=== PATIENT | male | born 1975 | race American Indian/Alaskan Native ===

== ENCOUNTER 2017-01-19 19:57 | Emergency (ER) | payer BC ==
[2017-01-19 21:55] VITALS: BP 164/96
[2017-01-19] MEDS ORDERED: cefTRIAXone 1 GM, Lidocaine 1% 2.1 ML IM ONE ×2 (23:24)
--- NOTE | 2017-01-19 23:28 | EDM.PDOC ---
ED HPI Skin/Rash - General Chief Complaint: Skin Complaint Stated Complaint: INFECTION; [phone] Time Seen by Provider: 01/19/17 23:23 Source: Reports: Patient History Limitations: Reports: No limitations - History of Present Illness INITIAL COMMENTS - FREE TEXT/NARRATIVE: few days h/o recurrent abscess to genital. usually Tx with ABX. - Related Data Allergies Allergy/AdvReac Type Severity Reaction Status Date / Time amoxicillin [Amoxicillin] Allergy UNKNOWN Verified 01/19/17 22:03 daptomycin Allergy Rash Verified 01/19/17 22:03 Penicillins Allergy UNKNOWN Verified 01/19/17 22:03 vancomycin Allergy Rash Verified 01/19/17 22:03 Home Meds: Ambulatory Orders Medication Instructions Recorded Confirmed Lisinopril 20 mg PO DAILY 04/21/15 01/19/17 Metoprolol Succinate [Toprol XL 50 mg PO DAILY 04/21/15 01/19/17 50mg] NIFEdipine [Nifedipine ER] 30 mg PO DAILY 04/21/15 01/19/17 Meloxicam [Meloxicam] 15 mg PO DAILY 01/19/17 01/19/17 Past Medical History Cardiovascular History: Reports: Hypertension Respiratory History: Reports: None Gastrointestinal History: Reports: Pancreatitis Other Gastrointestinal History: cyst on his stomach removed Genitourinary History: Reports: None Musculoskeletal History: Reports: Arthritis Other Musculoskeletal History: knee Neurological History: Reports: None Psychiatric History: Reports: None Endocrine/Metabolic History: Reports: None Hematologic History: Reports: None Immunologic History: Reports: None Oncologic (Cancer) History: Reports: None Dermatologic History: Reports: None - Infectious Disease History Infectious Disease History: Reports: Chicken pox - Past Surgical History HEENT Surgical History: Reports: Tonsillectomy Other Musculoskeletal Surgeries/Procedures:: right ankle surgery Social & Family History - Family History Family Medical History: Unobtainable - Tobacco Use Smoking Status *Q: Current Every Day Smoker Years of Tobacco use: 23 Packs/Tins Daily: 1 Used Tobacco, but Quit: No Second Hand Smoke Exposure: Yes - Caffeine Use Caffeine Use: Reports: Soda, Tea - Alcohol Use Days Per Week of Alcohol Use: 1 Number of Drinks Per Day: 2 Total Drinks Per Week: 2 - Recreational Drug Use Recreational Drug Use: No ED ROS GENERAL - Review of Systems Review Of Systems: ROS reveals no pertinent complaints other than HPI. ED EXAM, SKIN/RASH Exam: See Below Exam Limited By: No limitations General Appearance: alert, WD/WN, no apparent distress Ears: hearing grossly normal Throat/Mouth: Normal voice, No airway compromise Head: atraumatic Neck: non-tender, full range of motion Respiratory/Chest: no respiratory distress Cardiovascular: regular rate, rhythm GI/Abdominal: soft, non tender (Male) Exam: Penile lesions Neurological: alert, oriented, normal cognition, normal gait, no motor/sensory deficits Psychiatric: normal affect, normal mood Skin: Warm, Dry Location, Skin: genital Associated features: inflammation Lymphatic: no adenopathy Course - Vital Signs Last Recorded V/S: Last Vital Signs Temp 36.9 C 01/19/17 21:54 Pulse 78 01/19/17 21:54 Resp 22 H 01/19/17 21:54 BP 164/96 H 01/19/17 21:54 Pulse Ox 95 01/19/17 21:54 Departure - Departure Time of Disposition: 23:26 Disposition: Home, Self-Care 01 Condition: good Clinical Impression: Abscess Instructions: Abscess Forms: ED Department Discharge Additional Instructions: 1) keep area clean and dry 2) try sitz bath or hot compress to area 3) follow up at clinic or recheck as needed rx given: keflex 250mg qid x 40
== END 2017-01-20 00:24 | disposition home or self-care (01) ==
LOC: DL.ED 19:57
DX: N48.21 Abscess of corpus cavernosum and penis (principal); I10 Essential (primary) hypertension; M19.90 Unspecified osteoarthritis, unspecified site; F17.210 Nicotine dependence, cigarettes, uncomplicated; Z88.0 Allergy status to penicillin; Z88.1 Allergy status to other antibiotic agents; Z98.890 Other specified postprocedural states
CPT/HCPCS: 96372; 99282; J0696

== ENCOUNTER 2019-04-08 13:01 | Emergency (ER) | payer BC ==
--- NOTE | 2019-04-08 13:38 | EDM.PDOC ---
ED HPI GENERAL MEDICAL PROBLEM - General Chief Complaint: Back Pain or Injury Stated Complaint: BACK IN OUT OF PLACE [phone] Time Seen by Provider: 04/08/19 13:25 Source of Information: Reports: Patient History Limitations: Reports: No Limitations - History of Present Illness INITIAL COMMENTS - FREE TEXT/NARRATIVE: This 44 yo male patient reports to the ED with left lower back pain. The patient reports he has had increasing symptoms over the past couple of days. The patient reports he had a cough over the weekend and has noticed increased back pain since the time. The patient reports he has taken a muscle relaxer and an NSAID, but continues to have pain. The patient reports he just got back into town from [place] after having knee injections. The patient has been seen previously for back pain, but does not think previous pain was this bad. 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) Left Lower Back Pain Score (Numeric/FACES): 10 - Related Data Allergies Allergy/AdvReac Type Severity Reaction Status Date / Time amoxicillin [Amoxicillin] Allergy Mild UNKNOWN Verified 04/08/19 13:25 Penicillins Allergy Mild UNKNOWN Verified 04/08/19 13:25 daptomycin Allergy Rash Verified 04/08/19 13:25 vancomycin Allergy Rash Verified 04/08/19 13:25 Home Meds: Home Meds Lisinopril 20 mg PO DAILY 04/21/15 [History] Metoprolol Succinate [Toprol XL 50mg] 50 mg PO DAILY 04/21/15 [History] NIFEdipine [Nifedipine ER] 30 mg PO DAILY 04/21/15 [History] Aspirin 81 mg PO DAILY 04/08/19 [History] Cyclobenzaprine [Flexeril] 7.5 mg PO TID 04/08/19 [History] Diclofenac Potassium [Zipsor] 50 mg PO DAILY 04/08/19 [History] Ibuprofen 400 mg PO Q6H 04/08/19 [History] Past Medical History HEENT History: Reports: Impaired Vision Cardiovascular History: Reports: Hypertension Respiratory History: Reports: None Gastrointestinal History: Reports: Pancreatitis Other Gastrointestinal History: cyst on his stomach removed Genitourinary History: Reports: None Musculoskeletal History: Reports: Arthritis Other Musculoskeletal History: knee Neurological History: Reports: None Psychiatric History: Reports: None Endocrine/Metabolic History: Reports: None Hematologic History: Reports: None Immunologic History: Reports: None Oncologic (Cancer) History: Reports: None Dermatologic History: Reports: None - Infectious Disease History Infectious Disease History: Reports: Chicken Pox, MRSA - Past Surgical History Head Surgeries/Procedures: Reports: None HEENT Surgical History: Reports: Tonsillectomy Other Musculoskeletal Surgeries/Procedures:: right ankle surgery Social & Family History - Family History Family Medical History: Noncontributory - Tobacco Use Smoking Status *Q: Current Every Day Smoker Years of Tobacco use: 20 Packs/Tins Daily: 0.5 - Caffeine Use Caffeine Use: Reports: Soda, Tea - Recreational Drug Use Recreational Drug Use: No ED ROS GENERAL - Review of Systems Review Of Systems: ROS reveals no pertinent complaints other than HPI. ED EXAM,LOWER BACK PAIN/INJURY - Physical Exam Exam: See Below Exam Limited By: No Limitations General Appearance: Alert, WD/WN, Moderate Distress, Obese (Morbid) Eye Exam: Bilateral Eye: EOMI, Normal Inspection, PERRL Ears: Normal External Exam, Normal Canal, Hearing Grossly Normal, Normal TMs Nose: Normal Inspection, Normal Mucosa, No Blood Throat/Mouth: Normal Inspection, Normal Lips, Normal Teeth, Normal Gums, Normal Oropharynx, Normal Voice, No Airway Compromise Head: Atraumatic, Normocephalic Neck: Normal Inspection, Supple, Non-Tender, Full Range of Motion Respiratory/Chest: No Respiratory Distress, Lungs Clear, Normal Breath Sounds, No Accessory Muscle Use, Chest Non-Tender Cardiovascular: Normal Peripheral Pulses, Regular Rate, Rhythm, No Edema, No Gallop, No JVD, No Murmur, No Rub GI/Abdominal: Normal Bowel Sounds, Soft, Non-Tender, Other (Morbid obesity) (Male) Exam: Deferred Rectal (Males) Exam: Deferred Back Exam: Paraspinal Tenderness (left lower back ) Extremities: Normal Inspection, Normal Range of Motion, Non-Tender, No Pedal Edema, Normal Capillary Refill Neurological: Alert, Normal Mood/Affect, CN II-XII Intact, Oriented x 3 Psychiatric: Normal Affect, Normal Mood Skin Exam: Warm, Dry, Intact, Normal Color, No Rash Lymphatic: No Adenopathy Course - Vital Signs Last Recorded V/S: Last Vital Signs Temp 36.3 C 04/08/19 13:15 Pulse 92 04/08/19 13:15 Resp 24 H 04/08/19 13:15 BP 162/86 H 04/08/19 13:15 Pulse Ox 95 04/08/19 13:15 - Orders/Labs/Meds Orders: Active Orders 24 hr Category Date Time Status UA W/MICROSCOPIC [URIN] Urgent Lab 04/08/19 14:26 Results Labs: Laboratory Tests 04/08/19 04/08/19 04/08/19 Range/Units 13:39 13:39 14:26 WBC 14.0 H (5.0-10.0) 10^3/uL RBC 4.81 (4.6-6.2) 10^6/uL Hgb 14.0 (14.0-18.0) g/dL Hct 44.2 (40.0-54.0) % MCV 91.9 (80-100) fL MCH 29.1 (27.0-34.0) pg MCHC 31.7 L (33.0-35.0) g/dL Plt Count 246 (150-450) 10^3/uL Neut % (Auto) 84.6 H (42.2-75.2) % Lymph % (Auto) 7.0 L (20.5-50.1) % [place] % (Auto) 5.3 (2-8) % Eos % (Auto) 2.9 (1.0-3.0) % Baso % (Auto) 0.2 (0.0-1.0) % Sodium 139 (135-145) mmol/L Potassium 3.8 (3.6-5.0) mmol/L Chloride 107 (101-111) mmol/L Carbon Dioxide 22.0 (21.0-31.0) mmol/L Anion Gap 13.8 BUN 16 (7-18) mg/dL Creatinine 0.9 (0.6-1.3) mg/dL Est Cr Clr Drug Dosing 95.89 mL/min Estimated GFR (MDRD) > 60 BUN/Creatinine Ratio 17.77 Glucose 153 H (74-105) mg/dL Calcium 8.4 (8.4-10.2) mg/dl Total Bilirubin 1.2 H (0.2-1.0) mg/dL AST 23 (10-42) IU/L ALT 23 (10-60) IU/L Alkaline Phosphatase 119 (42-121) IU/L Total Protein 7.7 (6.7-8.2) g/dl Albumin 3.7 (3.2-5.5) g/dl Globulin 4.0 Albumin/Globulin Ratio 0.93 Urine Color Yellow (YELLOW) Urine Appearance Clear (CLEAR) Urine pH 6.5 (5.0-9.0) Ur Specific [place] 1.025 (1.005-1.030) Urine Protein Trace H (NEGATIVE) Urine Glucose (UA) Negative (NEGATIVE) Urine Ketones Negative (NEGATIVE) Urine Occult Blood Negative (NEGATIVE) Urine Nitrite Negative (NEGATIVE) Urine Bilirubin Negative (NEGATIVE) Urine Urobilinogen 1.0 (0.2-1.0) mg/dL Ur Leukocyte Esterase Negative (NEGATIVE) Meds: Medications Discontinued Medications Generic Name Dose Route Start Last Admin Trade Name Freq PRN Reason Stop Dose Admin Ketorolac Tromethamine 60 mg 04/08/19 14:41 Toradol IM 04/08/19 14:42 ONETIME ONE Departure - Departure Time of Disposition: 14:44 Disposition: Home, Self-Care 01 Condition: Fair Clinical Impression: Bronchitis Low back strain Qualifiers: Encounter type: initial encounter Qualified Code(s): S39.012A - Strain of muscle, fascia and tendon of lower back, initial encounter - Discharge Information *PRESCRIPTION DRUG MONITORING PROGRAM REVIEWED*: Not Applicable *COPY OF PRESCRIPTION DRUG MONITORING REPORT IN PATIENT JUAN CARLOS: Not Applicable Instructions: Upper Respiratory Infection, Adult, Azev-hr-Tios, Muscle Strain, [id number] Forms: ED Department Discharge Care Plan Goals: The patient was advised of the examination and lab results during the visit. The patient was given an injection of Toradol while in the ED. The patient was discharged with a script for Azithromycin (500 mg) to take 1 by mouth daily for 5 days and Prednisone (20 mg) #10 to take 2 by mouth daily for 5 days. If the patient has any additional symptoms or concerns, the patient should either return to the emergency department or visit his primary care facility. - My Orders Last 24 Hours: My Active Orders 04/08/19 14:26 UA W/MICROSCOPIC [URIN] Urgent - Assessment/Plan Last 24 Hours: My Active Orders 04/08/19 14:26 UA W/MICROSCOPIC [URIN] Urgent
[2019-04-08 14:06] LABS: ANION GAP 13.8; CHLORIDE,CL 107 mmol/L (101-111); SODIUM,NA 139 mmol/L (135-145)
[2019-04-08] MEDS ORDERED: Ketorolac 30 MG/ML SDV IM ONE (14:41)
[2019-04-08 15:39] VITALS: BP 147/69
== END 2019-04-08 15:55 | disposition home or self-care (01) ==
LOC: DL.ED 13:01
DX: S39.012A Strain of muscle, fascia and tendon of lower back, initial encounter (principal); J40 Bronchitis, not specified as acute or chronic; I10 Essential (primary) hypertension; F17.210 Nicotine dependence, cigarettes, uncomplicated; Z88.1 Allergy status to other antibiotic agents; Z88.0 Allergy status to penicillin; Z79.82 Long term (current) use of aspirin; Z79.899 Other long term (current) drug therapy; Z98.890 Other specified postprocedural states; X58.XXXA Exposure to other specified factors, initial encounter
CPT/HCPCS: 36415; 80053; 81001; 85025; 96372; 99283; J1885

== ENCOUNTER 2019-07-13 11:32 | Emergency (ER) | payer BC ==
[2019-07-13] MEDS ORDERED: Ondansetron 4 MG/2 ML SDV ONE (12:04)
[2019-07-13] MEDS ORDERED: Ondansetron 4 MG/2 ML SDV IV ONE (12:09)
[2019-07-13 12:10] VITALS: PULSE 99
[2019-07-13 12:24] VITALS: BP 108/58
[2019-07-13] MEDS ORDERED: Sodium Chloride 0.9% 1,000 ML IV SCH ×2 (12:30)
[2019-07-13 12:36] LABS: ANION GAP 15.8
[2019-07-13] MEDS ORDERED: Clindamycin Phosphate 900 MG in Sodium Chloride 0.9% 100 ML IV ONE (12:42)
[2019-07-13] MEDS ORDERED: Lactated Ringers 1,000 ML IV ONE (12:43)
[2019-07-13] MEDS ORDERED: Norepinephrine 4 MG in Dextrose 5% in Water 246 ML IV SCH ×2 (13:00)
--- NOTE | 2019-07-13 13:27 | EDM.PDOC ---
Scribed by Wendi Rico 07/13/19 1316 for Acacia Keys NP ED HPI GENERAL MEDICAL PROBLEM - General Chief Complaint: Skin Complaint Stated Complaint: VERY DIZZY. MAY HAVE CELLULITIS PER PT Time Seen by Provider: 07/13/19 12:07 Source of Information: Reports: Patient, RN, RN Notes Reviewed History Limitations: Reports: No Limitations - History of Present Illness INITIAL COMMENTS - FREE TEXT/NARRATIVE: A morbid obese 44-year-old male presents with dizziness and pannus skin infection. Patient required wheelchair from vehicle to hospital. Symptoms began last night with fevers, chills and dizziness. He complains of skin tightness and pain over his abdomen that is red, hot and inflamed which includes the whole half os his abdomen and pannus. Mild nausea started today. No diarrhea. He has mild shortness of breath that began last night but oxygenating well in the ER. History of past cellulitis, hypertension, pancreatitis, blood pressure controlled with 3 hypertensive meds. Blood pressure medications taken this morning. Onset Date: 07/12/19 Duration: Getting Worse Location: Reports: Abdomen Severity: Severe Improves with: Reports: None Worsens with: Reports: None Associated Symptoms: Reports: No Other Symptoms - Related Data Allergies Allergy/AdvReac Type Severity Reaction Status Date / Time amoxicillin [Amoxicillin] Allergy Mild UNKNOWN Verified 05/15/19 23:53 Penicillins Allergy Mild UNKNOWN Verified 05/15/19 23:53 daptomycin Allergy Rash Verified 05/15/19 23:53 vancomycin Allergy Rash Verified 05/15/19 23:53 Home Meds: Home Meds Lisinopril 20 mg PO DAILY 04/21/15 [History] Metoprolol Succinate [Toprol XL 50mg] 50 mg PO DAILY 04/21/15 [History] NIFEdipine [Nifedipine ER] 30 mg PO DAILY 04/21/15 [History] Aspirin 81 mg PO DAILY 04/08/19 [History] Cyclobenzaprine [Flexeril] 7.5 mg PO TID 04/08/19 [History] Diclofenac Potassium [Zipsor] 50 mg PO DAILY 04/08/19 [History] Ibuprofen 400 mg PO Q6H 04/08/19 [History] Past Medical History HEENT History: Reports: Impaired Vision Cardiovascular History: Reports: Hypertension Respiratory History: Reports: Bronchitis, Recurrent Gastrointestinal History: Reports: Pancreatitis Other Gastrointestinal History: cyst on his stomach removed Genitourinary History: Reports: None Musculoskeletal History: Reports: Arthritis Other Musculoskeletal History: knee Neurological History: Reports: None Psychiatric History: Reports: None Endocrine/Metabolic History: Reports: None Hematologic History: Reports: None Immunologic History: Reports: None Oncologic (Cancer) History: Reports: None Dermatologic History: Reports: Cellulitis - Infectious Disease History Infectious Disease History: Reports: Chicken Pox, MRSA - Past Surgical History Head Surgeries/Procedures: Reports: None HEENT Surgical History: Reports: Tonsillectomy Other Musculoskeletal Surgeries/Procedures:: right ankle surgery Social & Family History - Family History Family Medical History: Noncontributory - Caffeine Use Caffeine Use: Reports: Soda, Tea ED ROS GENERAL - Review of Systems Review Of Systems: ROS reveals no pertinent complaints other than HPI. ED EXAM, GENERAL - Physical Exam Exam: See Below Exam Limited By: No Limitations General Appearance: Alert, Anxious, Mild Distress, Other (fatigue) Eye Exam: Bilateral Eye: Normal Inspection Ears: Normal External Exam, Normal Canal, Hearing Grossly Normal, Normal TMs Nose: Normal Inspection, Normal Mucosa, No Blood Throat/Mouth: Normal Inspection, Normal Lips, Normal Teeth, Normal Gums, Normal Oropharynx, Normal Voice, No Airway Compromise Head: Atraumatic, Normocephalic Neck: Normal Inspection, Supple, Non-Tender, Full Range of Motion Respiratory/Chest: No Respiratory Distress, Lungs Clear, Normal Breath Sounds, No Accessory Muscle Use, Chest Non-Tender, Other (sat 99%) Cardiovascular: Normal Peripheral Pulses, Regular Rate, Rhythm, No Edema, No Gallop, No JVD, No Murmur, No Rub, Tachycardia (Large) Peripheral Pulses: 4+: Radial (L), Radial (R) GI/Abdominal: Normal Bowel Sounds, Other (large soft upper abdomen. Mid and lower abdomen red/hot & inflamed. ) Extremities: Normal Inspection, Normal Range of Motion, Non-Tender, Normal Capillary Refill, No Pedal Edema Neurological: Alert, Oriented, Normal Cognition, No Motor/Sensory Deficits, Other (Not able to ambulate; due to dizziness with standing or sitting. Only can tolerate laying at 30 degrees with hypotension) Skin Exam: Rash (Mid to lower entire abdomen and pantus is red/hot/inflamed as well as hard. Mild yeast in creases of pantus and groin. ), Other Front/Back Body Diagram: 1 - Red hot cellultis of the large pantus Course - Vital Signs Last Recorded V/S: Last Vital Signs Temp 36.4 C 07/13/19 12:08 Pulse 99 07/13/19 12:08 Resp 20 07/13/19 12:08 BP 108/58 L 07/13/19 12:22 Pulse Ox 100 07/13/19 12:08 - Orders/Labs/Meds Orders: Active Orders 24 hr Category Date Time Status CULTURE BLOOD [BC] Routine Lab 07/13/19 12:01 Received CULTURE BLOOD [BC] Routine Lab 07/13/19 12:05 Received Clindamycin Phosphate [Cleocin] 900 mg Med 07/13/19 12:42 Active Sodium Chloride 0.9% [Normal Saline] 100 ml IV ONETIME Lactated Ringers [Ringers, Lactated] 1,000 ml Med 07/13/19 12:43 Active IV .BOLUS Norepinephrine [Levophed] 4 mg Med 07/13/19 13:00 Active Dextrose 5% in Water 246 ml IV TITRATE Sodium Chloride 0.9% [Normal Saline] 1,000 ml Med 07/13/19 12:30 Active IV ASDIRECTED Sodium Chloride 0.9% [Normal Saline] 1,000 ml Med 07/13/19 12:30 Active IV ASDIRECTED Medication Orders Sodium Chloride (Normal Saline) 1,000 mls @ 999 mls/hr IV ASDIRECTED VIRAL Last Admin: 07/13/19 12:25 Dose: 999 mls/hr Sodium Chloride (Normal Saline) 1,000 mls @ 999 mls/hr IV ASDIRECTED VIRAL Last Admin: 07/13/19 12:27 Dose: 999 mls/hr Clindamycin Phosphate 900 mg/ (Sodium Chloride) 106 mls @ 200 mls/hr IV ONETIME ONE Stop: 07/13/19 13:13 Last Admin: 07/13/19 12:49 Dose: 200 mls/hr Lactated Ringer's (Ringers, Lactated) 1,000 mls @ 999 mls/hr IV .BOLUS ONE Stop: 07/13/19 13:43 Last Admin: 07/13/19 12:45 Dose: 999 mls/hr Norepinephrine Bitartrate 4 mg (/ Dextrose/Water) 250 mls @ 7.5 mls/hr IV TITRATE VIRAL; Protocol Labs: Laboratory Tests 07/13/19 07/13/19 07/13/19 Range/Units 12:01 12:01 12:01 WBC 42.8 H* (5.0-10.0) 10^3/uL RBC 4.49 L (4.6-6.2) 10^6/uL Hgb 13.5 L (14.0-18.0) g/dL Hct 42.2 (40.0-54.0) % MCV 94.0 (80-100) fL MCH 30.1 (27.0-34.0) pg MCHC 32.0 L (33.0-35.0) g/dL Plt Count 219 (150-450) 10^3/uL Neut % (Auto) 95.3 H (42.2-75.2) % Lymph % (Auto) 2.2 L (20.5-50.1) % [place] % (Auto) 2.4 (2-8) % Eos % (Auto) 0.0 L (1.0-3.0) % Baso % (Auto) 0.1 (0.0-1.0) % Add Manual Diff Yes Neutrophils % (Manual) 76 H (42-75) % Band Neutrophils % 17 % Lymphocytes % (Manual) 5 L (20-50) % Monocytes % (Manual) 2 (2-8) % Metamyelocytes % 1 Sodium 137 (135-145) mmol/L Potassium 3.8 (3.6-5.0) mmol/L Chloride 106 (101-111) mmol/L Carbon Dioxide 19.0 L (21.0-31.0) mmol/L Anion Gap 15.8 BUN 28 H (7-18) mg/dL Creatinine 2.6 H D (0.6-1.3) mg/dL Est Cr Clr Drug Dosing 33.19 mL/min Estimated GFR (MDRD) 27 BUN/Creatinine Ratio 10.76 Glucose 180 H (74-105) mg/dL Lactic Acid 2.5 H (0.5-2.2) mmol/L Calcium 7.8 L (8.4-10.2) mg/dl Total Bilirubin 2.0 H (0.2-1.0) mg/dL AST 19 (10-42) IU/L ALT 25 (10-60) IU/L Alkaline Phosphatase 77 (42-121) IU/L C-Reactive Protein (0.0-1.3) mg/dL Total Protein 6.8 (6.7-8.2) g/dl Albumin 3.2 (3.2-5.5) g/dl Globulin 3.6 Albumin/Globulin Ratio 0.89 / Range/Units 12:01 WBC (5.0-10.0) 10^3/uL RBC (4.6-6.2) 10^6/uL Hgb (14.0-18.0) g/dL Hct (40.0-54.0) % MCV (80-100) fL MCH (27.0-34.0) pg MCHC (33.0-35.0) g/dL Plt Count (150-450) 10^3/uL Neut % (Auto) (42.2-75.2) % Lymph % (Auto) (20.5-50.1) % [place] % (Auto) (2-8) % Eos % (Auto) (1.0-3.0) % Baso % (Auto) (0.0-1.0) % Add Manual Diff Neutrophils % (Manual) (42-75) % Band Neutrophils % % Lymphocytes % (Manual) (20-50) % Monocytes % (Manual) (2-8) % Metamyelocytes % Sodium (135-145) mmol/L Potassium (3.6-5.0) mmol/L Chloride (101-111) mmol/L Carbon Dioxide (21.0-31.0) mmol/L Anion Gap BUN (7-18) mg/dL Creatinine (0.6-1.3) mg/dL Est Cr Clr Drug Dosing mL/min Estimated GFR (MDRD) BUN/Creatinine Ratio Glucose (74-105) mg/dL Lactic Acid (0.5-2.2) mmol/L Calcium (8.4-10.2) mg/dl Total Bilirubin (0.2-1.0) mg/dL AST (10-42) IU/L ALT (10-60) IU/L Alkaline Phosphatase (42-121) IU/L C-Reactive Protein 19.7 H (0.0-1.3) mg/dL Total Protein (6.7-8.2) g/dl Albumin (3.2-5.5) g/dl Globulin Albumin/Globulin Ratio Meds: Medications Generic Name Dose Route Start Last Admin Trade Name Freq PRN Reason Stop Dose Admin Sodium Chloride 1,000 mls @ 999 mls/hr 07/13/19 12:30 07/13/19 12:25 Normal Saline IV 999 mls/hr ASDIRECTED VIRAL Administration Sodium Chloride 1,000 mls @ 999 mls/hr 07/13/19 12:30 07/13/19 12:27 Normal Saline IV 999 mls/hr ASDIRECTED VIRAL Administration Clindamycin Phosphate 900 mg/ 106 mls @ 200 mls/hr 07/13/19 12:42 07/13/19 12 :49 Sodium Chloride IV 07/13/19 13:13 200 mls/hr ONETIME ONE Administration Lactated Ringer's 1,000 mls @ 999 mls/hr 07/13/19 12:43 07/13/19 12:45 Ringers, Lactated IV 07/13/19 13:43 999 mls/hr .BOLUS ONE Administration Norepinephrine Bitartrate 4 mg 250 mls @ 7.5 mls/hr 07/13/19 13:00 / Dextrose/Water IV TITRATE VIRAL Protocol 2 MCG/MIN Discontinued Medications Generic Name Dose Route Start Last Admin Trade Name Freq PRN Reason Stop Dose Admin Ondansetron HCl Confirm 07/13/19 12:04 07/13/19 12:12 Zofran Administered 07/13/19 12:05 Not Given Dose 4 mg .ROUTE .STK-MED ONE Ondansetron HCl 4 mg 07/13/19 12:09 07/13/19 12:12 Zofran IV 07/13/19 12:10 4 mg ONETIME ONE Administration - Re-Assessments/Exams Free Text/Narrative Re-Assessment/Exam: 07/13/19 13:17 Septic picture most likely related to cellulitis of the skin of the abdominal wall; as evidenced by red/hot skin of the entire mid and lower abdomen and pannus. Hypotensive 60-70 systolic; placed 2 IV's and running in 2 L NS and 1 L LR, then started levophed. CBC 42.8; normal platelets. - leukocytosis Cr 2.6 - renal failure Lactate 2.5 - sepsis. Hx of HTN on 3 meds for HTN and took this am. Also hx of previous cellulitis of abdominal wall. He is borderline DM per pt. BS 180. Contacted [facility] accepting and fixed wing contact right away; approval for transport and admission to the ICU. Flight crew here and assisting with stabilization. Patient continues to mentate well. Mild nausea. He is NPO Departure - Departure Time of Disposition: 13:24 Disposition: DC/Tfer to Located Within [facility] 02 Condition: Serious Clinical Impression: Sepsis associated hypotension Cellulitis Qualifiers: Site of cellulitis: other site Qualified Code(s): L03.818 - Cellulitis of other sites - Discharge Information *PRESCRIPTION DRUG MONITORING PROGRAM REVIEWED*: Not Applicable *COPY OF PRESCRIPTION DRUG MONITORING REPORT IN PATIENT JUAN CARLOS: Not Applicable Forms: ED Department Discharge, Interfacility Transfer EMTALA - My Orders Last 24 Hours: My Active Orders 07/13/19 12:01 CULTURE BLOOD [BC] Routine 07/13/19 12:05 CULTURE BLOOD [BC] Routine 07/13/19 12:30 Sodium Chloride 0.9% [Normal Saline] 1,000 ml IV ASDIRECTED Sodium Chloride 0.9% [Normal Saline] 1,000 ml IV ASDIRECTED 07/13/19 12:42 Clindamycin Phosphate [Cleocin] 900 mg Sodium Chloride 0.9% [Normal Saline] 100 ml IV ONETIME 07/13/19 12:43 Lactated Ringers [Ringers, Lactated] 1,000 ml IV .BOLUS 07/13/19 13:00 Norepinephrine [Levophed] 4 mg Dextrose 5% in Water 246 ml IV TITRATE - Assessment/Plan Last 24 Hours: My Active Orders 07/13/19 12:01 CULTURE BLOOD [BC] Routine 07/13/19 12:05 CULTURE BLOOD [BC] Routine 07/13/19 12:30 Sodium Chloride 0.9% [Normal Saline] 1,000 ml IV ASDIRECTED Sodium Chloride 0.9% [Normal Saline] 1,000 ml IV ASDIRECTED 07/13/19 12:42 Clindamycin Phosphate [Cleocin] 900 mg Sodium Chloride 0.9% [Normal Saline] 100 ml IV ONETIME 07/13/19 12:43 Lactated Ringers [Ringers, Lactated] 1,000 ml IV .BOLUS 07/13/19 13:00 Norepinephrine [Levophed] 4 mg Dextrose 5% in Water 246 ml IV TITRATE I have read and agree with the documentation that has been completed regarding this visit. By signing this record, I attest that the documentation was completed in my physical presence and is an accurate record of the encounter.
== END 2019-07-13 13:20 ==
LOC: DL.ED 11:32
DX: A41.9 Sepsis, unspecified organism (principal); L03.311 Cellulitis of abdominal wall; I95.9 Hypotension, unspecified; I10 Essential (primary) hypertension; M19.90 Unspecified osteoarthritis, unspecified site; Z88.1 Allergy status to other antibiotic agents; Z88.0 Allergy status to penicillin; Z88.8 Allergy status to other drugs, medicaments and biological substances; Z79.82 Long term (current) use of aspirin; Z79.899 Other long term (current) drug therapy
CPT/HCPCS: 36415; 80053; 83605; 85025; 86140; 87040; 96361; 96365; 96375; 99285; J3490; J7030; J7050; J7120; J2405

== ENCOUNTER 2019-07-24 10:53 | Inpatient (IN) | payer BC ==
[2019-07-24] MEDS ORDERED: Ondansetron 4 MG Tab.DIS PO PRN (12:43)
[2019-07-24] MEDS ORDERED: Acetaminophen 325 MG Tab PO PRN (12:43)
--- NOTE | 2019-07-24 14:41 | HP ---
CHIEF COMPLAINT: Abdominal wall cellulitis. HISTORY OF PRESENT ILLNESS: The patient is a 44-year-old male with past medical history of morbid obesity, hypertension, history of MSSA ankle osteomyelitis in the past, and history of abdominal wall abscess with MRSA in July 2014, and recent hospitalization for abdominal wall cellulitis and sepsis throughout the hospital and the patient was admitted to ICU and was given pressors and antibiotics and was discharged on 07/17/2019, to complete IV antibiotics twice a day here in [place] as an outpatient infusion, but the patient has been missing a few doses of the antibiotics and the patient also mentioned that he is still not feeling good and is still feeling nauseous and weak and also still has some dizziness. He denies though any fever or chills or any significant abdominal pain, although his lower abdomen is still red and tender. Because of the above, he was then admitted to [facility] for further management. PAST MEDICAL HISTORY: As in [facility]. HOME MEDICATION: 1. Aspirin. 2. Iron supplementation. 3. Nifedipine. 4. Toprol-XL. 5. Lisinopril. 6. He is also on the outpatient IV ceftaroline. ALLERGIES: Daptomycin (rhabdomyolysis and elevated LFT), amoxicillin, penicillin, and vancomycin. REVIEW OF SYSTEMS: As in [facility]. The rest of the review of systems is negative. FAMILY HISTORY: Negative. SOCIAL HISTORY: The patient is a smoker but no illicit drug use and non-alcohol drinker. Last alcoholic drink was about 3 years ago. PHYSICAL EXAMINATION: General: The patient is very pleasant. He is alert and oriented, not in any acute distress. Vital Signs: Blood pressure is 106/70, pulse of 84, temperature of 97, weight is 426 pounds. SHEENT: Normocephalic. There are pink palpebral conjunctivae. Sclerae anicteric. Neck: No JVD. No lymphadenopathy. Heart: Regular rate and rhythm. Normal S1, S2. No gallops. No rubs. Lungs: Equal bilaterally. No crackles, no wheezing. Abdomen: Morbidly obese and protuberant, and there is abdominal erythema and swelling and some reproducible pain on palpation on the lower abdominal area. Extremities: Negative for any significant pedal edema. No calf tenderness. LABORATORY DATA: Lab workup that was done in [facility] last July 23, 2019, CBC; WBC 13.73, hemoglobin is 12.2, hematocrit is 38.5, platelet is 352. Comp panel; sodium is 135, carbon dioxide is 22, glucose is 163. The rest of the panel unremarkable. Sed rate is 50. CRP is 1.9. ADMITTING DIAGNOSES: 1. Extensive abdominal wall cellulitis and panniculitis and history of abdominal wall cellulitis with methicillin-resistant Staphylococcus aureus in 2013. 2. Morbid obesity. 3. Noncompliance with the IV antibiotics. 4. Hypertension. TREATMENT PLAN: The patient is going to be admitted to Swing Bed. We will continue with his ceftaroline, and we will continue with his home medication and the rest of the management as necessary, and the patient is a full code. [facility] /[id number]
[2019-07-24] MEDS: CEFTAROLINE FOSAMIL IV SCH (21:00)
[2019-07-24] MEDS: SODIUM CHLORIDE 0.9% IV SCH (21:00)
[2019-07-25] MEDS: Acetaminophen/HYDROcodone 325-10 MG Tab PO PRN (03:17)
[2019-07-25] MEDS ORDERED: Ferrous Sulfate 325 MG Tab PO SCH (06:00)
[2019-07-25] MEDS: Aspirin 81 MG Tab.EC PO SCH (08:37)
[2019-07-25] MEDS: NIFEdipine 30 MG Tab.ER PO SCH (08:37)
[2019-07-25] MEDS: Lisinopril 20 MG Tab PO SCH (08:37)
[2019-07-25] MEDS ORDERED: Metoprolol Succinate 50 MG Tab.ER PO SCH (09:00)
[2019-07-25] MEDS ORDERED: IRON PO SCH (09:00)
[2019-07-25] MEDS ORDERED: Aspirin 81 MG Tab.Chew PO SCH (09:00)
[2019-07-25] MEDS ORDERED: NIFEdipine 30 MG Tab.ER PO SCH (09:00)
[2019-07-25] MEDS ORDERED: Lisinopril 20 MG Tab PO SCH (09:00)
[2019-07-25] MEDS: SODIUM CHLORIDE 0.9% IV SCH ×2 (09:28→21:07)
[2019-07-25] MEDS: CEFTAROLINE FOSAMIL IV SCH ×2 (09:28→21:07)
[2019-07-25] MEDS: Sodium Chloride 0.9% 10 ML Syringe FLUSH PRN ×2 (09:28→21:06)
[2019-07-25] MEDS: Ibuprofen 200 MG Tab PO PRN ×2 (15:25→22:38)
[2019-07-26] MEDS: Acetaminophen/HYDROcodone 325-10 MG Tab PO PRN ×2 (02:56→08:53)
[2019-07-26] MEDS: NIFEdipine 30 MG Tab.ER PO SCH (08:51)
[2019-07-26] MEDS: Aspirin 81 MG Tab.EC PO SCH (08:51)
[2019-07-26] MEDS: Lisinopril 20 MG Tab PO SCH (08:52)
[2019-07-26] MEDS: Ferrous Sulfate 325 MG Tab PO SCH (08:53)
[2019-07-26] MEDS: CEFTAROLINE FOSAMIL IV SCH ×2 (08:54→20:55)
[2019-07-26] MEDS: SODIUM CHLORIDE 0.9% IV SCH ×2 (08:54→20:55)
[2019-07-26 11:39] LABS: ANION GAP 12.2; CHLORIDE,CL 105 mmol/L (101-111); SODIUM,NA 140 mmol/L (135-145)
[2019-07-26] MEDS: Ibuprofen 200 MG Tab PO PRN (19:51)
[2019-07-26] MEDS: Sodium Chloride 0.9% 10 ML Syringe FLUSH PRN (20:55)
[2019-07-27] MEDS: Acetaminophen/HYDROcodone 325-10 MG Tab PO PRN (00:12)
[2019-07-27] MEDS: Ferrous Sulfate 325 MG Tab PO SCH (09:22)
[2019-07-27] MEDS: NIFEdipine 30 MG Tab.ER PO SCH (09:22)
[2019-07-27] MEDS: Aspirin 81 MG Tab.EC PO SCH (09:23)
[2019-07-27] MEDS: Sodium Chloride 0.9% 10 ML Syringe FLUSH PRN ×2 (09:23→20:25)
[2019-07-27] MEDS: Lisinopril 20 MG Tab PO SCH (09:23)
[2019-07-27] MEDS: CEFTAROLINE FOSAMIL IV SCH ×2 (09:24→20:26)
[2019-07-27] MEDS: SODIUM CHLORIDE 0.9% IV SCH ×2 (09:24→20:26)
[2019-07-27] MEDS: Ibuprofen 200 MG Tab PO PRN ×2 (14:28→20:30)
[2019-07-28] MEDS: Acetaminophen/HYDROcodone 325-10 MG Tab PO PRN ×2 (00:09→23:20)
[2019-07-28] MEDS: Ibuprofen 200 MG Tab PO PRN ×2 (07:55→19:43)
[2019-07-28] MEDS: Ferrous Sulfate 325 MG Tab PO SCH (08:50)
[2019-07-28] MEDS: NIFEdipine 30 MG Tab.ER PO SCH (08:50)
[2019-07-28] MEDS: Lisinopril 20 MG Tab PO SCH (08:51)
[2019-07-28] MEDS: Aspirin 81 MG Tab.EC PO SCH (08:51)
[2019-07-28] MEDS: Sodium Chloride 0.9% 10 ML Syringe FLUSH PRN ×2 (08:52→20:39)
[2019-07-28] MEDS: CEFTAROLINE FOSAMIL IV SCH ×2 (08:55→20:40)
[2019-07-28] MEDS: SODIUM CHLORIDE 0.9% IV SCH ×2 (08:55→20:40)
[2019-07-28] MEDS: Nystatin Topical Powder 30 GM Bottle TOP PRN (20:38)
[2019-07-29] MEDS: Acetaminophen/HYDROcodone 325-10 MG Tab PO PRN ×2 (05:38→19:58)
[2019-07-29] MEDS: NIFEdipine 30 MG Tab.ER PO SCH (09:03)
[2019-07-29] MEDS: Aspirin 81 MG Tab.EC PO SCH (09:04)
[2019-07-29] MEDS: Ferrous Sulfate 325 MG Tab PO SCH (09:04)
[2019-07-29] MEDS: SODIUM CHLORIDE 0.9% IV SCH ×2 (09:04→20:54)
[2019-07-29] MEDS: Lisinopril 20 MG Tab PO SCH (09:04)
[2019-07-29] MEDS: CEFTAROLINE FOSAMIL IV SCH ×2 (09:04→20:54)
[2019-07-29] MEDS: Ibuprofen 200 MG Tab PO PRN (11:04)
[2019-07-29] MEDS: Metoprolol Succinate 50 MG Tab.ER PO SCH (13:39)
[2019-07-29] MEDS: Sodium Chloride 0.9% 10 ML Syringe FLUSH PRN (20:53)
[2019-07-29] MEDS: Nystatin Topical Powder 30 GM Bottle TOP PRN (20:53)
[2019-07-30] MEDS: Acetaminophen/HYDROcodone 325-10 MG Tab PO PRN ×2 (03:04→22:17)
[2019-07-30] MEDS: CEFTAROLINE FOSAMIL IV SCH ×2 (09:21→20:59)
[2019-07-30] MEDS: Sodium Chloride 0.9% 10 ML Syringe FLUSH PRN ×2 (09:21→20:58)
[2019-07-30] MEDS: SODIUM CHLORIDE 0.9% IV SCH ×2 (09:21→20:59)
[2019-07-30] MEDS: NIFEdipine 30 MG Tab.ER PO SCH (09:22)
[2019-07-30] MEDS: Aspirin 81 MG Tab.EC PO SCH (09:22)
[2019-07-30] MEDS: Ferrous Sulfate 325 MG Tab PO SCH (09:23)
[2019-07-30] MEDS: Lisinopril 20 MG Tab PO SCH (09:23)
[2019-07-30] MEDS: Metoprolol Succinate 50 MG Tab.ER PO SCH (09:23)
--- NOTE | 2019-07-30 11:35 | PCM.PN ---
- General Info Date of Service: 07/30/19 Admission Dx/Problem (Free Text): Extensive abdominal wall cellulitis and panniculitis Subjective Update: Patient admitted to swing bed to complete IV Ceftaroline for extensive abdominal wall cellulitis and panniculitis. She is doing fairly well. No new complaint today. Denies fever and chills. Functional Status: Reports: Pain Controlled - Review of Systems General: Reports: No Symptoms HEENT: Reports: No Symptoms Pulmonary: Reports: No Symptoms Cardiovascular: Reports: No Symptoms Gastrointestinal: Reports: No Symptoms Genitourinary: Reports: No Symptoms Musculoskeletal: Reports: No Symptoms Skin: Reports: No Symptoms Neurological: Reports: No Symptoms Psychiatric: Reports: No Symptoms - Patient Data Vitals - Most Recent: Last Vital Signs Temp 97.7 F 07/30/19 07:51 Pulse 90 07/30/19 09:23 Resp 18 07/30/19 07:51 BP 115/56 L 07/30/19 09:23 Pulse Ox 95 07/30/19 07:51 Weight - Most Recent: 423 lb I&O - Last 24 Hours: Intake & Output 07/29/19 07/30/19 07/30/19 22:59 06:59 14:59 Intake Total 300 192 Balance 300 192 Lab Results Last 24 Hours: Laboratory Results - last 24 hr 07/30/19 07/30/19 07/30/19 Range/Units 06:20 06:20 06:20 WBC 12.9 H (5.0-10.0) 10^3/uL RBC 4.12 L (4.6-6.2) 10^6/uL Hgb 12.1 L (14.0-18.0) g/dL Hct 38.8 L (40.0-54.0) % MCV 94.2 (80-100) fL MCH 29.4 (27.0-34.0) pg MCHC 31.2 L (33.0-35.0) g/dL Plt Count 326 (150-450) 10^3/uL Neut % (Auto) 80.7 H (42.2-75.2) % Lymph % (Auto) 9.3 L (20.5-50.1) % [place] % (Auto) 7.4 (2-8) % Eos % (Auto) 2.2 (1.0-3.0) % Baso % (Auto) 0.4 (0.0-1.0) % ESR 83 H (0-15) mm/hr ALT 24 (10-60) IU/L C-Reactive Protein 6.8 H (0.0-1.3) mg/dL Med Orders - Current: Current Medications Acetaminophen (Tylenol) 650 mg PO Q4H PRN PRN Reason: Pain (Mild 1-3)/fever Hydrocodone Bitart/Acetaminophen ([place] 325-10 Mg) 1 tab PO Q4H PRN PRN Reason: Pain (moderate 4-6) Last Admin: 07/30/19 03:04 Dose: 1 tab Aspirin (Halfprin) 81 mg PO DAILY [facility] Last Admin: 07/30/19 09:22 Dose: 81 mg Ferrous Sulfate (Ferrous Sulfate) 325 mg PO 0800 [facility] Last Admin: 07/30/19 09:23 Dose: 325 mg Ceftaroline Fosamil 600 mg/ (Sodium Chloride) 100 mls @ 100 mls/hr IV Q12HR [facility] Stop: 07/31/19 09:59 Last Admin: 07/30/19 09:21 Dose: 100 mls/hr Ibuprofen (Motrin) 200 mg PO Q6H PRN PRN Reason: Pain (mild 1-3), use 2nd Last Admin: 07/29/19 11:04 Dose: 200 mg Lisinopril (Prinivil) 20 mg PO DAILY [facility] Last Admin: 07/30/19 09:23 Dose: 20 mg Metoprolol Succinate (Toprol Xl) 50 mg PO DAILY [facility] Last Admin: 07/30/19 09:23 Dose: Not Given Nifedipine (Procardia Xl) 30 mg PO DAILY [facility] Last Admin: 07/30/19 09:22 Dose: 30 mg Nystatin (Nystop) 0 gm TOP BID PRN PRN Reason: Wound Care Last Admin: 07/29/19 20:53 Dose: 1 applic Ondansetron HCl (Zofran Odt) 4 mg PO Q4H PRN PRN Reason: nausea, able to take PO Sodium Chloride (Saline Flush) 10 ml FLUSH BID PRN PRN Reason: FLUSH Last Admin: 07/30/19 09:21 Dose: 10 ml Discontinued Medications Ferrous Sulfate (Ferrous Sulfate) 325 mg PO ACBREAKFAST [facility] Last Admin: 07/25/19 05:43 Dose: 325 mg Influenza Virus Vaccine (Pharmacy To Dose - Influenza Vaccine) 0 each IM ONETIME ONE Stop: 07/24/19 14:02 Last Admin: 07/25/19 15:56 Dose: Not Given Influenza Virus Vaccine ([place] Quad 2018- (3yr Up)) 60 mcg IM .ONCE ONE Stop: 07/28/19 11:01 Last Admin: 07/28/19 12:38 Dose: 60 mcg - Exam Quality Assessment: DVT Prophylaxis General: Alert, Oriented HEENT: Pupils Equal, Pupils Reactive, EOMI, Mucous Membr. Moist/[place] Neck: Supple Lungs: Clear to Auscultation, Normal Respiratory Effort Cardiovascular: Regular Rate, Regular Rhythm GI/Abdominal Exam: Normal Bowel Sounds, Soft, Non-Tender, No Organomegaly, No Distention, No Abnormal Bruit, No Mass, Pelvis Stable (Male) Exam: No Hernia, Normal Inspection, Normal Prostate, Circumcised Back Exam: Normal Inspection, Full Range of Motion Extremities: Normal Inspection, Normal Range of Motion, Non-Tender, No Pedal Edema, Normal Capillary Refill Skin: Warm, Dry, Intact Wound/Incisions: Healing Well Neurological: No New Focal Deficit Psy/Mental Status: Alert, Normal Affect, Normal Mood - Problem List Review Problem List Initiated/Reviewed/Updated: Yes - Plan Plan:: #Abdominal wall cellulitis and panniculitis -Continue IV Ceftaroline -Due for ID review today #HTN -BP wnl -Continue current care -Monitor BP closely #Morbid obesity Weight reduction measures advised
[2019-07-30] MEDS: Ibuprofen 200 MG Tab PO PRN (12:21)
[2019-07-30] MEDS: Nystatin Topical Powder 30 GM Bottle TOP PRN (22:10)
[2019-07-31] MEDS: Acetaminophen/HYDROcodone 325-10 MG Tab PO PRN ×2 (04:57→21:05)
[2019-07-31] MEDS: Ibuprofen 200 MG Tab PO PRN ×2 (08:13→18:57)
[2019-07-31] MEDS: Ferrous Sulfate 325 MG Tab PO SCH (08:14)
[2019-07-31] MEDS: Aspirin 81 MG Tab.EC PO SCH (08:15)
[2019-07-31] MEDS: SODIUM CHLORIDE 0.9% IV SCH ×2 (08:16→21:03)
[2019-07-31] MEDS: CEFTAROLINE FOSAMIL IV SCH ×2 (08:16→21:03)
[2019-07-31] MEDS: Sodium Chloride 0.9% 10 ML Syringe FLUSH PRN ×3 (08:16→22:09)
[2019-07-31] MEDS: Lisinopril 20 MG Tab PO SCH (10:16)
[2019-07-31] MEDS: NIFEdipine 30 MG Tab.ER PO SCH (10:17)
[2019-07-31] MEDS: Metoprolol Succinate 50 MG Tab.ER PO SCH (10:18)
[2019-07-31] MEDS: Nystatin Topical Powder 30 GM Bottle TOP PRN (22:18)
[2019-08-01] MEDS: Acetaminophen/HYDROcodone 325-10 MG Tab PO PRN ×2 (07:29→21:28)
[2019-08-01] MEDS: Aspirin 81 MG Tab.EC PO SCH (08:52)
[2019-08-01] MEDS: NIFEdipine 30 MG Tab.ER PO SCH (08:52)
[2019-08-01] MEDS: Metoprolol Succinate 50 MG Tab.ER PO SCH (08:53)
[2019-08-01] MEDS: Ferrous Sulfate 325 MG Tab PO SCH (08:53)
[2019-08-01] MEDS: Lisinopril 20 MG Tab PO SCH (08:53)
[2019-08-01] MEDS: SODIUM CHLORIDE 0.9% IV SCH ×2 (09:26→21:28)
[2019-08-01] MEDS: CEFTAROLINE FOSAMIL IV SCH ×2 (09:26→21:28)
[2019-08-01] MEDS: Sodium Chloride 0.9% 10 ML Syringe FLUSH PRN ×2 (09:26→21:29)
[2019-08-01] MEDS: Ibuprofen 200 MG Tab PO PRN ×2 (12:17→21:29)
[2019-08-02] MEDS: Aspirin 81 MG Tab.EC PO SCH (09:10)
[2019-08-02] MEDS: Metoprolol Succinate 50 MG Tab.ER PO SCH (09:10)
[2019-08-02] MEDS: NIFEdipine 30 MG Tab.ER PO SCH (09:11)
[2019-08-02] MEDS: SODIUM CHLORIDE 0.9% IV SCH ×2 (09:12→20:53)
[2019-08-02] MEDS: CEFTAROLINE FOSAMIL IV SCH ×2 (09:12→20:53)
[2019-08-02] MEDS: Sodium Chloride 0.9% 10 ML Syringe FLUSH PRN ×2 (09:12→20:53)
[2019-08-02] MEDS: Lisinopril 20 MG Tab PO SCH (10:09)
[2019-08-02] MEDS: Ferrous Sulfate 325 MG Tab PO SCH (10:09)
[2019-08-02] MEDS: Acetaminophen/HYDROcodone 325-10 MG Tab PO PRN (16:48)
[2019-08-03] MEDS: Acetaminophen/HYDROcodone 325-10 MG Tab PO PRN ×2 (02:38→17:28)
[2019-08-03] MEDS: SODIUM CHLORIDE 0.9% IV SCH ×2 (09:46→21:09)
[2019-08-03] MEDS: CEFTAROLINE FOSAMIL IV SCH ×2 (09:46→21:09)
[2019-08-03] MEDS: Sodium Chloride 0.9% 10 ML Syringe FLUSH PRN (09:47)
[2019-08-03] MEDS: Aspirin 81 MG Tab.EC PO SCH (09:53)
[2019-08-03] MEDS: Ferrous Sulfate 325 MG Tab PO SCH (09:54)
[2019-08-03] MEDS: NIFEdipine 30 MG Tab.ER PO SCH (10:56)
[2019-08-03] MEDS: Metoprolol Succinate 50 MG Tab.ER PO SCH (10:56)
[2019-08-03] MEDS: Lisinopril 20 MG Tab PO SCH (10:56)
[2019-08-03] MEDS: Ibuprofen 200 MG Tab PO PRN (11:10)
--- NOTE | 2019-08-03 12:25 | PCM.PN ---
- General Info Date of Service: 08/03/19 Admission Dx/Problem (Free Text): Extensive abdominal wall cellulitis and panniculitis Subjective Update: Patient admitted to swing bed to complete IV Ceftaroline for extensive abdominal wall cellulitis and panniculitis. He is doing fairly well. His BP has been running low normal. He reports some dizziness on and off. Denies fever and chills. Functional Status: Reports: Pain Controlled - Review of Systems General: Reports: No Symptoms HEENT: Reports: No Symptoms Pulmonary: Reports: No Symptoms Cardiovascular: Reports: No Symptoms Gastrointestinal: Reports: No Symptoms Genitourinary: Reports: No Symptoms Musculoskeletal: Reports: No Symptoms Skin: Reports: No Symptoms Neurological: Reports: No Symptoms Psychiatric: Reports: No Symptoms - Patient Data Vitals - Most Recent: Last Vital Signs Temp 98.1 F 08/03/19 07:47 Pulse 84 08/03/19 10:56 Resp 20 08/03/19 07:47 BP 104/40 L 08/03/19 10:56 Pulse Ox 93 L 08/03/19 07:47 Weight - Most Recent: 423 lb I&O - Last 24 Hours: Intake & Output 08/02/19 08/03/19 08/03/19 22:59 06:59 14:59 Intake Total 600 200 Balance 600 200 Med Orders - Current: Current Medications Acetaminophen (Tylenol) 650 mg PO Q4H PRN PRN Reason: Pain (Mild 1-3)/fever Hydrocodone Bitart/Acetaminophen ([place] 325-10 Mg) 1 tab PO Q4H PRN PRN Reason: Pain (moderate 4-6) Last Admin: 08/03/19 02:38 Dose: 1 tab Aspirin (Halfprin) 81 mg PO DAILY [facility] Last Admin: 08/03/19 09:53 Dose: 81 mg Ferrous Sulfate (Ferrous Sulfate) 325 mg PO 0800 [facility] Last Admin: 08/03/19 09:54 Dose: 325 mg Ceftaroline Fosamil 600 mg/ (Sodium Chloride) 100 mls @ 100 mls/hr IV Q12HR [facility] Stop: 08/06/19 09:59 Last Admin: 08/03/19 09:46 Dose: 100 mls/hr Ibuprofen (Motrin) 200 mg PO Q6H PRN PRN Reason: Pain (mild 1-3), use 2nd Last Admin: 08/03/19 11:10 Dose: 200 mg Lisinopril (Prinivil) 20 mg PO DAILY [facility] Last Admin: 08/03/19 10:56 Dose: Not Given Metoprolol Succinate (Toprol Xl) 50 mg PO DAILY [facility] Last Admin: 08/03/19 10:56 Dose: Not Given Nifedipine (Procardia Xl) 30 mg PO DAILY [facility] Last Admin: 08/03/19 10:56 Dose: Not Given Nystatin (Nystop) 0 gm TOP BID PRN PRN Reason: Wound Care Last Admin: 07/31/19 22:18 Dose: 1 applic Ondansetron HCl (Zofran Odt) 4 mg PO Q4H PRN PRN Reason: nausea, able to take PO Last Admin: 08/01/19 21:29 Dose: 4 mg Sodium Chloride (Saline Flush) 10 ml FLUSH BID PRN PRN Reason: FLUSH Last Admin: 08/03/19 09:47 Dose: 10 ml Discontinued Medications Ferrous Sulfate (Ferrous Sulfate) 325 mg PO ACBREAKFAST [facility] Last Admin: 07/25/19 05:43 Dose: 325 mg Ceftaroline Fosamil 600 mg/ (Sodium Chloride) 100 mls @ 100 mls/hr IV Q12HR [facility] Stop: 07/31/19 09:59 Last Admin: 07/31/19 08:16 Dose: 100 mls/hr Influenza Virus Vaccine (Pharmacy To Dose - Influenza Vaccine) 0 each IM ONETIME ONE Stop: 07/24/19 14:02 Last Admin: 07/25/19 15:56 Dose: Not Given Influenza Virus Vaccine (Afluria Quad 2019-20 (3yr Up)) 60 mcg IM .ONCE ONE Stop: 07/28/19 11:01 Last Admin: 07/28/19 12:38 Dose: 60 mcg - Exam Quality Assessment: DVT Prophylaxis General: Alert, Oriented HEENT: Pupils Equal, Pupils Reactive, EOMI, Mucous Membr. Moist/[place] Neck: Supple Lungs: Clear to Auscultation, Normal Respiratory Effort Cardiovascular: Regular Rate, Regular Rhythm GI/Abdominal Exam: Normal Bowel Sounds, Soft, Non-Tender, No Organomegaly, No Distention, No Abnormal Bruit, No Mass, Pelvis Stable (Male) Exam: No Hernia, Normal Inspection, Normal Prostate, Circumcised Back Exam: Normal Inspection, Full Range of Motion Extremities: Normal Inspection, Normal Range of Motion, Non-Tender, No Pedal Edema, Normal Capillary Refill Skin: Warm, Dry, Intact Wound/Incisions: Healing Well Neurological: No New Focal Deficit Psy/Mental Status: Alert, Normal Affect, Normal Mood - Problem List Review Problem List Initiated/Reviewed/Updated: Yes - Plan Plan:: #Abdominal wall cellulitis and panniculitis -Continue IV Ceftaroline #HTN -BP running low normal -Hold all BP meds for -Monitor BP closely and resume meds as needed #Morbid obesity Weight reduction measures advised
[2019-08-03] MEDS: Nystatin Topical Powder 30 GM Bottle TOP PRN (14:46)
[2019-08-04] MEDS: Acetaminophen/HYDROcodone 325-10 MG Tab PO PRN ×3 (00:53→23:26)
[2019-08-04] MEDS: Ferrous Sulfate 325 MG Tab PO SCH (09:22)
[2019-08-04] MEDS: NIFEdipine 30 MG Tab.ER PO SCH (09:22)
[2019-08-04] MEDS: Aspirin 81 MG Tab.EC PO SCH (09:22)
[2019-08-04] MEDS: Lisinopril 20 MG Tab PO SCH (09:23)
[2019-08-04] MEDS: CEFTAROLINE FOSAMIL IV SCH ×2 (09:24→21:00)
[2019-08-04] MEDS: Metoprolol Succinate 50 MG Tab.ER PO SCH (09:24)
[2019-08-04] MEDS: SODIUM CHLORIDE 0.9% IV SCH ×2 (09:24→21:00)
[2019-08-04] MEDS: Sodium Chloride 0.9% 10 ML Syringe FLUSH PRN (09:26)
[2019-08-04] MEDS: Ibuprofen 200 MG Tab PO PRN (11:40)
[2019-08-05] MEDS: Metoprolol Succinate 50 MG Tab.ER PO SCH (08:56)
[2019-08-05] MEDS: Aspirin 81 MG Tab.EC PO SCH (08:57)
[2019-08-05] MEDS: SODIUM CHLORIDE 0.9% IV SCH ×2 (08:57→21:25)
[2019-08-05] MEDS: CEFTAROLINE FOSAMIL IV SCH ×2 (08:57→21:25)
[2019-08-05] MEDS: Lisinopril 20 MG Tab PO SCH (08:57)
[2019-08-05] MEDS: Ferrous Sulfate 325 MG Tab PO SCH (08:57)
[2019-08-05] MEDS: NIFEdipine 30 MG Tab.ER PO SCH (08:57)
[2019-08-05] MEDS: Sodium Chloride 0.9% 10 ML Syringe FLUSH PRN (08:59)
[2019-08-05] MEDS: Ibuprofen 200 MG Tab PO PRN (09:10)
[2019-08-05] MEDS: Acetaminophen/HYDROcodone 325-10 MG Tab PO PRN (17:41)
[2019-08-06] MEDS: Acetaminophen/HYDROcodone 325-10 MG Tab PO PRN ×2 (02:29→09:01)
[2019-08-06] MEDS: SODIUM CHLORIDE 0.9% IV SCH (08:59)
[2019-08-06] MEDS: CEFTAROLINE FOSAMIL IV SCH (08:59)
[2019-08-06] MEDS: Ferrous Sulfate 325 MG Tab PO SCH (09:02)
[2019-08-06] MEDS: Aspirin 81 MG Tab.EC PO SCH (09:02)
[2019-08-06] MEDS: Sodium Chloride 0.9% 10 ML Syringe FLUSH PRN (09:02)
[2019-08-06] MEDS: Lisinopril 20 MG Tab PO SCH (09:05)
[2019-08-06] MEDS: NIFEdipine 30 MG Tab.ER PO SCH (09:05)
[2019-08-06] MEDS: Metoprolol Succinate 50 MG Tab.ER PO SCH (09:07)
[2019-08-06] MEDS: Ibuprofen 200 MG Tab PO PRN (20:00)
[2019-08-06] MEDS ORDERED: SODIUM CHLORIDE 0.9% IV SCH (21:00)
[2019-08-06] MEDS ORDERED: CEFTAROLINE FOSAMIL IV SCH (21:00)
[2019-08-07] MEDS: Aspirin 81 MG Tab.EC PO SCH (10:07)
[2019-08-07] MEDS: NIFEdipine 30 MG Tab.ER PO SCH (10:10)
[2019-08-07] MEDS: Lisinopril 20 MG Tab PO SCH (10:10)
[2019-08-07] MEDS: Ferrous Sulfate 325 MG Tab PO SCH (10:10)
[2019-08-07] MEDS: Metoprolol Succinate 50 MG Tab.ER PO SCH (10:10)
[2019-08-07 10:11] VITALS: BP 134/64; PULSE 83
--- NOTE | 2019-08-07 11:45 | PCM.DCSUM1 ---
Discharge Summary - Hospital Course Free Text/Narrative:: 44-year-old male with past medical history of morbid obesity, hypertension, including osteomyelitis with MSSA who presented to swing bed from [facility] where he was admitted to ICU for abdominal wall cellulitis and sepsis. He was given process or an IV antibiotics. He was discharged on 07/17/19 to continue Ceftroline. He was seen by ID provider yesterday who recommended removing the PICC line and stopping antibiotics. However today I discussed the case with the ID provider (GUERLINE Lisa) considering his ESR and CRP are still elevated and still have slight redness of the abdominal wall although this could be chronic to him. We agreed to discharge patient on doxycycline 100 mg twice a day for 7 days and she will see him next week. Patient had no complications during has swing bed stay. He denies nausea, vomiting, chest pain , shortness breath, headache, cough, upper spirits symptoms, abdominal pain, diarrhea, urinary symptoms, lower extremity edema, unilateral weakness/numbness/ tingling, bleeding, no rash, any other symptoms or concerns. Patient also denies being depressed or having anxiety or any mental problem. However he appears to be depressed. He said his 3 months ago. I recommended to him seeing mental health provider as soon as possible after discharge. Diagnosis: Stroke: No - Discharge Data Discharge Date: 08/07/19 Discharge Disposition: Home, Self-Care 01 Condition: Good - Referral to Home Health Date of Face to Face Encounter: 08/07/19 Primary Care Physician: Rody Corbett PA-C - Patient Summary/Data Consults: Consultations 07/24/19 13:59 Consult to Physical Therapy [PT Evaluation and Treatment] [CONS] Routine 07/24/19 14:00 OT Evaluation and Treatment [CONS] Routine - Patient Instructions Diet: Heart Healthy Diet Activity: As Tolerated Showering/Bathing: May Shower Notify Provider of: Fever, Increased Pain, Swelling and Redness, Drainage, Nausea and/or Vomiting - Discharge Plan Prescriptions/Med Rec: Doxycycline [Vibramycin] 100 mg PO BID #14 cap Nystatin [Nystop] 1 applic TOP BID #1 bottle Home Medications: Home Meds Metoprolol Succinate [Toprol XL 50mg] 50 mg PO DAILY 04/21/15 [History] Aspirin [Ecotrin EC] 81 mg PO DAILY 07/24/19 [History] Ferrous Sulfate 324 mg PO DAILY 07/24/19 [History] Lisinopril [Prinivil] 20 mg PO DAILY 07/24/19 [History] NIFEdipine [Nifedipine ER] 30 mg PO DAILY 07/24/19 [History] Doxycycline [Vibramycin] 100 mg PO BID #14 cap 08/07/19 [Rx] Nystatin [Nystop] 1 applic TOP BID #1 bottle 08/07/19 [Rx] Oxygen Therapy Mode: Room Air Referrals: Rody Corbett PA-C [Primary Care Provider] - - Discharge Summary/Plan Comment DC Time >30 min.: No - General Info Date of Service: 08/07/19 Admission Dx/Problem (Free Text: Extensive abdominal wall cellulitis and panniculitis Subjective Update: Patient denies any symptoms. However he said he doesn't feel going to work before Sunday. - Patient Data Vitals - Most Recent: Last Vital Signs Temp 36.6 C 08/07/19 07:46 Pulse 83 08/07/19 10:10 Resp 18 08/07/19 07:46 BP 134/64 08/07/19 10:10 Pulse Ox 94 L 08/07/19 07:46 Weight - Most Recent: 189.148 kg I&O - Last 24 hours: Intake & Output 08/06/19 08/07/19 08/07/19 22:59 06:59 14:59 Intake Total 180 Balance 180 Med Orders - Current: Current Medications Acetaminophen (Tylenol) 650 mg PO Q4H PRN PRN Reason: Pain (Mild 1-3)/fever Hydrocodone Bitart/Acetaminophen ([place] 325-10 Mg) 1 tab PO Q4H PRN PRN Reason: Pain (moderate 4-6) Last Admin: 08/06/19 09:01 Dose: 1 tab Aspirin (Halfprin) 81 mg PO DAILY [facility] Last Admin: 08/07/19 10:07 Dose: 81 mg Ferrous Sulfate (Ferrous Sulfate) 325 mg PO 0800 [facility] Last Admin: 08/07/19 10:10 Dose: 325 mg Ibuprofen (Motrin) 200 mg PO Q6H PRN PRN Reason: Pain (mild 1-3), use 2nd Last Admin: 08/06/19 20:00 Dose: 200 mg Lisinopril (Prinivil) 20 mg PO DAILY [facility] Last Admin: 08/07/19 10:10 Dose: 20 mg Metoprolol Succinate (Toprol Xl) 50 mg PO DAILY [facility] Last Admin: 08/07/19 10:10 Dose: 50 mg Nifedipine (Procardia Xl) 30 mg PO DAILY [facility] Last Admin: 08/07/19 10:10 Dose: 30 mg Nystatin (Nystop) 0 gm TOP BID PRN PRN Reason: Wound Care Last Admin: 08/03/19 14:46 Dose: 1 applic Ondansetron HCl (Zofran Odt) 4 mg PO Q4H PRN PRN Reason: nausea, able to take PO Last Admin: 08/01/19 21:29 Dose: 4 mg Sodium Chloride (Saline Flush) 10 ml FLUSH BID PRN PRN Reason: FLUSH Last Admin: 08/06/19 09:02 Dose: 10 ml Discontinued Medications Ferrous Sulfate (Ferrous Sulfate) 325 mg PO ACBREAKFAST [facility] Last Admin: 07/25/19 05:43 Dose: 325 mg Ceftaroline Fosamil 600 mg/ (Sodium Chloride) 100 mls @ 100 mls/hr IV Q12HR [facility] Stop: 07/31/19 09:59 Last Admin: 07/31/19 08:16 Dose: 100 mls/hr Ceftaroline Fosamil 600 mg/ (Sodium Chloride) 100 mls @ 100 mls/hr IV Q12HR [facility] Stop: 08/06/19 09:59 Last Admin: 08/06/19 08:59 Dose: 100 mls/hr Ceftaroline Fosamil 600 mg/ (Sodium Chloride) 100 mls @ 100 mls/hr IV Q12HR [facility] Influenza Virus Vaccine (Pharmacy To Dose - Influenza Vaccine) 0 each IM ONETIME ONE Stop: 07/24/19 14:02 Last Admin: 07/25/19 15:56 Dose: Not Given Influenza Virus Vaccine (Afluria Quad 2019-20 (3yr Up)) 60 mcg IM .ONCE ONE Stop: 07/28/19 11:01 Last Admin: 07/28/19 12:38 Dose: 60 mcg - Exam General: Reports: Alert, Oriented, Cooperative, No Acute Distress, Other (Obese) . Denies: Mild Distress, Moderate Distress, Severe Distress, Sedated, Lethargic , Obtunded HEENT: Reports: Pupils Equal, Pupils Reactive, EOMI, Mucous Membr. Moist/[place] Neck: Reports: Supple, Trachea Midline, No JVD Lungs: Reports: Clear to Auscultation, Normal Respiratory Effort Cardiovascular: Reports: Regular Rate, Regular Rhythm GI/Abdominal Exam: Soft, Other (Difficult to assess due to body habitus. He has mild redness of the abdomen fold. I do not appreciate drainage, ulceration or blisters.). No: Distended, Guarding, Rigid, Rebound, Tender (Male) Exam: Deferred Rectal (Males) Exam: Deferred Back Exam: Reports: Normal Inspection, Full Range of Motion. Denies: CVA Tenderness (L), CVA Tenderness (R) Extremities: Normal Inspection, Normal Range of Motion, Non-Tender, No Pedal Edema, Normal Capillary Refill Skin: Denies: Ecchymosis Neurological: Reports: No New Focal Deficit, Normal Speech Psy/Mental Status: Reports: Alert, Normal Affect, Normal Mood, Depressed. Denies: Suicidal Ideation, Homicidal Ideation, Hallucinations
== END 2019-08-07 13:20 | disposition home or self-care (01) | DRG 383 ==
LOC: DL.MS 12:43
PROVIDERS: ADMIT Internal Medicine; ATTEND Family Medicine
DX: L03.311 Cellulitis of abdominal wall (principal); M79.3 Panniculitis, unspecified; E66.01 Morbid (severe) obesity due to excess calories; I10 Essential (primary) hypertension; Z91.14 Patient's other noncompliance with medication regimen; Z79.82 Long term (current) use of aspirin; Z79.899 Other long term (current) drug therapy; Z23 Encounter for immunization; Z68.44 Body mass index [BMI] 60.0-69.9, adult
CPT/HCPCS: 36415; 80048; 82565; 84460; 85025; 85651; 86140; 90686; 97110-GO; 97110-GP; 97116-GP; 97140-GP; 97162-GP; 97165-GO; A9270-GY; J0712; J7050

== ENCOUNTER 2020-02-13 10:07 | Inpatient (IN) | payer BC ==
[2020-02-13] MEDS ORDERED: Ibuprofen 600 MG Tab PO ONE (10:56)
--- NOTE | 2020-02-13 11:02 | EDM.PDOC ---
ED HPI GENERAL MEDICAL PROBLEM - General Chief Complaint: Skin Complaint Stated Complaint: INFECTION Time Seen by Provider: 02/13/20 10:35 Source of Information: Reports: Patient, Old Records, RN, RN Notes Reviewed History Limitations: Reports: Physical Impairment (obese) - History of Present Illness INITIAL COMMENTS - FREE TEXT/NARRATIVE: Patient presents to ER with complaint of redness and tenderness to the abdomen and pannus. Patient states Sunday he began having chills and a headache, and noticing some tenderness to the belly. Patient states he has had cellulitis in the past and became very ill, needing to be airlifted to [place]. States after that he was in swing bed with a PICC line receiving IV antibiotics. Patient admits to minimal shortness of breath, denies chest pain. States he has had a headache recently, has been using NyQuil for the headache. Patient does admit to fever and chills at home. Onset: Gradual Abdomen Pain Score (Numeric/FACES): 6 - Related Data Allergies Allergy/AdvReac Type Severity Reaction Status Date / Time Penicillins Allergy Mild UNKNOWN Verified 02/13/20 13:08 daptomycin Allergy Rash Verified 02/13/20 13:08 vancomycin Allergy Rash Verified 02/13/20 13:08 Home Meds: Home Meds Metoprolol Succinate [Toprol XL 50mg] 50 mg PO DAILY 04/21/15 [History] Aspirin [Ecotrin EC] 81 mg PO DAILY 07/24/19 [History] Ferrous Sulfate 324 mg PO DAILY 07/24/19 [History] NIFEdipine [Nifedipine ER] 30 mg PO DAILY 07/24/19 [History] Nystatin [Nystop] 1 applic TOP BID #1 bottle 08/07/19 [Rx] Hydrocodone/Acetaminophen [Hydrocodone-Acetamin 10-325 mg] 1 - 2 tab PO Q6H PRN 08/20/19 [History] Diclofenac Sodium 50 mg PO TID 02/13/20 [History] lisinopriL [Lisinopril] 20 mg PO DAILY 02/13/20 [History] Past Medical History HEENT History: Reports: Impaired Vision Other HEENT History: wears glasses Cardiovascular History: Reports: Hypertension Respiratory History: Reports: Bronchitis, Recurrent Gastrointestinal History: Reports: Pancreatitis Other Gastrointestinal History: cyst on his stomach removed Genitourinary History: Reports: Other (See Below) Other Genitourinary History: acute renal insufficiency Musculoskeletal History: Reports: Arthritis Other Musculoskeletal History: knee. 08/20 Bilat. cortisone injections knees and last week cortisone injection right heel. Right heel pain Neurological History: Reports: None Psychiatric History: Reports: None Endocrine/Metabolic History: Reports: None Hematologic History: Reports: Anemia Immunologic History: Reports: None Oncologic (Cancer) History: Reports: None Dermatologic History: Reports: Cellulitis Other Dermatologic History: Cellulitis Pannus - Infectious Disease History Infectious Disease History: Reports: Hepatitis B, MRSA - Past Surgical History Head Surgeries/Procedures: Reports: None HEENT Surgical History: Reports: Tonsillectomy Other Musculoskeletal Surgeries/Procedures:: right ankle surgery Social & Family History - Family History Family Medical History: Noncontributory - Tobacco Use Smoking Status *Q: Current Every Day Smoker Years of Tobacco use: 26 Packs/Tins Daily: 1 Second Hand Smoke Exposure: No - Caffeine Use Caffeine Use: Reports: Soda - Recreational Drug Use Recreational Drug Use: No ED ROS GENERAL - Review of Systems Review Of Systems: Comprehensive ROS is negative, except as noted in HPI. ED EXAM, SKIN/RASH Exam: See Below Exam Limited By: Physical Impairment General Appearance: Alert, WD/WN, No Apparent Distress, Obese Eye Exam: Bilateral Eye: EOMI, Normal Inspection Ears: Normal External Exam, Normal Canal, Hearing Grossly Normal, Normal TMs Nose: Normal Inspection, Normal Mucosa, No Blood Throat/Mouth: Normal Inspection, Normal Lips, Normal Teeth, Normal Gums, Normal Oropharynx, Normal Voice, No Airway Compromise Head: Atraumatic, Normocephalic Neck: Normal Inspection, Supple, Non-Tender, Full Range of Motion Respiratory/Chest: No Respiratory Distress, Lungs Clear, No Accessory Muscle Use , Chest Non-Tender, Decreased Breath Sounds Cardiovascular: Normal Peripheral Pulses, Regular Rate, Rhythm, No Edema, No Gallop, No JVD, No Murmur, No Rub Peripheral Pulses: 2+: Radial (L), Radial (R) GI/Abdominal: Normal Bowel Sounds, Soft, Tender (to the bottom of the pannus) (Male) Exam: Deferred Rectal (Males) Exam: Deferred Back Exam: Normal Inspection, Decreased Range of Motion Extremities: Normal Inspection, Non-Tender, No Pedal Edema, Normal Capillary Refill, Limited Range of Motion Neurological: Alert, Oriented, CN II-XII Intact, Normal Cognition, Normal Reflexes, No Motor/Sensory Deficits, Other (unable to ambulate but a few steps due to weight pain in knees) Psychiatric: Normal Affect, Normal Mood Skin: Warm, Dry, Other (pannus is erythematous, warm to touch. No drainage. ) Location, Skin: Abdomen Characteristics: Erythematous Associated features: Warmth, Tenderness, Swelling, Induration, Rough Lymphatic: No Adenopathy Course - Vital Signs Last Recorded V/S: Last Vital Signs Temp 98.8 F 02/13/20 13:03 Pulse 87 02/13/20 13:03 Resp 22 H 02/13/20 13:03 BP 109/65 02/13/20 13:03 Pulse Ox 97 02/13/20 13:03 - Orders/Labs/Meds Orders: Active Orders 24 hr Category Date Time Status CULTURE BLOOD [BC] Stat Lab 02/13/20 11:21 Received CULTURE BLOOD [BC] Stat Lab 02/13/20 11:26 Received Sodium Chloride 0.9% [Normal Saline] 1,000 ml Med 02/13/20 12:15 Active IV .BOLUS Sodium Chloride 0.9% [Saline Flush] Med 02/13/20 10:35 Active 10 ml FLUSH ASDIRECTED PRN Blood Culture x2 Reflex Set [OM.PC] Stat Oth 02/13/20 10:35 Ordered Peripheral IV Insertion Adult [OM.PC] Stat Oth 02/13/20 10:35 Ordered Medication Orders Sodium Chloride (Normal Saline) 1,000 mls @ 150 mls/hr IV .BOLUS ONE Stop: 02/13/20 18:54 Last Admin: 02/13/20 12:39 Dose: 150 mls/hr Sodium Chloride (Saline Flush) 10 ml FLUSH ASDIRECTED PRN PRN Reason: Keep Vein Open Last Admin: 02/13/20 11:14 Dose: 10 ml Labs: Laboratory Tests 02/13/20 02/13/20 02/13/20 Range/Units 11:21 11:21 11:21 WBC 15.6 H (5.0-10.0) 10^3/uL RBC 4.65 (4.6-6.2) 10^6/uL Hgb 13.4 L (14.0-18.0) g/dL Hct 41.7 (40.0-54.0) % MCV 89.7 (80-100) fL MCH 28.8 (27.0-34.0) pg MCHC 32.1 L (33.0-35.0) g/dL Plt Count 231 (150-450) 10^3/uL Neut % (Auto) 87.3 H (42.2-75.2) % Lymph % (Auto) 6.8 L (20.5-50.1) % Antelope % (Auto) 5.3 (2-8) % Eos % (Auto) 0.5 L (1.0-3.0) % Baso % (Auto) 0.1 (0.0-1.0) % Sodium 137 (136-145) mmol/L Potassium 4.0 (3.5-5.1) mmol/L Chloride 103 (98-107) mmol/L Carbon Dioxide 25 (21-32) mmol/L Anion Gap 13.0 (7-13) mEq/L BUN 24 H (7-18) mg/dL Creatinine 1.40 H (0.70-1.30) mg/dL Est Cr Clr Drug Dosing 61.64 mL/min Estimated GFR (MDRD) 55 BUN/Creatinine Ratio 17.1 (No establ ref range) Glucose 343 H (74-99) mg/dL Lactic Acid 1.0 (0.4-2.0) mmol/L Calcium 8.0 L (8.5-10.1) mg/dL Total Bilirubin 0.7 (0.2-1.0) mg/dL AST 17 (15-37) U/L ALT 36 (16-63) U/L Alkaline Phosphatase 122 H (46-116) U/L C-Reactive Protein 27.8 H (0.0-0.9) mg/dL Total Protein 7.2 (6.4-8.2) g/dL Albumin 2.9 L (3.4-5.0) g/dL Globulin 4.3 Albumin/Globulin Ratio 0.67 Meds: Medications Generic Name Dose Route Start Last Admin Trade Name Freq PRN Reason Stop Dose Admin Sodium Chloride 1,000 mls @ 150 mls/hr 02/13/20 12:15 02/13/20 12:39 Normal Saline IV 02/13/20 18:54 150 mls/hr .BOLUS ONE Administration Sodium Chloride 10 ml 04/24/20 10:35 02/13/20 11:14 Saline Flush FLUSH 10 ml ASDIRECTED PRN Administration Keep Vein Open Discontinued Medications Generic Name Dose Route Start Last Admin Trade Name Freq PRN Reason Stop Dose Admin Clindamycin Phosphate 600 mg/ 104 mls @ 200 mls/hr 02/13/20 12:15 02/13/20 12 :42 Sodium Chloride IV 02/13/20 12:46 200 mls/hr ONETIME ONE Administration Ibuprofen 600 mg 02/13/20 10:56 02/13/20 11:05 Motrin PO 02/13/20 10:57 600 mg ONETIME ONE Administration - Re-Assessments/Exams Free Text/Narrative Re-Assessment/Exam: 02/13/20 14:26 Discussed patient case with Dr. Iraheta who agreed to admit the patient acute inpatient. Departure - Departure Time of Disposition: 13:06 Disposition: Admitted As Inpatient 64 Condition: Fair Clinical Impression: Cellulitis Qualifiers: Site of cellulitis: trunk Site of cellulitis of trunk: abdominal wall Qualified Code(s): L03.311 - Cellulitis of abdominal wall - Discharge Information *PRESCRIPTION DRUG MONITORING PROGRAM REVIEWED*: No *COPY OF PRESCRIPTION DRUG MONITORING REPORT IN PATIENT JUAN CARLOS: No Sepsis Event Note - Evaluation Sepsis Screening Result: No Definite Risk - Focused Exam Vital Signs: Vital Signs Temp Pulse Resp BP Pulse Ox 02/13/20 10:14 99 F 114 H 20 122/65 97 Date Exam was Performed: 02/13/20 Time Exam was Performed: 14:26 - My Orders Last 24 Hours: My Active Orders 02/13/20 10:35 Sodium Chloride 0.9% [Saline Flush] 10 ml FLUSH ASDIRECTED PRN Blood Culture x2 Reflex Set [OM.PC] Stat Peripheral IV Insertion Adult [OM.PC] Stat 02/13/20 11:21 CULTURE BLOOD [BC] Stat 02/13/20 11:26 CULTURE BLOOD [BC] Stat 02/13/20 12:15 Sodium Chloride 0.9% [Normal Saline] 1,000 ml IV .BOLUS - Assessment/Plan Last 24 Hours: My Active Orders 02/13/20 10:35 Sodium Chloride 0.9% [Saline Flush] 10 ml FLUSH ASDIRECTED PRN Blood Culture x2 Reflex Set [OM.PC] Stat Peripheral IV Insertion Adult [OM.PC] Stat 02/13/20 11:21 CULTURE BLOOD [BC] Stat 02/13/20 11:26 CULTURE BLOOD [BC] Stat 02/13/20 12:15 Sodium Chloride 0.9% [Normal Saline] 1,000 ml IV .BOLUS
[2020-02-13] MEDS: Sodium Chloride 0.9% 10 ML Syringe FLUSH PRN (11:14)
[2020-02-13] MEDS ORDERED: Sodium Chloride 0.9% 1,000 ML IV ONE (12:15)
[2020-02-13] MEDS ORDERED: Clindamycin Phosphate 600 MG in Sodium Chloride 0.9% 100 ML IV ONE (12:15)
[2020-02-13] MEDS ORDERED: Sodium Chloride 0.9% 10 ML Syringe FLUSH PRN ×2 (14:41)
--- NOTE | 2020-02-13 14:47 | PCM.HP ---
H&P History of Present Illness - General Date of Service: 02/13/20 Admit Problem/Dx: Admission Diagnosis/Problem Admission Diagnosis/Problem Cellulitis Source of Information: Patient History Limitations: Reports: No Limitations - History of Present Illness Initial Comments - Free Text/Narative: 44 yo M with PMH of morbid obesity, HTN, smoking who presents with fever and red rash on the right flank of two days duration Patient said fever and chills started two days ago. He subsequently noticed redness, pain and swelling of the skin of the right flank. No chest pain, SOB, leg swelling or urinary symptoms. In the ED, had low grade fever, lab work showed high CRP and leucocytosis Abdomen Pain Score (Numeric/FACES): 6 - Related Data Allergies/Adverse Reactions: Allergies Allergy/AdvReac Type Severity Reaction Status Date / Time Penicillins Allergy Mild UNKNOWN Verified 02/13/20 13:08 daptomycin Allergy Rash Verified 02/13/20 13:08 vancomycin Allergy Rash Verified 02/13/20 13:08 Home Medications: Home Meds Metoprolol Succinate [Toprol XL 50mg] 50 mg PO DAILY 04/21/15 [History] Aspirin [Ecotrin EC] 81 mg PO DAILY 07/24/19 [History] Ferrous Sulfate 324 mg PO DAILY 07/24/19 [History] NIFEdipine [Nifedipine ER] 30 mg PO DAILY 07/24/19 [History] Nystatin [Nystop] 1 applic TOP BID #1 bottle 08/07/19 [Rx] Hydrocodone/Acetaminophen [Hydrocodone-Acetamin 10-325 mg] 1 - 2 tab PO Q6H PRN 08/20/19 [History] Diclofenac Sodium 50 mg PO TID 02/13/20 [History] lisinopriL [Lisinopril] 20 mg PO DAILY 02/13/20 [History] Past Medical History HEENT History: Reports: Impaired Vision Other HEENT History: wears glasses Cardiovascular History: Reports: Hypertension Respiratory History: Reports: Bronchitis, Recurrent Gastrointestinal History: Reports: Pancreatitis Other Gastrointestinal History: cyst on his stomach removed Genitourinary History: Reports: Other (See Below) Other Genitourinary History: acute renal insufficiency Musculoskeletal History: Reports: Arthritis Other Musculoskeletal History: knee. 08/20 Bilat. cortisone injections knees and last week cortisone injection right heel. Right heel pain Neurological History: Reports: None Psychiatric History: Reports: None Endocrine/Metabolic History: Reports: None Hematologic History: Reports: Anemia Immunologic History: Reports: None Oncologic (Cancer) History: Reports: None Dermatologic History: Reports: Cellulitis Other Dermatologic History: Cellulitis Pannus - Infectious Disease History Infectious Disease History: Reports: Hepatitis B, MRSA - Past Surgical History Head Surgeries/Procedures: Reports: None HEENT Surgical History: Reports: Tonsillectomy Other Musculoskeletal Surgeries/Procedures:: right ankle surgery Social & Family History - Family History Family Medical History: Noncontributory - Tobacco Use Smoking Status *Q: Current Every Day Smoker Years of Tobacco use: 26 Packs/Tins Daily: 1 Second Hand Smoke Exposure: No - Caffeine Use Caffeine Use: Reports: Soda - Recreational Drug Use Recreational Drug Use: No H&P Review of Systems - Review of Systems: Review Of Systems: See Below General: Reports: Fever HEENT: Reports: No Symptoms Pulmonary: Reports: No Symptoms Cardiovascular: Reports: No Symptoms Gastrointestinal: Reports: No Symptoms Genitourinary: Reports: No Symptoms Musculoskeletal: Reports: No Symptoms Skin: Reports: Rash Psychiatric: Reports: No Symptoms Neurological: Reports: No Symptoms Exam - Exam Exam: See Below - Vital Signs Vital Signs: Last Vital Signs Temp 37.1 C 02/13/20 13:03 Pulse 87 02/13/20 13:03 Resp 22 H 02/13/20 13:03 BP 109/65 02/13/20 13:03 Pulse Ox 97 02/13/20 13:03 Weight: 198.764 kg - Exam General: Alert, Oriented HEENT: Conjunctiva Clear, Hearing Intact Neck: Supple, Trachea Midline Lungs: Clear to Auscultation, Normal Respiratory Effort Cardiovascular: Regular Rate, Regular Rhythm, Normal S1, Normal S2 GI/Abdominal Exam: Normal Bowel Sounds, Soft, Non-Tender, No Organomegaly Extremities: Normal Inspection, Normal Range of Motion, Non-Tender, No Pedal Edema Skin: Warm, Dry, Intact Neurological: Cranial Nerves Intact Neuro Extensive - Mental Status: Alert, Oriented x3, Normal Mood/Affect, Normal Cognition Psychiatric: Alert, Normal Affect, Normal Mood - Patient Data Lab Results Last 24 hrs: Laboratory Results - last 24 hr 02/13/20 02/13/20 02/13/20 Range/Units 11:21 11:21 11:21 WBC 15.6 H (5.0-10.0) 10^3/uL RBC 4.65 (4.6-6.2) 10^6/uL Hgb 13.4 L (14.0-18.0) g/dL Hct 41.7 (40.0-54.0) % MCV 89.7 (80-100) fL MCH 28.8 (27.0-34.0) pg MCHC 32.1 L (33.0-35.0) g/dL Plt Count 231 (150-450) 10^3/uL Neut % (Auto) 87.3 H (42.2-75.2) % Lymph % (Auto) 6.8 L (20.5-50.1) % Andrews % (Auto) 5.3 (2-8) % Eos % (Auto) 0.5 L (1.0-3.0) % Baso % (Auto) 0.1 (0.0-1.0) % Sodium 137 (136-145) mmol/L Potassium 4.0 (3.5-5.1) mmol/L Chloride 103 (98-107) mmol/L Carbon Dioxide 25 (21-32) mmol/L Anion Gap 13.0 (7-13) mEq/L BUN 24 H (7-18) mg/dL Creatinine 1.40 H (0.70-1.30) mg/dL Est Cr Clr Drug Dosing 61.64 mL/min Estimated GFR (MDRD) 55 BUN/Creatinine Ratio 17.1 (No establ ref range) Glucose 343 H (74-99) mg/dL Lactic Acid 1.0 (0.4-2.0) mmol/L Calcium 8.0 L (8.5-10.1) mg/dL Total Bilirubin 0.7 (0.2-1.0) mg/dL AST 17 (15-37) U/L ALT 36 (16-63) U/L Alkaline Phosphatase 122 H (46-116) U/L C-Reactive Protein 27.8 H (0.0-0.9) mg/dL Total Protein 7.2 (6.4-8.2) g/dL Albumin 2.9 L (3.4-5.0) g/dL Globulin 4.3 Albumin/Globulin Ratio 0.67 Result Diagrams: 02/13/20 11:21 04/24/20 11:21 Problem List Initiated/Reviewed/Updated: Yes Orders Last 24hrs: Active Orders 24 hr Category Date Time Status Admission Diagnosis [ADT] Stat ADT 02/13/20 12:36 Ordered Patient Status [ADT] Routine ADT 02/13/20 14:41 Ordered Ambulate [RC] ASDIRECTED Care 02/13/20 14:41 Ordered Height and Weight [RC] DAILY Care 02/13/20 14:41 Ordered Oxygen Therapy [RC] PRN Care 02/13/20 14:41 Ordered Peripheral IV Care [RC] . DIRECTED Care 02/13/20 14:41 Ordered Up With Assistance [RC] ASDIRECTED Care 02/13/20 14:41 Ordered VTE/DVT Education [RC] PER UNIT ROUTINE Care 02/13/20 14:41 Ordered Vital Signs [RC] Q4H Care 02/13/20 14:41 Ordered Regular Diet [DIET] Diet 02/13/20 Breakfast Ordered BASIC METABOLIC PANEL,BMP [CHEM] AM Lab 02/14/20 05:11 Ordered BASIC METABOLIC PANEL,BMP [CHEM] AM Lab 02/15/20 05:11 Ordered BASIC METABOLIC PANEL,BMP [CHEM] AM Lab 02/16/20 05:11 Ordered CBC W/O DIFF,HEMOGRAM [HEME] AM Lab 02/14/20 05:11 Ordered CBC W/O DIFF,HEMOGRAM [HEME] AM Lab 02/15/20 05:11 Ordered CBC W/O DIFF,HEMOGRAM [HEME] AM Lab 02/16/20 05:11 Ordered CULTURE BLOOD [BC] Stat Lab 02/13/20 11:21 Received CULTURE BLOOD [BC] Stat Lab 02/13/20 11:26 Received GLYCOSYLATED HEMOGLOBIN,HGBA1C [CHEM] AM Lab 02/14/20 05:11 Ordered Acetaminophen/HYDROcodone [[place] 325-10 MG] Med 02/13/20 14:39 Ordered 1 tab PO Q6H PRN Aspirin [Halfprin] Med 02/14/20 09:00 Ordered 81 mg PO DAILY Clindamycin Phosphate [Cleocin] 600 mg Med 02/13/20 14:45 Ordered Sodium Chloride 0.9% [Normal Saline] 100 ml IV Q8H Enoxaparin [Lovenox] Med 02/13/20 14:30 Ordered 40 mg SUBCUT DAILY Ferrous Sulfate [Ferrous Sulfate] Med 02/14/20 09:00 Ordered 324 mg PO DAILY Linezolid [Zyvox] Med 02/13/20 14:45 Ordered 600 mg PO Q12H Metoprolol Succinate [Toprol XL] Med 02/14/20 09:00 Ordered 50 mg PO DAILY NIFEdipine [Nifedipine ER] Med 02/14/20 09:00 Ordered 30 mg PO DAILY Nystatin [Nystop] Med 02/13/20 21:00 Ordered 1 applic TOP BID Sodium Chloride 0.9% [Normal Saline] 1,000 ml Med 02/13/20 12:15 Active IV .BOLUS Sodium Chloride 0.9% [Saline Flush] Med 02/13/20 10:35 Active 10 ml FLUSH ASDIRECTED PRN Sodium Chloride 0.9% [Saline Flush] Med 02/13/20 14:41 Ordered 10 ml FLUSH ASDIRECTED PRN Sodium Chloride 0.9% [Saline Flush] Med 02/13/20 14:41 Ordered 10 ml FLUSH ASDIRECTED PRN lisinopriL [Prinivil] Med 02/14/20 09:00 Ordered 20 mg PO DAILY Blood Culture x2 Reflex Set [OM.PC] Stat Ot 02/13/20 10:35 Ordered Peripheral IV Insertion Adult [OM.PC] Routine Oth 02/13/20 14:41 Ordered Peripheral IV Insertion Adult [OM.PC] Stat Oth 02/13/20 10:35 Ordered Saline Lock Insert [OM.PC] Routine Oth 02/13/20 14:41 Ordered Resuscitation Status Routine Resus Stat 02/13/20 14:41 Ordered Medication Orders Enoxaparin Sodium (Lovenox) 40 mg SUBCUT DAILY VIRAL Sodium Chloride (Normal Saline) 1,000 mls @ 150 mls/hr IV .BOLUS ONE Stop: 02/13/20 18:54 Last Infusion: 02/13/20 14:31 Dose: 0 mls/hr Admin: 02/13/20 12:39 Dose: 150 mls/hr Sodium Chloride (Saline Flush) 10 ml FLUSH ASDIRECTED PRN PRN Reason: Keep Vein Open Last Admin: 02/13/20 11:14 Dose: 10 ml Assessment/Plan Comment:: #Sepsis, POA: leucocytosis, fever #Cellulitis of skin of right flank -has PCN, dapto, vanc allergies -IV clindamycin, oral linezolid -monitor vital signs #Hx of HTN -continue home medications #Elevated blood sugar -not a previously known DM patient -check HbA1c #smoking -discussed with the patient on need to quit smoking due to the side effects -patient was offered nicotine patch but refused #DVT ppx SC lovenox #Code status Full code.
[2020-02-13] MEDS: [UNRECOGNIZED DRUG - REMARK] PO SCH ×2 (15:35→20:43)
[2020-02-13] MEDS: Enoxaparin 40 MG/0.4 ML Syringe SUBCUT SCH (15:41)
[2020-02-13] MEDS: Acetaminophen/HYDROcodone 325-10 MG Tab PO PRN (19:59)
[2020-02-13] MEDS: Nystatin Topical Powder 30 GM Bottle TOP SCH (20:44)
[2020-02-13] MEDS: Clindamycin Phosphate 600 MG in Sodium Chloride 0.9% 100 ML IV SCH (21:02)
[2020-02-14] MEDS: Acetaminophen/HYDROcodone 325-10 MG Tab PO PRN ×3 (02:55→19:28)
[2020-02-14] MEDS: Clindamycin Phosphate 600 MG in Sodium Chloride 0.9% 100 ML IV SCH ×3 (05:24→21:03)
[2020-02-14 06:47] LABS: ANION GAP 11.8 mEq/L (7-13); CHLORIDE,CL 103 mmol/L (98-107); SODIUM,NA 137 mmol/L (136-145)
[2020-02-14 07:07] LABS: HEMOGLOBIN A1C 8.7 % (<5.7)
[2020-02-14] MEDS: NIFEdipine 30 MG Tab.ER PO SCH (09:40)
[2020-02-14] MEDS: Aspirin 81 MG Tab.EC PO SCH (09:40)
[2020-02-14] MEDS: Lisinopril 20 MG Tab PO SCH (09:40)
[2020-02-14] MEDS: Ferrous Sulfate 325 MG Tab PO SCH (09:40)
[2020-02-14] MEDS: Metoprolol Succinate 50 MG Tab.ER PO SCH (09:41)
[2020-02-14] MEDS: Nystatin Topical Powder 30 GM Bottle TOP SCH ×2 (09:42→20:55)
[2020-02-14] MEDS: [UNRECOGNIZED DRUG - REMARK] PO SCH ×2 (09:42→20:54)
[2020-02-14] MEDS: Enoxaparin 40 MG/0.4 ML Syringe SUBCUT SCH (09:43)
--- NOTE | 2020-02-14 12:11 | PCM.PN ---
- General Info Date of Service: 02/14/20 Admission Dx/Problem (Free Text): Admission Diagnosis/Problem Admission Diagnosis/Problem Cellulitis Subjective Update: Pt seen and examined at the bedside No new complaints Right flank cellulitis improving Functional Status: Reports: Pain Controlled - Review of Systems General: Reports: No Symptoms HEENT: Reports: No Symptoms Pulmonary: Reports: No Symptoms Cardiovascular: Reports: No Symptoms Gastrointestinal: Reports: No Symptoms Genitourinary: Reports: No Symptoms Musculoskeletal: Reports: No Symptoms Skin: Reports: Rash Neurological: Reports: No Symptoms Psychiatric: Reports: No Symptoms - Patient Data Vitals - Most Recent: Last Vital Signs Temp 36.6 C 02/14/20 08:00 Pulse 78 02/14/20 09:41 Resp 20 02/14/20 08:00 BP 127/60 02/14/20 09:41 Pulse Ox 100 02/14/20 08:00 Weight - Most Recent: 196.587 kg I&O - Last 24 Hours: Intake & Output 02/13/20 02/14/20 02/14/20 22:59 06:59 14:59 Intake Total 540 93 Balance 540 93 Lab Results Last 24 Hours: Laboratory Results - last 24 hr 02/13/20 02/14/20 02/14/20 Range/Units 11:21 06:10 06:10 WBC 12.6 H (5.0-10.0) 10^3/uL RBC 4.07 L (4.6-6.2) 10^6/uL Hgb 11.7 L D (14.0-18.0) g/dL Hct 36.9 L (40.0-54.0) % MCV 90.7 (80-100) fL MCH 28.7 (27.0-34.0) pg MCHC 31.7 L (33.0-35.0) g/dL Plt Count 200 (150-450) 10^3/uL Sodium 137 (136-145) mmol/L Potassium 4.8 (3.5-5.1) mmol/L Chloride 103 (98-107) mmol/L Carbon Dioxide 27 (21-32) mmol/L Anion Gap 11.8 (7-13) mEq/L BUN 17 (7-18) mg/dL Creatinine 1.21 (0.70-1.30) mg/dL Est Cr Clr Drug Dosing 71.32 mL/min Estimated GFR (MDRD) > 60 Glucose 304 H (74-99) mg/dL Hemoglobin A1c 8.7 H (<5.7) % Calcium 8.0 L (8.5-10.1) mg/dL C-Reactive Protein 27.8 H (0.0-0.9) mg/dL Sebastian Results Last 24 Hours: Microbiology 02/13/20 11:26 Aerobic Blood Culture - Preliminary Blood - Venous - Lab Draw NO GROWTH AFTER 1 DAY Anaerobic Blood Culture - Preliminary NO GROWTH AFTER 1 DAY 02/13/20 11:21 Aerobic Blood Culture - Preliminary Blood - Venous NO GROWTH AFTER 1 DAY Anaerobic Blood Culture - Preliminary NO GROWTH AFTER 1 DAY Med Orders - Current: Current Medications Hydrocodone Bitart/Acetaminophen ([place] 325-10 Mg) 1 tab PO Q6H PRN PRN Reason: Pain Last Admin: 02/14/20 09:41 Dose: 1 tab Aspirin (Halfprin) 81 mg PO DAILY [facility] Last Admin: 02/14/20 09:40 Dose: 81 mg Enoxaparin Sodium (Lovenox) 40 mg SUBCUT DAILY [facility] Last Admin: 02/14/20 09:43 Dose: 40 mg Ferrous Sulfate (Ferrous Sulfate) 325 mg PO DAILY [facility] Last Admin: 02/14/20 09:40 Dose: 325 mg Clindamycin Phosphate 600 mg/ (Sodium Chloride) 104 mls @ 200 mls/hr IV Q8HR [facility] Last Admin: 02/14/20 05:24 Dose: 200 mls/hr Linezolid (Zyvox) 600 mg PO Q12HR [facility] Last Admin: 02/14/20 09:42 Dose: 600 mg Lisinopril (Prinivil) 20 mg PO DAILY [facility] Last Admin: 02/14/20 09:40 Dose: 20 mg Metoprolol Succinate (Toprol Xl) 50 mg PO DAILY [facility] Last Admin: 02/14/20 09:41 Dose: 50 mg Nifedipine (Procardia Xl) 30 mg PO DAILY [facility] Last Admin: 02/14/20 09:40 Dose: 30 mg Nystatin (Nystop) 0 gm TOP BID [facility] Last Admin: 02/14/20 09:42 Dose: 1 applic Sodium Chloride (Saline Flush) 10 ml FLUSH ASDIRECTED PRN PRN Reason: Keep Vein Open Last Admin: 02/13/20 11:14 Dose: 10 ml Sodium Chloride (Saline Flush) 10 ml FLUSH ASDIRECTED PRN PRN Reason: Keep Vein Open Discontinued Medications Clindamycin Phosphate 600 mg/ (Sodium Chloride) 104 mls @ 200 mls/hr IV ONETIME ONE Stop: 02/13/20 12:46 Last Admin: 02/13/20 12:42 Dose: 200 mls/hr Sodium Chloride (Normal Saline) 1,000 mls @ 150 mls/hr IV .BOLUS ONE Stop: 02/13/20 18:54 Last Infusion: 02/13/20 14:31 Dose: Infused Ibuprofen (Motrin) 600 mg PO ONETIME ONE Stop: 02/13/20 10:57 Last Admin: 02/13/20 11:05 Dose: 600 mg - Exam General: Alert, Oriented HEENT: Pupils Equal, Pupils Reactive Neck: Supple Lungs: Clear to Auscultation, Normal Respiratory Effort Cardiovascular: Regular Rate, Regular Rhythm GI/Abdominal Exam: Normal Bowel Sounds, Soft, Non-Tender Extremities: Normal Inspection, Normal Range of Motion, Non-Tender, No Pedal Edema Neurological: No New Focal Deficit Sepsis Event Note - Evaluation Sepsis Screening Result: No Definite Risk - Focused Exam Vital Signs: Vital Signs Temp Pulse Pulse Resp BP BP Pulse Ox 02/14/20 09:41 78 127/60 02/14/20 09:40 127/60 02/14/20 08:00 36.6 C 78 20 127/60 100 Date Exam was Performed: 02/14/20 Time Exam was Performed: 12:09 - Problem List Review Problem List Initiated/Reviewed/Updated: Yes - My Orders Last 24 Hours: My Active Orders 02/13/20 14:30 Enoxaparin [Lovenox] 40 mg SUBCUT DAILY 02/13/20 14:39 Acetaminophen/HYDROcodone [[place] 325-10 MG] 1 tab PO Q6H PRN 02/13/20 14:41 Patient Status [ADT] Routine Ambulate [RC] ASDIRECTED Height and Weight [RC] 06 Oxygen Therapy [RC] .PRN Peripheral IV Care [RC] , Up With Assistance [RC] ASDIRECTED VTE/DVT Education [RC] PER UNIT ROUTINE Vital Signs [RC] 00,04,08,12,16,20 Sodium Chloride 0.9% [Saline Flush] 10 ml FLUSH ASDIRECTED PRN Peripheral IV Insertion Adult [OM.PC] Routine Saline Lock Insert [OM.PC] Routine Resuscitation Status Routine 02/13/20 15:15 Linezolid [Zyvox] 600 mg PO Q12HR 02/13/20 21:00 Nystatin [Nystop] 0 gm TOP BID 02/13/20 22:00 Clindamycin Phosphate [Cleocin] 600 mg Sodium Chloride 0.9% [Normal Saline] 100 ml IV Q8HR 02/14/20 09:00 Aspirin [Halfprin] 81 mg PO DAILY Ferrous Sulfate 325 mg PO DAILY Metoprolol Succinate [Toprol XL] 50 mg PO DAILY NIFEdipine [Procardia XL] 30 mg PO DAILY lisinopriL [Prinivil] 20 mg PO DAILY 02/15/20 05:11 BASIC METABOLIC PANEL,BMP [CHEM] AM CBC W/O DIFF,HEMOGRAM [HEME] AM 02/16/20 05:11 BASIC METABOLIC PANEL,BMP [CHEM] AM CBC W/O DIFF,HEMOGRAM [HEME] AM - Plan Plan:: #Sepsis, POA: leucocytosis, fever #Cellulitis of skin of right flank -has PCN, dapto, vanc allergies -continue IV clindamycin, oral linezolid -monitor vital signs #Hx of HTN -continue home medications #Elevated blood sugar -not a previously known DM patient -check HbA1c: 8.7%. Pt is diabetic -ISS, accuchecks -will discharge on metformin #smoking -discussed with the patient on need to quit smoking due to the side effects -patient was offered nicotine patch but refused #DVT ppx SC lovenox #Code status Full code.
[2020-02-14] MEDS ORDERED: Clindamycin Phosphate 600 MG/4 ML SDV ONE (14:22)
[2020-02-15] MEDS: Acetaminophen/HYDROcodone 325-10 MG Tab PO PRN ×3 (02:54→15:31)
[2020-02-15] MEDS: Clindamycin Phosphate 600 MG in Sodium Chloride 0.9% 100 ML IV SCH ×3 (05:23→23:14)
[2020-02-15 06:45] LABS: ANION GAP 14.8 mEq/L (7-13); CHLORIDE,CL 101 mmol/L (98-107); SODIUM,NA 136 mmol/L (136-145)
[2020-02-15] MEDS: Lisinopril 20 MG Tab PO SCH (09:27)
[2020-02-15] MEDS: Metoprolol Succinate 50 MG Tab.ER PO SCH (09:27)
[2020-02-15] MEDS: NIFEdipine 30 MG Tab.ER PO SCH (09:27)
[2020-02-15] MEDS: Aspirin 81 MG Tab.EC PO SCH (09:27)
[2020-02-15] MEDS: Ferrous Sulfate 325 MG Tab PO SCH (09:27)
[2020-02-15] MEDS: Nystatin Topical Powder 30 GM Bottle TOP SCH ×2 (09:28→23:24)
[2020-02-15] MEDS: Enoxaparin 40 MG/0.4 ML Syringe SUBCUT SCH (09:28)
[2020-02-15] MEDS: [UNRECOGNIZED DRUG - REMARK] PO SCH ×2 (09:29→23:21)
--- NOTE | 2020-02-15 13:48 | PCM.PN ---
- General Info Date of Service: 02/15/20 Admission Dx/Problem (Free Text): Admission Diagnosis/Problem Admission Diagnosis/Problem Cellulitis Subjective Update: Pt seen and examined at the bedside No new complaints Right flank cellulitis improving - Review of Systems General: Reports: No Symptoms HEENT: Reports: No Symptoms Pulmonary: Reports: No Symptoms Cardiovascular: Reports: No Symptoms Gastrointestinal: Reports: No Symptoms Genitourinary: Reports: No Symptoms Musculoskeletal: Reports: No Symptoms Skin: Reports: Rash Neurological: Reports: No Symptoms Psychiatric: Reports: No Symptoms - Patient Data Vitals - Most Recent: Last Vital Signs Temp 36.7 C 02/15/20 12:00 Pulse 74 02/15/20 12:00 Resp 20 02/15/20 12:00 BP 117/64 02/15/20 12:00 Pulse Ox 99 02/15/20 12:00 Weight - Most Recent: 196.587 kg I&O - Last 24 Hours: Intake & Output 02/14/20 02/15/20 02/15/20 22:59 06:59 14:59 Intake Total 900 108 240 Balance 900 108 240 Lab Results Last 24 Hours: Laboratory Results - last 24 hr 02/15/20 02/15/20 Range/Units 06:10 06:10 WBC 11.1 H (5.0-10.0) 10^3/uL RBC 4.33 L (4.6-6.2) 10^6/uL Hgb 12.4 L (14.0-18.0) g/dL Hct 38.7 L (40.0-54.0) % MCV 89.4 (80-100) fL MCH 28.6 (27.0-34.0) pg MCHC 32.0 L (33.0-35.0) g/dL Plt Count 245 (150-450) 10^3/uL Sodium 136 (136-145) mmol/L Potassium 4.8 (3.5-5.1) mmol/L Chloride 101 (98-107) mmol/L Carbon Dioxide 25 (21-32) mmol/L Anion Gap 14.8 H (7-13) mEq/L BUN 13 (7-18) mg/dL Creatinine 1.09 (0.70-1.30) mg/dL Est Cr Clr Drug Dosing 79.17 mL/min Estimated GFR (MDRD) > 60 Glucose 233 H (74-99) mg/dL Calcium 8.5 (8.5-10.1) mg/dL Sebastian Results Last 24 Hours: Microbiology 02/13/20 11:26 Aerobic Blood Culture - Preliminary Blood - Venous - Lab Draw NO GROWTH AFTER 2 DAYS Anaerobic Blood Culture - Preliminary NO GROWTH AFTER 2 DAYS 02/13/20 11:21 Aerobic Blood Culture - Preliminary Blood - Venous NO GROWTH AFTER 2 DAYS Anaerobic Blood Culture - Preliminary NO GROWTH AFTER 2 DAYS Med Orders - Current: Current Medications Hydrocodone Bitart/Acetaminophen ([place] 325-10 Mg) 1 tab PO Q6H PRN PRN Reason: Pain Last Admin: 02/15/20 09:27 Dose: 1 tab Aspirin (Halfprin) 81 mg PO DAILY [facility] Last Admin: 02/15/20 09:27 Dose: 81 mg Enoxaparin Sodium (Lovenox) 40 mg SUBCUT DAILY [facility] Last Admin: 02/15/20 09:28 Dose: 40 mg Ferrous Sulfate (Ferrous Sulfate) 325 mg PO DAILY [facility] Last Admin: 02/15/20 09:27 Dose: 325 mg Clindamycin Phosphate 600 mg/ (Sodium Chloride) 104 mls @ 200 mls/hr IV Q8HR [facility] Last Admin: 02/15/20 05:23 Dose: 200 mls/hr Linezolid (Zyvox) 600 mg PO Q12HR [facility] Last Admin: 02/15/20 09:29 Dose: 600 mg Lisinopril (Prinivil) 20 mg PO DAILY [facility] Last Admin: 02/15/20 09:27 Dose: 20 mg Metoprolol Succinate (Toprol Xl) 50 mg PO DAILY [facility] Last Admin: 02/15/20 09:27 Dose: 50 mg Nifedipine (Procardia Xl) 30 mg PO DAILY [facility] Last Admin: 02/15/20 09:27 Dose: 30 mg Nystatin (Nystop) 0 gm TOP BID [facility] Last Admin: 02/15/20 09:28 Dose: 1 applic Sodium Chloride (Saline Flush) 10 ml FLUSH ASDIRECTED PRN PRN Reason: Keep Vein Open Last Admin: 02/13/20 11:14 Dose: 10 ml Sodium Chloride (Saline Flush) 10 ml FLUSH ASDIRECTED PRN PRN Reason: Keep Vein Open Discontinued Medications Clindamycin Phosphate (Cleocin) Confirm Administered Dose 600 mg .ROUTE .STK- MED ONE Stop: 02/14/20 14:23 Last Admin: 02/14/20 14:27 Dose: Not Given Clindamycin Phosphate 600 mg/ (Sodium Chloride) 104 mls @ 200 mls/hr IV ONETIME ONE Stop: 02/13/20 12:46 Last Admin: 02/13/20 12:42 Dose: 200 mls/hr Sodium Chloride (Normal Saline) 1,000 mls @ 150 mls/hr IV .BOLUS ONE Stop: 02/13/20 18:54 Last Infusion: 02/13/20 14:31 Dose: Infused Ibuprofen (Motrin) 600 mg PO ONETIME ONE Stop: 02/13/20 10:57 Last Admin: 02/13/20 11:05 Dose: 600 mg - Exam General: Alert, Oriented, Other (morbid obesity) HEENT: Pupils Equal, Pupils Reactive Neck: Supple Lungs: Clear to Auscultation, Normal Respiratory Effort Cardiovascular: Regular Rate, Regular Rhythm GI/Abdominal Exam: Normal Bowel Sounds, Soft, Non-Tender, No Organomegaly Extremities: Normal Inspection, Normal Range of Motion, Non-Tender, No Pedal Edema Skin: Other (cellulitis improving) Sepsis Event Note - Evaluation Sepsis Screening Result: No Definite Risk - Focused Exam Vital Signs: Vital Signs Temp Pulse Pulse Resp BP BP BP 02/15/20 12:00 36.7 C 74 20 117/64 02/15/20 09:27 71 116/67 02/15/20 08:18 36.6 C 71 20 116/67 02/15/20 02:59 36.6 C 70 20 117/57 L Pulse Ox 02/15/20 12:00 99 02/15/20 09:27 02/15/20 08:18 100 02/15/20 02:59 98 Date Exam was Performed: 02/15/20 Time Exam was Performed: 13:46 - Problem List Review Problem List Initiated/Reviewed/Updated: Yes - My Orders Last 24 Hours: My Active Orders 02/16/20 05:11 BASIC METABOLIC PANEL,BMP [CHEM] AM CBC W/O DIFF,HEMOGRAM [HEME] AM - Plan Plan:: #Sepsis, POA: leucocytosis, fever #Cellulitis of skin of right flank -has PCN, dapto, vanc allergies -continue IV clindamycin, oral linezolid -monitor vital signs #Hx of HTN -continue home medications #Elevated blood sugar -not a previously known DM patient -check HbA1c: 8.7%. Pt is diabetic -ISS, accuchecks -will discharge on metformin #smoking -discussed with the patient on need to quit smoking due to the side effects -patient was offered nicotine patch but refused #DVT ppx SC lovenox #Code status Full code. Discussed with patient need to avoid NSAIDs Plan for discharge tomorrow.
[2020-02-15] MEDS: Sodium Chloride 0.9% 10 ML Syringe FLUSH PRN (14:14)
[2020-02-16] MEDS: Acetaminophen/HYDROcodone 325-10 MG Tab PO PRN ×2 (03:48→10:54)
[2020-02-16] MEDS: Clindamycin Phosphate 600 MG in Sodium Chloride 0.9% 100 ML IV SCH (05:56)
[2020-02-16 06:46] LABS: ANION GAP 13.8 mEq/L (7-13); CHLORIDE,CL 101 mmol/L (98-107); SODIUM,NA 137 mmol/L (136-145)
[2020-02-16] MEDS: Metoprolol Succinate 50 MG Tab.ER PO SCH (09:24)
[2020-02-16] MEDS: Ferrous Sulfate 325 MG Tab PO SCH (09:24)
[2020-02-16] MEDS: Aspirin 81 MG Tab.EC PO SCH (09:24)
[2020-02-16] MEDS: Lisinopril 20 MG Tab PO SCH (09:25)
[2020-02-16] MEDS: NIFEdipine 30 MG Tab.ER PO SCH (09:25)
[2020-02-16] MEDS: [UNRECOGNIZED DRUG - REMARK] PO SCH (09:26)
[2020-02-16] MEDS: Nystatin Topical Powder 30 GM Bottle TOP SCH (09:27)
[2020-02-16] MEDS: Enoxaparin 40 MG/0.4 ML Syringe SUBCUT SCH (09:28)
--- NOTE | 2020-02-16 11:11 | PCM.DCSUM1 ---
Discharge Summary - Hospital Course Free Text/Narrative:: 44 yo M with PMH of morbid obesity, HTN, smoking who presents with fever and red rash on the right flank of two days duration Patient said fever and chills started two days ago. He subsequently noticed redness, pain and swelling of the skin of the right flank. No chest pain, SOB, leg swelling or urinary symptoms. In the ED, had low grade fever, lab work showed high CRP and leucocytosis Was managed with IV clindamycin and oral linezolid Discharged on Tedizolid. Counseled patient to stop NSAID use. Prefer to use tylenol. Follow up with PCP BG elevated. HbA1c 8.7%. Diagnosed with DM2 Discussed extensively with patient on new Dx, diet, exercise and lifestyle modification, podiatry and eye clinic appointment Discharged on metformin Follow up with PCP Diagnosis: Stroke: No - Discharge Data Discharge Date: 02/16/20 Discharge Disposition: Home, Self-Care 01 Condition: Good - Referral to Home Health Primary Care Physician: Rody Corbett PA-C - Patient Instructions Diet: Heart Healthy Diet, Diabetic Diet Activity: As Tolerated - Discharge Plan *PRESCRIPTION DRUG MONITORING PROGRAM REVIEWED*: No *COPY OF PRESCRIPTION DRUG MONITORING REPORT IN PATIENT JUAN CARLOS: No Prescriptions/Med Rec: metFORMIN [Glucophage] 500 mg PO BIDMEALS 30 Days #60 tab Tedizolid Phosphate [Sivextro] 200 mg PO DAILY 5 Days #5 tablet Home Medications: Home Meds Metoprolol Succinate [Toprol XL 50mg] 50 mg PO DAILY 04/21/15 [History] Aspirin [Ecotrin EC] 81 mg PO DAILY 07/24/19 [History] Ferrous Sulfate 324 mg PO DAILY 07/24/19 [History] NIFEdipine [Nifedipine ER] 30 mg PO DAILY 07/24/19 [History] Nystatin [Nystop] 1 applic TOP BID #1 bottle 08/07/19 [Rx] Hydrocodone/Acetaminophen [Hydrocodone-Acetamin 10-325 mg] 1 - 2 tab PO Q6H PRN 08/20/19 [History] lisinopriL [Lisinopril] 20 mg PO DAILY 02/13/20 [History] Tedizolid Phosphate [Sivextro] 200 mg PO DAILY 5 Days #5 tablet 02/16/20 [Rx] metFORMIN [Glucophage] 500 mg PO BIDMEALS 30 Days #60 tab 02/16/20 [Rx] Patient Handouts: Type 2 Diabetes Mellitus, Diagnosis, Adult, Diabetes Mellitus and Foot Care, Diabetes Mellitus and Skin Care, Form - Daily Diabetes Record, Coping With Diabetes, Hyperglycemia, [id number], Diabetes Basics, Type 2 Diabetes Mellitus, Self Care, Adult, [id number], Blood Glucose Monitoring, Adult, Hypoglycemia, [id number], Diabetes Mellitus and Nutrition, Adult Referrals: Rody Corbett PA-C [Primary Care Provider] - - Discharge Summary/Plan Comment DC Time >30 min.: Yes - General Info Date of Service: 02/16/20 Admission Dx/Problem (Free Text: Admission Diagnosis/Problem Admission Diagnosis/Problem Cellulitis Subjective Update: Pt seen and examined at the bedside No new complaints Right flank cellulitis improved remarkably - Review of Systems General: Reports: No Symptoms HEENT: Reports: No Symptoms Pulmonary: Reports: No Symptoms Cardiovascular: Reports: No Symptoms Gastrointestinal: Reports: No Symptoms Genitourinary: Reports: No Symptoms Musculoskeletal: Reports: No Symptoms Skin: Reports: Rash Neurological: Reports: No Symptoms Psychiatric: Reports: No Symptoms - Patient Data Vitals - Most Recent: Last Vital Signs Temp 36.2 C 02/16/20 08:16 Pulse 80 02/16/20 09:24 Resp 20 02/16/20 08:16 BP 130/74 02/16/20 09:25 Pulse Ox 98 02/16/20 08:16 Weight - Most Recent: 195.725 kg I&O - Last 24 hours: Intake & Output 02/15/20 02/16/20 02/16/20 22:59 06:59 14:59 Intake Total 350 197 101 Balance 350 197 101 Lab Results - Last 24 hrs: Laboratory Results - last 24 hr 02/16/20 02/16/20 Range/Units 06:00 06:00 WBC 9.2 (5.0-10.0) 10^3/uL RBC 4.17 L (4.6-6.2) 10^6/uL Hgb 12.0 L (14.0-18.0) g/dL Hct 37.4 L (40.0-54.0) % MCV 89.7 (80-100) fL MCH 28.8 (27.0-34.0) pg MCHC 32.1 L (33.0-35.0) g/dL Plt Count 247 (150-450) 10^3/uL Sodium 137 (136-145) mmol/L Potassium 4.8 (3.5-5.1) mmol/L Chloride 101 (98-107) mmol/L Carbon Dioxide 27 (21-32) mmol/L Anion Gap 13.8 H (7-13) mEq/L BUN 15 (7-18) mg/dL Creatinine 1.17 (0.70-1.30) mg/dL Est Cr Clr Drug Dosing 73.76 mL/min Estimated GFR (MDRD) > 60 Glucose 261 H (74-99) mg/dL Calcium 8.2 L (8.5-10.1) mg/dL RADHA Results - Last 24 hrs: Microbiology 02/13/20 11:26 Aerobic Blood Culture - Preliminary Blood - Venous - Lab Draw NO GROWTH AFTER 2 DAYS Anaerobic Blood Culture - Preliminary NO GROWTH AFTER 2 DAYS 02/13/20 11:21 Aerobic Blood Culture - Preliminary Blood - Venous NO GROWTH AFTER 2 DAYS Anaerobic Blood Culture - Preliminary NO GROWTH AFTER 2 DAYS Med Orders - Current: Current Medications Hydrocodone Bitart/Acetaminophen ([place] 325-10 Mg) 1 tab PO Q6H PRN PRN Reason: Pain Last Admin: 02/16/20 10:54 Dose: 1 tab Aspirin (Halfprin) 81 mg PO DAILY [facility] Last Admin: 02/16/20 09:24 Dose: 81 mg Enoxaparin Sodium (Lovenox) 40 mg SUBCUT DAILY [facility] Last Admin: 02/16/20 09:28 Dose: 40 mg Ferrous Sulfate (Ferrous Sulfate) 325 mg PO DAILY [facility] Last Admin: 02/16/20 09:24 Dose: 325 mg Clindamycin Phosphate 600 mg/ (Sodium Chloride) 104 mls @ 200 mls/hr IV Q8HR [facility] Last Infusion: 02/16/20 06:36 Dose: Infused Linezolid (Zyvox) 600 mg PO Q12HR [facility] Last Admin: 02/16/20 09:26 Dose: 600 mg Lisinopril (Prinivil) 20 mg PO DAILY [facility] Last Admin: 02/16/20 09:25 Dose: 20 mg Metoprolol Succinate (Toprol Xl) 50 mg PO DAILY [facility] Last Admin: 02/16/20 09:24 Dose: 50 mg Nifedipine (Procardia Xl) 30 mg PO DAILY [facility] Last Admin: 02/16/20 09:25 Dose: 30 mg Nystatin (Nystop) 0 gm TOP BID [facility] Last Admin: 02/16/20 09:27 Dose: 1 applic Sodium Chloride (Saline Flush) 10 ml FLUSH ASDIRECTED PRN PRN Reason: Keep Vein Open Discontinued Medications Clindamycin Phosphate (Cleocin) Confirm Administered Dose 600 mg .ROUTE .STK- MED ONE Stop: 02/14/20 14:23 Last Admin: 02/14/20 14:27 Dose: Not Given Clindamycin Phosphate 600 mg/ (Sodium Chloride) 104 mls @ 200 mls/hr IV ONETIME ONE Stop: 02/13/20 12:46 Last Admin: 02/13/20 12:42 Dose: 200 mls/hr Sodium Chloride (Normal Saline) 1,000 mls @ 150 mls/hr IV .BOLUS ONE Stop: 02/13/20 18:54 Last Infusion: 02/13/20 14:31 Dose: Infused Ibuprofen (Motrin) 600 mg PO ONETIME ONE Stop: 02/13/20 10:57 Last Admin: 02/13/20 11:05 Dose: 600 mg Sodium Chloride (Saline Flush) 10 ml FLUSH ASDIRECTED PRN PRN Reason: Keep Vein Open Last Admin: 02/15/20 14:14 Dose: 10 ml - Exam General: Reports: Alert, Oriented HEENT: Reports: Pupils Equal, Pupils Reactive Lungs: Reports: Clear to Auscultation, Normal Respiratory Effort Cardiovascular: Reports: Regular Rate, Regular Rhythm GI/Abdominal Exam: Normal Bowel Sounds, Soft, Non-Tender, No Organomegaly Extremities: Normal Inspection, Normal Range of Motion, Non-Tender, No Pedal Edema Skin: Reports: Rash Neurological: Reports: No New Focal Deficit Psy/Mental Status: Reports: Alert, Normal Affect, Normal Mood
[2020-02-16 13:10] VITALS: BP 128/73; PULSE 81
== END 2020-02-16 13:15 | disposition home or self-care (01) | DRG 720 ==
LOC: DL.ED 10:07 → DL.MS 12:36
PROVIDERS: ADMIT Hospitalist; ATTEND Hospitalist
DX: A41.9 Sepsis, unspecified organism (principal); L03.311 Cellulitis of abdominal wall; I10 Essential (primary) hypertension; F17.200 Nicotine dependence, unspecified, uncomplicated; Z28.82 Immunization not carried out because of caregiver refusal; Z88.0 Allergy status to penicillin; Z88.1 Allergy status to other antibiotic agents; Z79.82 Long term (current) use of aspirin; Z79.899 Other long term (current) drug therapy
CPT/HCPCS: 36415; 80048; 80053; 82962; 83036; 83605; 85025; 85027; 86140; 87040; 99284; A9270-GY; J1650; J3490; J7030; J7050

== ENCOUNTER 2020-05-30 11:43 | Emergency (ER) | payer BC ==
[2020-05-30 11:55] VITALS: BP 137/77; PULSE 123
[2020-05-30] MEDS ORDERED: Sodium Chloride 0.9% 10 ML Syringe FLUSH PRN (12:10)
[2020-05-30] MEDS ORDERED: Clindamycin Phosphate 900 MG in Sodium Chloride 0.9% 100 ML IV ONE (12:11)
[2020-05-30 12:59] LABS: ANION GAP 15.3 mEq/L (7-13)
--- NOTE | 2020-05-30 13:18 | EDM.PDOC ---
Scribed by Wendi Rico 05/30/20 1224 for Yemi Clement MD ED HPI GENERAL MEDICAL PROBLEM - General Chief Complaint: Fever Stated Complaint: FEVER/INFECTION Time Seen by Provider: 05/30/20 12:05 Source of Information: Reports: Patient, RN, RN Notes Reviewed History Limitations: Reports: No Limitations - History of Present Illness INITIAL COMMENTS - FREE TEXT/NARRATIVE: Patient presents to the ED by POV because of having the chills "all night" and noticing redness to his lower abdomen, "where I always get infection". Pt reports multiple episodes of cellulitis requiring hospitalization. He states he is always in pain but the only new pain was in his left lower back low back/flank area which was throbbing for a couple hours this morning but has completely resolved. He denies cough, shortness of breath or chest pain. No known COVID exposure. Onset: Today Duration: Getting Worse Location: Reports: Abdomen Quality: Reports: Same as Previous Episode Severity: Severe Improves with: Reports: Other (Palpation) Worsens with: Reports: None Associated Symptoms: Reports: No Other Symptoms - Related Data Allergies Allergy/AdvReac Type Severity Reaction Status Date / Time Penicillins Allergy Mild UNKNOWN Verified 05/30/20 11:51 daptomycin Allergy Rash Verified 05/30/20 11:51 vancomycin Allergy Rash Verified 05/30/20 11:51 Home Meds: Home Meds Metoprolol Succinate [Toprol XL 50mg] 50 mg PO DAILY 04/21/15 [History] Aspirin [Ecotrin EC] 81 mg PO DAILY 07/24/19 [History] Ferrous Sulfate 324 mg PO DAILY 07/24/19 [History] NIFEdipine [Nifedipine ER] 30 mg PO DAILY 07/24/19 [History] Nystatin [Nystop] 1 applic TOP BID #1 bottle 08/07/19 [Rx] Hydrocodone/Acetaminophen [Hydrocodone-Acetamin 10-325 mg] 1 - 2 tab PO Q6H PRN 08/20/19 [History] lisinopriL [Lisinopril] 20 mg PO DAILY 02/13/20 [History] Tedizolid Phosphate [Sivextro] 200 mg PO DAILY 5 Days #5 tablet 02/16/20 [Rx] metFORMIN [Glucophage] 500 mg PO BIDMEALS 30 Days #60 tab 02/16/20 [Rx] Diclofenac Sodium 50 mg PO TID 05/30/20 [History] methocarbamoL [Methocarbamol] 500 mg PO TID 05/30/20 [History] Past Medical History HEENT History: Reports: Impaired Vision Other HEENT History: wears glasses Cardiovascular History: Reports: Hypertension Respiratory History: Reports: Bronchitis, Recurrent Gastrointestinal History: Reports: Pancreatitis Other Gastrointestinal History: cyst on his stomach removed Genitourinary History: Reports: Other (See Below) Other Genitourinary History: acute renal insufficiency Musculoskeletal History: Reports: Arthritis Other Musculoskeletal History: knee. 08/20 Bilat. cortisone injections knees and last week cortisone injection right heel. Right heel pain Neurological History: Reports: None Psychiatric History: Reports: None Endocrine/Metabolic History: Reports: Diabetes, Type II, Obesity/BMI 30+ Hematologic History: Reports: Anemia Immunologic History: Reports: None Oncologic (Cancer) History: Reports: None Dermatologic History: Reports: Cellulitis Other Dermatologic History: Cellulitis Pannus - Infectious Disease History Infectious Disease History: Reports: Hepatitis B, MRSA - Past Surgical History Head Surgeries/Procedures: Reports: None HEENT Surgical History: Reports: Tonsillectomy Other Musculoskeletal Surgeries/Procedures:: right ankle surgery Social & Family History - Family History Family Medical History: Noncontributory - Caffeine Use Caffeine Use: Reports: Soda - Living Situation & Occupation Living situation: Reports: , with Family Occupation: Disabled ED ROS GENERAL - Review of Systems Review Of Systems: Comprehensive ROS is negative, except as noted in HPI. ED EXAM, SKIN/RASH Exam: See Below Exam Limited By: No Limitations General Appearance: Alert, No Apparent Distress, Obese Eye Exam: Bilateral Eye: Normal Inspection (No scleral icterus) Nose: Normal Inspection Throat/Mouth: Normal Inspection, Normal Voice, No Airway Compromise Head: Atraumatic, Normocephalic Neck: Normal Inspection, Supple, Non-Tender, Full Range of Motion Respiratory/Chest: No Respiratory Distress, Lungs Clear, No Accessory Muscle Use, Chest Non-Tender, Decreased Breath Sounds Cardiovascular: Normal Peripheral Pulses, Regular Rate, Rhythm, Tachycardia GI/Abdominal: Normal Bowel Sounds, Soft, No Distention, Tender (Lower abdominal wall/skin tender with increased warmth, no focal abscess. Area of erythema from Rt low back/flank arcoss the abdomen to left far lateral abdominal wall and from the waist line to to height of the umbilicus at midline and slightly higher bilaterally, area measuses 140cm wide x 44cm Ht. ). No: Guarding, Rigid, Rebound (Male) Exam: Deferred Rectal (Males) Exam: Deferred Back Exam: Full Range of Motion Extremities: Normal Range of Motion, Non-Tender, Pedal Edema Neurological: Alert, Oriented, No Motor/Sensory Deficits Psychiatric: Normal Mood Skin: Dry, Intact Course - Vital Signs Last Recorded V/S: Last Vital Signs Temp 99.8 F 05/30/20 11:54 Pulse 123 H 05/30/20 11:54 Resp 22 H 05/30/20 11:54 BP 137/77 05/30/20 11:54 Pulse Ox 98 05/30/20 11:54 - Orders/Labs/Meds Orders: Active Orders 24 hr Category Date Time Status Peripheral IV Care [RC] . DIRECTED Care 05/30/20 12:11 Active CULTURE BLOOD [BC] Stat Lab 05/30/20 12:25 Results CULTURE BLOOD [BC] Stat Lab 05/30/20 12:30 Received Sodium Chloride 0.9% [Saline Flush] Med 05/30/20 12:10 Active 10 ml FLUSH ASDIRECTED PRN Blood Culture x2 Reflex Set [OM.PC] Stat Oth 05/30/20 12:10 Ordered Peripheral IV Insertion Adult [OM.PC] Stat Oth 05/30/20 12:10 Ordered Medication Orders Sodium Chloride (Saline Flush) 10 ml FLUSH ASDIRECTED PRN PRN Reason: Keep Vein Open Last Admin: 05/30/20 12:30 Dose: 10 ml Documented by: RIVERA Labs: Laboratory Tests 05/30/20 05/30/20 05/30/20 Range/Units 12:30 12:30 12:30 WBC 16.1 H (5.0-10.0) 10^3/uL RBC 4.75 (4.6-6.2) 10^6/uL Hgb 13.8 L (14.0-18.0) g/dL Hct 42.8 (40.0-54.0) % MCV 90.1 (80-100) fL MCH 29.1 (27.0-34.0) pg MCHC 32.2 L (33.0-35.0) g/dL Plt Count 237 (150-450) 10^3/uL Neut % (Auto) 90.5 H (42.2-75.2) % Lymph % (Auto) 5.5 L (20.5-50.1) % Winkler % (Auto) 2.9 (2-8) % Eos % (Auto) 0.8 L (1.0-3.0) % Baso % (Auto) 0.3 (0.0-1.0) % Sodium 139 (136-145) mmol/L Potassium 3.3 L D (3.5-5.1) mmol/L Chloride 102 (98-107) mmol/L Carbon Dioxide 25 (21-32) mmol/L Anion Gap 15.3 H (7-13) mEq/L BUN 13 (7-18) mg/dL Creatinine 1.42 H (0.70-1.30) mg/dL Est Cr Clr Drug Dosing 60.13 mL/min Estimated GFR (MDRD) 53 BUN/Creatinine Ratio 9.2 (No establ ref range) Glucose 170 H (74-99) mg/dL Lactic Acid 1.9 (0.4-2.0) mmol/L Calcium 8.5 (8.5-10.1) mg/dL Total Bilirubin 1.2 H (0.2-1.0) mg/dL AST 21 (15-37) U/L ALT 39 (16-63) U/L Alkaline Phosphatase 134 H (46-116) U/L C-Reactive Protein 12.0 H (0.0-0.9) mg/dL Total Protein 7.6 (6.4-8.2) g/dL Albumin 3.4 (3.4-5.0) g/dL Globulin 4.2 Albumin/Globulin Ratio 0.8 Meds: Medications Generic Name Dose Route Start Last Admin Trade Name Freq PRN Reason Stop Dose Admin Sodium Chloride 10 ml 05/30/20 12:10 05/30/20 12:30 Saline Flush FLUSH 10 ml ASDIRECTED PRN Administration Keep Vein Open Discontinued Medications Generic Name Dose Route Start Last Admin Trade Name Freq PRN Reason Stop Dose Admin Clindamycin Phosphate 900 mg/ 106 mls @ 200 mls/hr 05/30/20 12:11 05/30/20 12:38 Sodium Chloride IV 05/30/20 12:42 200 mls/hr ONETIME ONE Administration Departure - Departure Time of Disposition: 13:17 Disposition: DC/[facility]fer to [facility] Condition: Serious Clinical Impression: Cellulitis of abdominal wall - Discharge Information *PRESCRIPTION DRUG MONITORING PROGRAM REVIEWED*: Not Applicable *COPY OF PRESCRIPTION DRUG MONITORING REPORT IN PATIENT JUAN CARLOS: Not Applicable Forms: ED Department Discharge, Interfacility Transfer [facility] Sepsis Event Note (ED) - Evaluation Sepsis Screening Result: No Definite Risk - Focused Exam Vital Signs: Vital Signs Temp Pulse Resp BP Pulse Ox 05/30/20 11:54 99.8 F 123 H 22 H 137/77 98 - My Orders Last 24 Hours: My Active Orders 05/30/20 12:10 Sodium Chloride 0.9% [Saline Flush] 10 ml FLUSH ASDIRECTED PRN Blood Culture x2 Reflex Set [OM.PC] Stat Peripheral IV Insertion Adult [OM.PC] Stat 05/30/20 12:11 Peripheral IV Care [RC] . DIRECTED 05/30/20 12:25 CULTURE BLOOD [BC] Stat 05/30/20 12:30 CULTURE BLOOD [BC] Stat - Assessment/Plan Last 24 Hours: My Active Orders 05/30/20 12:10 Sodium Chloride 0.9% [Saline Flush] 10 ml FLUSH ASDIRECTED PRN Blood Culture x2 Reflex Set [OM.PC] Stat Peripheral IV Insertion Adult [OM.PC] Stat 05/30/20 12:11 Peripheral IV Care [RC] . DIRECTED 05/30/20 12:25 CULTURE BLOOD [BC] Stat 05/30/20 12:30 CULTURE BLOOD [BC] Stat I have read and agree with the documentation that has been completed regarding this visit. By signing this record, I attest that the documentation was completed in my physical presence and is an accurate record of the encounter.
== END 2020-05-30 14:02 ==
LOC: DL.ED 11:43
DX: L03.311 Cellulitis of abdominal wall (principal); I10 Essential (primary) hypertension; E11.9 Type 2 diabetes mellitus without complications; E66.9 Obesity, unspecified; D64.9 Anemia, unspecified; Z68.44 Body mass index [BMI] 60.0-69.9, adult; Z88.0 Allergy status to penicillin; Z79.82 Long term (current) use of aspirin; Z79.84 Long term (current) use of oral hypoglycemic drugs; Z79.899 Other long term (current) drug therapy
CPT/HCPCS: 36415; 80053; 83605; 85025; 86140; 87040; 96365; 99284; J3490; J7050

== ENCOUNTER 2021-08-23 15:49 | Inpatient (IN) | payer BC ==
[2021-08-23] MEDS ORDERED: Sodium Chloride 0.9% 10 ML Syringe FLUSH PRN ×2 (16:19→17:58)
[2021-08-23] MEDS ORDERED: Clindamycin Phosphate 900 MG in Sodium Chloride 0.9% 100 ML IV ONE (16:20)
--- NOTE | 2021-08-23 17:07 | EDM.PDOC ---
Scribed by Wendi Rico 08/23/21 3465 for Yemi Clement MD ED HPI GENERAL MEDICAL PROBLEM - General Chief Complaint: Skin Complaint Stated Complaint: INFECTION FROM BEFORE Time Seen by Provider: 08/23/21 16:14 Source of Information: Reports: Patient, RN, RN Notes Reviewed History Limitations: Reports: No Limitations - History of Present Illness INITIAL COMMENTS - FREE TEXT/NARRATIVE: Patient presents to ED by POV due to increasing redness, tenderness and increased warmth to his abdominal pannus. He has been on the chronic prophylactic antibiotic therapy, receives Duricef and Doxycycline for several months, however, over the past several days the redness has begun to increase again. Denies fever or chills. Denies any abscess, open ulcers or drainage. History fo morbid obesity with chronic panniculitis with several episodes of cellulitis and sepsis resulting from skin infection. Onset: Gradual Duration: Getting Worse Location: Reports: Other (abdominal pannus) Severity: Severe Improves with: Reports: None Worsens with: Reports: None Associated Symptoms: Reports: No Other Symptoms - Related Data Allergies Allergy/AdvReac Type Severity Reaction Status Date / Time Penicillins Allergy Mild UNKNOWN Verified 05/30/20 11:51 amoxicillin Allergy Other Verified 11/09/20 16:22 daptomycin Allergy Rash Verified 05/30/20 11:51 vancomycin Allergy Rash Verified 05/30/20 11:51 Home Meds: Home Meds Metoprolol Succinate [Toprol XL 50mg] 50 mg PO DAILY 04/21/15 [History] Aspirin [Ecotrin EC] 81 mg PO DAILY 07/24/19 [History] Ferrous Sulfate 324 mg PO DAILY 07/24/19 [History] NIFEdipine [Nifedipine ER] 30 mg PO DAILY 07/24/19 [History] Nystatin [Nystop] 1 applic TOP BID #1 bottle 08/07/19 [Rx] Hydrocodone/Acetaminophen [Hydrocodone-Acetamin 10-325 mg] 1 - 2 tab PO Q6H PRN 08/20/19 [History] lisinopriL [Lisinopril] 20 mg PO DAILY 02/13/20 [History] Tedizolid Phosphate [Sivextro] 200 mg PO DAILY 5 Days #5 tablet 02/16/20 [Rx] metFORMIN [Glucophage] 500 mg PO BIDMEALS 30 Days #60 tab 02/16/20 [Rx] Diclofenac Sodium 50 mg PO TID 05/30/20 [History] methocarbamoL [Methocarbamol] 500 mg PO TID 05/30/20 [History] Past Medical History HEENT History: Reports: Impaired Vision Other HEENT History: wears glasses Cardiovascular History: Reports: Hypertension Respiratory History: Reports: Bronchitis, Recurrent Gastrointestinal History: Reports: Pancreatitis Other Gastrointestinal History: cyst on his stomach removed Genitourinary History: Reports: Other (See Below) Other Genitourinary History: acute renal insufficiency Musculoskeletal History: Reports: Arthritis Other Musculoskeletal History: knee. 08/20 Bilat. cortisone injections knees and last week cortisone injection right heel. Right heel pain Neurological History: Reports: None Psychiatric History: Reports: None Endocrine/Metabolic History: Reports: Diabetes, Type II, Obesity/BMI 30+ Hematologic History: Reports: Anemia Immunologic History: Reports: None Oncologic (Cancer) History: Reports: None Dermatologic History: Reports: Cellulitis Other Dermatologic History: Cellulitis Pannus - Infectious Disease History Infectious Disease History: Reports: Hepatitis B, MRSA - Past Surgical History Head Surgeries/Procedures: Reports: None HEENT Surgical History: Reports: Tonsillectomy Other Musculoskeletal Surgeries/Procedures:: right ankle surgery Social & Family History - Family History Family Medical History: No Pertinent Family History - Caffeine Use Caffeine Use: Reports: Soda - Living Situation & Occupation Living situation: Reports: , with Family Occupation: Disabled ED ROS GENERAL - Review of Systems Review Of Systems: Comprehensive ROS is negative, except as noted in HPI. ED EXAM, SKIN/RASH Exam: See Below Exam Limited By: No Limitations General Appearance: Alert, No Apparent Distress, Obese Eye Exam: Bilateral Eye: Normal Inspection Nose: Normal Inspection Throat/Mouth: Normal Voice, No Airway Compromise Head: Atraumatic, Normocephalic Respiratory/Chest: No Respiratory Distress, Lungs Clear, No Accessory Muscle Use, Decreased Breath Sounds Cardiovascular: Regular Rate, Rhythm GI/Abdominal: Normal Bowel Sounds, Soft, Tender (Severely obese abdomen with large hanging panus. Inferior panus below umbilicus from Rt to left mid-axillary lines has erythema with increased warmth and tenderness without abscess, ulceration, or weeping.). No: Guarding, Rigid, Rebound Back Exam: Normal Inspection Extremities: Non-Tender Neurological: Alert, Oriented, No Motor/Sensory Deficits Psychiatric: Normal Mood Skin: Warm, Dry Course - Vital Signs Last Recorded V/S: BP 142/66 HR 86 RR 18 T97.9F - Orders/Labs/Meds Orders: Active Orders 24 hr Category Date Time Status Peripheral IV Care [RC] . DIRECTED Care 08/23/21 16:20 Active C-REACTIVE PROTEIN [CHEM] Stat Lab 08/23/21 16:38 Received COMPREHENSIVE METABOLIC PN,CMP [CHEM] Stat Lab 08/23/21 16:38 Received CORONAVIRUS COVID-19 SUZANNE [MOLEC] Stat Lab 08/23/21 16:58 Received CULTURE BLOOD [BC] Stat Lab 08/23/21 16:32 Received CULTURE BLOOD [BC] Stat Lab 08/23/21 16:38 Received LACTATE SEPSIS W/ REFLEX [CHEM] Stat Lab 08/23/21 16:38 Received Sodium Chloride 0.9% [Saline Flush] Med 08/23/21 16:19 Active 10 ml FLUSH ASDIRECTED PRN Blood Culture x2 Reflex Set [OM.PC] Stat Oth 08/23/21 16:19 Ordered Peripheral IV Insertion Adult [OM.PC] Stat Oth 08/23/21 16:20 Ordered Medication Orders Sodium Chloride (Sodium Chloride 0.9% 10 Ml Syringe) 10 ml FLUSH ASDIRECTED PRN PRN Reason: Keep Vein Open Last Admin: 08/23/21 16:47 Dose: 10 ml Documented by: [email or web address] Labs: Laboratory Tests 08/23/21 Range/Units 16:38 WBC 25.3 H* (5.0-10.0) 10^3/uL RBC 4.88 (4.6-6.2) 10^6/uL Hgb 13.8 L (14.0-18.0) g/dL Hct 43.2 (40.0-54.0) % MCV 88.5 (80-100) fL MCH 28.3 (27.0-34.0) pg MCHC 31.9 L (33.0-35.0) g/dL Plt Count 273 (150-450) 10^3/uL Neut % (Auto) 93.7 H (42.2-75.2) % Lymph % (Auto) 3.0 L (20.5-50.1) % Todd % (Auto) 2.9 (2-8) % Eos % (Auto) 0.2 L (1.0-3.0) % Baso % (Auto) 0.2 (0.0-1.0) % Meds: Medications Generic Name Dose Route Start Last Admin Trade Name Freq PRN Reason Stop Dose Admin Sodium Chloride 10 ml 08/23/21 16:19 08/23/21 16:47 Sodium Chloride 0.9% 10 Ml Syringe FLUSH 10 ml ASDIRECTED PRN Administration Keep Vein Open Discontinued Medications Generic Name Dose Route Start Last Admin Trade Name Freq PRN Reason Stop Dose Admin Clindamycin Phosphate 900 mg/ 106 mls @ 200 mls/hr 08/23/21 16:20 08/23/21 16:47 Sodium Chloride IV 08/23/21 16:51 200 mls/hr ONETIME ONE Administration Departure - Departure Time of Disposition: 17:06 (admitted to Dr. Curry) Disposition: Admitted As Inpatient 66 Condition: Fair Clinical Impression: Cellulitis of abdominal wall - Discharge Information *PRESCRIPTION DRUG MONITORING PROGRAM REVIEWED*: No *COPY OF PRESCRIPTION DRUG MONITORING REPORT IN PATIENT JUAN CARLOS: No Forms: ED Department Discharge - My Orders Last 24 Hours: My Active Orders 08/23/21 16:19 Sodium Chloride 0.9% [Saline Flush] 10 ml FLUSH ASDIRECTED PRN Blood Culture x2 Reflex Set [OM.PC] Stat 08/23/21 16:20 Peripheral IV Care [RC] . DIRECTED Peripheral IV Insertion Adult [OM.PC] Stat 08/23/21 16:32 CULTURE BLOOD [BC] Stat 08/23/21 16:38 C-REACTIVE PROTEIN [CHEM] Stat COMPREHENSIVE METABOLIC PN,CMP [CHEM] Stat CULTURE BLOOD [BC] Stat LACTATE SEPSIS W/ REFLEX [CHEM] Stat 08/23/21 16:58 CORONAVIRUS COVID-19 SUZANNE [MOLEC] Stat - Assessment/Plan Last 24 Hours: My Active Orders 08/23/21 16:19 Sodium Chloride 0.9% [Saline Flush] 10 ml FLUSH ASDIRECTED PRN Blood Culture x2 Reflex Set [OM.PC] Stat 08/23/21 16:20 Peripheral IV Care [RC] . DIRECTED Peripheral IV Insertion Adult [OM.PC] Stat 08/23/21 16:32 CULTURE BLOOD [BC] Stat 08/23/21 16:38 C-REACTIVE PROTEIN [CHEM] Stat COMPREHENSIVE METABOLIC PN,CMP [CHEM] Stat CULTURE BLOOD [BC] Stat LACTATE SEPSIS W/ REFLEX [CHEM] Stat 08/23/21 16:58 CORONAVIRUS COVID-19 SUZANNE [MOLEC] Stat I have read and agree with the documentation that has been completed regarding this visit. By signing this record, I attest that the documentation was completed in my physical presence and is an accurate record of the encounter.
[2021-08-23 17:08] LABS: ANION GAP 17.6 mEq/L (7-13); CHLORIDE,CL 106 mmol/L (98-107); SODIUM,NA 141 mmol/L (136-145)
[2021-08-23] MEDS ORDERED: 50% Dextrose in Water 50 ML Syringe IVPUSH PRN (17:53)
[2021-08-23] MEDS ORDERED: Zolpidem 5 MG Tab PO PRN (17:58)
[2021-08-23] MEDS ORDERED: Ondansetron 4 MG/2 ML SDV IVPUSH PRN (17:58)
[2021-08-23] MEDS ORDERED: Docusate Sodium 100 MG Cap PO PRN (17:58)
[2021-08-23] MEDS ORDERED: Clindamycin Phosphate 600 MG in Sodium Chloride 0.9% 100 ML IV SCH (18:00)
--- NOTE | 2021-08-23 18:06 | PCM.HP ---
H&P History of Present Illness - General Date of Service: 08/23/21 Admit Problem/Dx: Admission Diagnosis/Problem Admission Diagnosis/Problem Cellulitis Source of Information: Patient - History of Present Illness Initial Comments - Free Text/Narative: 46 yo wih h/o morbid obesity, dm, recurrent abdominal wall cellulitis on suppressive PO Abx developed malaise, associated with lower anterior abdominal wall redness x 12 h duration no associated fever, no wound, no injury, no drainage has h/o DM - home BSs 120-125s - Related Data Allergies/Adverse Reactions: Allergies Allergy/AdvReac Type Severity Reaction Status Date / Time Penicillins Allergy Mild UNKNOWN Verified 08/23/21 18:01 amoxicillin Allergy Other Verified 08/23/21 18:01 daptomycin Allergy Rash Verified 08/23/21 18:01 vancomycin Allergy Rash Verified 08/23/21 18:01 Home Medications: Home Meds Metoprolol Succinate [Toprol XL 50mg] 50 mg PO DAILY 04/21/15 [History] Aspirin [Ecotrin EC] 81 mg PO DAILY 07/24/19 [History] Ferrous Sulfate 324 mg PO DAILY 07/24/19 [History] NIFEdipine [Nifedipine ER] 30 mg PO DAILY 07/24/19 [History] Nystatin [Nystop] 1 applic TOP BID #1 bottle 08/07/19 [Rx] Hydrocodone/Acetaminophen [Hydrocodone-Acetamin 10-325 mg] 1 - 2 tab PO Q6H PRN 08/20/19 [History] lisinopriL [Lisinopril] 20 mg PO DAILY 02/13/20 [History] Tedizolid Phosphate [Sivextro] 200 mg PO DAILY 5 Days #5 tablet 02/16/20 [Rx] metFORMIN [Glucophage] 500 mg PO BIDMEALS 30 Days #60 tab 02/16/20 [Rx] Diclofenac Sodium 50 mg PO TID 05/30/20 [History] methocarbamoL [Methocarbamol] 500 mg PO TID 05/30/20 [History] Past Medical History HEENT History: Reports: Impaired Vision Other HEENT History: wears glasses Cardiovascular History: Reports: Hypertension Respiratory History: Reports: Bronchitis, Recurrent Gastrointestinal History: Reports: Pancreatitis Other Gastrointestinal History: cyst on his stomach removed Genitourinary History: Reports: Other (See Below) Other Genitourinary History: acute renal insufficiency Musculoskeletal History: Reports: Arthritis Other Musculoskeletal History: knee. 08/20 Bilat. cortisone injections knees and last week cortisone injection right heel. Right heel pain Neurological History: Reports: None Psychiatric History: Reports: None Endocrine/Metabolic History: Reports: Diabetes, Type II, Obesity/BMI 30+ Hematologic History: Reports: Anemia Immunologic History: Reports: None Oncologic (Cancer) History: Reports: None Dermatologic History: Reports: Cellulitis Other Dermatologic History: Cellulitis Pannus - Infectious Disease History Infectious Disease History: Reports: Hepatitis B, MRSA - Past Surgical History Head Surgeries/Procedures: Reports: None HEENT Surgical History: Reports: Tonsillectomy Other Respiratory Surgeries/Procedures: doesn't used cpap Other Musculoskeletal Surgeries/Procedures:: right ankle surgery Social & Family History - Family History Family Medical History: No Pertinent Family History - Tobacco Use Tobacco Use Status *Q: Never Tobacco User Second Hand Smoke Exposure: No - Caffeine Use Caffeine Use: Reports: Coffee, Soda - Recreational Drug Use Recreational Drug Use: No - Living Situation & Occupation Living situation: Reports: , with Family Occupation: Disabled H&P Review of Systems - Review of Systems: Review Of Systems: See Below Exam - Exam Exam: See Below - Vital Signs Vital Signs: Last Vital Signs Temp 97.2 F 08/23/21 15:54 Pulse 6 L 08/23/21 15:54 Resp 16 08/23/21 15:54 BP 142/66 H 08/23/21 15:54 Pulse Ox 100 08/23/21 15:54 - Exam General: Alert, Oriented Neck: Supple Lungs: Clear to Auscultation Cardiovascular: Regular Rate, Regular Rhythm GI/Abdominal Exam: Normal Bowel Sounds, Other (morbidly obese) Skin: Other (lower abd pannus with chronic appearing edema, acute redness,warmth , no wound ) - Patient Data Lab Results Last 24 hrs: Laboratory Results - last 24 hr 08/23/21 08/23/21 08/23/21 Range/Units 16:38 16:38 16:38 WBC 25.3 H* (5.0-10.0) 10^3/uL RBC 4.88 (4.6-6.2) 10^6/uL Hgb 13.8 L (14.0-18.0) g/dL Hct 43.2 (40.0-54.0) % MCV 88.5 (80-100) fL MCH 28.3 (27.0-34.0) pg MCHC 31.9 L (33.0-35.0) g/dL Plt Count 273 (150-450) 10^3/uL Neut % (Auto) 93.7 H (42.2-75.2) % Lymph % (Auto) 3.0 L (20.5-50.1) % Howell % (Auto) 2.9 (2-8) % Eos % (Auto) 0.2 L (1.0-3.0) % Baso % (Auto) 0.2 (0.0-1.0) % Sodium 141 (136-145) mmol/L Potassium 4.6 (3.5-5.1) mmol/L Chloride 106 (98-107) mmol/L Carbon Dioxide 22 (21-32) mmol/L Anion Gap 17.6 H (7-13) mEq/L BUN 33 H (7-18) mg/dL Creatinine 1.51 H (0.70-1.30) mg/dL Est Cr Clr Drug Dosing TNP Estimated GFR (MDRD) 50 BUN/Creatinine Ratio 21.9 (No establ ref range) Glucose 171 H (70-99) mg/dL Lactic Acid 1.6 (0.4-2.0) mmol/L Calcium 8.7 (8.5-10.1) mg/dL Total Bilirubin 0.9 (0.2-1.0) mg/dL AST 17 (15-37) U/L ALT 39 (16-63) U/L Alkaline Phosphatase 145 H (46-116) U/L C-Reactive Protein 4.6 H (0.0-0.9) mg/dL Total Protein 7.6 (6.4-8.2) g/dL Albumin 3.3 L (3.4-5.0) g/dL Globulin 4.3 Albumin/Globulin Ratio 0.77 SARS-CoV-2 RNA (SUZANNE) (NEGATIVE) 08/23/21 Range/Units 16:58 WBC (5.0-10.0) 10^3/uL RBC (4.6-6.2) 10^6/uL Hgb (14.0-18.0) g/dL Hct (40.0-54.0) % MCV (80-100) fL MCH (27.0-34.0) pg MCHC (33.0-35.0) g/dL Plt Count (150-450) 10^3/uL Neut % (Auto) (42.2-75.2) % Lymph % (Auto) (20.5-50.1) % Howell % (Auto) (2-8) % Eos % (Auto) (1.0-3.0) % Baso % (Auto) (0.0-1.0) % Sodium (136-145) mmol/L Potassium (3.5-5.1) mmol/L Chloride (98-107) mmol/L Carbon Dioxide (21-32) mmol/L Anion Gap (7-13) mEq/L BUN (7-18) mg/dL Creatinine (0.70-1.30) mg/dL Est Cr Clr Drug Dosing Estimated GFR (MDRD) BUN/Creatinine Ratio (No establ ref range) Glucose (70-99) mg/dL Lactic Acid (0.4-2.0) mmol/L Calcium (8.5-10.1) mg/dL Total Bilirubin (0.2-1.0) mg/dL AST (15-37) U/L ALT (16-63) U/L Alkaline Phosphatase (46-116) U/L C-Reactive Protein (0.0-0.9) mg/dL Total Protein (6.4-8.2) g/dL Albumin (3.4-5.0) g/dL Globulin Albumin/Globulin Ratio SARS-CoV-2 RNA (SUZANNE) Negative (NEGATIVE) Result Diagrams: 08/23/21 16:38 08/23/21 16:38 - Problem List (1) Cellulitis SNOMED Code(s): 518622945 ICD Code: L03.90 - CELLULITIS, UNSPECIFIED Status: Acute Current Visit: No Qualifiers: Site of cellulitis: trunk Site of cellulitis of trunk: abdominal wall Qualified Code(s): L03.311 - Cellulitis of abdominal wall (2) Cellulitis of abdominal wall SNOMED Code(s): 98967419 ICD Code: L03.311 - CELLULITIS OF ABDOMINAL WALL Status: Acute Current Visit: No (3) HTN (hypertension) SNOMED Code(s): 75270719 ICD Code: I10 - ESSENTIAL (PRIMARY) HYPERTENSION Status: Acute Current Visit: No Qualifiers: Hypertension type: essential hypertension Qualified Code(s): I10 - Essential (primary) hypertension Problem List Initiated/Reviewed/Updated: Yes Orders Last 24hrs: Active Orders 24 hr Category Date Time Status Admission Diagnosis [ADT] Stat ADT 08/23/21 17:43 Ordered Admission Status [Patient Status] [ADT] Routine ADT 08/23/21 17:43 Active Blood Glucose Check, Bedside [RC] WITHMEALSANDBED Care 08/23/21 17:54 Active Oxygen Therapy [RC] PRN Care 08/23/21 17:58 Ordered Peripheral IV Care [RC] . DIRECTED Care 08/23/21 16:20 Active Up With Assistance [RC] ASDIRECTED Care 08/23/21 17:58 Ordered VTE/DVT Education [RC] PER UNIT ROUTINE Care 08/23/21 17:58 Ordered Vital Signs [RC] Q4H Care 08/23/21 17:58 Ordered Consistent Carbohydrate Diet [DIET] Diet 08/23/21 Breakfast Ordered BASIC METABOLIC PANEL,BMP [CHEM] AM Lab 08/24/21 05:15 Ordered CBC WITH AUTO DIFF [HEME] AM Lab 08/24/21 05:15 Ordered CULTURE BLOOD [BC] Stat Lab 08/23/21 16:32 Received CULTURE BLOOD [BC] Stat Lab 08/23/21 16:38 Received Acetaminophen [TylenoL] Med 08/23/21 17:58 Ordered 650 mg PO Q4H PRN Acetaminophen/HYDROcodone [[place] 325-10 MG] Med 08/23/21 17:57 Ordered 1 tab PO Q6H PRN Aspirin [Halfprin] Med 08/24/21 09:00 Ordered 81 mg PO DAILY Clindamycin Phosphate [Cleocin] 600 mg Med 08/23/21 18:00 Ordered Sodium Chloride 0.9% [Normal Saline AdvBag] 100 ml IV Q8H Dextrose 50% in Water Med 08/23/21 17:53 Ordered 25 ml IVPUSH ASDIRECTED PRN Docusate Sodium [Colace] Med 08/23/21 17:58 Ordered 100 mg PO BID PRN Ferrous Sulfate [Ferrous Sulfate] Med 08/24/21 09:00 Ordered 324 mg PO DAILY Heparin Sodium Med 08/23/21 22:00 Ordered 5,000 units SUBCUT Q8HR Insulin Lispro [HumaLOG] Med 08/23/21 18:00 Ordered See Protocol SUBCUT WITHMEALSANDBED Metoprolol Succinate [Toprol XL] Med 08/24/21 09:00 Ordered 50 mg PO DAILY NIFEdipine [Nifedipine ER] Med 08/24/21 09:00 Ordered 30 mg PO DAILY Ondansetron [Zofran] Med 08/23/21 17:58 Ordered 4 mg IVPUSH Q4H PRN Sodium Chloride 0.9% [Saline Flush] Med 08/23/21 16:19 Active 10 ml FLUSH ASDIRECTED PRN Sodium Chloride 0.9% [Saline Flush] Med 08/23/21 17:58 Ordered 10 ml FLUSH ASDIRECTED PRN Zolpidem [Ambien] Med 08/23/21 17:58 Ordered 5 mg PO BEDTIME PRN lisinopriL [Prinivil] Med 08/24/21 09:00 Ordered 20 mg PO DAILY methocarbamoL [Methocarbamol] Med 08/23/21 21:00 Ordered 500 mg PO TID Blood Culture x2 Reflex Set [OM.PC] Stat Oth 08/23/21 16:19 Ordered Peripheral IV Insertion Adult [OM.PC] Stat Oth 08/23/21 16:20 Ordered Saline Lock Insert [OM.PC] Routine Oth 08/23/21 17:58 Ordered Resuscitation Status Routine Resus Stat 08/23/21 17:58 Ordered Medication Orders Acetaminophen (Acetaminophen 325 Mg Tab) 650 mg PO Q4H PRN PRN Reason: Pain (Mild 1-3)/fever Hydrocodone Bitart/Acetaminophen (Acetaminophen/Hydrocodone 325-10 Mg Tab) 1 tab PO Q6H PRN PRN Reason: Pain (moderate 4-6) Aspirin (Aspirin 81 Mg Tab.Ec) 81 mg PO DAILY VIRAL Dextrose/Water (50% Dextrose In Water 50 Ml Syringe) 25 ml IVPUSH ASDIRECTED PRN PRN Reason: Hypoglycemia BS<70 Docusate Sodium (Docusate Sodium 100 Mg Cap) 100 mg PO BID PRN PRN Reason: Constipation Heparin Sodium (Porcine) (Heparin Sodium 5,000 Units/Ml Vial) 5,000 units SUBCUT Q8HR VIRAL Clindamycin Phosphate 600 mg/ (Sodium Chloride) 104 mls @ 200 mls/hr IV Q8H [facility] Insulin Human Lispro (Insulin Lispro 100 Units/Ml 3 Ml Vial) 0 unit SUBCUT WITHMEALSANDBED VIRAL; Protocol Lisinopril (Lisinopril 20 Mg Tab) 20 mg PO DAILY VIRAL Metoprolol Succinate (Metoprolol Succinate 50 Mg Tab.Er) 50 mg PO DAILY VIRAL Non-Formulary Medication (Ferrous Sulfate [Ferrous Sulfate]) 324 mg PO DAILY VIRAL Non-Formulary Medication (Methocarbamol [Methocarbamol]) 500 mg PO TID VIRAL Non-Formulary Medication (Nifedipine [Nifedipine Er]) 30 mg PO DAILY [facility] Ondansetron HCl (Ondansetron 4 Mg/2 Ml Sdv) 4 mg IVPUSH Q4H PRN PRN Reason: Nausea/Vomiting Sodium Chloride (Sodium Chloride 0.9% 10 Ml Syringe) 10 ml FLUSH ASDIRECTED PRN PRN Reason: Keep Vein Open Last Admin: 08/23/21 16:47 Dose: 10 ml Documented by: MATTHEW Sodium Chloride (Sodium Chloride 0.9% 10 Ml Syringe) 10 ml FLUSH ASDIRECTED PRN PRN Reason: Keep Vein Open Zolpidem Tartrate (Zolpidem 5 Mg Tab) 5 mg PO BEDTIME PRN PRN Reason: Sleep Assessment/Plan Comment:: presented with rapid development of lower abdominal wall redness 1. cellulitis of pannus h/o multiple allergy (pcn, vanc, dapto) obtain blood cx treat with clindamycin 2. DM hold metformin follow BSs use supplemental insulin, hypoglycemia protocol as needed 3. HTN cont lisinopril 4. dvt prophylaxis sq heparin
[2021-08-23] MEDS: Insulin Lispro 100 Units/ML 3 ML Vial SUBCUT SCH ×3 (20:19→22:32)
[2021-08-23] MEDS ORDERED: METHOCARBAMOL PO SCH (21:00)
[2021-08-23] MEDS: Heparin Sodium 5,000 Units/ML Vial SUBCUT SCH (21:41)
[2021-08-23] MEDS: [UNRECOGNIZED DRUG - OTHER] PO SCH (22:35)
[2021-08-23] MEDS: Clindamycin Phosphate 600 MG in Sodium Chloride 0.9% 100 ML IV SCH (23:50)
[2021-08-23] MEDS: Acetaminophen/HYDROcodone 325-10 MG Tab PO PRN (23:57)
[2021-08-24] MEDS: Heparin Sodium 5,000 Units/ML Vial SUBCUT SCH ×3 (06:05→21:14)
[2021-08-24 06:49] LABS: ANION GAP 15.7 mEq/L (7-13); CHLORIDE,CL 104 mmol/L (98-107); SODIUM,NA 136 mmol/L (136-145)
[2021-08-24] MEDS: Clindamycin Phosphate 600 MG in Sodium Chloride 0.9% 100 ML IV SCH ×2 (08:11→15:56)
[2021-08-24] MEDS: Metoprolol Succinate 50 MG Tab.ER PO SCH (08:13)
[2021-08-24] MEDS: Lisinopril 20 MG Tab PO SCH (08:13)
[2021-08-24] MEDS: NIFEdipine 30 MG Tab.ER PO SCH (08:14)
[2021-08-24] MEDS: Acetaminophen 325 MG Tab PO PRN ×2 (08:14→17:07)
[2021-08-24] MEDS: Ferrous Sulfate 325 MG Tab PO SCH (08:15)
[2021-08-24] MEDS: Aspirin 81 MG Tab.EC PO SCH (08:15)
[2021-08-24] MEDS: Insulin Lispro 100 Units/ML 3 ML Vial SUBCUT SCH ×4 (08:17→21:26)
[2021-08-24] MEDS: [UNRECOGNIZED DRUG - OTHER] PO SCH (08:17)
[2021-08-24] MEDS ORDERED: Glucagon,Human Recombinant 1 MG Vial IM PRN (09:23)
[2021-08-24 10:47] LABS: HEMOGLOBIN A1C 6.4 % (<5.7)
[2021-08-24] MEDS: metFORMIN 500 MG Tab PO SCH ×2 (11:42→17:07)
--- NOTE | 2021-08-24 13:23 | PCM.PN ---
- General Info Date of Service: 08/24/21 Admission Dx/Problem (Free Text): Admission Diagnosis/Problem Admission Diagnosis/Problem Cellulitis Subjective Update: 08/24/21 46 year old male with cellulitis/panniculitis (chronically with acute flare.)//morbid obesity bmi 68 and dm ins. dependent on short acting sliding scale a1c 6.4 renal impairment and severe oa / severe tanya and chronic hypoxia and chronic edema and chronic veinous stasis and dermatitis. vss lungs clear a nd decreased. cor rrr without m s3/s4. abd severe chronic induration and redness without drainage. extends to folds over suprapubic area. tender to touch mildly. ? some improvement. neuro nnormal. ext edema 3 plus varicosities. labs wbc 25 k /// crp 4.6. hgn and plat stable. denies voiding difficulties but poor sleep sec to back discomfort. b.s 240 now 177 assess : cellulitis panniculitis. on cleocin and cont . bathing / even bed bath difficult but may help. circ. imapaired sec. to overlap and compression. hx of chronic antibiotic prophylaxis and may be dealing wi th resistant org. 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 dm poor control and add back metformin and long acting insulin and encouraged him to check post prandial b.s. despite good a1c. morbid obesity with tanya on cpap chonic hypoxia stable currently . chronic edema ndneeds echo if not done already . chronic antibiotic prophylaxis by hx . asses clinical response. abd binder may help. ambulation limitations form medical problems. back pain . renal insuff on diuretics . electrolyte monitoring required. boh Functional Status: Reports: Tolerating Diet - Review of Systems General: Reports: No Symptoms, Weakness HEENT: Reports: No Symptoms Pulmonary: Reports: No Symptoms Cardiovascular: Reports: No Symptoms Gastrointestinal: Reports: No Symptoms, Abdominal Pain Genitourinary: Reports: No Symptoms Musculoskeletal: Reports: No Symptoms, Back Pain, Leg Pain, Joint Pain Skin: Reports: No Symptoms Neurological: Reports: No Symptoms Psychiatric: Reports: No Symptoms - Patient Data Vitals - Most Recent: Last Vital Signs Temp 36.1 C 08/24/21 12:00 Pulse 74 08/24/21 12:00 Resp 22 H 08/24/21 12:00 BP 113/58 L 08/24/21 12:00 Pulse Ox 97 08/24/21 12:00 Weight - Most Recent: 179.441 kg I&O - Last 24 Hours: Intake & Output 08/23/21 08/24/21 08/24/21 22:59 06:59 14:59 Intake Total 300 Balance 300 Lab Results Last 24 Hours: Laboratory Results - last 24 hr 08/23/21 08/23/21 08/23/21 Range/Units 16:38 16:38 16:38 WBC 25.3 H* (5.0-10.0) 10^3/uL RBC 4.88 (4.6-6.2) 10^6/uL Hgb 13.8 L (14.0-18.0) g/dL Hct 43.2 (40.0-54.0) % MCV 88.5 (80-100) fL MCH 28.3 (27.0-34.0) pg MCHC 31.9 L (33.0-35.0) g/dL Plt Count 273 (150-450) 10^3/uL Neut % (Auto) 93.7 H (42.2-75.2) % Lymph % (Auto) 3.0 L (20.5-50.1) % Pine % (Auto) 2.9 (2-8) % Eos % (Auto) 0.2 L (1.0-3.0) % Baso % (Auto) 0.2 (0.0-1.0) % Sodium 141 (136-145) mmol/L Potassium 4.6 (3.5-5.1) mmol/L Chloride 106 (98-107) mmol/L Carbon Dioxide 22 (21-32) mmol/L Anion Gap 17.6 H (7-13) mEq/L BUN 33 H (7-18) mg/dL Creatinine 1.51 H (0.70-1.30) mg/dL Est Cr Clr Drug Dosing TNP Estimated GFR (MDRD) 50 BUN/Creatinine Ratio 21.9 (No establ ref range) Glucose 171 H (70-99) mg/dL POC Glucose (70-99) mg/dL Hemoglobin A1c (<5.7) % Lactic Acid 1.6 (0.4-2.0) mmol/L Calcium 8.7 (8.5-10.1) mg/dL Total Bilirubin 0.9 (0.2-1.0) mg/dL AST 17 (15-37) U/L ALT 39 (16-63) U/L Alkaline Phosphatase 145 H (46-116) U/L C-Reactive Protein 4.6 H (0.0-0.9) mg/dL Total Protein 7.6 (6.4-8.2) g/dL Albumin 3.3 L (3.4-5.0) g/dL Globulin 4.3 Albumin/Globulin Ratio 0.77 SARS-CoV-2 RNA (SUZANNE) (NEGATIVE) 08/23/21 08/23/21 08/24/21 Range/Units 16:58 19:48 05:55 WBC 25.3 H* (5.0-10.0) 10^3/uL RBC 4.49 L (4.6-6.2) 10^6/uL Hgb 12.7 L (14.0-18.0) g/dL Hct 39.6 L (40.0-54.0) % MCV 88.2 (80-100) fL MCH 28.3 (27.0-34.0) pg MCHC 32.1 L (33.0-35.0) g/dL Plt Count 258 (150-450) 10^3/uL Neut % (Auto) 95.7 H (42.2-75.2) % Lymph % (Auto) 3.2 L (20.5-50.1) % Pine % (Auto) 1.0 L (2-8) % Eos % (Auto) 0.0 L (1.0-3.0) % Baso % (Auto) 0.1 (0.0-1.0) % Sodium (136-145) mmol/L Potassium (3.5-5.1) mmol/L Chloride (98-107) mmol/L Carbon Dioxide (21-32) mmol/L Anion Gap (7-13) mEq/L BUN (7-18) mg/dL Creatinine (0.70-1.30) mg/dL Est Cr Clr Drug Dosing Estimated GFR (MDRD) BUN/Creatinine Ratio (No establ ref range) Glucose (70-99) mg/dL POC Glucose 243 H (70-99) mg/dL Hemoglobin A1c (<5.7) % Lactic Acid (0.4-2.0) mmol/L Calcium (8.5-10.1) mg/dL Total Bilirubin (0.2-1.0) mg/dL AST (15-37) U/L ALT (16-63) U/L Alkaline Phosphatase (46-116) U/L C-Reactive Protein (0.0-0.9) mg/dL Total Protein (6.4-8.2) g/dL Albumin (3.4-5.0) g/dL Globulin Albumin/Globulin Ratio SARS-CoV-2 RNA (SUZANNE) Negative (NEGATIVE) 08/24/21 08/24/21 08/24/21 Range/Units 05:55 05:55 07:32 WBC (5.0-10.0) 10^3/uL RBC (4.6-6.2) 10^6/uL Hgb (14.0-18.0) g/dL Hct (40.0-54.0) % MCV (80-100) fL MCH (27.0-34.0) pg MCHC (33.0-35.0) g/dL Plt Count (150-450) 10^3/uL Neut % (Auto) (42.2-75.2) % Lymph % (Auto) (20.5-50.1) % Pine % (Auto) (2-8) % Eos % (Auto) (1.0-3.0) % Baso % (Auto) (0.0-1.0) % Sodium 136 (136-145) mmol/L Potassium 4.7 (3.5-5.1) mmol/L Chloride 104 (98-107) mmol/L Carbon Dioxide 21 (21-32) mmol/L Anion Gap 15.7 H (7-13) mEq/L BUN 25 H (7-18) mg/dL Creatinine 1.11 (0.70-1.30) mg/dL Est Cr Clr Drug Dosing 73.44 Estimated GFR (MDRD) > 60 BUN/Creatinine Ratio (No establ ref range) Glucose 196 H (70-99) mg/dL POC Glucose 181 H (70-99) mg/dL Hemoglobin A1c 6.4 H (<5.7) % Lactic Acid (0.4-2.0) mmol/L Calcium 8.5 (8.5-10.1) mg/dL Total Bilirubin (0.2-1.0) mg/dL AST (15-37) U/L ALT (16-63) U/L Alkaline Phosphatase (46-116) U/L C-Reactive Protein (0.0-0.9) mg/dL Total Protein (6.4-8.2) g/dL Albumin (3.4-5.0) g/dL Globulin Albumin/Globulin Ratio SARS-CoV-2 RNA (SUZANNE) (NEGATIVE) 08/24/21 Range/Units 11:41 WBC (5.0-10.0) 10^3/uL RBC (4.6-6.2) 10^6/uL Hgb (14.0-18.0) g/dL Hct (40.0-54.0) % MCV (80-100) fL MCH (27.0-34.0) pg MCHC (33.0-35.0) g/dL Plt Count (150-450) 10^3/uL Neut % (Auto) (42.2-75.2) % Lymph % (Auto) (20.5-50.1) % Pine % (Auto) (2-8) % Eos % (Auto) (1.0-3.0) % Baso % (Auto) (0.0-1.0) % Sodium (136-145) mmol/L Potassium (3.5-5.1) mmol/L Chloride (98-107) mmol/L Carbon Dioxide (21-32) mmol/L Anion Gap (7-13) mEq/L BUN (7-18) mg/dL Creatinine (0.70-1.30) mg/dL Est Cr Clr Drug Dosing Estimated GFR (MDRD) BUN/Creatinine Ratio (No establ ref range) Glucose (70-99) mg/dL POC Glucose 177 H (70-99) mg/dL Hemoglobin A1c (<5.7) % Lactic Acid (0.4-2.0) mmol/L Calcium (8.5-10.1) mg/dL Total Bilirubin (0.2-1.0) mg/dL AST (15-37) U/L ALT (16-63) U/L Alkaline Phosphatase (46-116) U/L C-Reactive Protein (0.0-0.9) mg/dL Total Protein (6.4-8.2) g/dL Albumin (3.4-5.0) g/dL Globulin Albumin/Globulin Ratio SARS-CoV-2 RNA (SUZANNE) (NEGATIVE) Med Orders - Current: Current Medications Acetaminophen (Acetaminophen 325 Mg Tab) 650 mg PO Q4H PRN PRN Reason: Pain (Mild 1-3)/fever Last Admin: 08/24/21 08:14 Dose: 650 mg Documented by: Hydrocodone Bitart/Acetaminophen (Acetaminophen/Hydrocodone 325-10 Mg Tab) 1 tab PO Q6H PRN PRN Reason: Pain (moderate 4-6) Last Admin: 08/23/21 23:57 Dose: 1 tab Documented by: Aspirin (Aspirin 81 Mg Tab.Ec) 81 mg PO DAILY [facility] Last Admin: 08/24/21 08:15 Dose: 81 mg Documented by: Dextrose/Water (50% Dextrose In Water 50 Ml Syringe) 25 ml IVPUSH ASDIRECTED PRN PRN Reason: Hypoglycemia BS<70 Docusate Sodium (Docusate Sodium 100 Mg Cap) 100 mg PO BID PRN PRN Reason: Constipation Ferrous Sulfate (Ferrous Sulfate 325 Mg Tab) 325 mg PO DAILY [facility] Last Admin: 08/24/21 08:15 Dose: 325 mg Documented by: Glucagon (Glucagon,Human Recombinant 1 Mg Vial) 1 mg IM Q15M PRN PRN Reason: Hypoglycemia Heparin Sodium (Porcine) (Heparin Sodium 5,000 Units/Ml Vial) 5,000 units SUBCUT Q8HR [facility] Last Admin: 08/24/21 06:05 Dose: 5,000 units Documented by: Clindamycin Phosphate 600 mg/ (Sodium Chloride) 104 mls @ 200 mls/hr IV Q8H [facility] Last Admin: 08/24/21 08:11 Dose: 200 mls/hr Documented by: Insulin Glargine (Insulin Glarg,Human.Rec.Analog 100 Unit/Ml) 25 unit SUBCUT BEDTIME [facility] Insulin Human Lispro (Insulin Lispro 100 Units/Ml 3 Ml Vial) 0 unit SUBCUT WITHMEALSANDBED [facility]; Protocol Last Admin: 08/24/21 12:34 Dose: 2 units Documented by: Lisinopril (Lisinopril 20 Mg Tab) 20 mg PO DAILY [facility] Last Admin: 08/24/21 08:13 Dose: 20 mg Documented by: Metformin HCl (Metformin 500 Mg Tab) 500 mg PO BIDMEALS [facility] Last Admin: 08/24/21 11:42 Dose: 500 mg Documented by: Metoprolol Succinate (Metoprolol Succinate 50 Mg Tab.Er) 50 mg PO DAILY [facility] Last Admin: 08/24/21 08:13 Dose: 50 mg Documented by: Nifedipine (Nifedipine 30 Mg Tab.Er) 30 mg PO DAILY [facility] Last Admin: 08/24/21 08:14 Dose: 30 mg Documented by: Non-Formulary Medication (Methocarbamol [Methocarbamol]) 500 mg PO TID [facility] Ondansetron HCl (Ondansetron 4 Mg/2 Ml Sdv) 4 mg IVPUSH Q4H PRN PRN Reason: Nausea/Vomiting Patient's Own Medication Solifenacin Succ 10 Mg Tab 1 each PO DAILY [facility] Last Admin: 08/24/21 08:17 Dose: 1 each Documented by: Sodium Chloride (Sodium Chloride 0.9% 10 Ml Syringe) 10 ml FLUSH ASDIRECTED PRN PRN Reason: Keep Vein Open Zolpidem Tartrate (Zolpidem 5 Mg Tab) 5 mg PO BEDTIME PRN PRN Reason: Sleep Discontinued Medications Clindamycin Phosphate 900 mg/ (Sodium Chloride) 106 mls @ 200 mls/hr IV ONETIME ONE Stop: 08/23/21 16:51 Last Admin: 08/23/21 16:47 Dose: 200 mls/hr Documented by: Clindamycin Phosphate 600 mg/ (Sodium Chloride) 104 mls @ 200 mls/hr IV Q8H [facility] Last Admin: 08/24/21 10:52 Dose: Not Given Documented by: Sodium Chloride (Sodium Chloride 0.9% 10 Ml Syringe) 10 ml FLUSH ASDIRECTED PRN PRN Reason: Keep Vein Open Last Admin: 08/23/21 16:47 Dose: 10 ml Documented by: - Exam General: Alert, Oriented HEENT: Pupils Equal, Pupils Reactive, EOMI, Mucous Membr. Moist/[place] Neck: Supple Lungs: Clear to Auscultation, Normal Respiratory Effort Cardiovascular: Regular Rate, Regular Rhythm GI/Abdominal Exam: Normal Bowel Sounds, Soft, Non-Tender, No Organomegaly, No Distention, No Abnormal Bruit, No Mass, Pelvis Stable, Distended, Tender, Other (pannuculitis) (Male) Exam: Deferred Extremities: Pedal Edema Skin: Rash, Other Neurological: No New Focal Deficit Psy/Mental Status: Alert, Normal Affect, Normal Mood - Patient Data Lab Results Last 24 hrs: Laboratory Results - last 24 hr 08/23/21 08/23/21 08/23/21 Range/Units 16:38 16:38 16:38 WBC 25.3 H* (5.0-10.0) 10^3/uL RBC 4.88 (4.6-6.2) 10^6/uL Hgb 13.8 L (14.0-18.0) g/dL Hct 43.2 (40.0-54.0) % MCV 88.5 (80-100) fL MCH 28.3 (27.0-34.0) pg MCHC 31.9 L (33.0-35.0) g/dL Plt Count 273 (150-450) 10^3/uL Neut % (Auto) 93.7 H (42.2-75.2) % Lymph % (Auto) 3.0 L (20.5-50.1) % Pine % (Auto) 2.9 (2-8) % Eos % (Auto) 0.2 L (1.0-3.0) % Baso % (Auto) 0.2 (0.0-1.0) % Sodium 141 (136-145) mmol/L Potassium 4.6 (3.5-5.1) mmol/L Chloride 106 (98-107) mmol/L Carbon Dioxide 22 (21-32) mmol/L Anion Gap 17.6 H (7-13) mEq/L BUN 33 H (7-18) mg/dL Creatinine 1.51 H (0.70-1.30) mg/dL Est Cr Clr Drug Dosing TNP Estimated GFR (MDRD) 50 BUN/Creatinine Ratio 21.9 (No establ ref range) Glucose 171 H (70-99) mg/dL POC Glucose (70-99) mg/dL Hemoglobin A1c (<5.7) % Lactic Acid 1.6 (0.4-2.0) mmol/L Calcium 8.7 (8.5-10.1) mg/dL Total Bilirubin 0.9 (0.2-1.0) mg/dL AST 17 (15-37) U/L ALT 39 (16-63) U/L Alkaline Phosphatase 145 H (46-116) U/L C-Reactive Protein 4.6 H (0.0-0.9) mg/dL Total Protein 7.6 (6.4-8.2) g/dL Albumin 3.3 L (3.4-5.0) g/dL Globulin 4.3 Albumin/Globulin Ratio 0.77 SARS-CoV-2 RNA (SUZANNE) (NEGATIVE) 08/23/21 08/23/21 08/24/21 Range/Units 16:58 19:48 05:55 WBC 25.3 H* (5.0-10.0) 10^3/uL RBC 4.49 L (4.6-6.2) 10^6/uL Hgb 12.7 L (14.0-18.0) g/dL Hct 39.6 L (40.0-54.0) % MCV 88.2 (80-100) fL MCH 28.3 (27.0-34.0) pg MCHC 32.1 L (33.0-35.0) g/dL Plt Count 258 (150-450) 10^3/uL Neut % (Auto) 95.7 H (42.2-75.2) % Lymph % (Auto) 3.2 L (20.5-50.1) % Pine % (Auto) 1.0 L (2-8) % Eos % (Auto) 0.0 L (1.0-3.0) % Baso % (Auto) 0.1 (0.0-1.0) % Sodium (136-145) mmol/L Potassium (3.5-5.1) mmol/L Chloride (98-107) mmol/L Carbon Dioxide (21-32) mmol/L Anion Gap (7-13) mEq/L BUN (7-18) mg/dL Creatinine (0.70-1.30) mg/dL Est Cr Clr Drug Dosing Estimated GFR (MDRD) BUN/Creatinine Ratio (No establ ref range) Glucose (70-99) mg/dL POC Glucose 243 H (70-99) mg/dL Hemoglobin A1c (<5.7) % Lactic Acid (0.4-2.0) mmol/L Calcium (8.5-10.1) mg/dL Total Bilirubin (0.2-1.0) mg/dL AST (15-37) U/L ALT (16-63) U/L Alkaline Phosphatase (46-116) U/L C-Reactive Protein (0.0-0.9) mg/dL Total Protein (6.4-8.2) g/dL Albumin (3.4-5.0) g/dL Globulin Albumin/Globulin Ratio SARS-CoV-2 RNA (SUZANNE) Negative (NEGATIVE) 08/24/21 08/24/21 08/24/21 Range/Units 05:55 05:55 07:32 WBC (5.0-10.0) 10^3/uL RBC (4.6-6.2) 10^6/uL Hgb (14.0-18.0) g/dL Hct (40.0-54.0) % MCV (80-100) fL MCH (27.0-34.0) pg MCHC (33.0-35.0) g/dL Plt Count (150-450) 10^3/uL Neut % (Auto) (42.2-75.2) % Lymph % (Auto) (20.5-50.1) % Pine % (Auto) (2-8) % Eos % (Auto) (1.0-3.0) % Baso % (Auto) (0.0-1.0) % Sodium 136 (136-145) mmol/L Potassium 4.7 (3.5-5.1) mmol/L Chloride 104 (98-107) mmol/L Carbon Dioxide 21 (21-32) mmol/L Anion Gap 15.7 H (7-13) mEq/L BUN 25 H (7-18) mg/dL Creatinine 1.11 (0.70-1.30) mg/dL Est Cr Clr Drug Dosing 73.44 Estimated GFR (MDRD) > 60 BUN/Creatinine Ratio (No establ ref range) Glucose 196 H (70-99) mg/dL POC Glucose 181 H (70-99) mg/dL Hemoglobin A1c 6.4 H (<5.7) % Lactic Acid (0.4-2.0) mmol/L Calcium 8.5 (8.5-10.1) mg/dL Total Bilirubin (0.2-1.0) mg/dL AST (15-37) U/L ALT (16-63) U/L Alkaline Phosphatase (46-116) U/L C-Reactive Protein (0.0-0.9) mg/dL Total Protein (6.4-8.2) g/dL Albumin (3.4-5.0) g/dL Globulin Albumin/Globulin Ratio SARS-CoV-2 RNA (SUZANNE) (NEGATIVE) 08/24/21 Range/Units 11:41 WBC (5.0-10.0) 10^3/uL RBC (4.6-6.2) 10^6/uL Hgb (14.0-18.0) g/dL Hct (40.0-54.0) % MCV (80-100) fL MCH (27.0-34.0) pg MCHC (33.0-35.0) g/dL Plt Count (150-450) 10^3/uL Neut % (Auto) (42.2-75.2) % Lymph % (Auto) (20.5-50.1) % Pine % (Auto) (2-8) % Eos % (Auto) (1.0-3.0) % Baso % (Auto) (0.0-1.0) % Sodium (136-145) mmol/L Potassium (3.5-5.1) mmol/L Chloride (98-107) mmol/L Carbon Dioxide (21-32) mmol/L Anion Gap (7-13) mEq/L BUN (7-18) mg/dL Creatinine (0.70-1.30) mg/dL Est Cr Clr Drug Dosing Estimated GFR (MDRD) BUN/Creatinine Ratio (No establ ref range) Glucose (70-99) mg/dL POC Glucose 177 H (70-99) mg/dL Hemoglobin A1c (<5.7) % Lactic Acid (0.4-2.0) mmol/L Calcium (8.5-10.1) mg/dL Total Bilirubin (0.2-1.0) mg/dL AST (15-37) U/L ALT (16-63) U/L Alkaline Phosphatase (46-116) U/L C-Reactive Protein (0.0-0.9) mg/dL Total Protein (6.4-8.2) g/dL Albumin (3.4-5.0) g/dL Globulin Albumin/Globulin Ratio SARS-CoV-2 RNA (SUZANNE) (NEGATIVE) Result Diagrams: 08/24/21 05:55 11/03/21 05:55 Sepsis Event Note - Evaluation Sepsis Screening Result: No Definite Risk - Focused Exam Vital Signs: Vital Signs Temp Pulse Pulse Resp BP BP Pulse Ox 08/24/21 12:00 36.1 C 74 22 H 113/58 L 97 08/24/21 08:14 169/68 H 08/24/21 08:13 68 169/68 H 08/24/21 07:46 36.7 C 68 20 169/68 H 100 08/24/21 03:45 36.7 C 76 18 109/47 L 99 - Problem List & Annotations (1) Diabetes mellitus SNOMED Code(s): 72831358 Code(s): E11.9 - TYPE 2 DIABETES MELLITUS WITHOUT COMPLICATIONS Status: Acute Priority: Medium Current Visit: Yes Qualifiers: Diabetes mellitus type: type 2 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 Diabetes mellitus complication detail: with dermatitis (2) Morbid obesity with BMI of 60.0-69.9, adult SNOMED Code(s): 875230590, 02193292777251 Code(s): E66.01 - MORBID (SEVERE) OBESITY DUE TO EXCESS CALORIES; Z68.44 - BODY MASS INDEX [BMI] 60.0-69.9, ADULT Status: Acute Priority: High Current Visit: Yes Onset Date: ~08/24/21 (3) Chronic renal insufficiency SNOMED Code(s): 329476837 Code(s): N18.9 - CHRONIC KIDNEY DISEASE, UNSPECIFIED Status: Acute Priority: Medium Current Visit: Yes Qualifiers: Chronic kidney disease stage: stage 2 (mild) Qualified Code(s): N18.2 - Chronic kidney disease, stage 2 (mild) (4) TANYA on CPAP SNOMED Code(s): 80038286 Code(s): G47.33 - OBSTRUCTIVE SLEEP APNEA (ADULT) (PEDIATRIC); Z99.89 - DEPENDENCE ON OTHER ENABLING MACHINES AND DEVICES Status: Acute Priority: High Current Visit: Yes Onset Date: ~08/24/21 Annotation/Comment:: on cpap but cont. to have problems (5) HTN (hypertension) SNOMED Code(s): 83818213 Code(s): I10 - ESSENTIAL (PRIMARY) HYPERTENSION Status: Acute Priority: Medium Current Visit: No Onset Date: ~08/24/21 Qualifiers: Hypertension type: primary hypertension Qualified Code(s): I10 - Essential (primary) hypertension (6) Cellulitis of abdominal wall SNOMED Code(s): 99773787 Code(s): L03.311 - CELLULITIS OF ABDOMINAL WALL Status: Acute Priority: High Current Visit: No Onset Date: ~08/24/21 Annotation/Comment:: r/o chronic resistance sec to prophylaxis (7) Low back strain SNOMED Code(s): 926002042 Code(s): S39.012A - STRAIN OF MUSCLE, FASCIA AND TENDON OF LOWER BACK, INIT Status: Acute Priority: High Current Visit: No Onset Date: ~08/24/21 Qualifiers: Encounter type: initial encounter Qualified Code(s): S39.012A - Strain of muscle, fascia and tendon of lower back, initial encounter Annotation/Comment:: massive abd wall involvment without skin break seen suspect panniculitis - Problem List Review Problem List Initiated/Reviewed/Updated: Yes - My Orders Last 24 Hours: My Active Orders 08/24/21 09:23 Glucagon,Human Recombinant [GlucaGen] 1 mg IM Q15M PRN 08/24/21 12:00 metFORMIN [Glucophage] 500 mg PO BIDMEALS 08/24/21 21:00 Insulin Glarg,Human.Rec.Analog [LantUS] 25 unit SUBCUT BEDTIME 08/26/21 06:00 LACTIC ACID [CHEM] Routine - Assessment Assessment:: 08/24/21 46 year old male with cellulitis/panniculitis (chronically with acute flare.)//morbid obesity bmi 68 and dm ins. dependent on short acting sliding scale a1c 6.4 renal impairment and severe oa / severe tanya and chronic hypoxia and chronic edema and chronic veinous stasis and dermatitis. vss lungs clear a nd decreased. cor rrr without m s3/s4. abd severe chronic induration and redness without drainage. extends to folds over suprapubic area. tender to touch mildly. ? some improvement. neuro nnormal. ext edema 3 plus varicosities. labs wbc 25 k /// crp 4.6. hgn and plat stable. denies voiding difficulties but poor sleep sec to back discomfort. b.s 240 now 177 assess : cellulitis panniculitis. on cleocin and cont . bathing / even bed bath difficult but may help. circ. imapaired sec. to overlap and compression. hx of chronic antibiotic prophylaxis and may be dealing with resistant org. 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 dm poor control and add back metformin and long acting insulin and encouraged him to check post prandial b.s. despite good a1c. morbid obesity with tanya on cpap chonic hypoxia stable currently . chronic edema ndneeds echo if not done already . chronic antibiotic prophylaxis by hx . asses clinical response. abd binder may help. ambulation limitations form medical problems. back pain . renal insuff on diuretics . electrolyte monitoring required. boh - Plan Plan:: 08/24/21 46 year old male with cellulitis/panniculitis (chronically with acute flare.)//morbid obesity bmi 68 and dm ins. dependent on short acting sliding scale a1c 6.4 renal impairment and severe oa / severe tanya and chronic hypoxia and chronic edema and chronic veinous stasis and dermatitis. vss lungs clear a nd decreased. cor rrr without m s3/s4. abd severe chronic induration and redness without drainage. extends to folds over suprapubic area. tender to touch mildly. ? some improvement. neuro nnormal. ext edema 3 plus varicosities. labs wbc 25 k /// crp 4.6. hgn and plat stable. denies voiding difficulties but poor sleep sec to back discomfort. b.s 240 now 177 assess : cellulitis panniculitis. on cleocin and cont . bathing / even bed bath difficult but may help. circ. imapaired sec. to overlap and compr ession. hx of chronic antibiotic prophylaxis and may be dealing with resistant org. 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 dm poor control and add back metformin and long acting insulin and encouraged him to check post prandial b.s. despite good a1c. morbid obesity with tanya on cpap chonic hypoxia stable currently . chronic edema ndneeds echo if not done already . chronic antibiotic prophylaxis by hx . asses clinical response. abd binder may help. ambulation limitations form medical problems. back pain . renal insuff on diuretics . electrolyte monitoring required. recheck labs and lactic acid in am . mult. allergies pcn vanco dapsone boh
[2021-08-24] MEDS ORDERED: Ibuprofen 200 MG Tab PO PRN (14:51)
[2021-08-24] MEDS: Furosemide 20 MG Tab PO SCH (15:56)
[2021-08-24] MEDS ORDERED: metFORMIN 500 MG Tab PO SCH (18:00)
[2021-08-24] MEDS: Insulin Glarg,Human.Rec.Analog 100 Unit/ML SUBCUT SCH (21:25)
[2021-08-25] MEDS: Clindamycin Phosphate 600 MG in Sodium Chloride 0.9% 100 ML IV SCH ×4 (00:17→22:28)
[2021-08-25] MEDS: Acetaminophen/HYDROcodone 325-10 MG Tab PO PRN (02:38)
[2021-08-25] MEDS: Heparin Sodium 5,000 Units/ML Vial SUBCUT SCH ×3 (06:01→22:39)
[2021-08-25] MEDS: metFORMIN 500 MG Tab PO SCH ×2 (09:00→17:35)
[2021-08-25] MEDS: Lisinopril 20 MG Tab PO SCH (09:00)
[2021-08-25] MEDS ORDERED: Non-Formulary Medication 1 Each (Solifenacin [Vesicare] 5 MG Tablet) PO SCH (09:00)
[2021-08-25] MEDS: NIFEdipine 30 MG Tab.ER PO SCH (09:00)
[2021-08-25] MEDS: Aspirin 81 MG Tab.EC PO SCH (09:01)
[2021-08-25] MEDS: Metoprolol Succinate 50 MG Tab.ER PO SCH (09:01)
[2021-08-25] MEDS: Furosemide 20 MG Tab PO SCH ×2 (09:01→14:23)
[2021-08-25] MEDS: Ferrous Sulfate 325 MG Tab PO SCH (09:01)
[2021-08-25] MEDS: Insulin Lispro 100 Units/ML 3 ML Vial SUBCUT SCH ×4 (09:02→21:00)
[2021-08-25] MEDS: [UNRECOGNIZED DRUG - OTHER] PO SCH (09:04)
[2021-08-25] MEDS: Nystatin Topical Powder 30 GM Bottle TOP SCH ×2 (10:19→20:52)
[2021-08-25] MEDS: Saccharomyces Boulardii (Probiotic) 250 MG Cap PO SCH ×2 (10:19→20:53)
[2021-08-25] MEDS: DICLOFENAC SODIUM PO SCH ×3 (10:28→20:53)
[2021-08-25 10:42] LABS: CHLORIDE,CL 104 mmol/L (98-107); SODIUM,NA 138 mmol/L (136-145)
[2021-08-25] MEDS: Acetaminophen 325 MG Tab PO PRN (11:49)
[2021-08-25] MEDS: Carboxymethylcellulose Sodium 1% Ophth Gel 0.4 ML UD EYEBOTH PRN (17:36)
[2021-08-25] MEDS: Insulin Glarg,Human.Rec.Analog 100 Unit/ML SUBCUT SCH (21:04)
--- NOTE | 2021-08-25 21:37 | PCM.PN ---
- General Info Date of Service: 08/25/21 Admission Dx/Problem (Free Text): Admission Diagnosis/Problem Admission Diagnosis/Problem Cellulitis Subjective Update: Taurus was in no acute distress today. He believes the cellulitis is stable. There is mild pain with palpation but at baseline he is not reporting pain. Denies fever, chills, nausea, and vomiting. Functional Status: Reports: Pain Controlled - Review of Systems General: Reports: No Symptoms Pulmonary: Reports: No Symptoms Cardiovascular: Reports: No Symptoms Skin: Reports: Rash - Patient Data Vitals - Most Recent: Last Vital Signs Temp 98.3 F 08/25/21 16:00 Pulse 67 08/25/21 16:00 Resp 16 08/25/21 16:00 BP 106/58 L 08/25/21 16:00 Pulse Ox 98 08/25/21 16:00 Weight - Most Recent: 395 lb 9.6 oz I&O - Last 24 Hours: Intake & Output 08/25/21 08/25/21 08/25/21 06:59 14:59 22:59 Intake Total 1452 200 Balance 1452 200 Lab Results Last 24 Hours: Laboratory Results - last 24 hr 08/25/21 08/25/21 08/25/21 Range/Units 07:35 09:36 10:01 WBC 22.1 H (5.0-10.0) 10^3/uL RBC 4.72 (4.6-6.2) 10^6/uL Hgb 13.2 L (14.0-18.0) g/dL Hct 41.7 (40.0-54.0) % MCV 88.3 (80-100) fL MCH 28.0 (27.0-34.0) pg MCHC 31.7 L (33.0-35.0) g/dL Plt Count 311 (150-450) 10^3/uL Neut % (Auto) 86.7 H (42.2-75.2) % Lymph % (Auto) 7.7 L (20.5-50.1) % Gulf % (Auto) 5.4 (2-8) % Eos % (Auto) 0.0 L (1.0-3.0) % Baso % (Auto) 0.2 (0.0-1.0) % Sodium (136-145) mmol/L Potassium (3.5-5.1) mmol/L Chloride (98-107) mmol/L Carbon Dioxide (21-32) mmol/L Anion Gap (7-13) mEq/L BUN (7-18) mg/dL Creatinine (0.70-1.30) mg/dL Est Cr Clr Drug Dosing mL/min Estimated GFR (MDRD) BUN/Creatinine Ratio (No establ ref range) Glucose (70-99) mg/dL POC Glucose 136 H 185 H (70-99) mg/dL Calcium (8.5-10.1) mg/dL Total Bilirubin (0.2-1.0) mg/dL AST (15-37) U/L ALT (16-63) U/L Alkaline Phosphatase (46-116) U/L C-Reactive Protein (0.0-0.9) mg/dL Total Protein (6.4-8.2) g/dL Albumin (3.4-5.0) g/dL Globulin Albumin/Globulin Ratio 08/25/21 08/25/21 08/25/21 Range/Units 10:01 11:39 13:35 WBC (5.0-10.0) 10^3/uL RBC (4.6-6.2) 10^6/uL Hgb (14.0-18.0) g/dL Hct (40.0-54.0) % MCV (80-100) fL MCH (27.0-34.0) pg MCHC (33.0-35.0) g/dL Plt Count (150-450) 10^3/uL Neut % (Auto) (42.2-75.2) % Lymph % (Auto) (20.5-50.1) % Gulf % (Auto) (2-8) % Eos % (Auto) (1.0-3.0) % Baso % (Auto) (0.0-1.0) % Sodium 138 (136-145) mmol/L Potassium 5.0 (3.5-5.1) mmol/L Chloride 104 (98-107) mmol/L Carbon Dioxide 24 (21-32) mmol/L Anion Gap 15.0 H (7-13) mEq/L BUN 28 H (7-18) mg/dL Creatinine 1.27 (0.70-1.30) mg/dL Est Cr Clr Drug Dosing 64.19 mL/min Estimated GFR (MDRD) > 60 BUN/Creatinine Ratio 22.0 (No establ ref range) Glucose 191 H (70-99) mg/dL POC Glucose 146 H 187 H (70-99) mg/dL Calcium 8.8 (8.5-10.1) mg/dL Total Bilirubin 0.5 (0.2-1.0) mg/dL AST 12 L (15-37) U/L ALT 33 (16-63) U/L Alkaline Phosphatase 123 H (46-116) U/L C-Reactive Protein 6.5 H (0.0-0.9) mg/dL Total Protein 7.3 (6.4-8.2) g/dL Albumin 3.1 L (3.4-5.0) g/dL Globulin 4.2 Albumin/Globulin Ratio 0.74 08/25/21 08/25/21 08/25/21 Range/Units 16:46 18:29 21:03 WBC (5.0-10.0) 10^3/uL RBC (4.6-6.2) 10^6/uL Hgb (14.0-18.0) g/dL Hct (40.0-54.0) % MCV (80-100) fL MCH (27.0-34.0) pg MCHC (33.0-35.0) g/dL Plt Count (150-450) 10^3/uL Neut % (Auto) (42.2-75.2) % Lymph % (Auto) (20.5-50.1) % Gulf % (Auto) (2-8) % Eos % (Auto) (1.0-3.0) % Baso % (Auto) (0.0-1.0) % Sodium (136-145) mmol/L Potassium (3.5-5.1) mmol/L Chloride (98-107) mmol/L Carbon Dioxide (21-32) mmol/L Anion Gap (7-13) mEq/L BUN (7-18) mg/dL Creatinine (0.70-1.30) mg/dL Est Cr Clr Drug Dosing mL/min Estimated GFR (MDRD) BUN/Creatinine Ratio (No establ ref range) Glucose (70-99) mg/dL POC Glucose 138 H 183 H 128 H (70-99) mg/dL Calcium (8.5-10.1) mg/dL Total Bilirubin (0.2-1.0) mg/dL AST (15-37) U/L ALT (16-63) U/L Alkaline Phosphatase (46-116) U/L C-Reactive Protein (0.0-0.9) mg/dL Total Protein (6.4-8.2) g/dL Albumin (3.4-5.0) g/dL Globulin Albumin/Globulin Ratio Sebastian Results Last 24 Hours: Microbiology 08/23/21 16:32 Aerobic Blood Culture - Preliminary Blood - Venous - Iv Start NO GROWTH AFTER 2 DAYS Anaerobic Blood Culture - Preliminary NO GROWTH AFTER 2 DAYS 08/23/21 16:38 Aerobic Blood Culture - Preliminary Blood - Arm, Right NO GROWTH AFTER 2 DAYS Anaerobic Blood Culture - Preliminary NO GROWTH AFTER 2 DAYS Med Orders - Current: Current Medications Acetaminophen (Acetaminophen 325 Mg Tab) 650 mg PO Q4H PRN PRN Reason: Pain (Mild 1-3)/fever Last Admin: 08/25/21 11:49 Dose: 650 mg Documented by: Hydrocodone Bitart/Acetaminophen (Acetaminophen/Hydrocodone 325-10 Mg Tab) 1 tab PO Q6H PRN PRN Reason: Pain (moderate 4-6) Last Admin: 08/25/21 02:38 Dose: 1 tab Documented by: Artificial Tears (Carboxymethylcellulose Sodium 1% Ophth Gel 0.4 Ml Ud) 1 each EYEBOTH ASDIRECTED PRN PRN Reason: Dry Eyes Last Admin: 08/25/21 17:36 Dose: 1 each Documented by: Aspirin (Aspirin 81 Mg Tab.Ec) 81 mg PO DAILY [facility] Last Admin: 08/25/21 09:01 Dose: 81 mg Documented by: Dextrose/Water (50% Dextrose In Water 50 Ml Syringe) 25 ml IVPUSH ASDIRECTED MD N PRN Reason: Hypoglycemia BS<70 Docusate Sodium (Docusate Sodium 100 Mg Cap) 100 mg PO BID PRN PRN Reason: Constipation Ferrous Sulfate (Ferrous Sulfate 325 Mg Tab) 325 mg PO DAILY [facility] Last Admin: 08/25/21 09:01 Dose: 325 mg Documented by: Furosemide (Furosemide 20 Mg Tab) 20 mg PO BIDDIURETIC [facility] Last Admin: 08/25/21 14:23 Dose: 20 mg Documented by: Glucagon (Glucagon,Human Recombinant 1 Mg Vial) 1 mg IM Q15M PRN PRN Reason: Hypoglycemia Heparin Sodium (Porcine) (Heparin Sodium 5,000 Units/Ml Vial) 5,000 units SUBCUT Q8HR [facility] Last Admin: 08/25/21 14:24 Dose: 5,000 units Documented by: Clindamycin Phosphate 600 mg/ (Sodium Chloride) 104 mls @ 200 mls/hr IV Q8HR [facility] Last Infusion: 08/25/21 15:00 Dose: Infused Documented by: Ibuprofen (Ibuprofen 200 Mg Tab) 200 mg PO Q6H PRN PRN Reason: Pain Insulin Glargine (Insulin Glarg,Human.Rec.Analog 100 Unit/Ml) 25 unit SUBCUT BEDTIME [facility] Last Admin: 08/25/21 21:04 Dose: 25 units Documented by: Insulin Human Lispro (Insulin Lispro 100 Units/Ml 3 Ml Vial) 0 unit SUBCUT WITHMEALSANDBED [facility]; Protocol Last Admin: 08/25/21 17:35 Dose: Not Given Documented by: Lisinopril (Lisinopril 20 Mg Tab) 20 mg PO DAILY [facility] Last Admin: 08/25/21 09:00 Dose: 20 mg Documented by: Metformin HCl (Metformin 500 Mg Tab) 500 mg PO BIDMEALS [facility] Last Admin: 08/25/21 17:35 Dose: 500 mg Documented by: Metoprolol Succinate (Metoprolol Succinate 50 Mg Tab.Er) 50 mg PO DAILY [facility] Last Admin: 08/25/21 09:01 Dose: 50 mg Documented by: Nifedipine (Nifedipine 30 Mg Tab.Er) 30 mg PO DAILY [facility] Last Admin: 08/25/21 09:00 Dose: 30 mg Documented by: Diclofenac Sodium [ Voltaren] [address] *Own Med* 50 mg PO TID [facility] Last Admin: 08/25/21 20:53 Dose: 50 mg Documented by: Nystatin (Nystatin Topical Powder 30 Gm Bottle) 0 gm TOP BID [facility] Last Admin: 08/25/21 20:52 Dose: 1 applic Documented by: Ondansetron HCl (Ondansetron 4 Mg/2 Ml Sdv) 4 mg IVPUSH Q4H PRN PRN Reason: Nausea/Vomiting Patient's Own Medication Solifenacin Succ 10 Mg Tab 1 each PO DAILY [facility] Last Admin: 08/25/21 09:04 Dose: 1 each Documented by: Saccharomyces Boulardii (Saccharomyces Boulardii (Probiotic) 250 Mg Cap) 250 mg PO BID [facility] Last Admin: 08/25/21 20:53 Dose: 250 mg Documented by: Sodium Chloride (Sodium Chloride 0.9% 10 Ml Syringe) 10 ml FLUSH ASDIRECTED PRN PRN Reason: Keep Vein Open Zolpidem Tartrate (Zolpidem 5 Mg Tab) 5 mg PO BEDTIME PRN PRN Reason: Sleep Discontinued Medications Clindamycin Phosphate 900 mg/ (Sodium Chloride) 106 mls @ 200 mls/hr IV ONETIME ONE Stop: 08/23/21 16:51 Last Admin: 08/23/21 16:47 Dose: 200 mls/hr Documented by: Clindamycin Phosphate 600 mg/ (Sodium Chloride) 104 mls @ 200 mls/hr IV Q8H [facility] Last Admin: 08/24/21 10:52 Dose: Not Given Documented by: Clindamycin Phosphate 600 mg/ (Sodium Chloride) 104 mls @ 200 mls/hr IV Q8H [facility] Last Admin: 08/25/21 09:05 Dose: 200 mls/hr Documented by: Sodium Chloride (Sodium Chloride 0.9% 10 Ml Syringe) 10 ml FLUSH ASDIRECTED PRN PRN Reason: Keep Vein Open Last Admin: 08/23/21 16:47 Dose: 10 ml Documented by: - Exam General: Alert, Oriented Lungs: Clear to Auscultation, Normal Respiratory Effort Cardiovascular: Regular Rate, Regular Rhythm Skin: Rash (Erythema noted on the inferior part of the pannus and spreading more to the right than the left. Area of erythema was demarcated with a purple derma pen.) - Patient Data Lab Results Last 24 hrs: Laboratory Results - last 24 hr 08/25/21 08/25/21 08/25/21 Range/Units 07:35 09:36 10:01 WBC 22.1 H (5.0-10.0) 10^3/uL RBC 4.72 (4.6-6.2) 10^6/uL Hgb 13.2 L (14.0-18.0) g/dL Hct 41.7 (40.0-54.0) % MCV 88.3 (80-100) fL MCH 28.0 (27.0-34.0) pg MCHC 31.7 L (33.0-35.0) g/dL Plt Count 311 (150-450) 10^3/uL Neut % (Auto) 86.7 H (42.2-75.2) % Lymph % (Auto) 7.7 L (20.5-50.1) % Gulf % (Auto) 5.4 (2-8) % Eos % (Auto) 0.0 L (1.0-3.0) % Baso % (Auto) 0.2 (0.0-1.0) % Sodium (136-145) mmol/L Potassium (3.5-5.1) mmol/L Chloride (98-107) mmol/L Carbon Dioxide (21-32) mmol/L Anion Gap (7-13) mEq/L BUN (7-18) mg/dL Creatinine (0.70-1.30) mg/dL Est Cr Clr Drug Dosing mL/min Estimated GFR (MDRD) BUN/Creatinine Ratio (No establ ref range) Glucose (70-99) mg/dL POC Glucose 136 H 185 H (70-99) mg/dL Calcium (8.5-10.1) mg/dL Total Bilirubin (0.2-1.0) mg/dL AST (15-37) U/L ALT (16-63) U/L Alkaline Phosphatase (46-116) U/L C-Reactive Protein (0.0-0.9) mg/dL Total Protein (6.4-8.2) g/dL Albumin (3.4-5.0) g/dL Globulin Albumin/Globulin Ratio 08/25/21 08/25/21 08/25/21 Range/Units 10:01 11:39 13:35 WBC (5.0-10.0) 10^3/uL RBC (4.6-6.2) 10^6/uL Hgb (14.0-18.0) g/dL Hct (40.0-54.0) % MCV (80-100) fL MCH (27.0-34.0) pg MCHC (33.0-35.0) g/dL Plt Count (150-450) 10^3/uL Neut % (Auto) (42.2-75.2) % Lymph % (Auto) (20.5-50.1) % Gulf % (Auto) (2-8) % Eos % (Auto) (1.0-3.0) % Baso % (Auto) (0.0-1.0) % Sodium 138 (136-145) mmol/L Potassium 5.0 (3.5-5.1) mmol/L Chloride 104 (98-107) mmol/L Carbon Dioxide 24 (21-32) mmol/L Anion Gap 15.0 H (7-13) mEq/L BUN 28 H (7-18) mg/dL Creatinine 1.27 (0.70-1.30) mg/dL Est Cr Clr Drug Dosing 64.19 mL/min Estimated GFR (MDRD) > 60 BUN/Creatinine Ratio 22.0 (No establ ref range) Glucose 191 H (70-99) mg/dL POC Glucose 146 H 187 H (70-99) mg/dL Calcium 8.8 (8.5-10.1) mg/dL Total Bilirubin 0.5 (0.2-1.0) mg/dL AST 12 L (15-37) U/L ALT 33 (16-63) U/L Alkaline Phosphatase 123 H (46-116) U/L C-Reactive Protein 6.5 H (0.0-0.9) mg/dL Total Protein 7.3 (6.4-8.2) g/dL Albumin 3.1 L (3.4-5.0) g/dL Globulin 4.2 Albumin/Globulin Ratio 0.74 08/25/21 08/25/21 08/25/21 Range/Units 16:46 18:29 21:03 WBC (5.0-10.0) 10^3/uL RBC (4.6-6.2) 10^6/uL Hgb (14.0-18.0) g/dL Hct (40.0-54.0) % MCV (80-100) fL MCH (27.0-34.0) pg MCHC (33.0-35.0) g/dL Plt Count (150-450) 10^3/uL Neut % (Auto) (42.2-75.2) % Lymph % (Auto) (20.5-50.1) % Gulf % (Auto) (2-8) % Eos % (Auto) (1.0-3.0) % Baso % (Auto) (0.0-1.0) % Sodium (136-145) mmol/L Potassium (3.5-5.1) mmol/L Chloride (98-107) mmol/L Carbon Dioxide (21-32) mmol/L Anion Gap (7-13) mEq/L BUN (7-18) mg/dL Creatinine (0.70-1.30) mg/dL Est Cr Clr Drug Dosing mL/min Estimated GFR (MDRD) BUN/Creatinine Ratio (No establ ref range) Glucose (70-99) mg/dL POC Glucose 138 H 183 H 128 H (70-99) mg/dL Calcium (8.5-10.1) mg/dL Total Bilirubin (0.2-1.0) mg/dL AST (15-37) U/L ALT (16-63) U/L Alkaline Phosphatase (46-116) U/L C-Reactive Protein (0.0-0.9) mg/dL Total Protein (6.4-8.2) g/dL Albumin (3.4-5.0) g/dL Globulin Albumin/Globulin Ratio Result Diagrams: 08/25/21 10:01 08/25/21 10:01 Sebastian Results Last 24 hrs: Microbiology 08/23/21 16:32 Aerobic Blood Culture - Preliminary Blood - Venous - Iv Start NO GROWTH AFTER 2 DAYS Anaerobic Blood Culture - Preliminary NO GROWTH AFTER 2 DAYS 08/23/21 16:38 Aerobic Blood Culture - Preliminary Blood - Arm, Right NO GROWTH AFTER 2 DAYS Anaerobic Blood Culture - Preliminary NO GROWTH AFTER 2 DAYS Sepsis Event Note - Evaluation Sepsis Screening Result: No Definite Risk - Focused Exam Vital Signs: Vital Signs Temp Pulse Resp BP Pulse Ox 08/25/21 16:00 98.3 F 67 16 106/58 L 98 08/25/21 11:47 97.9 F 67 16 118/58 L 95 - Problem List & Annotations (1) Antibiotic long-term use SNOMED Code(s): 819391084 Code(s): Z79.2 - LONGTERM (CURRENT) USE OF ANTIBIOTICS Status: Acute Current Visit: Yes (2) Diabetes mellitus SNOMED Code(s): 95139862 Code(s): E11.9 - TYPE 2 DIABETES MELLITUS WITHOUT COMPLICATIONS Status: Acute Priority: Medium Current Visit: Yes Qualifiers: Diabetes mellitus type: type 2 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: with assisted use Diabetes mellitus complication detail: with dermatitis (3) Cellulitis SNOMED Code(s): 806053326 Code(s): L03.90 - CELLULITIS, UNSPECIFIED Status: Acute Current Visit: No Qualifiers: Site of cellulitis: trunk Site of cellulitis of trunk: abdominal wall Qualified Code(s): L03.311 - Cellulitis of abdominal wall - Problem List Review Problem List Initiated/Reviewed/Updated: Yes - My Orders Last 24 Hours: My Active Orders 08/25/21 09:30 Nystatin [Nystop] 0 gm TOP BID 08/25/21 09:45 Saccharomyces Boulardii [Florastor] 250 mg PO BID 08/25/21 10:30 Diclofenac Sodium [Diclofenac Sodium] 50 mg PO TID 08/25/21 11:21 CULTURE MRSA CLEARANCE [RM] Routine 08/25/21 16:47 Carboxymethylcellulose Sodium [Refresh Celluvisc] 1 each EYEBOTH ASDIRECTED PRN - Assessment Assessment:: resented with rapid development of lower abdominal wall redness 1. cellulitis of pannus h/o multiple allergy (pcn, vanc, dapto) Blood cultures negative Treating unknown organism, possibly MRSA. MRSA screen will be obtained today. Continue to treat with clindamycin but we will consider Ancef for better tissue penetration and avoidance of C. difficile Apply nystatin powder to pannus fold 2. DM hold metformin Start 2 units of Humalog with meals Continue 25 mg Lantus [id number] glucose AC at bedtime use supplemental insulin, hypoglycemia protocol as needed 3. HTN cont lisinopril 4. dvt prophylaxis sq heparin
[2021-08-26] MEDS: Acetaminophen/HYDROcodone 325-10 MG Tab PO PRN (00:03)
[2021-08-26] MEDS: Clindamycin Phosphate 600 MG in Sodium Chloride 0.9% 100 ML IV SCH (05:31)
[2021-08-26] MEDS: Heparin Sodium 5,000 Units/ML Vial SUBCUT SCH ×3 (06:07→21:39)
[2021-08-26 06:57] LABS: ANION GAP 13.1 mEq/L (7-13)
[2021-08-26] MEDS: Insulin Lispro 100 Units/ML 3 ML Vial SUBCUT SCH ×7 (08:39→21:40)
[2021-08-26] MEDS: Metoprolol Succinate 50 MG Tab.ER PO SCH (08:41)
[2021-08-26] MEDS: Aspirin 81 MG Tab.EC PO SCH (08:41)
[2021-08-26] MEDS: Ferrous Sulfate 325 MG Tab PO SCH (08:41)
[2021-08-26] MEDS: Saccharomyces Boulardii (Probiotic) 250 MG Cap PO SCH ×2 (08:42→21:40)
[2021-08-26] MEDS: Lisinopril 20 MG Tab PO SCH (08:42)
[2021-08-26] MEDS: NIFEdipine 30 MG Tab.ER PO SCH (08:42)
[2021-08-26] MEDS: Furosemide 20 MG Tab PO SCH ×2 (08:42→13:25)
[2021-08-26] MEDS: Nystatin Topical Powder 30 GM Bottle TOP SCH ×2 (08:43→21:41)
[2021-08-26] MEDS: DICLOFENAC SODIUM PO SCH ×3 (08:43→21:40)
[2021-08-26] MEDS: [UNRECOGNIZED DRUG - OTHER] PO SCH (08:44)
--- NOTE | 2021-08-26 11:58 | PCM.PN ---
- General Info Date of Service: 08/26/21 Admission Dx/Problem (Free Text): Admission Diagnosis/Problem Admission Diagnosis/Problem Cellulitis Subjective Update: Taurus was in no acute distress today. There is no improvement in the pannus pain but it is not getting worse. There continues to be mild pain with palpation but at baseline he is not reporting pain. Denies fever, chills, nausea, and vomiting. Functional Status: Reports: Pain Controlled - Review of Systems General: Reports: No Symptoms Pulmonary: Reports: No Symptoms Cardiovascular: Reports: No Symptoms Skin: Reports: Rash - Patient Data Vitals - Most Recent: Last Vital Signs Temp 97.6 F 08/26/21 08:00 Pulse 64 08/26/21 08:41 Resp 20 08/26/21 08:00 BP 115/64 08/26/21 08:42 Pulse Ox 97 08/26/21 08:00 Weight - Most Recent: 395 lb 9.6 oz I&O - Last 24 Hours: Intake & Output 08/25/21 08/26/21 08/26/21 22:59 06:59 14:59 Intake Total 200 240 300 Balance 200 240 300 Lab Results Last 24 Hours: Laboratory Results - last 24 hr 08/25/21 08/25/21 08/25/21 Range/Units 13:35 16:46 18:29 WBC (5.0-10.0) 10^3/uL RBC (4.6-6.2) 10^6/uL Hgb (14.0-18.0) g/dL Hct (40.0-54.0) % MCV (80-100) fL MCH (27.0-34.0) pg MCHC (33.0-35.0) g/dL Plt Count (150-450) 10^3/uL Neut % (Auto) (42.2-75.2) % Lymph % (Auto) (20.5-50.1) % [place] % (Auto) (2-8) % Eos % (Auto) (1.0-3.0) % Baso % (Auto) (0.0-1.0) % Sodium (136-145) mmol/L Potassium (3.5-5.1) mmol/L Chloride (98-107) mmol/L Carbon Dioxide (21-32) mmol/L Anion Gap (7-13) mEq/L BUN (7-18) mg/dL Creatinine (0.70-1.30) mg/dL Est Cr Clr Drug Dosing mL/min Estimated GFR (MDRD) BUN/Creatinine Ratio (No establ ref range) Glucose (70-99) mg/dL POC Glucose 187 H 138 H 183 H (70-99) mg/dL Lactic Acid (0.4-2.0) mmol/L Calcium (8.5-10.1) mg/dL Total Bilirubin (0.2-1.0) mg/dL AST (15-37) U/L ALT (16-63) U/L Alkaline Phosphatase (46-116) U/L C-Reactive Protein (0.0-0.9) mg/dL Total Protein (6.4-8.2) g/dL Albumin (3.4-5.0) g/dL Globulin Albumin/Globulin Ratio 08/25/21 08/26/21 08/26/21 Range/Units 21:03 06:10 06:10 WBC 13.7 H (5.0-10.0) 10^3/uL RBC 4.38 L (4.6-6.2) 10^6/uL Hgb 12.3 L (14.0-18.0) g/dL Hct 38.5 L (40.0-54.0) % MCV 87.9 (80-100) fL MCH 28.1 (27.0-34.0) pg MCHC 31.9 L (33.0-35.0) g/dL Plt Count 266 (150-450) 10^3/uL Neut % (Auto) 74.8 (42.2-75.2) % Lymph % (Auto) 16.5 L (20.5-50.1) % [place] % (Auto) 8.5 H (2-8) % Eos % (Auto) 0.1 L (1.0-3.0) % Baso % (Auto) 0.1 (0.0-1.0) % Sodium (136-145) mmol/L Potassium (3.5-5.1) mmol/L Chloride (98-107) mmol/L Carbon Dioxide (21-32) mmol/L Anion Gap (7-13) mEq/L BUN (7-18) mg/dL Creatinine (0.70-1.30) mg/dL Est Cr Clr Drug Dosing mL/min Estimated GFR (MDRD) BUN/Creatinine Ratio (No establ ref range) Glucose (70-99) mg/dL POC Glucose 128 H (70-99) mg/dL Lactic Acid 1.2 (0.4-2.0) mmol/L Calcium (8.5-10.1) mg/dL Total Bilirubin (0.2-1.0) mg/dL AST (15-37) U/L ALT (16-63) U/L Alkaline Phosphatase (46-116) U/L C-Reactive Protein (0.0-0.9) mg/dL Total Protein (6.4-8.2) g/dL Albumin (3.4-5.0) g/dL Globulin Albumin/Globulin Ratio 08/26/21 08/26/21 Range/Units 06:10 07:34 WBC (5.0-10.0) 10^3/uL RBC (4.6-6.2) 10^6/uL Hgb (14.0-18.0) g/dL Hct (40.0-54.0) % MCV (80-100) fL MCH (27.0-34.0) pg MCHC (33.0-35.0) g/dL Plt Count (150-450) 10^3/uL Neut % (Auto) (42.2-75.2) % Lymph % (Auto) (20.5-50.1) % [place] % (Auto) (2-8) % Eos % (Auto) (1.0-3.0) % Baso % (Auto) (0.0-1.0) % Sodium 137 (136-145) mmol/L Potassium 5.1 (3.5-5.1) mmol/L Chloride 105 (98-107) mmol/L Carbon Dioxide 24 (21-32) mmol/L Anion Gap 13.1 H (7-13) mEq/L BUN 37 H (7-18) mg/dL Creatinine 1.50 H (0.70-1.30) mg/dL Est Cr Clr Drug Dosing 54.35 mL/min Estimated GFR (MDRD) 50 BUN/Creatinine Ratio 24.7 (No establ ref range) Glucose 147 H (70-99) mg/dL POC Glucose 127 H (70-99) mg/dL Lactic Acid (0.4-2.0) mmol/L Calcium 8.1 L (8.5-10.1) mg/dL Total Bilirubin 0.4 (0.2-1.0) mg/dL AST 17 (15-37) U/L ALT 36 (16-63) U/L Alkaline Phosphatase 102 (46-116) U/L C-Reactive Protein 2.9 H (0.0-0.9) mg/dL Total Protein 6.6 (6.4-8.2) g/dL Albumin 2.8 L (3.4-5.0) g/dL Globulin 3.8 Albumin/Globulin Ratio 0.74 Sebastian Results Last 24 Hours: Microbiology 08/25/21 11:21 MRSA Clearance Screen - Preliminary Nose, Unspecified NO MRSA ISOLATED 08/23/21 16:32 Aerobic Blood Culture - Preliminary Blood - Venous - Iv Start NO GROWTH AFTER 2 DAYS Anaerobic Blood Culture - Preliminary NO GROWTH AFTER 2 DAYS 08/23/21 16:38 Aerobic Blood Culture - Preliminary Blood - Arm, Right NO GROWTH AFTER 2 DAYS Anaerobic Blood Culture - Preliminary NO GROWTH AFTER 2 DAYS Med Orders - Current: Current Medications Acetaminophen (Acetaminophen 325 Mg Tab) 650 mg PO Q4H PRN PRN Reason: Pain (Mild 1-3)/fever Last Admin: 08/25/21 11:49 Dose: 650 mg Documented by: Hydrocodone Bitart/Acetaminophen (Acetaminophen/Hydrocodone 325-10 Mg Tab) 1 tab PO Q6H PRN PRN Reason: Pain (moderate 4-6) Last Admin: 08/26/21 00:03 Dose: 1 tab Documented by: Artificial Tears (Carboxymethylcellulose Sodium 1% Ophth Gel 0.4 Ml Ud) 1 each EYEBOTH ASDIRECTED PRN PRN Reason: Dry Eyes Last Admin: 08/25/21 17:36 Dose: 1 each Documented by: Aspirin (Aspirin 81 Mg Tab.Ec) 81 mg PO DAILY [facility] Last Admin: 08/26/21 08:41 Dose: 81 mg Documented by: Dextrose/Water (50% Dextrose In Water 50 Ml Syringe) 25 ml IVPUSH ASDIRECTED PRN PRN Reason: Hypoglycemia BS<70 Docusate Sodium (Docusate Sodium 100 Mg Cap) 100 mg PO BID PRN PRN Reason: Constipation Ferrous Sulfate (Ferrous Sulfate 325 Mg Tab) 325 mg PO DAILY [facility] Last Admin: 08/26/21 08:41 Dose: 325 mg Documented by: Furosemide (Furosemide 20 Mg Tab) 20 mg PO BIDDIURETIC [facility] Last Admin: 08/26/21 08:42 Dose: 20 mg Documented by: Glucagon (Glucagon,Human Recombinant 1 Mg Vial) 1 mg IM Q15M PRN PRN Reason: Hypoglycemia Heparin Sodium (Porcine) (Heparin Sodium 5,000 Units/Ml Vial) 5,000 units SUBCUT Q8HR [facility] Last Admin: 08/26/21 06:07 Dose: 5,000 units Documented by: Cefazolin Sodium/Dextrose 2 gm (/ Premix) 50 mls @ 100 mls/hr IV Q8HR [facility] Ibuprofen (Ibuprofen 200 Mg Tab) 200 mg PO Q6H PRN PRN Reason: Pain Insulin Glargine (Insulin Glarg,Human.Rec.Analog 100 Unit/Ml) 25 unit SUBCUT BEDTIME [facility] Last Admin: 08/25/21 21:04 Dose: 25 units Documented by: Insulin Human Lispro (Insulin Lispro 100 Units/Ml 3 Ml Vial) 0 unit SUBCUT WITHMEALSANDBED [facility]; Protocol Last Admin: 08/26/21 08:39 Dose: Not Given Documented by: Insulin Human Lispro (Insulin Lispro 100 Units/Ml 3 Ml Vial) 2 unit SUBCUT TIDMEALS [facility] Last Admin: 08/26/21 08:39 Dose: 2 unit Documented by: Lisinopril (Lisinopril 20 Mg Tab) 20 mg PO DAILY [facility] Last Admin: 08/26/21 08:42 Dose: 20 mg Documented by: Metoprolol Succinate (Metoprolol Succinate 50 Mg Tab.Er) 50 mg PO DAILY [facility] Last Admin: 08/26/21 08:41 Dose: 50 mg Documented by: Nifedipine (Nifedipine 30 Mg Tab.Er) 30 mg PO DAILY [facility] Last Admin: 08/26/21 08:42 Dose: 30 mg Documented by: Diclofenac Sodium [ Voltaren] 50 Tablet. *Own Med* 50 mg PO TID [facility] Last Admin: 08/26/21 08:43 Dose: 50 mg Documented by: Nystatin (Nystatin Topical Powder 30 Gm Bottle) 5 gm TOP BID [facility] Last Admin: 08/26/21 08:43 Dose: 5 gm Documented by: Ondansetron HCl (Ondansetron 4 Mg/2 Ml Sdv) 4 mg IVPUSH Q4H PRN PRN Reason: Nausea/Vomiting Patient's Own Medication Solifenacin Succ 10 Mg Tab 1 each PO DAILY [facility] Last Admin: 08/26/21 08:44 Dose: 1 each Documented by: Saccharomyces Boulardii (Saccharomyces Boulardii (Probiotic) 250 Mg Cap) 250 mg PO BID [facility] Last Admin: 08/26/21 08:42 Dose: 250 mg Documented by: Sodium Chloride (Sodium Chloride 0.9% 10 Ml Syringe) 10 ml FLUSH ASDIRECTED PRN PRN Reason: Keep Vein Open Zolpidem Tartrate (Zolpidem 5 Mg Tab) 5 mg PO BEDTIME PRN PRN Reason: Sleep Discontinued Medications Clindamycin Phosphate 900 mg/ (Sodium Chloride) 106 mls @ 200 mls/hr IV ONETIME ONE Stop: 08/23/21 16:51 Last Admin: 08/23/21 16:47 Dose: 200 mls/hr Documented by: Clindamycin Phosphate 600 mg/ (Sodium Chloride) 104 mls @ 200 mls/hr IV Q8H [facility] Last Admin: 08/24/21 10:52 Dose: Not Given Documented by: Clindamycin Phosphate 600 mg/ (Sodium Chloride) 104 mls @ 200 mls/hr IV Q8H [facility] Last Admin: 08/25/21 09:05 Dose: 200 mls/hr Documented by: Clindamycin Phosphate 600 mg/ (Sodium Chloride) 104 mls @ 200 mls/hr IV Q8HR [facility] Last Admin: 08/26/21 05:31 Dose: 200 mls/hr Documented by: Metformin HCl (Metformin 500 Mg Tab) 500 mg PO BIDMEALS [facility] Last Admin: 08/25/21 17:35 Dose: 500 mg Documented by: Nystatin (Nystatin Topical Powder 30 Gm Bottle) 0 gm TOP BID [facility] Last Admin: 08/25/21 20:52 Dose: 1 applic Documented by: Sodium Chloride (Sodium Chloride 0.9% 10 Ml Syringe) 10 ml FLUSH ASDIRECTED PRN PRN Reason: Keep Vein Open Last Admin: 08/23/21 16:47 Dose: 10 ml Documented by: - Exam General: Alert, Oriented Lungs: Clear to Auscultation, Normal Respiratory Effort Cardiovascular: Regular Rate, Regular Rhythm GI/Abdominal Exam: Tender (Erythema demarcated by the purple Derm line applied on 08/25/2021 has not spread nor has it is receded. Pannus remains mildly tender to palpation. Large pannus. Inferior part has thickened skin due to stasis.) Wound/Incisions: Other (Stable erythema on pannus. However, not regressing.) - Patient Data Lab Results Last 24 hrs: Laboratory Results - last 24 hr 08/25/21 08/25/21 08/25/21 Range/Units 13:35 16:46 18:29 WBC (5.0-10.0) 10^3/uL RBC (4.6-6.2) 10^6/uL Hgb (14.0-18.0) g/dL Hct (40.0-54.0) % MCV (80-100) fL MCH (27.0-34.0) pg MCHC (33.0-35.0) g/dL Plt Count (150-450) 10^3/uL Neut % (Auto) (42.2-75.2) % Lymph % (Auto) (20.5-50.1) % [place] % (Auto) (2-8) % Eos % (Auto) (1.0-3.0) % Baso % (Auto) (0.0-1.0) % Sodium (136-145) mmol/L Potassium (3.5-5.1) mmol/L Chloride (98-107) mmol/L Carbon Dioxide (21-32) mmol/L Anion Gap (7-13) mEq/L BUN (7-18) mg/dL Creatinine (0.70-1.30) mg/dL Est Cr Clr Drug Dosing mL/min Estimated GFR (MDRD) BUN/Creatinine Ratio (No establ ref range) Glucose (70-99) mg/dL POC Glucose 187 H 138 H 183 H (70-99) mg/dL Lactic Acid (0.4-2.0) mmol/L Calcium (8.5-10.1) mg/dL Total Bilirubin (0.2-1.0) mg/dL AST (15-37) U/L ALT (16-63) U/L Alkaline Phosphatase (46-116) U/L C-Reactive Protein (0.0-0.9) mg/dL Total Protein (6.4-8.2) g/dL Albumin (3.4-5.0) g/dL Globulin Albumin/Globulin Ratio 08/25/21 08/26/21 08/26/21 Range/Units 21:03 06:10 06:10 WBC 13.7 H (5.0-10.0) 10^3/uL RBC 4.38 L (4.6-6.2) 10^6/uL Hgb 12.3 L (14.0-18.0) g/dL Hct 38.5 L (40.0-54.0) % MCV 87.9 (80-100) fL MCH 28.1 (27.0-34.0) pg MCHC 31.9 L (33.0-35.0) g/dL Plt Count 266 (150-450) 10^3/uL Neut % (Auto) 74.8 (42.2-75.2) % Lymph % (Auto) 16.5 L (20.5-50.1) % [place] % (Auto) 8.5 H (2-8) % Eos % (Auto) 0.1 L (1.0-3.0) % Baso % (Auto) 0.1 (0.0-1.0) % Sodium (136-145) mmol/L Potassium (3.5-5.1) mmol/L Chloride (98-107) mmol/L Carbon Dioxide (21-32) mmol/L Anion Gap (7-13) mEq/L BUN (7-18) mg/dL Creatinine (0.70-1.30) mg/dL Est Cr Clr Drug Dosing mL/min Estimated GFR (MDRD) BUN/Creatinine Ratio (No establ ref range) Glucose (70-99) mg/dL POC Glucose 128 H (70-99) mg/dL Lactic Acid 1.2 (0.4-2.0) mmol/L Calcium (8.5-10.1) mg/dL Total Bilirubin (0.2-1.0) mg/dL AST (15-37) U/L ALT (16-63) U/L Alkaline Phosphatase (46-116) U/L C-Reactive Protein (0.0-0.9) mg/dL Total Protein (6.4-8.2) g/dL Albumin (3.4-5.0) g/dL Globulin Albumin/Globulin Ratio 08/26/21 08/26/21 Range/Units 06:10 07:34 WBC (5.0-10.0) 10^3/uL RBC (4.6-6.2) 10^6/uL Hgb (14.0-18.0) g/dL Hct (40.0-54.0) % MCV (80-100) fL MCH (27.0-34.0) pg MCHC (33.0-35.0) g/dL Plt Count (150-450) 10^3/uL Neut % (Auto) (42.2-75.2) % Lymph % (Auto) (20.5-50.1) % [place] % (Auto) (2-8) % Eos % (Auto) (1.0-3.0) % Baso % (Auto) (0.0-1.0) % Sodium 137 (136-145) mmol/L Potassium 5.1 (3.5-5.1) mmol/L Chloride 105 (98-107) mmol/L Carbon Dioxide 24 (21-32) mmol/L Anion Gap 13.1 H (7-13) mEq/L BUN 37 H (7-18) mg/dL Creatinine 1.50 H (0.70-1.30) mg/dL Est Cr Clr Drug Dosing 54.35 mL/min Estimated GFR (MDRD) 50 BUN/Creatinine Ratio 24.7 (No establ ref range) Glucose 147 H (70-99) mg/dL POC Glucose 127 H (70-99) mg/dL Lactic Acid (0.4-2.0) mmol/L Calcium 8.1 L (8.5-10.1) mg/dL Total Bilirubin 0.4 (0.2-1.0) mg/dL AST 17 (15-37) U/L ALT 36 (16-63) U/L Alkaline Phosphatase 102 (46-116) U/L C-Reactive Protein 2.9 H (0.0-0.9) mg/dL Total Protein 6.6 (6.4-8.2) g/dL Albumin 2.8 L (3.4-5.0) g/dL Globulin 3.8 Albumin/Globulin Ratio 0.74 Result Diagrams: 08/26/21 06:10 08/26/21 06:10 Sebastian Results Last 24 hrs: Microbiology 08/25/21 11:21 MRSA Clearance Screen - Preliminary Nose, Unspecified NO MRSA ISOLATED 08/23/21 16:32 Aerobic Blood Culture - Preliminary Blood - Venous - Iv Start NO GROWTH AFTER 2 DAYS Anaerobic Blood Culture - Preliminary NO GROWTH AFTER 2 DAYS 08/23/21 16:38 Aerobic Blood Culture - Preliminary Blood - Arm, Right NO GROWTH AFTER 2 DAYS Anaerobic Blood Culture - Preliminary NO GROWTH AFTER 2 DAYS Sepsis Event Note - Evaluation Sepsis Screening Result: No Definite Risk - Focused Exam Vital Signs: Vital Signs Temp Pulse Pulse Resp BP BP Pulse Ox 08/26/21 08:42 115/64 08/26/21 08:41 64 115/64 08/26/21 08:00 97.6 F 64 20 115/64 97 08/26/21 04:00 98.2 F 66 16 101/55 L 100 08/26/21 00:00 97.8 F 64 18 103/58 L 96 - Problem List & Annotations (1) Antibiotic long-term use SNOMED Code(s): 268972954 Code(s): Z79.2 - SYSTEM OPERATOR (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) USE OF ANTIBIOTICS Status: Acute Current Visit: Yes (2) Diabetes mellitus SNOMED Code(s): 96671821 Code(s): E11.9 - TYPE 2 DIABETES MELLITUS WITHOUT COMPLICATIONS Status: Acute Priority: Medium Current Visit: Yes Qualifiers: Diabetes mellitus type: type 2 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: with warehouse helper use Diabetes mellitus complication detail: with dermatitis (3) Cellulitis SNOMED Code(s): 825567343 Code(s): L03.90 - CELLULITIS, UNSPECIFIED Status: Acute Current Visit: No Qualifiers: Site of cellulitis: trunk Site of cellulitis of trunk: abdominal wall Qualified Code(s): L03.311 - Cellulitis of abdominal wall - Problem List Review Problem List Initiated/Reviewed/Updated: Yes - My Orders Last 24 Hours: My Active Orders 08/25/21 11:21 CULTURE MRSA CLEARANCE [RM] Routine 08/25/21 16:47 Carboxymethylcellulose Sodium [Refresh Celluvisc] 1 each EYEBOTH ASDIRECTED PRN 08/25/21 21:33 Blood Glucose Check, Bedside [RC] TIDAC 08/26/21 08:00 Insulin Lispro [HumaLOG] 2 unit SUBCUT TIDMEALS 08/26/21 09:00 Nystatin [Nystop] 5 gm TOP BID 08/26/21 Lunch High Protein Diet [DIET] 08/26/21 14:00 ceFAZolin [Ancef] 2 gm Premix Bag 1 bag IV Q8HR - Assessment Assessment:: resented with rapid development of lower abdominal wall redness 1. cellulitis of pannus There is no regression or spreading of the erythema on his pannus. There is co ncern about proper tissue penetration with clindamycin. MRSA screen negative We will stop clindamycin out of concern for C. difficile and lack of efficacy (tissue penetration) and will start Ancef 2 g every 8 hours Continue probiotic Blood cultures negative Treating unknown organism Apply nystatin powder to pannus foldh/o multiple allergy (pcn, vanc, dapto). Had a conversation about these allergies, it is unlikely that he they are real allergies. 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 2. DM hold metformin Start 2 units of Humalog with meals Continue 25 mg Lantus [id number] glucose AC at bedtime use supplemental insulin, hypoglycemia protocol as needed 3. HTN cont lisinopril 4. dvt prophylaxis sq heparin
[2021-08-26] MEDS: ceFAZolin 2 GM in Premix Bag 1 BAG IV SCH ×2 (13:21→21:37)
[2021-08-26] MEDS: Acetaminophen 325 MG Tab PO PRN (16:48)
[2021-08-26] MEDS: Insulin Glarg,Human.Rec.Analog 100 Unit/ML SUBCUT SCH (21:43)
[2021-08-27] MEDS: Acetaminophen/HYDROcodone 325-10 MG Tab PO PRN (03:37)
[2021-08-27] MEDS: Heparin Sodium 5,000 Units/ML Vial SUBCUT SCH ×3 (05:10→21:13)
[2021-08-27] MEDS: ceFAZolin 2 GM in Premix Bag 1 BAG IV SCH ×3 (05:10→22:15)
[2021-08-27] MEDS ORDERED: hydrALAZINE 20 MG/ML SDV IVPUSH PRN (08:16)
--- NOTE | 2021-08-27 08:19 | PCM.PN ---
- General Info Date of Service: 08/27/21 Admission Dx/Problem (Free Text): Admission Diagnosis/Problem Admission Diagnosis/Problem Cellulitis Subjective Update: Mr. Condon is in no acute distress today. no new complaints. There continues to be mild pain with palpation but at baseline he is not reporting pain. Denies fever, nausea, and vomiting. Vital signs are acceptable WBC is trending down to 12.4 today Creatinine 1.44. Creatinine 1.27 on 08/25/2021 - Review of Systems General: Reports: No Symptoms HEENT: Reports: No Symptoms Pulmonary: Reports: No Symptoms Cardiovascular: Reports: No Symptoms Gastrointestinal: Reports: Abdominal Pain Genitourinary: Reports: No Symptoms Musculoskeletal: Reports: No Symptoms Skin: Reports: No Symptoms Neurological: Reports: No Symptoms Psychiatric: Reports: No Symptoms - Patient Data Vitals - Most Recent: Last Vital Signs Temp 36.2 C 08/27/21 07:40 Pulse 72 08/27/21 07:40 Resp 18 08/27/21 07:40 BP 122/65 08/27/21 07:40 Pulse Ox 98 08/27/21 07:40 Weight - Most Recent: 179.441 kg I&O - Last 24 Hours: Intake & Output 08/26/21 08/27/21 08/27/21 22:59 06:59 14:59 Intake Total 720 360 Balance 720 360 Lab Results Last 24 Hours: Laboratory Results - last 24 hr 08/26/21 08/26/21 08/26/21 Range/Units 11:57 17:05 21:36 WBC (5.0-10.0) 10^3/uL RBC (4.6-6.2) 10^6/uL Hgb (14.0-18.0) g/dL Hct (40.0-54.0) % MCV (80-100) fL MCH (27.0-34.0) pg MCHC (33.0-35.0) g/dL Plt Count (150-450) 10^3/uL Neut % (Auto) (42.2-75.2) % Lymph % (Auto) (20.5-50.1) % Benton % (Auto) (2-8) % Eos % (Auto) (1.0-3.0) % Baso % (Auto) (0.0-1.0) % Add Manual Diff Neutrophils % (Manual) (42-75) % Band Neutrophils % % Lymphocytes % (Manual) (20-50) % Monocytes % (Manual) (2-8) % Eosinophils % (Manual) (1-3) % Sodium (136-145) mmol/L Potassium (3.5-5.1) mmol/L Chloride (98-107) mmol/L Carbon Dioxide (21-32) mmol/L Anion Gap (7-13) mEq/L BUN (7-18) mg/dL Creatinine (0.70-1.30) mg/dL Est Cr Clr Drug Dosing mL/min Estimated GFR (MDRD) BUN/Creatinine Ratio (No establ ref range) Glucose (70-99) mg/dL POC Glucose 111 H 119 H 140 H (70-99) mg/dL Calcium (8.5-10.1) mg/dL Total Bilirubin (0.2-1.0) mg/dL AST (15-37) U/L ALT (16-63) U/L Alkaline Phosphatase (46-116) U/L Total Protein (6.4-8.2) g/dL Albumin (3.4-5.0) g/dL Globulin Albumin/Globulin Ratio 08/27/21 08/27/21 Range/Units 06:10 06:10 WBC 12.4 H (5.0-10.0) 10^3/uL RBC 4.82 (4.6-6.2) 10^6/uL Hgb 13.5 L (14.0-18.0) g/dL Hct 42.7 (40.0-54.0) % MCV 88.6 (80-100) fL MCH 28.0 (27.0-34.0) pg MCHC 31.6 L (33.0-35.0) g/dL Plt Count 304 (150-450) 10^3/uL Neut % (Auto) 74.3 (42.2-75.2) % Lymph % (Auto) 17.7 L (20.5-50.1) % Benton % (Auto) 7.3 (2-8) % Eos % (Auto) 0.5 L (1.0-3.0) % Baso % (Auto) 0.2 (0.0-1.0) % Add Manual Diff Yes Neutrophils % (Manual) 73 (42-75) % Band Neutrophils % 2 % Lymphocytes % (Manual) 19 L (20-50) % Monocytes % (Manual) 5 (2-8) % Eosinophils % (Manual) 1 (1-3) % Sodium 139 (136-145) mmol/L Potassium 5.0 (3.5-5.1) mmol/L Chloride 106 (98-107) mmol/L Carbon Dioxide 25 (21-32) mmol/L Anion Gap 13.0 (7-13) mEq/L BUN 36 H (7-18) mg/dL Creatinine 1.44 H (0.70-1.30) mg/dL Est Cr Clr Drug Dosing 56.61 mL/min Estimated GFR (MDRD) 52 BUN/Creatinine Ratio 25.0 (No establ ref range) Glucose 142 H (70-99) mg/dL POC Glucose (70-99) mg/dL Calcium 8.3 L (8.5-10.1) mg/dL Total Bilirubin 0.4 (0.2-1.0) mg/dL AST 20 (15-37) U/L ALT 43 (16-63) U/L Alkaline Phosphatase 113 (46-116) U/L Total Protein 7.2 (6.4-8.2) g/dL Albumin 3.2 L (3.4-5.0) g/dL Globulin 4.0 Albumin/Globulin Ratio 0.80 Sebastian Results Last 24 Hours: Microbiology 08/25/21 11:21 MRSA Clearance Screen - Final Nose, Unspecified NO MRSA ISOLATED 08/23/21 16:32 Aerobic Blood Culture - Preliminary Blood - Venous - Iv Start NO GROWTH AFTER 3 DAYS Anaerobic Blood Culture - Preliminary NO GROWTH AFTER 3 DAYS 08/23/21 16:38 Aerobic Blood Culture - Preliminary Blood - Arm, Right NO GROWTH AFTER 3 DAYS Anaerobic Blood Culture - Preliminary NO GROWTH AFTER 3 DAYS Med Orders - Current: Current Medications Acetaminophen (Acetaminophen 325 Mg Tab) 650 mg PO Q4H PRN PRN Reason: Pain (Mild 1-3)/fever Last Admin: 08/26/21 16:48 Dose: 650 mg Documented by: Hydrocodone Bitart/Acetaminophen (Acetaminophen/Hydrocodone 325-10 Mg Tab) 1 tab PO Q6H PRN PRN Reason: Pain (moderate 4-6) Last Admin: 08/27/21 03:37 Dose: 1 tab Documented by: Artificial Tears (Carboxymethylcellulose Sodium 1% Ophth Gel 0.4 Ml Ud) 1 each EYEBOTH ASDIRECTED PRN PRN Reason: Dry Eyes Last Admin: 08/25/21 17:36 Dose: 1 each Documented by: Aspirin (Aspirin 81 Mg Tab.Ec) 81 mg PO DAILY [facility] Last Admin: 08/26/21 08:41 Dose: 81 mg Documented by: Dextrose/Water (50% Dextrose In Water 50 Ml Syringe) 25 ml IVPUSH ASDIRECTED PRN PRN Reason: Hypoglycemia BS<70 Docusate Sodium (Docusate Sodium 100 Mg Cap) 100 mg PO BID PRN PRN Reason: Constipation Ferrous Sulfate (Ferrous Sulfate 325 Mg Tab) 325 mg PO DAILY [facility] Last Admin: 08/26/21 08:41 Dose: 325 mg Documented by: Furosemide (Furosemide 20 Mg Tab) 20 mg PO BIDDIURETIC [facility] Last Admin: 08/26/21 13:25 Dose: 20 mg Documented by: Glucagon (Glucagon,Human Recombinant 1 Mg Vial) 1 mg IM Q15M PRN PRN Reason: Hypoglycemia Heparin Sodium (Porcine) (Heparin Sodium 5,000 Units/Ml Vial) 5,000 units SUBCU T Q8HR [facility] Last Admin: 08/27/21 05:10 Dose: 5,000 units Documented by: Hydralazine HCl (Hydralazine 20 Mg/Ml Sdv) 10 mg IVPUSH Q4H PRN PRN Reason: Hypertension Cefazolin Sodium/Dextrose 2 gm (/ Premix) 50 mls @ 100 mls/hr IV Q8HR [facility] Last Admin: 08/27/21 05:10 Dose: 100 mls/hr Documented by: Ibuprofen (Ibuprofen 200 Mg Tab) 200 mg PO Q6H PRN PRN Reason: Pain Insulin Glargine (Insulin Glarg,Human.Rec.Analog 100 Unit/Ml) 25 unit SUBCUT BEDTIME [facility] Last Admin: 08/26/21 21:43 Dose: 25 units Documented by: Insulin Human Lispro (Insulin Lispro 100 Units/Ml 3 Ml Vial) 0 unit SUBCUT WITHMEALSANDBED [facility]; Protocol Last Admin: 08/26/21 21:40 Dose: Not Given Documented by: Insulin Human Lispro (Insulin Lispro 100 Units/Ml 3 Ml Vial) 2 unit SUBCUT TIDMEALS [facility] Last Admin: 08/26/21 17:49 Dose: 2 unit Documented by: Metoprolol Succinate (Metoprolol Succinate 50 Mg Tab.Er) 50 mg PO DAILY [facility] Last Admin: 08/26/21 08:41 Dose: 50 mg Documented by: Nifedipine (Nifedipine 30 Mg Tab.Er) 30 mg PO DAILY [facility] Last Admin: 08/26/21 08:42 Dose: 30 mg Documented by: Diclofenac Sodium [ Voltaren] [address] *Own Med* 50 mg PO TID [facility] Last Admin: 08/26/21 21:40 Dose: 50 mg Documented by: Nystatin (Nystatin Topical Powder 30 Gm Bottle) 5 gm TOP BID [facility] Last Admin: 08/26/21 21:41 Dose: 5 gm Documented by: Ondansetron HCl (Ondansetron 4 Mg/2 Ml Sdv) 4 mg IVPUSH Q4H PRN PRN Reason: Nausea/Vomiting Patient's Own Medication Solifenacin Succ 10 Mg Tab 1 each PO DAILY [facility] Last Admin: 08/26/21 08:44 Dose: 1 each Documented by: Saccharomyces Boulardii (Saccharomyces Boulardii (Probiotic) 250 Mg Cap) 250 mg PO BID [facility] Last Admin: 08/26/21 21:40 Dose: 250 mg Documented by: Sodium Chloride (Sodium Chloride 0.9% 10 Ml Syringe) 10 ml FLUSH ASDIRECTED PRN PRN Reason: Keep Vein Open Zolpidem Tartrate (Zolpidem 5 Mg Tab) 5 mg PO BEDTIME PRN PRN Reason: Sleep Discontinued Medications Clindamycin Phosphate 900 mg/ (Sodium Chloride) 106 mls @ 200 mls/hr IV ONETIME ONE Stop: 08/23/21 16:51 Last Admin: 08/23/21 16:47 Dose: 200 mls/hr Documented by: Clindamycin Phosphate 600 mg/ (Sodium Chloride) 104 mls @ 200 mls/hr IV Q8H [facility] Last Admin: 08/24/21 10:52 Dose: Not Given Documented by: Clindamycin Phosphate 600 mg/ (Sodium Chloride) 104 mls @ 200 mls/hr IV Q8H [facility] Last Admin: 08/25/21 09:05 Dose: 200 mls/hr Documented by: Clindamycin Phosphate 600 mg/ (Sodium Chloride) 104 mls @ 200 mls/hr IV Q8HR [facility] Last Admin: 08/26/21 05:31 Dose: 200 mls/hr Documented by: Lisinopril (Lisinopril 20 Mg Tab) 20 mg PO DAILY [facility] Last Admin: 08/26/21 08:42 Dose: 20 mg Documented by: Metformin HCl (Metformin 500 Mg Tab) 500 mg PO BIDMEALS [facility] Last Admin: 08/25/21 17:35 Dose: 500 mg Documented by: Nystatin (Nystatin Topical Powder 30 Gm Bottle) 0 gm TOP BID [facility] Last Admin: 08/25/21 20:52 Dose: 1 applic Documented by: Sodium Chloride (Sodium Chloride 0.9% 10 Ml Syringe) 10 ml FLUSH ASDIRECTED PRN PRN Reason: Keep Vein Open Last Admin: 08/23/21 16:47 Dose: 10 ml Documented by: - Exam General: Alert, Oriented, Cooperative HEENT: Pupils Equal, Pupils Reactive, EOMI Neck: Supple, Trachea Midline, No JVD Lungs: Clear to Auscultation, Normal Respiratory Effort, Decreased Breath Sounds Cardiovascular: Regular Rate, Regular Rhythm GI/Abdominal Exam: Normal Bowel Sounds, Soft, No Organomegaly, Other (Tender (Erythema demarcated by the purple Derm line applied on 08/25/2021 has not spread nor has it is receded. Pannus remains mildly tender to palpation. Large pannus. Inferior part has thickened skin due to stasis.) Extremities: Normal Inspection, Normal Range of Motion, Non-Tender Skin: Warm, Dry, Intact Neurological: Normal Speech, Normal Tone, Strength Equal Bilateral, Reflexes Equal Bilateral, Sensation Intact Psy/Mental Status: Alert, Normal Affect, Normal Mood - Patient Data Lab Results Last 24 hrs: Laboratory Results - last 24 hr 08/26/21 08/26/21 08/26/21 Range/Units 11:57 17:05 21:36 WBC (5.0-10.0) 10^3/uL RBC (4.6-6.2) 10^6/uL Hgb (14.0-18.0) g/dL Hct (40.0-54.0) % MCV (80-100) fL MCH (27.0-34.0) pg MCHC (33.0-35.0) g/dL Plt Count (150-450) 10^3/uL Neut % (Auto) (42.2-75.2) % Lymph % (Auto) (20.5-50.1) % Benton % (Auto) (2-8) % Eos % (Auto) (1.0-3.0) % Baso % (Auto) (0.0-1.0) % Add Manual Diff Neutrophils % (Manual) (42-75) % Band Neutrophils % % Lymphocytes % (Manual) (20-50) % Monocytes % (Manual) (2-8) % Eosinophils % (Manual) (1-3) % Sodium (136-145) mmol/L Potassium (3.5-5.1) mmol/L Chloride (98-107) mmol/L Carbon Dioxide (21-32) mmol/L Anion Gap (7-13) mEq/L BUN (7-18) mg/dL Creatinine (0.70-1.30) mg/dL Est Cr Clr Drug Dosing mL/min Estimated GFR (MDRD) BUN/Creatinine Ratio (No establ ref range) Glucose (70-99) mg/dL POC Glucose 111 H 119 H 140 H (70-99) mg/dL Calcium (8.5-10.1) mg/dL Total Bilirubin (0.2-1.0) mg/dL AST (15-37) U/L ALT (16-63) U/L Alkaline Phosphatase (46-116) U/L Total Protein (6.4-8.2) g/dL Albumin (3.4-5.0) g/dL Globulin Albumin/Globulin Ratio 08/27/21 08/27/21 Range/Units 06:10 06:10 WBC 12.4 H (5.0-10.0) 10^3/uL RBC 4.82 (4.6-6.2) 10^6/uL Hgb 13.5 L (14.0-18.0) g/dL Hct 42.7 (40.0-54.0) % MCV 88.6 (80-100) fL MCH 28.0 (27.0-34.0) pg MCHC 31.6 L (33.0-35.0) g/dL Plt Count 304 (150-450) 10^3/uL Neut % (Auto) 74.3 (42.2-75.2) % Lymph % (Auto) 17.7 L (20.5-50.1) % Benton % (Auto) 7.3 (2-8) % Eos % (Auto) 0.5 L (1.0-3.0) % Baso % (Auto) 0.2 (0.0-1.0) % Add Manual Diff Yes Neutrophils % (Manual) 73 (42-75) % Band Neutrophils % 2 % Lymphocytes % (Manual) 19 L (20-50) % Monocytes % (Manual) 5 (2-8) % Eosinophils % (Manual) 1 (1-3) % Sodium 139 (136-145) mmol/L Potassium 5.0 (3.5-5.1) mmol/L Chloride 106 (98-107) mmol/L Carbon Dioxide 25 (21-32) mmol/L Anion Gap 13.0 (7-13) mEq/L BUN 36 H (7-18) mg/dL Creatinine 1.44 H (0.70-1.30) mg/dL Est Cr Clr Drug Dosing 56.61 mL/min Estimated GFR (MDRD) 52 BUN/Creatinine Ratio 25.0 (No establ ref range) Glucose 142 H (70-99) mg/dL POC Glucose (70-99) mg/dL Calcium 8.3 L (8.5-10.1) mg/dL Total Bilirubin 0.4 (0.2-1.0) mg/dL AST 20 (15-37) U/L ALT 43 (16-63) U/L Alkaline Phosphatase 113 (46-116) U/L Total Protein 7.2 (6.4-8.2) g/dL Albumin 3.2 L (3.4-5.0) g/dL Globulin 4.0 Albumin/Globulin Ratio 0.80 Result Diagrams: 08/27/21 06:10 08/27/21 06:10 Sebastian Results Last 24 hrs: Microbiology 08/25/21 11:21 MRSA Clearance Screen - Final Nose, Unspecified NO MRSA ISOLATED 08/23/21 16:32 Aerobic Blood Culture - Preliminary Blood - Venous - Iv Start NO GROWTH AFTER 3 DAYS Anaerobic Blood Culture - Preliminary NO GROWTH AFTER 3 DAYS 08/23/21 16:38 Aerobic Blood Culture - Preliminary Blood - Arm, Right NO GROWTH AFTER 3 DAYS Anaerobic Blood Culture - Preliminary NO GROWTH AFTER 3 DAYS Sepsis Event Note - Evaluation Sepsis Screening Result: No Definite Risk - Focused Exam Vital Signs: Vital Signs Temp Pulse Resp BP BP Pulse Ox 08/27/21 07:40 36.2 C 72 18 122/65 98 08/27/21 04:00 36.6 C 70 16 114/60 96 08/27/21 00:00 36.6 C 67 14 101/58 L 99 - Problem List Review Problem List Initiated/Reviewed/Updated: Yes - My Orders Last 24 Hours: My Active Orders 08/27/21 08:16 hydrALAZINE [Apresoline] 10 mg IVPUSH Q4H PRN - Assessment Assessment:: 46 yo wih h/o morbid obesity, dm, recurrent abdominal wall cellulitis on suppressive PO Abx, developed malaise, associated with lower anterior abdominal wall redness Assessment and plan: 1. cellulitis of pannus There is no regression or spreading of the erythema on his pannus. MRSA screen negative Continue Ancef 2 g every 8 hours Continue probiotic Blood cultures negative Treating unknown organism Apply nystatin powder to pannus foldh/o multiple allergy (pcn, vanc, dapto). Had a conversation about these allergies, it is unlikely that he they are real allergies. Recommended outpatient allergy testing because patient has been on antibiotics for a detention, and will likely be on antibiotics for long-term. CT abd - no acute findings 2. DM hold metformin Start 2 units of Humalog with meals Continue 25 units Lantus [id number] glucose AC at bedtime use supplemental insulin, hypoglycemia protocol as needed Insulin ss 3. HTN Discontinued lisinopril due to increase in creatinine Continue nifedipine 30mg daily and metoprolol 50mg daily hydralazine prn 4. LUIS E Discontinue lisinopril 20mg daily Avoid nephrotoxic meds IVF Repeat renal function in am 5. DVT prophylaxis sq heparin - Plan Plan:: 08/24/21 46 year old male with cellulitis/panniculitis (chronically with acute flare.)//morbid obesity bmi 68 and dm ins. dependent on short acting sliding scale a1c 6.4 renal impairment and severe oa / severe tanya and chronic hypoxia and chronic edema and chronic veinous stasis and dermatitis. vss lungs clear a nd decreased. cor rrr without m s3/s4. abd severe chronic induration and redness without drainage. extends to folds over suprapubic area. tender to touch mildly. ? some improvement. neuro nnormal. ext edema 3 plus varicosities. labs wbc 25 k /// crp 4.6. hgn and plat stable. denies voiding difficulties but poor sleep sec to back discomfort. b.s 240 now 177 assess : cellulitis panniculitis. on cleocin and cont . bathing / even bed bath difficult but may help. circ. imapaired sec. to overlap and compression. hx of chronic antibiotic prophylaxis and may be dealing with resistant org. 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 dm poor control and add back metformin and long acting insulin and encouraged him to check post prandial b.s. despite good a1c. morbid obesity with tanya on cpap chonic hypoxia stable currently . chronic edema ndneeds echo if not done already . chronic antibiotic prophylaxis by hx . asses clinical response. abd binder may help. ambulation limitations form medical problems. back pain . renal insuff on diuretics . electrolyte monitoring required. recheck labs and lactic acid in am . mult. allergies pcn [place] ralph boh
[2021-08-27] MEDS: NIFEdipine 30 MG Tab.ER PO SCH (08:59)
[2021-08-27] MEDS: Saccharomyces Boulardii (Probiotic) 250 MG Cap PO SCH ×2 (08:59→21:15)
[2021-08-27] MEDS: Insulin Lispro 100 Units/ML 3 ML Vial SUBCUT SCH ×7 (08:59→21:18)
[2021-08-27] MEDS: Aspirin 81 MG Tab.EC PO SCH (09:00)
[2021-08-27] MEDS: Metoprolol Succinate 50 MG Tab.ER PO SCH (09:00)
[2021-08-27] MEDS: Furosemide 20 MG Tab PO SCH ×2 (09:00→13:53)
[2021-08-27] MEDS: Ferrous Sulfate 325 MG Tab PO SCH (09:01)
[2021-08-27] MEDS: Nystatin Topical Powder 30 GM Bottle TOP SCH ×2 (09:01→21:15)
[2021-08-27] MEDS: DICLOFENAC SODIUM PO SCH ×3 (09:01→21:16)
[2021-08-27] MEDS: [UNRECOGNIZED DRUG - OTHER] PO SCH (09:03)
[2021-08-27] MEDS: Carboxymethylcellulose Sodium 1% Ophth Gel 0.4 ML UD EYEBOTH PRN (09:04)
--- NOTE | 2021-08-27 10:25 | CT ---
PROCEDURE INFORMATION: Exam: CT Abdomen And Pelvis Without Contrast Exam date and time: 08/27/2021 9:41 AM Age: 46 years old Clinical indication: Other: R/O abcesses; Additional info: Rule out abcesses TECHNIQUE: Imaging protocol: Computed tomography of the abdomen and pelvis without contrast. Radiation optimization: All CT scans at this facility use at least one of these dose optimization techniques: automated exposure control; mA and/or kV adjustment per patient size (includes targeted exams where dose is matched to clinical indication); or iterative reconstruction. COMPARISON: CT Chest Abdomen Pelvis w Cont 11/15/2020 9:32 AM FINDINGS: Limitations: No intravenous contrast. Pleural spaces: Bilateral subpleural fat. Liver: Normal. No mass. Gallbladder and bile ducts: Normal. No calcified stones. No ductal dilation. Pancreas: Normal. No ductal dilation. Spleen: Normal. No splenomegaly. Adrenal glands: Normal. No mass. Kidneys and ureters: Normal. No hydronephrosis. Stomach and bowel: Sigmoid colon diverticulosis. Appendix: No evidence of appendicitis. Intraperitoneal space: No intra-abdominal fluid or abscess. Vasculature: Unremarkable. No abdominal aortic aneurysm. Lymph nodes: Unremarkable. No enlarged lymph nodes. Urinary bladder: Unremarkable as visualized. Reproductive: Unremarkable as visualized. Bones/joints: Unremarkable. No acute fracture. Chronic healed left lateral rib fracture. Soft tissues: Unremarkable. IMPRESSION: No acute findings.
[2021-08-27] MEDS ORDERED: Lactated Ringers 1,000 ML IV SCH (11:15)
[2021-08-27] MEDS: Acetaminophen 325 MG Tab PO PRN (16:54)
[2021-08-27] MEDS: Insulin Glarg,Human.Rec.Analog 100 Unit/ML SUBCUT SCH (21:16)
[2021-08-28] MEDS: Acetaminophen/HYDROcodone 325-10 MG Tab PO PRN (00:15)
[2021-08-28] MEDS: Acetaminophen 325 MG Tab PO PRN ×2 (03:55→13:39)
[2021-08-28] MEDS: Heparin Sodium 5,000 Units/ML Vial SUBCUT SCH ×3 (05:23→21:01)
[2021-08-28] MEDS: Pantoprazole 40 MG Tab.CR PO SCH (05:24)
[2021-08-28] MEDS: ceFAZolin 2 GM in Premix Bag 1 BAG IV SCH ×3 (05:24→21:09)
[2021-08-28] MEDS: Insulin Lispro 100 Units/ML 3 ML Vial SUBCUT SCH ×7 (09:34→21:02)
[2021-08-28] MEDS: Saccharomyces Boulardii (Probiotic) 250 MG Cap PO SCH ×2 (09:36→21:01)
[2021-08-28] MEDS: Aspirin 81 MG Tab.EC PO SCH (09:36)
[2021-08-28] MEDS: Furosemide 20 MG Tab PO SCH ×2 (09:36→14:44)
[2021-08-28] MEDS: DICLOFENAC SODIUM PO SCH ×3 (09:37→21:00)
[2021-08-28] MEDS: Nystatin Topical Powder 30 GM Bottle TOP SCH ×2 (09:37→21:03)
[2021-08-28] MEDS: Ferrous Sulfate 325 MG Tab PO SCH (09:37)
[2021-08-28] MEDS: Metoprolol Succinate 50 MG Tab.ER PO SCH (09:39)
[2021-08-28] MEDS: NIFEdipine 30 MG Tab.ER PO SCH (09:39)
[2021-08-28] MEDS: [UNRECOGNIZED DRUG - OTHER] PO SCH (09:40)
--- NOTE | 2021-08-28 09:43 | PN ---
DATE: 08/28/2021 SUBJECTIVE: The patient is a 46-year-old male with a past medical history of morbid obesity, diabetes mellitus, and recurrent abdominal wall cellulitis, admitted with cellulitis of the abdominal pannus. The patient is doing fairly well. He is complaining of some itching on the abdominal pannus but denies any significant pain and he denies any chest pain, shortness of breath, fever, chills, nor any other complaints. LABORATORY DATA: Lab workup this morning, glucose 122. PHYSICAL EXAMINATION: VITAL SIGNS: Pressure is 131/77, pulse 74, respiration of 20, temperature of 98.7, saturation is 99% on room air. HEART: Regular rate and rhythm. No gallops, no rubs. LUNGS: Equal bilaterally. No crackles, no wheezing. ABDOMEN: Obese with abdominal pannus. There is still some mild redness on the abdominal wall pannus, but no ulcerations noted and it is soft. Bowel sounds positive. EXTREMITY: Negative for any significant pedal edema. No calf tenderness. ASSESSMENT AND PLAN: 1. Abdominal pannus cellulitis. His MRA screen is negative. We will continue with his Ancef. 2. Type 2 diabetes mellitus. The patient's blood sugar has been stable. We will continue with his Lantus and Humalog. 3. Hypertension. Blood pressure is within normal limits. We will continue with nifedipine and metoprolol, and hydralazine. 4. Deep venous thrombosis prophylaxis. We will continue with his subcutaneous heparin. [facility] /[id number]
[2021-08-28] MEDS ORDERED: Cyclobenzaprine 10 MG Tab PO PRN (14:36)
[2021-08-28] MEDS: Insulin Glarg,Human.Rec.Analog 100 Unit/ML SUBCUT SCH (21:01)
[2021-08-29] MEDS: Acetaminophen/HYDROcodone 325-10 MG Tab PO PRN (01:15)
[2021-08-29] MEDS: ceFAZolin 2 GM in Premix Bag 1 BAG IV SCH ×3 (05:43→21:02)
[2021-08-29] MEDS: Pantoprazole 40 MG Tab.CR PO SCH (05:44)
[2021-08-29] MEDS: Heparin Sodium 5,000 Units/ML Vial SUBCUT SCH ×3 (05:44→21:01)
[2021-08-29] MEDS: Furosemide 20 MG Tab PO SCH ×2 (09:04→14:27)
[2021-08-29] MEDS: Metoprolol Succinate 50 MG Tab.ER PO SCH (09:04)
[2021-08-29] MEDS: NIFEdipine 30 MG Tab.ER PO SCH (09:04)
[2021-08-29] MEDS: Ferrous Sulfate 325 MG Tab PO SCH (09:04)
[2021-08-29] MEDS: Aspirin 81 MG Tab.EC PO SCH (09:04)
[2021-08-29] MEDS: Saccharomyces Boulardii (Probiotic) 250 MG Cap PO SCH ×2 (09:05→20:55)
[2021-08-29] MEDS: DICLOFENAC SODIUM PO SCH (09:07)
[2021-08-29] MEDS: Nystatin Topical Powder 30 GM Bottle TOP SCH ×2 (09:08→21:02)
[2021-08-29] MEDS: Insulin Lispro 100 Units/ML 3 ML Vial SUBCUT SCH ×6 (09:09→17:43)
[2021-08-29] MEDS: [UNRECOGNIZED DRUG - OTHER] PO SCH ×2 (09:10→12:45)
[2021-08-29] MEDS: Acetaminophen 325 MG Tab PO PRN (20:55)
[2021-08-29] MEDS: Insulin Glarg,Human.Rec.Analog 100 Unit/ML SUBCUT SCH (21:00)
--- NOTE | 2021-08-29 21:03 | PCM.PN ---
- General Info Date of Service: 08/29/21 Admission Dx/Problem (Free Text): Pt is doing much better today. He is afebrile. Blood glucose has been controlled. - Patient Data Vitals - Most Recent: Last Vital Signs Temp 97.0 F 08/29/21 20:00 Pulse 77 08/29/21 20:00 Resp 20 08/29/21 20:00 BP 135/77 08/29/21 20:00 Pulse Ox 95 08/29/21 20:00 Weight - Most Recent: 395 lb 9.6 oz I&O - Last 24 Hours: Intake & Output 08/29/21 08/29/21 08/29/21 06:59 14:59 22:59 Intake Total 1250 Balance 1250 Lab Results Last 24 Hours: Laboratory Results - last 24 hr 08/28/21 08/29/21 08/29/21 Range/Units 20:51 08:18 10:54 WBC 13.2 H (5.0-10.0) 10^3/uL RBC 4.75 (4.6-6.2) 10^6/uL Hgb 13.3 L (14.0-18.0) g/dL Hct 41.6 (40.0-54.0) % MCV 87.6 (80-100) fL MCH 28.0 (27.0-34.0) pg MCHC 32.0 L (33.0-35.0) g/dL Plt Count 300 (150-450) 10^3/uL Neut % (Auto) 76.3 H (42.2-75.2) % Lymph % (Auto) 15.3 L (20.5-50.1) % [place] % (Auto) 7.4 (2-8) % Eos % (Auto) 0.8 L (1.0-3.0) % Baso % (Auto) 0.2 (0.0-1.0) % Sodium (136-145) mmol/L Potassium (3.5-5.1) mmol/L Chloride (98-107) mmol/L Carbon Dioxide (21-32) mmol/L Anion Gap (7-13) mEq/L BUN (7-18) mg/dL Creatinine (0.70-1.30) mg/dL Est Cr Clr Drug Dosing mL/min Estimated GFR (MDRD) Glucose (70-99) mg/dL POC Glucose 120 H 131 H (70-99) mg/dL Calcium (8.5-10.1) mg/dL 08/29/21 08/29/21 08/29/21 Range/Units 10:54 11:38 16:25 WBC (5.0-10.0) 10^3/uL RBC (4.6-6.2) 10^6/uL Hgb (14.0-18.0) g/dL Hct (40.0-54.0) % MCV (80-100) fL MCH (27.0-34.0) pg MCHC (33.0-35.0) g/dL Plt Count (150-450) 10^3/uL Neut % (Auto) (42.2-75.2) % Lymph % (Auto) (20.5-50.1) % [place] % (Auto) (2-8) % Eos % (Auto) (1.0-3.0) % Baso % (Auto) (0.0-1.0) % Sodium 139 (136-145) mmol/L Potassium 5.0 (3.5-5.1) mmol/L Chloride 103 (98-107) mmol/L Carbon Dioxide 25 (21-32) mmol/L Anion Gap 16.0 H (7-13) mEq/L BUN 33 H (7-18) mg/dL Creatinine 1.32 H (0.70-1.30) mg/dL Est Cr Clr Drug Dosing 61.76 mL/min Estimated GFR (MDRD) 58 Glucose 114 H (70-99) mg/dL POC Glucose 125 H 147 H (70-99) mg/dL Calcium 8.4 L (8.5-10.1) mg/dL Sebastian Results Last 24 Hours: Microbiology 08/23/21 16:32 Aerobic Blood Culture - Final Blood - Venous - Iv Start NO GROWTH AFTER 5 DAYS Anaerobic Blood Culture - Final NO GROWTH AFTER 5 DAYS 08/23/21 16:38 Aerobic Blood Culture - Final Blood - Arm, Right NO GROWTH AFTER 5 DAYS Anaerobic Blood Culture - Final NO GROWTH AFTER 5 DAYS Med Orders - Current: Current Medications Acetaminophen (Acetaminophen 325 Mg Tab) 650 mg PO Q4H PRN PRN Reason: Pain (Mild 1-3)/fever Last Admin: 08/29/21 20:55 Dose: 650 mg Documented by: Hydrocodone Bitart/Acetaminophen (Acetaminophen/Hydrocodone 325-10 Mg Tab) 1 tab PO Q6H PRN PRN Reason: Pain (moderate 4-6) Last Admin: 08/29/21 01:15 Dose: 1 tab Documented by: Artificial Tears (Carboxymethylcellulose Sodium 1% Ophth Gel 0.4 Ml Ud) 1 each EYEBOTH ASDIRECTED PRN PRN Reason: Dry Eyes Last Admin: 08/27/21 09:04 Dose: 1 each Documented by: Aspirin (Aspirin 81 Mg Tab.Ec) 81 mg PO DAILY [facility] Last Admin: 08/29/21 09:04 Dose: 81 mg Documented by: Cyclobenzaprine HCl (Cyclobenzaprine 10 Mg Tab) 5 mg PO TID PRN PRN Reason: Muscle Spasm - Painful Last Admin: 08/29/21 09:35 Dose: 5 mg Documented by: Dextrose/Water (50% Dextrose In Water 50 Ml Syringe) 25 ml IVPUSH ASDIRECTED PRN PRN Reason: Hypoglycemia BS<70 Docusate Sodium (Docusate Sodium 100 Mg Cap) 100 mg PO BID PRN PRN Reason: Constipation Ferrous Sulfate (Ferrous Sulfate 325 Mg Tab) 325 mg PO DAILY [facility] Last Admin: 08/29/21 09:04 Dose: 325 mg Documented by: Furosemide (Furosemide 20 Mg Tab) 20 mg PO BIDDIURETIC [facility] Last Admin: 08/29/21 14:27 Dose: 20 mg Documented by: Glucagon (Glucagon,Human Recombinant 1 Mg Vial) 1 mg IM Q15M PRN PRN Reason: Hypoglycemia Heparin Sodium (Porcine) (Heparin Sodium 5,000 Units/Ml Vial) 5,000 units SUBCUT Q8HR [facility] Last Admin: 08/29/21 14:28 Dose: 5,000 units Documented by: Hydralazine HCl (Hydralazine 20 Mg/Ml Sdv) 10 mg IVPUSH Q4H PRN PRN Reason: Hypertension Cefazolin Sodium/Dextrose 2 gm (/ Premix) 50 mls @ 100 mls/hr IV Q8HR [facility] Last Admin: 08/29/21 14:28 Dose: 100 mls/hr Documented by: Insulin Glargine (Insulin Glarg,Human.Rec.Analog 100 Unit/Ml) 25 unit SUBCUT BEDTIME [facility] Last Admin: 08/28/21 21:01 Dose: 25 units Documented by: Insulin Human Lispro (Insulin Lispro 100 Units/Ml 3 Ml Vial) 0 unit SUBCUT WITHMEALSANDBED [facility]; Protocol Last Admin: 08/29/21 17:43 Dose: Not Given Documented by: Insulin Human Lispro (Insulin Lispro 100 Units/Ml 3 Ml Vial) 2 unit SUBCUT TIDMEALS [facility] Last Admin: 08/29/21 17:40 Dose: 2 unit Documented by: Metoprolol Succinate (Metoprolol Succinate 50 Mg Tab.Er) 50 mg PO DAILY [facility] Last Admin: 08/29/21 09:04 Dose: 50 mg Documented by: Nifedipine (Nifedipine 30 Mg Tab.Er) 30 mg PO DAILY [facility] Last Admin: 08/29/21 09:04 Dose: 30 mg Documented by: Nystatin (Nystatin Topical Powder 30 Gm Bottle) 5 gm TOP BID [facility] Last Admin: 08/29/21 09:08 Dose: 1 applic Documented by: Ondansetron HCl (Ondansetron 4 Mg/2 Ml Sdv) 4 mg IVPUSH Q4H PRN PRN Reason: Nausea/Vomiting Pantoprazole Sodium (Pantoprazole 40 Mg Tab.Cr) 40 mg PO ACBREAKFAST [facility] Last Admin: 08/29/21 05:44 Dose: 40 mg Documented by: Patient's Own Medication Solifenacin Succ 10 Mg Tab 1 each PO DAILY [facility] Last Admin: 08/29/21 12:45 Dose: 1 each Documented by: Saccharomyces Boulardii (Saccharomyces Boulardii (Probiotic) 250 Mg Cap) 250 mg PO BID [facility] Last Admin: 08/29/21 20:55 Dose: 250 mg Documented by: Sodium Chloride (Sodium Chloride 0.9% 10 Ml Syringe) 10 ml FLUSH ASDIRECTED PRN PRN Reason: Keep Vein Open Zolpidem Tartrate (Zolpidem 5 Mg Tab) 5 mg PO BEDTIME PRN PRN Reason: Sleep Discontinued Medications Clindamycin Phosphate 900 mg/ (Sodium Chloride) 106 mls @ 200 mls/hr IV ONETIME ONE Stop: 08/23/21 16:51 Last Admin: 08/23/21 16:47 Dose: 200 mls/hr Documented by: Clindamycin Phosphate 600 mg/ (Sodium Chloride) 104 mls @ 200 mls/hr IV Q8H [facility] Last Admin: 08/24/21 10:52 Dose: Not Given Documented by: Clindamycin Phosphate 600 mg/ (Sodium Chloride) 104 mls @ 200 mls/hr IV Q8H [facility] Last Admin: 08/25/21 09:05 Dose: 200 mls/hr Documented by: Clindamycin Phosphate 600 mg/ (Sodium Chloride) 104 mls @ 200 mls/hr IV Q8HR [facility] Last Admin: 08/26/21 05:31 Dose: 200 mls/hr Documented by: Lactated Ringer's (Ringers, Lactated) 1,000 mls @ 50 mls/hr IV ASDIRECTED [facility] Last Admin: 08/27/21 12:30 Dose: 50 mls/hr Documented by: Ibuprofen (Ibuprofen 200 Mg Tab) 200 mg PO Q6H PRN PRN Reason: Pain Last Admin: 08/28/21 20:59 Dose: 200 mg Documented by: Lisinopril (Lisinopril 20 Mg Tab) 20 mg PO DAILY [facility] Last Admin: 08/26/21 08:42 Dose: 20 mg Documented by: Metformin HCl (Metformin 500 Mg Tab) 500 mg PO BIDMEALS [facility] Last Admin: 08/25/21 17:35 Dose: 500 mg Documented by: Diclofenac Sodium [ Voltaren] [address] *Own Med* 50 mg PO TID [facility] Last Admin: 08/29/21 09:07 Dose: 50 mg Documented by: Nystatin (Nystatin Topical Powder 30 Gm Bottle) 0 gm TOP BID [facility] Last Admin: 08/25/21 20:52 Dose: 1 applic Documented by: Sodium Chloride (Sodium Chloride 0.9% 10 Ml Syringe) 10 ml FLUSH ASDIRECTED PRN PRN Reason: Keep Vein Open Last Admin: 08/23/21 16:47 Dose: 10 ml Documented by: - Exam Physical Findings Comments:: General: obese male. In no acute distress CVS: S1S2 appreciated. RRR lungs: clear bilaterally with no rales or wheezes pa: soft, non tender. bowel sounds present. Pt has a large panus. Minimal to no cellulitis noted at time. ext: no clubbing, cyanosis or edema neuro: no focal deficits psych: mood is low. Affect is appropriate. - Patient Data Lab Results Last 24 hrs: Laboratory Results - last 24 hr 11/07/21 11/08/21 11/08/21 Range/Units 20:51 08:18 10:54 WBC 13.2 H (5.0-10.0) 10^3/uL RBC 4.75 (4.6-6.2) 10^6/uL Hgb 13.3 L (14.0-18.0) g/dL Hct 41.6 (40.0-54.0) % MCV 87.6 (80-100) fL MCH 28.0 (27.0-34.0) pg MCHC 32.0 L (33.0-35.0) g/dL Plt Count 300 (150-450) 10^3/uL Neut % (Auto) 76.3 H (42.2-75.2) % Lymph % (Auto) 15.3 L (20.5-50.1) % [place] % (Auto) 7.4 (2-8) % Eos % (Auto) 0.8 L (1.0-3.0) % Baso % (Auto) 0.2 (0.0-1.0) % Sodium (136-145) mmol/L Potassium (3.5-5.1) mmol/L Chloride (98-107) mmol/L Carbon Dioxide (21-32) mmol/L Anion Gap (7-13) mEq/L BUN (7-18) mg/dL Creatinine (0.70-1.30) mg/dL Est Cr Clr Drug Dosing mL/min Estimated GFR (MDRD) Glucose (70-99) mg/dL POC Glucose 120 H 131 H (70-99) mg/dL Calcium (8.5-10.1) mg/dL 08/29/21 08/29/21 08/29/21 Range/Units 10:54 11:38 16:25 WBC (5.0-10.0) 10^3/uL RBC (4.6-6.2) 10^6/uL Hgb (14.0-18.0) g/dL Hct (40.0-54.0) % MCV (80-100) fL MCH (27.0-34.0) pg MCHC (33.0-35.0) g/dL Plt Count (150-450) 10^3/uL Neut % (Auto) (42.2-75.2) % Lymph % (Auto) (20.5-50.1) % [place] % (Auto) (2-8) % Eos % (Auto) (1.0-3.0) % Baso % (Auto) (0.0-1.0) % Sodium 139 (136-145) mmol/L Potassium 5.0 (3.5-5.1) mmol/L Chloride 103 (98-107) mmol/L Carbon Dioxide 25 (21-32) mmol/L Anion Gap 16.0 H (7-13) mEq/L BUN 33 H (7-18) mg/dL Creatinine 1.32 H (0.70-1.30) mg/dL Est Cr Clr Drug Dosing 61.76 mL/min Estimated GFR (MDRD) 58 Glucose 114 H (70-99) mg/dL POC Glucose 125 H 147 H (70-99) mg/dL Calcium 8.4 L (8.5-10.1) mg/dL Result Diagrams: 08/29/21 10:54 08/29/21 10:54 Sebastian Results Last 24 hrs: Microbiology 08/23/21 16:32 Aerobic Blood Culture - Final Blood - Venous - Iv Start NO GROWTH AFTER 5 DAYS Anaerobic Blood Culture - Final NO GROWTH AFTER 5 DAYS 08/23/21 16:38 Aerobic Blood Culture - Final Blood - Arm, Right NO GROWTH AFTER 5 DAYS Anaerobic Blood Culture - Final NO GROWTH AFTER 5 DAYS Sepsis Event Note - Evaluation Sepsis Screening Result: No Definite Risk - Focused Exam Vital Signs: Vital Signs Temp Pulse Pulse Resp BP BP Pulse Ox 08/29/21 20:00 97.0 F 77 20 135/77 95 08/29/21 16:00 97.0 F 70 18 119/61 93 L 08/29/21 12:37 98.0 F 76 20 121/62 96 08/29/21 09:04 75 122/61 - Problem List Review Problem List Initiated/Reviewed/Updated: Yes - Assessment Assessment:: 46 yo wih h/o morbid obesity, dm, recurrent abdominal wall cellulitis on suppressive PO Abx, developed malaise, associated with lower anterior abdominal wall redness Assessment and plan: 1. cellulitis of pannus There is no regression or spreading of the erythema on his pannus. MRSA screen negative Continue Ancef 2 g every 8 hours Continue probiotic Blood cultures negative Treating unknown organism Apply nystatin powder to pannus foldh/o multiple allergy (pcn, vanc, dapto). Had a conversation about these allergies, it is unlikely that he they are real allergies. Recommended outpatient allergy testing because patient has been on antibiotics for a fdc, and will likely be on antibiotics for long-term. CT abd - no acute findings 2. DM hold metformin Start 2 units of Humalog with meals Continue 25 units Lantus [id number]-[id number] glucose AC at bedtime use supplemental insulin, hypoglycemia protocol as needed Insulin ss 3. HTN Discontinued lisinopril due to increase in creatinine Continue nifedipine 30mg daily and metoprolol 50mg daily hydralazine prn 4. LUIS E Discontinue lisinopril 20mg daily Avoid nephrotoxic meds IVF Repeat renal function in am 5. DVT prophylaxis sq heparin - Plan Plan:: 08/24/21 46 year old male with cellulitis/panniculitis (chronically with acute flare.)//morbid obesity bmi 68 and dm ins. dependent on short acting sliding scale a1c 6.4 renal impairment and severe oa / severe tanya and chronic hypoxia and chronic edema and chronic veinous stasis and dermatitis. vss lungs clear a nd decreased. cor rrr without m s3/s4. abd severe chronic induration and redness without drainage. extends to folds over suprapubic area. tender to touch mildly. ? some improvement. neuro nnormal. ext edema 3 plus varicosities. labs wbc 25 k /// crp 4.6. hgn and plat stable. denies voiding difficulties but poor sleep sec to back discomfort. b.s 240 now 177 assess : cellulitis panniculitis. on cleocin and cont . bathing / even bed bath difficult but may help. circ. imapaired sec. to overlap and compression. hx of chronic antibiotic prophylaxis and may be dealing with resistant org. 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 dm poor control and add back metformin and long acting insulin and enco uraged him to check post prandial b.s. despite good a1c. morbid obesity with tanya on cpap chonic hypoxia stable currently . chronic edema ndneeds echo if not done already . chronic antibiotic prophylaxis by hx . asses clinical response. abd binder may help. ambulation limitations form medical problems. back pain . renal insuff on diuretics . electrolyte monitoring required. recheck labs and lactic acid in am . mult. allergies pcn vanco dapsone boh
[2021-08-30] MEDS: Acetaminophen/HYDROcodone 325-10 MG Tab PO PRN (00:56)
[2021-08-30] MEDS: ceFAZolin 2 GM in Premix Bag 1 BAG IV SCH (05:12)
[2021-08-30] MEDS: Heparin Sodium 5,000 Units/ML Vial SUBCUT SCH (05:17)
[2021-08-30] MEDS: Pantoprazole 40 MG Tab.CR PO SCH (05:17)
[2021-08-30] MEDS ORDERED: Insulin Lispro 100 Units/ML 3 ML Vial SUBCUT SCH (08:00)
[2021-08-30 08:12] VITALS: BP 120/65; PULSE 77
[2021-08-30] MEDS: Ferrous Sulfate 325 MG Tab PO SCH (08:13)
[2021-08-30] MEDS: Furosemide 20 MG Tab PO SCH (08:13)
[2021-08-30] MEDS: Saccharomyces Boulardii (Probiotic) 250 MG Cap PO SCH (08:13)
[2021-08-30] MEDS: Aspirin 81 MG Tab.EC PO SCH (08:14)
[2021-08-30] MEDS: Nystatin Topical Powder 30 GM Bottle TOP SCH (08:14)
[2021-08-30] MEDS: [UNRECOGNIZED DRUG - OTHER] PO SCH (08:15)
[2021-08-30] MEDS: Insulin Lispro 100 Units/ML 3 ML Vial SUBCUT SCH (08:17)
[2021-08-30] MEDS: NIFEdipine 30 MG Tab.ER PO SCH (08:18)
[2021-08-30] MEDS: Metoprolol Succinate 50 MG Tab.ER PO SCH (08:19)
--- NOTE | 2021-08-30 09:57 | PCM.DCSUM1 ---
Discharge Summary - Hospital Course Diagnosis: Stroke: No - Discharge Data Discharge Date: 08/30/21 Discharge Disposition: Home, Self-Care 01 Condition: Good - Referral to Home Health Primary Care Physician: PCP None - Discharge Plan *PRESCRIPTION DRUG MONITORING PROGRAM REVIEWED*: No *COPY OF PRESCRIPTION DRUG MONITORING REPORT IN PATIENT JUAN CARLOS: No Home Medications: Home Meds Metoprolol Succinate [Toprol XL 50mg] 50 mg PO DAILY 04/21/15 [History] Aspirin [Ecotrin EC] 81 mg PO DAILY 07/24/19 [History] Ferrous Sulfate 324 mg PO DAILY 07/24/19 [History] NIFEdipine [Nifedipine ER] 30 mg PO DAILY 07/24/19 [History] Hydrocodone/Acetaminophen [Hydrocodone-Acetamin 10-325 mg] 1 - 2 tab PO Q6H PRN 08/20/19 [History] lisinopriL [Lisinopril] 20 mg PO DAILY 02/13/20 [History] metFORMIN [Glucophage] 500 mg PO BIDMEALS 30 Days #60 tab 02/16/20 [Rx] methocarbamoL [Methocarbamol] 500 mg PO TID 05/30/20 [History] Cefadroxil [Duricef] 500 mg PO BID 08/23/21 [History] Doxycycline Hyclate 100 mg PO BID 08/23/21 [History] Furosemide 20 mg PO BID 08/23/21 [History] Solifenacin [Vesicare] 10 mg PO DAILY 08/23/21 [History] Forms: ED Department Discharge Referrals: PCP,None [Primary Care Provider] - - Discharge Summary/Plan Comment DC Time >30 min.: Yes Total # of Minutes for Discharge Time: 35 mins - Patient Data Vitals - Most Recent: Last Vital Signs Temp 97.6 F 08/30/21 08:00 Pulse 77 08/30/21 08:19 Resp 20 08/30/21 08:00 BP 120/65 08/30/21 08:19 Pulse Ox 100 08/30/21 08:00 Weight - Most Recent: 395 lb 9.6 oz I&O - Last 24 hours: Intake & Output 08/29/21 08/30/21 08/30/21 22:59 06:59 14:59 Intake Total 580 100 Output Total 350 Balance 580 -250 Lab Results - Last 24 hrs: Laboratory Results - last 24 hr 11/06/1108/29/21 08/29/21 Range/Units 10:54 10:54 11:38 WBC 13.2 H (5.0-10.0) 10^3/uL RBC 4.75 (4.6-6.2) 10^6/uL Hgb 13.3 L (14.0-18.0) g/dL Hct 41.6 (40.0-54.0) % MCV 87.6 (80-100) fL MCH 28.0 (27.0-34.0) pg MCHC 32.0 L (33.0-35.0) g/dL Plt Count 300 (150-450) 10^3/uL Neut % (Auto) 76.3 H (42.2-75.2) % Lymph % (Auto) 15.3 L (20.5-50.1) % [place] % (Auto) 7.4 (2-8) % Eos % (Auto) 0.8 L (1.0-3.0) % Baso % (Auto) 0.2 (0.0-1.0) % Sodium 139 (136-145) mmol/L Potassium 5.0 (3.5-5.1) mmol/L Chloride 103 (98-107) mmol/L Carbon Dioxide 25 (21-32) mmol/L Anion Gap 16.0 H (7-13) mEq/L BUN 33 H (7-18) mg/dL Creatinine 1.32 H (0.70-1.30) mg/dL Est Cr Clr Drug Dosing 61.76 mL/min Estimated GFR (MDRD) 58 Glucose 114 H (70-99) mg/dL POC Glucose 125 H (70-99) mg/dL Calcium 8.4 L (8.5-10.1) mg/dL 08/29/21 08/30/21 Range/Units 16:25 07:56 WBC (5.0-10.0) 10^3/uL RBC (4.6-6.2) 10^6/uL Hgb (14.0-18.0) g/dL Hct (40.0-54.0) % MCV (80-100) fL MCH (27.0-34.0) pg MCHC (33.0-35.0) g/dL Plt Count (150-450) 10^3/uL Neut % (Auto) (42.2-75.2) % Lymph % (Auto) (20.5-50.1) % [place] % (Auto) (2-8) % Eos % (Auto) (1.0-3.0) % Baso % (Auto) (0.0-1.0) % Sodium (136-145) mmol/L Potassium (3.5-5.1) mmol/L Chloride (98-107) mmol/L Carbon Dioxide (21-32) mmol/L Anion Gap (7-13) mEq/L BUN (7-18) mg/dL Creatinine (0.70-1.30) mg/dL Est Cr Clr Drug Dosing mL/min Estimated GFR (MDRD) Glucose (70-99) mg/dL POC Glucose 147 H 134 H (70-99) mg/dL Calcium (8.5-10.1) mg/dL Med Orders - Current: Current Medications Acetaminophen (Acetaminophen 325 Mg Tab) 650 mg PO Q4H PRN PRN Reason: Pain (Mild 1-3)/fever Last Admin: 08/29/21 20:55 Dose: 650 mg Documented by: Hydrocodone Bitart/Acetaminophen (Acetaminophen/Hydrocodone 325-10 Mg Tab) 1 tab PO Q6H PRN PRN Reason: Pain (moderate 4-6) Last Admin: 08/30/21 00:56 Dose: 1 tab Documented by: Artificial Tears (Carboxymethylcellulose Sodium 1% Ophth Gel 0.4 Ml Ud) 1 each EYEBOTH ASDIRECTED PRN PRN Reason: Dry Eyes Last Admin: 08/27/21 09:04 Dose: 1 each Documented by: Aspirin (Aspirin 81 Mg Tab.Ec) 81 mg PO DAILY [facility] Last Admin: 08/30/21 08:14 Dose: 81 mg Documented by: Cyclobenzaprine HCl (Cyclobenzaprine 10 Mg Tab) 5 mg PO TID PRN PRN Reason: Muscle Spasm - Painful Last Admin: 08/29/21 09:35 Dose: 5 mg Documented by: Dextrose/Water (50% Dextrose In Water 50 Ml Syringe) 25 ml IVPUSH ASDIRECTED PRN PRN Reason: Hypoglycemia BS<70 Docusate Sodium (Docusate Sodium 100 Mg Cap) 100 mg PO BID PRN PRN Reason: Constipation Ferrous Sulfate (Ferrous Sulfate 325 Mg Tab) 325 mg PO DAILY [facility] Last Admin: 08/30/21 08:13 Dose: 325 mg Documented by: Furosemide (Furosemide 20 Mg Tab) 20 mg PO BIDDIURETIC [facility] Last Admin: 08/30/21 08:13 Dose: 20 mg Documented by: Glucagon (Glucagon,Human Recombinant 1 Mg Vial) 1 mg IM Q15M PRN PRN Reason: Hypoglycemia Heparin Sodium (Porcine) (Heparin Sodium 5,000 Units/Ml Vial) 5,000 units SUBCUT Q8HR [facility] Last Admin: 08/30/21 05:17 Dose: 5,000 units Documented by: Hydralazine HCl (Hydralazine 20 Mg/Ml Sdv) 10 mg IVPUSH Q4H PRN PRN Reason: Hypertension Cefazolin Sodium/Dextrose 2 gm (/ Premix) 50 mls @ 100 mls/hr IV Q8HR [facility] Last Admin: 08/30/21 05:12 Dose: 100 mls/hr Documented by: Insulin Glargine (Insulin Glarg,Human.Rec.Analog 100 Unit/Ml) 25 unit SUBCUT BEDTIME [facility] Last Admin: 08/29/21 21:00 Dose: 25 units Documented by: Insulin Human Lispro (Insulin Lispro 100 Units/Ml 3 Ml Vial) 2 unit SUBCUT TIDMEALS [facility] Last Admin: 08/30/21 08:17 Dose: 2 unit Documented by: Insulin Human Lispro (Insulin Lispro 100 Units/Ml 3 Ml Vial) 0 unit SUBCUT TIDMEALS [facility]; Protocol Last Admin: 08/30/21 08:18 Dose: Not Given Documented by: Metoprolol Succinate (Metoprolol Succinate 50 Mg Tab.Er) 50 mg PO DAILY [facility] Last Admin: 08/30/21 08:19 Dose: 50 mg Documented by: Nifedipine (Nifedipine 30 Mg Tab.Er) 30 mg PO DAILY [facility] Last Admin: 08/30/21 08:18 Dose: 30 mg Documented by: Nystatin (Nystatin Topical Powder 30 Gm Bottle) 5 gm TOP BID [facility] Last Admin: 08/30/21 08:14 Dose: 1 applic Documented by: Ondansetron HCl (Ondansetron 4 Mg/2 Ml Sdv) 4 mg IVPUSH Q4H PRN PRN Reason: Nausea/Vomiting Pantoprazole Sodium (Pantoprazole 40 Mg Tab.Cr) 40 mg PO ACBREAKFAST [facility] Last Admin: 08/30/21 05:17 Dose: 40 mg Documented by: Patient's Own Medication Solifenacin Succ 10 Mg Tab 1 each PO DAILY [facility] Last Admin: 08/30/21 08:15 Dose: 1 each Documented by: Saccharomyces Boulardii (Saccharomyces Boulardii (Probiotic) 250 Mg Cap) 250 mg PO BID [facility] Last Admin: 08/30/21 08:13 Dose: 250 mg Documented by: Sodium Chloride (Sodium Chloride 0.9% 10 Ml Syringe) 10 ml FLUSH ASDIRECTED PRN PRN Reason: Keep Vein Open Zolpidem Tartrate (Zolpidem 5 Mg Tab) 5 mg PO BEDTIME PRN PRN Reason: Sleep Discontinued Medications Clindamycin Phosphate 900 mg/ (Sodium Chloride) 106 mls @ 200 mls/hr IV ONETIME ONE Stop: 08/23/21 16:51 Last Admin: 08/23/21 16:47 Dose: 200 mls/hr Documented by: Clindamycin Phosphate 600 mg/ (Sodium Chloride) 104 mls @ 200 mls/hr IV Q8H [facility] Last Admin: 08/24/21 10:52 Dose: Not Given Documented by: Clindamycin Phosphate 600 mg/ (Sodium Chloride) 104 mls @ 200 mls/hr IV Q8H [facility] Last Admin: 08/25/21 09:05 Dose: 200 mls/hr Documented by: Clindamycin Phosphate 600 mg/ (Sodium Chloride) 104 mls @ 200 mls/hr IV Q8HR [facility] Last Admin: 08/26/21 05:31 Dose: 200 mls/hr Documented by: Lactated Ringer's (Ringers, Lactated) 1,000 mls @ 50 mls/hr IV ASDIRECTED [facility] Last Admin: 08/27/21 12:30 Dose: 50 mls/hr Documented by: Ibuprofen (Ibuprofen 200 Mg Tab) 200 mg PO Q6H PRN PRN Reason: Pain Last Admin: 08/28/21 20:59 Dose: 200 mg Documented by: Insulin Human Lispro (Insulin Lispro 100 Units/Ml 3 Ml Vial) 0 unit SUBCUT WITHMEALSANDBED [facility]; Protocol Last Admin: 08/29/21 17:43 Dose: Not Given Documented by: Lisinopril (Lisinopril 20 Mg Tab) 20 mg PO DAILY [facility] Last Admin: 08/26/21 08:42 Dose: 20 mg Documented by: Metformin HCl (Metformin 500 Mg Tab) 500 mg PO BIDMEALS [facility] Last Admin: 08/25/21 17:35 Dose: 500 mg Documented by: Diclofenac Sodium [ Voltaren] 50 Tablet. *Own Med* 50 mg PO TID [facility] Last Admin: 08/29/21 09:07 Dose: 50 mg Documented by: Nystatin (Nystatin Topical Powder 30 Gm Bottle) 0 gm TOP BID [facility] Last Admin: 08/25/21 20:52 Dose: 1 applic Documented by: Sodium Chloride (Sodium Chloride 0.9% 10 Ml Syringe) 10 ml FLUSH ASDIRECTED PRN PRN Reason: Keep Vein Open Last Admin: 08/23/21 16:47 Dose: 10 ml Documented by:
== END 2021-08-30 11:02 | disposition home or self-care (01) | DRG 385 ==
LOC: DL.ED 15:49 → EEVIPCON 17:43 → DL.MS 17:43
PROVIDERS: ADMIT Internal Medicine; ATTEND Hospitalist
DX: M79.3 Panniculitis, unspecified (principal); E66.01 Morbid (severe) obesity due to excess calories; H54.7 Unspecified visual loss; D64.9 Anemia, unspecified; N17.9 Acute kidney failure, unspecified; G47.33 Obstructive sleep apnea (adult) (pediatric); L30.9 Dermatitis, unspecified; Z20.822 Contact with and (suspected) exposure to COVID-19; I87.8 Other specified disorders of veins; R09.02 Hypoxemia; I83.899 Varicose veins of unspecified lower extremity with other complications; N18.32 Chronic kidney disease, stage 3b; I12.9 Hypertensive chronic kidney disease with stage 1 through stage 4 chronic kidney disease, or unspecified chronic kidney disease; E11.22 Type 2 diabetes mellitus with diabetic chronic kidney disease; S39.012A Strain of muscle, fascia and tendon of lower back, initial encounter; Z23 Encounter for immunization; Z79.2 Long term (current) use of antibiotics; Z88.0 Allergy status to penicillin; Z88.1 Allergy status to other antibiotic agents; Z79.82 Long term (current) use of aspirin; Z79.84 Long term (current) use of oral hypoglycemic drugs; Z68.44 Body mass index [BMI] 60.0-69.9, adult; X58.XXXA Exposure to other specified factors, initial encounter
CPT/HCPCS: 36415; 74176; 80048; 80053; 82947; 83036; 83605; 85025; 86140; 87040; 87070; 96365; 99284-25; A9270-GY; J0690; J1644; J1815-GY; J3490; J7120; U0002

== ENCOUNTER 2021-10-02 16:26 | Inpatient (IN) | payer BC, SELFPAY ==
--- NOTE | 2021-10-02 18:11 | EDM.PDOC ---
<Juan Jose Tucker Rolando - Last Filed: 10/02/21 18:55> ED HPI GENERAL MEDICAL PROBLEM - General Chief Complaint: Skin Complaint Stated Complaint: INFECTION IN STOMACH Time Seen by Provider: 10/02/21 17:25 Source of Information: Reports: Patient History Limitations: Reports: No Limitations - History of Present Illness INITIAL COMMENTS - FREE TEXT/NARRATIVE: This 46 yo male patient reports to the ED with increased pain and redness in his abdomen. The patient reports he has been dealing with these symptoms for quite some time. The patient is being seen by infectious diseases in [place] and is currently on Doxycycline and Cefadroxil for prevention. The patient reports noticing increased redness yesterday and has continued to get worse throughout today. The patient reports he has also felt chills and lightheaded over the past 24 hours. Onset: Today Duration: Constant Location: Reports: Abdomen Quality: Reports: Throbbing Severity: Moderate Improves with: Reports: None Worsens with: Reports: None Context: Reports: Other Associated Symptoms: Reports: Other - Related Data Allergies Allergy/AdvReac Type Severity Reaction Status Date / Time Penicillins Allergy Mild UNKNOWN Verified 10/02/21 21:09 amoxicillin Allergy Other Verified 10/02/21 21:09 daptomycin Allergy Rash Verified 10/02/21 21:09 vancomycin Allergy Rash Verified 10/02/21 21:09 Home Meds: Home Meds Metoprolol Succinate [Toprol XL 50mg] 50 mg PO DAILY 04/21/15 [History] Aspirin [Ecotrin EC] 81 mg PO DAILY 07/24/19 [History] Ferrous Sulfate 324 mg PO DAILY 07/24/19 [History] NIFEdipine [Nifedipine ER] 30 mg PO DAILY 07/24/19 [History] Hydrocodone/Acetaminophen [Hydrocodone-Acetamin 10-325 mg] 1 - 2 tab PO Q6H PRN 08/20/19 [History] lisinopriL [Lisinopril] 20 mg PO DAILY 02/13/20 [History] metFORMIN [Glucophage] 500 mg PO BIDMEALS 30 Days #60 tab 02/16/20 [Rx] methocarbamoL [Methocarbamol] 500 mg PO TID 05/30/20 [History] Cefadroxil [Duricef] 500 mg PO BID 08/23/21 [History] Doxycycline Hyclate 100 mg PO BID 08/23/21 [History] Furosemide 20 mg PO BID 08/23/21 [History] Solifenacin [Vesicare] 10 mg PO DAILY 08/23/21 [History] Acetaminophen [Tylenol] 650 mg PO .PRN PRN 10/02/21 [History] Diclofenac Sodium 50 mg PO TID 10/02/21 [History] L Acidophil/B Lactis/B Longum [Florajen Digest 15 B Cell Cap] 1 each PO DAILY 10/02/21 [History] Past Medical History HEENT History: Reports: Impaired Vision Other HEENT History: wears glasses Cardiovascular History: Reports: Hypertension Respiratory History: Reports: Bronchitis, Recurrent Gastrointestinal History: Reports: Pancreatitis Other Gastrointestinal History: cyst on his stomach removed Genitourinary History: Reports: Other (See Below) Other Genitourinary History: acute renal insufficiency Musculoskeletal History: Reports: Arthritis Other Musculoskeletal History: knee. 08/20 Bilat. cortisone injections knees and last week cortisone injection right heel. Right heel pain Neurological History: Reports: None Psychiatric History: Reports: None Endocrine/Metabolic History: Reports: Diabetes, Type II, Obesity/BMI 30+ Hematologic History: Reports: Anemia Immunologic History: Reports: None Oncologic (Cancer) History: Reports: None Dermatologic History: Reports: Cellulitis Other Dermatologic History: Cellulitis Pannus - Infectious Disease History Infectious Disease History: Reports: Hepatitis B, MRSA - Past Surgical History Head Surgeries/Procedures: Reports: None HEENT Surgical History: Reports: Tonsillectomy Other Respiratory Surgeries/Procedures: doesn't used cpap Other Musculoskeletal Surgeries/Procedures:: right ankle surgery Social & Family History - Family History Family Medical History: No Pertinent Family History - Tobacco Use Tobacco Use Status *Q: Current Every Day Tobacco User Years of Tobacco use: 30 Packs/Tins Daily: 0.2 - Caffeine Use Caffeine Use: Reports: Soda Caffeine Use Comment: States he drinks both diet and regular pop - Recreational Drug Use Recreational Drug Use: No - Living Situation & Occupation Living situation: Reports: , with Family Occupation: Disabled ED ROS GENERAL - Review of Systems Review Of Systems: Comprehensive ROS is negative, except as noted in HPI. ED EXAM, SKIN/RASH Exam: See Below Exam Limited By: No Limitations General Appearance: Alert, WD/WN, Moderate Distress, Obese Eye Exam: Bilateral Eye: EOMI, Normal Inspection, PERRL Ears: Normal External Exam, Normal Canal, Hearing Grossly Normal, Normal TMs Nose: Normal Inspection, Normal Mucosa, No Blood Throat/Mouth: Normal Inspection, Normal Lips, Normal Teeth, Normal Gums, Normal Oropharynx, Normal Voice, No Airway Compromise Head: Atraumatic, Normocephalic Neck: Normal Inspection, Supple, Non-Tender, Full Range of Motion Respiratory/Chest: No Respiratory Distress, Lungs Clear, Normal Breath Sounds, No Accessory Muscle Use, Chest Non-Tender Cardiovascular: Normal Peripheral Pulses, Regular Rate, Rhythm, No Edema, No Gallop, No JVD, No Murmur, No Rub GI/Abdominal: Tender (to lower abdomen with erythema), Other (Morbid obesity) (Male) Exam: Deferred Rectal (Males) Exam: Deferred Back Exam: Normal Inspection, Full Range of Motion, NT Extremities: Normal Inspection, Normal Range of Motion, Non-Tender, No Pedal Edema, Normal Capillary Refill Neurological: Alert, Oriented, CN II-XII Intact, Normal Cognition, Normal Gait, Normal Reflexes, No Motor/Sensory Deficits Psychiatric: Normal Affect, Normal Mood Skin: Erythema, Increased Warmth Location, Skin: Abdomen Characteristics: Erythematous Associated features: Warmth, Tenderness, Inflammation. No: Crusting, Weeping Lymphatic: No Adenopathy Departure - Departure Disposition: Admitted As Inpatient 64 Clinical Impression: Morbid obesity with BMI of 60.0-69.9, adult, Cellulitis of abdominal wall Diabetes mellitus Qualifiers: Diabetes mellitus type: type 2 Diabetes mellitus oil heaterman insulin use: without oil heaterman use Diabetes mellitus complication detail: with dermatitis Chronic renal insufficiency Qualifiers: Chronic kidney disease stage: stage 2 (mild) Qualified Code(s): N18.2 - Chronic kidney disease, stage 2 (mild) - Discharge Information <Simin Najera - Last Filed: 10/03/21 04:33> ED HPI GENERAL MEDICAL PROBLEM Bilateral Knee Pain Score (Numeric/FACES): 6 Course - Vital Signs Last Recorded V/S: Last Vital Signs Temp 98 F 10/02/21 21:45 Pulse 77 10/03/21 02:46 Resp 20 10/03/21 02:46 BP 119/61 10/03/21 02:46 Pulse Ox 96 10/03/21 02:46 - Orders/Labs/Meds Orders: Active Orders 24 hr Category Date Time Status CULTURE BLOOD [BC] Stat Lab 10/02/21 18:03 Received CULTURE BLOOD [BC] Stat Lab 10/02/21 18:08 Received Blood Culture x2 Reflex Set [OM.PC] Stat Oth 10/02/21 17:49 Ordered Medication Orders Hydrocodone Bitart/Acetaminophen (Acetaminophen/Hydrocodone 325-10 Mg Tab) 1 - 2 tab PO Q6H PRN PRN Reason: Pain Last Admin: 10/02/21 22:11 Dose: 1 tab Documented by: [email or web address] Aspirin (Aspirin 81 Mg Tab.Ec) 81 mg PO DAILY VIRAL Furosemide (Furosemide 20 Mg Tab) 20 mg PO BID VIRAL Heparin Sodium (Porcine) (Heparin Sodium 5,000 Units/Ml Vial) 5,000 units SUBCUT Q8HR VIRAL Last Admin: 10/02/21 22:10 Dose: 5,000 units Documented by: [id number] Cefazolin Sodium/Dextrose 2 gm (/ Premix) 50 mls @ 100 mls/hr IV Q8HR VIRAL Sodium Chloride (Normal Saline) 1,000 mls @ 125 mls/hr IV ASDIRECTED [facility] Metoprolol Succinate (Metoprolol Succinate 50 Mg Tab.Er) 50 mg PO DAILY [facility] Labs: Laboratory Tests 10/02/21 10/02/21 10/02/21 Range/Units 18:03 18:03 18:03 WBC 19.1 H (5.0-10.0) 10^3/uL RBC 4.43 L (4.6-6.2) 10^6/uL Hgb 12.6 L (14.0-18.0) g/dL Hct 40.2 (40.0-54.0) % MCV 90.7 (80-100) fL MCH 28.4 (27.0-34.0) pg MCHC 31.3 L (33.0-35.0) g/dL Plt Count 267 (150-450) 10^3/uL Neut % (Auto) 87.6 H (42.2-75.2) % Lymph % (Auto) 7.1 L (20.5-50.1) % [place] % (Auto) 4.7 (2-8) % Eos % (Auto) 0.4 L (1.0-3.0) % Baso % (Auto) 0.2 (0.0-1.0) % Sodium 140 (136-145) mmol/L Potassium 4.2 (3.5-5.1) mmol/L Chloride 106 (98-107) mmol/L Carbon Dioxide 22 (21-32) mmol/L Anion Gap 16.2 H (7-13) mEq/L BUN 26 H (7-18) mg/dL Creatinine 1.46 H (0.70-1.30) mg/dL Est Cr Clr Drug Dosing 53.82 mL/min Estimated GFR (MDRD) 52 BUN/Creatinine Ratio 17.8 (No establ ref range) Glucose 111 H (70-99) mg/dL Lactic Acid 1.1 (0.4-2.0) mmol/L Calcium 8.4 L (8.5-10.1) mg/dL Total Bilirubin 0.8 (0.2-1.0) mg/dL AST 12 L (15-37) U/L ALT 26 (16-63) U/L Alkaline Phosphatase 104 (46-116) U/L Total Protein 6.9 (6.4-8.2) g/dL Albumin 3.2 L (3.4-5.0) g/dL Globulin 3.7 Albumin/Globulin Ratio 0.86 Meds: Medications Generic Name Dose Route Start Last Admin Trade Name Freq PRN Reason Stop Dose Admin Hydrocodone Bitart/Acetaminophen 1 - 2 tab 10/02/21 20:31 10/02/21 22:11 Acetaminophen/Hydrocodone 325-10 Mg Tab PO 1 tab Q6H PRN Administration Pain Aspirin 81 mg 10/03/21 09:00 Aspirin 81 Mg Tab.Ec PO DAILY VIRAL Furosemide 20 mg 10/03/21 08:00 Furosemide 20 Mg Tab PO BID VIRAL Heparin Sodium (Porcine) 5,000 units 10/02/21 22:00 10/02/21 22:10 Heparin Sodium 5,000 Units/Ml Vial SUBCUT 5,000 units Q8HR VIRAL Administration Cefazolin Sodium/Dextrose 2 gm 50 mls @ 100 mls/hr 10/03/21 06:00 / Premix IV Q8HR VIRAL Sodium Chloride 1,000 mls @ 125 mls/hr 10/03/21 03:15 Normal Saline IV ASDIRECTED VIRAL Metoprolol Succinate 50 mg 10/03/21 09:00 Metoprolol Succinate 50 Mg Tab.Er PO DAILY VIRAL Discontinued Medications Generic Name Dose Route Start Last Admin Trade Name Freq PRN Reason Stop Dose Admin Cefazolin Sodium/Dextrose 2 gm 50 mls @ 100 mls/hr 10/02/21 19:43 10/02/21 20:24 / Premix IV 10/02/21 20:12 100 mls/hr ONETIME ONE Administration Sodium Chloride 500 mls @ 500 mls/hr 10/03/21 03:11 10/03/21 03:20 Normal Saline IV 10/03/21 04:10 500 mls/hr ONETIME ONE Administration - Re-Assessments/Exams Free Text/Narrative Re-Assessment/Exam: 10/02/21 19:[address] Rehman, patient , agree to admit acute for cellulitis. Departure - Departure Time of Disposition: 20:48 Condition: Good Sepsis Event Note (ED) - Focused Exam Vital Signs: Vital Signs Temp Pulse Resp BP Pulse Ox 10/02/21 17:15 98.8 F 84 20 109/63 94 L
[2021-10-02 18:32] LABS: ANION GAP 16.2 mEq/L (7-13)
[2021-10-02] MEDS ORDERED: ceFAZolin 2 GM in Premix Bag 1 BAG IV ONE (19:43)
[2021-10-02] MEDS ORDERED: Acetaminophen/HYDROcodone 325-10 MG Tab PO PRN (20:31)
--- NOTE | 2021-10-02 20:39 | PCM.HP ---
H&P History of Present Illness - General Date of Service: 10/02/21 Admit Problem/Dx: Admission Diagnosis/Problem Admission Diagnosis/Problem Cellulitis Source of Information: Patient, EMS History Limitations: Reports: No Limitations - History of Present Illness Initial Comments - Free Text/Narative: Patient is a 46-year-old male with a past medical history of morbid obesity, recurrent abdominal cellulitis on chronic antibiotic suppression therapy, type 2 diabetes not on insulin, BLAKE not on CPAP, CKD, hypertension who presents with concerns of abdominal pain and cellulitis. Patient has a significant history of recurrent abdominal cellulitis dating back over 2 years. Patient tells me that he sees infectious disease and has been on chronic cefadroxil and doxycycline for the last year for suppressive therapy. He states that over last year he had been doing well but had worsening of his cellulitis and August and had recent hospitalization at this hospital. Viktoria steward was treated with IV cefazolin and had slow improvement in his cellulitis. Blood cultures most recent hospitalization were negative. CT scan performed at prior hospitalization showed no clear abscess or any other concerning findings. Patient states that after his hospitalization he had been doing well until early this a.m. when he noticed increased redness, increased fevers, chills, dizziness . States he also had some nausea but denies any vomiting, diarrhea. Denies any shortness of breath. Patient stated that he noticed worsening redness in the lower half of his abdomen. Patient states he was told by his primary and ID provider if he had any concerns he should come in for further evaluation. Patient arrived hemodynamically stable with blood pressure 109/63 heart rate 84 afebrile, oxygen saturations 94 to 95% on room air. Laboratory values include a WBC of 19.1, hemoglobin 12.6, platelet count 267, sodium 140, potassium 4.2, BUN 26, creatinine 1.46 lactic acid 1.1, AST 12, ALT 26. Given his systemic symptoms, elevated white count and obvious cellulitis on exam emergency service provider requested admission and was accepted. I discussed with emergency of his provider and recommended 2 g Ancef to be given in the emergency department. Blood cultures were drawn prior to administration of antibiotics. Remainder review systems negative except for those listed above. - Related Data Allergies/Adverse Reactions: Allergies Allergy/AdvReac Type Severity Reaction Status Date / Time Penicillins Allergy Mild UNKNOWN Verified 10/02/21 17:11 amoxicillin Allergy Other Verified 10/02/21 17:11 daptomycin Allergy Rash Verified 10/02/21 17:11 vancomycin Allergy Rash Verified 10/02/21 17:11 Home Medications: Home Meds Metoprolol Succinate [Toprol XL 50mg] 50 mg PO DAILY 04/21/15 [History] Aspirin [Ecotrin EC] 81 mg PO DAILY 07/24/19 [History] Ferrous Sulfate 324 mg PO DAILY 07/24/19 [History] NIFEdipine [Nifedipine ER] 30 mg PO DAILY 07/24/19 [History] Hydrocodone/Acetaminophen [Hydrocodone-Acetamin 10-325 mg] 1 - 2 tab PO Q6H PRN 08/20/19 [History] lisinopriL [Lisinopril] 20 mg PO DAILY 02/13/20 [History] metFORMIN [Glucophage] 500 mg PO BIDMEALS 30 Days #60 tab 02/16/20 [Rx] methocarbamoL [Methocarbamol] 500 mg PO TID 05/30/20 [History] Cefadroxil [Duricef] 500 mg PO BID 08/23/21 [History] Doxycycline Hyclate 100 mg PO BID 08/23/21 [History] Furosemide 20 mg PO BID 08/23/21 [History] Solifenacin [Vesicare] 10 mg PO DAILY 08/23/21 [History] Diclofenac Sodium 50 mg PO TID 10/02/21 [History] Past Medical History HEENT History: Reports: Impaired Vision Other HEENT History: wears glasses Cardiovascular History: Reports: Hypertension Respiratory History: Reports: Bronchitis, Recurrent Gastrointestinal History: Reports: Pancreatitis Other Gastrointestinal History: cyst on his stomach removed Genitourinary History: Reports: Other (See Below) Other Genitourinary History: acute renal insufficiency Musculoskeletal History: Reports: Arthritis Other Musculoskeletal History: knee. 08/20 Bilat. cortisone injections knees and last week cortisone injection right heel. Right heel pain Neurological History: Reports: None Psychiatric History: Reports: None Endocrine/Metabolic History: Reports: Diabetes, Type II, Obesity/BMI 30+ Hematologic History: Reports: Anemia Immunologic History: Reports: None Oncologic (Cancer) History: Reports: None Dermatologic History: Reports: Cellulitis Other Dermatologic History: Cellulitis Pannus - Infectious Disease History Infectious Disease History: Reports: Hepatitis B, MRSA - Past Surgical History Head Surgeries/Procedures: Reports: None HEENT Surgical History: Reports: Tonsillectomy Other Respiratory Surgeries/Procedures: doesn't used cpap Other Musculoskeletal Surgeries/Procedures:: right ankle surgery Social & Family History - Family History Family Medical History: No Pertinent Family History - Tobacco Use Tobacco Use Status *Q: Current Every Day Tobacco User Years of Tobacco use: 30 Packs/Tins Daily: 0.2 - Caffeine Use Caffeine Use: Reports: Soda Caffeine Use Comment: States he drinks both diet and regular pop - Recreational Drug Use Recreational Drug Use: No - Living Situation & Occupation Living situation: Reports: , with Family Occupation: Disabled H&P Review of Systems - Review of Systems: Review Of Systems: Comprehensive ROS is negative, except as noted in HPI. Exam - Exam Exam: See Below - Vital Signs Vital Signs: Last Vital Signs Temp 98.8 F 10/02/21 17:15 Pulse 84 10/02/21 17:15 Resp 20 10/02/21 17:15 BP 109/63 10/02/21 17:15 Pulse Ox 94 L 10/02/21 17:15 Weight: 399 lb - Exam General: Alert, Oriented, Other (non-toxic appearing) HEENT: Conjunctiva Clear Neck: Supple, Trachea Midline Lungs: Clear to Auscultation, Normal Respiratory Effort Cardiovascular: Regular Rate, Regular Rhythm GI/Abdominal Exam: Normal Bowel Sounds, Other (Significant abdominal distention, significant redness noted on bilateral right and lower abdomen. Significant pannus noted. No significant tunneling, fluctuance noted, warmth and erythema) Back Exam: Normal Inspection Extremities: Normal Inspection, Pedal Edema (minimal) Peripheral Pulses: 2+: Radial (L), Radial (R) Skin: Other (see abdomen) Neurological: Cranial Nerves Intact Neuro Extensive - Mental Status: Alert, Oriented x3 - Patient Data Lab Results Last 24 hrs: Laboratory Results - last 24 hr 10/02/21 10/02/21 10/02/21 Range/Units 18:03 18:03 18:03 WBC 19.1 H (5.0-10.0) 10^3/uL RBC 4.43 L (4.6-6.2) 10^6/uL Hgb 12.6 L (14.0-18.0) g/dL Hct 40.2 (40.0-54.0) % MCV 90.7 (80-100) fL MCH 28.4 (27.0-34.0) pg MCHC 31.3 L (33.0-35.0) g/dL Plt Count 267 (150-450) 10^3/uL Neut % (Auto) 87.6 H (42.2-75.2) % Lymph % (Auto) 7.1 L (20.5-50.1) % [place] % (Auto) 4.7 (2-8) % Eos % (Auto) 0.4 L (1.0-3.0) % Baso % (Auto) 0.2 (0.0-1.0) % Sodium 140 (136-145) mmol/L Potassium 4.2 (3.5-5.1) mmol/L Chloride 106 (98-107) mmol/L Carbon Dioxide 22 (21-32) mmol/L Anion Gap 16.2 H (7-13) mEq/L BUN 26 H (7-18) mg/dL Creatinine 1.46 H (0.70-1.30) mg/dL Est Cr Clr Drug Dosing 53.82 mL/min Estimated GFR (MDRD) 52 BUN/Creatinine Ratio 17.8 (No establ ref range) Glucose 111 H (70-99) mg/dL Lactic Acid 1.1 (0.4-2.0) mmol/L Calcium 8.4 L (8.5-10.1) mg/dL Total Bilirubin 0.8 (0.2-1.0) mg/dL AST 12 L (15-37) U/L ALT 26 (16-63) U/L Alkaline Phosphatase 104 (46-116) U/L Total Protein 6.9 (6.4-8.2) g/dL Albumin 3.2 L (3.4-5.0) g/dL Globulin 3.7 Albumin/Globulin Ratio 0.86 SARS-CoV-2 RNA (SUZANNE) (NEGATIVE) 10/02/21 Range/Units 19:39 WBC (5.0-10.0) 10^3/uL RBC (4.6-6.2) 10^6/uL Hgb (14.0-18.0) g/dL Hct (40.0-54.0) % MCV (80-100) fL MCH (27.0-34.0) pg MCHC (33.0-35.0) g/dL Plt Count (150-450) 10^3/uL Neut % (Auto) (42.2-75.2) % Lymph % (Auto) (20.5-50.1) % [place] % (Auto) (2-8) % Eos % (Auto) (1.0-3.0) % Baso % (Auto) (0.0-1.0) % Sodium (136-145) mmol/L Potassium (3.5-5.1) mmol/L Chloride (98-107) mmol/L Carbon Dioxide (21-32) mmol/L Anion Gap (7-13) mEq/L BUN (7-18) mg/dL Creatinine (0.70-1.30) mg/dL Est Cr Clr Drug Dosing mL/min Estimated GFR (MDRD) BUN/Creatinine Ratio (No establ ref range) Glucose (70-99) mg/dL Lactic Acid (0.4-2.0) mmol/L Calcium (8.5-10.1) mg/dL Total Bilirubin (0.2-1.0) mg/dL AST (15-37) U/L ALT (16-63) U/L Alkaline Phosphatase (46-116) U/L Total Protein (6.4-8.2) g/dL Albumin (3.4-5.0) g/dL Globulin Albumin/Globulin Ratio SARS-CoV-2 RNA (SUZANNE) Negative (NEGATIVE) Result Diagrams: 10/02/21 18:03 10/02/21 18:03 - Problem List (1) Antibiotic long-term use SNOMED Code(s): 119535763 ICD Code: Z79.2 - SNF (CURRENT) USE OF ANTIBIOTICS Status: Acute Current Visit: Yes (2) Cellulitis of abdominal wall SNOMED Code(s): 06674632 ICD Code: L03.311 - CELLULITIS OF ABDOMINAL WALL Status: Acute Priority: High Current Visit: Yes Onset Date: ~08/24/21 Problem Details: r/o chronic resistance sec to prophylaxis (3) Chronic renal insufficiency SNOMED Code(s): 585804422 ICD Code: N18.9 - CHRONIC KIDNEY DISEASE, UNSPECIFIED Status: Acute Priority: Medium Current Visit: Yes Qualifiers: Chronic kidney disease stage: stage 2 (mild) Qualified Code(s): N18.2 - Chronic kidney disease, stage 2 (mild) (4) Diabetes mellitus SNOMED Code(s): 69844230 ICD Code: E11.9 - TYPE 2 DIABETES MELLITUS WITHOUT COMPLICATIONS Status: Acute Priority: Medium Current Visit: Yes Qualifiers: Diabetes mellitus type: type 2 Diabetes mellitus alf insulin use: with fretted instruments inspector use Diabetes mellitus complication detail: with dermatitis (5) HTN (hypertension) SNOMED Code(s): 30708169 ICD Code: I10 - ESSENTIAL (PRIMARY) HYPERTENSION Status: Acute Priority: Medium Current Visit: Yes Onset Date: ~08/24/21 Qualifiers: Hypertension type: primary hypertension Qualified Code(s): I10 - Essential (primary) hypertension (6) Morbid obesity with BMI of 60.0-69.9, adult SNOMED Code(s): 571658305, 81270731649938 ICD Code: E66.01 - MORBID (SEVERE) OBESITY DUE TO EXCESS CALORIES; Z68.44 - BODY MASS INDEX [BMI] 60.0-69.9, ADULT Status: Acute Priority: High Current Visit: No Onset Date: ~08/24/21 (7) BLAKE on CPAP SNOMED Code(s): 18521332 ICD Code: G47.33 - OBSTRUCTIVE SLEEP APNEA (ADULT) (PEDIATRIC); Z99.89 - DEPENDENCE ON OTHER ENABLING MACHINES AND DEVICES Status: Acute Priority: High Current Visit: Yes Onset Date: ~08/24/21 Problem Details: on cpap but cont. to have problems Problem List Initiated/Reviewed/Updated: Yes Orders Last 24hrs: Active Orders 24 hr Category Date Time Status Admission Diagnosis [ADT] Stat ADT 10/02/21 19:39 Ordered Admission Status [Patient Status] [ADT] Routine ADT 10/02/21 19:39 Active Oxygen Therapy [RC] PRN Care 10/02/21 20:29 Ordered POC Glucose [Blood Glucose Check, Bedside] [RC] Care 10/02/21 20:34 Ordered BIDMEALS Up ad Mahnaz [RC] ASDIRECTED Care 10/02/21 20:29 Ordered VTE/DVT Education [RC] PER UNIT ROUTINE Care 10/02/21 20:29 Ordered Vital Signs [RC] Q4H Care 10/02/21 20:29 Ordered Consistent Carbohydrate Diet [DIET] Diet 10/02/21 Dinner Ordered CULTURE BLOOD [BC] Stat Lab 10/02/21 18:03 Received CULTURE BLOOD [BC] Stat Lab 10/02/21 18:08 Received Acetaminophen/HYDROcodone [[place] 325-10 MG] Med 10/02/21 20:31 Ordered 1 - 2 tab PO Q6H PRN Aspirin [Halfprin] Med 10/03/21 09:00 Ordered 81 mg PO DAILY Furosemide [Lasix] Med 10/03/21 08:00 Ordered 20 mg PO BID Heparin Sodium Med 10/02/21 22:00 Ordered 5,000 units SUBCUT Q8HR Metoprolol Succinate [Toprol XL] Med 10/03/21 09:00 Ordered 50 mg PO DAILY ceFAZolin [Ancef] 2 gm Med 10/03/21 06:00 Ordered Premix Bag 1 bag IV Q8HR Blood Culture x2 Reflex Set [OM.PC] Stat Oth 10/02/21 17:49 Ordered Resuscitation Status Routine Resus Stat 10/02/21 20:29 Ordered Medication Orders Hydrocodone Bitart/Acetaminophen (Acetaminophen/Hydrocodone 325-10 Mg Tab) 1 - 2 tab PO Q6H PRN PRN Reason: Pain Aspirin (Aspirin 81 Mg Tab.Ec) 81 mg PO DAILY VIRAL Furosemide (Furosemide 20 Mg Tab) 20 mg PO BID VIRAL Heparin Sodium (Porcine) (Heparin Sodium 5,000 Units/Ml Vial) 5,000 units SUBCUT Q8HR VIRAL Cefazolin Sodium/Dextrose 2 gm (/ Premix) 50 mls @ 100 mls/hr IV Q8HR VIRAL Metoprolol Succinate (Metoprolol Succinate 50 Mg Tab.Er) 50 mg PO DAILY VIRAL Assessment/Plan Comment:: Patient is a 46-year-old male with a past medical history of morbid obesity, recurrent abdominal cellulitis on chronic antibiotic suppression therapy, type 2 diabetes not on insulin, BLAKE not compliant with CPAP, CKD, hypertension who presents with concerns of abdominal pain and cellulitis. # Nonpurulent cellulitis -Obvious nonpurulent cellulitis of lower abdomen, no evidence of panniculitis, no evidence of tunneling, no evidence of fluctuance, abscess formation -Patient hemodynamically stable, not tachycardic, lactic acid 1.1 on admission, WBC count 19.1 on admission -This is chronic for patient he is maintained on suppressive therapy with cefadroxil and doxycycline -Had recent hospitalization in August where he had significant improvement with IV cefazolin, will again utilize IV cefazolin 2 g every 8 hours -Blood cultures in process -Pain control with home hydrocodone -Repeat CT scan if any decompensation or worsening to look for possible abscess - consider broadening abx if clinic worsening # Type 2 diabetes mellitus -Hold Metformin, twice daily glucose checks, will add sliding scale insulin if needed # Hypertension -Given blood pressure emergency department and cellulitis will hold nifedipine, lisinopril, Lasix for now we will likely restart within the next 1 to 2 days, continue metoprolol XL # OSApatient is noncompliant with CPAP # CKDstable creatinine Fluidsnone Electrolyteswithin normal limits Dietcarb controlled DVT prophylaxis Heparin
[2021-10-02] MEDS: Heparin Sodium 5,000 Units/ML Vial SUBCUT SCH (22:10)
[2021-10-03] MEDS ORDERED: Sodium Chloride 0.9% 500 ML IV ONE (03:11)
[2021-10-03] MEDS: Sodium Chloride 0.9% 1,000 ML IV SCH ×2 (05:12→13:57)
[2021-10-03] MEDS: Heparin Sodium 5,000 Units/ML Vial SUBCUT SCH ×3 (05:13→22:13)
[2021-10-03] MEDS: ceFAZolin 2 GM in Premix Bag 1 BAG IV SCH ×3 (05:13→22:11)
--- NOTE | 2021-10-03 06:39 | PCM.PN ---
- General Info Date of Service: 10/03/21 Admission Dx/Problem (Free Text): Admission Diagnosis/Problem Admission Diagnosis/Problem Cellulitis Subjective Update: Overnight patient had some lightheadedness and dizziness with standing. Blood pressures were slightly decreased. Fluid bolus was given patient improvement in his pressures and lightheadedness and dizziness is improved. Patient states this morning he feels well and denies any fevers, states he has his chronic chills but have not worsened like he did the previous night. States he still is having some abdominal pain but it is overall stable. Denies any nausea, vomiting, diarrhea. Remainder review of systems is negative except for those listed above. - Patient Data Vitals - Most Recent: Last Vital Signs Temp 97.9 F 10/03/21 06:00 Pulse 77 10/03/21 06:00 Resp 16 10/03/21 06:00 BP 118/61 10/03/21 06:00 Pulse Ox 97 10/03/21 06:00 Weight - Most Recent: 394 lb 4 oz I&O - Last 24 Hours: Intake & Output 10/02/21 10/02/21 10/03/21 14:59 22:59 06:59 Intake Total 272 420 Balance 272 420 Lab Results Last 24 Hours: Laboratory Results - last 24 hr 10/02/21 10/02/21 10/02/21 Range/Units 18:03 18:03 18:03 WBC 19.1 H (5.0-10.0) 10^3/uL RBC 4.43 L (4.6-6.2) 10^6/uL Hgb 12.6 L (14.0-18.0) g/dL Hct 40.2 (40.0-54.0) % MCV 90.7 (80-100) fL MCH 28.4 (27.0-34.0) pg MCHC 31.3 L (33.0-35.0) g/dL Plt Count 267 (150-450) 10^3/uL Neut % (Auto) 87.6 H (42.2-75.2) % Lymph % (Auto) 7.1 L (20.5-50.1) % Coos % (Auto) 4.7 (2-8) % Eos % (Auto) 0.4 L (1.0-3.0) % Baso % (Auto) 0.2 (0.0-1.0) % Sodium 140 (136-145) mmol/L Potassium 4.2 (3.5-5.1) mmol/L Chloride 106 (98-107) mmol/L Carbon Dioxide 22 (21-32) mmol/L Anion Gap 16.2 H (7-13) mEq/L BUN 26 H (7-18) mg/dL Creatinine 1.46 H (0.70-1.30) mg/dL Est Cr Clr Drug Dosing 53.82 mL/min Estimated GFR (MDRD) 52 BUN/Creatinine Ratio 17.8 (No establ ref range) Glucose 111 H (70-99) mg/dL POC Glucose (70-99) mg/dL Lactic Acid 1.1 (0.4-2.0) mmol/L Calcium 8.4 L (8.5-10.1) mg/dL Total Bilirubin 0.8 (0.2-1.0) mg/dL AST 12 L (15-37) U/L ALT 26 (16-63) U/L Alkaline Phosphatase 104 (46-116) U/L Total Protein 6.9 (6.4-8.2) g/dL Albumin 3.2 L (3.4-5.0) g/dL Globulin 3.7 Albumin/Globulin Ratio 0.86 SARS-CoV-2 RNA (SU[facility]NE) (NEGATIVE) 10/02/21 10/03/21 Range/Units 19:39 02:53 WBC (5.0-10.0) 10^3/uL RBC (4.6-6.2) 10^6/uL Hgb (14.0-18.0) g/dL Hct (40.0-54.0) % MCV (80-100) fL MCH (27.0-34.0) pg MCHC (33.0-35.0) g/dL Plt Count (150-450) 10^3/uL Neut % (Auto) (42.2-75.2) % Lymph % (Auto) (20.5-50.1) % Coos % (Auto) (2-8) % Eos % (Auto) (1.0-3.0) % Baso % (Auto) (0.0-1.0) % Sodium (136-145) mmol/L Potassium (3.5-5.1) mmol/L Chloride (98-107) mmol/L Carbon Dioxide (21-32) mmol/L Anion Gap (7-13) mEq/L BUN (7-18) mg/dL Creatinine (0.70-1.30) mg/dL Est Cr Clr Drug Dosing mL/min Estimated GFR (MDRD) BUN/Creatinine Ratio (No establ ref range) Glucose (70-99) mg/dL POC Glucose 110 H (70-99) mg/dL Lactic Acid (0.4-2.0) mmol/L Calcium (8.5-10.1) mg/dL Total Bilirubin (0.2-1.0) mg/dL AST (15-37) U/L ALT (16-63) U/L Alkaline Phosphatase (46-116) U/L Total Protein (6.4-8.2) g/dL Albumin (3.4-5.0) g/dL Globulin Albumin/Globulin Ratio SARS-CoV-2 RNA ([facility]NE) Negative (NEGATIVE) Med Orders - Current: Current Medications Hydrocodone Bitart/Acetaminophen (Acetaminophen/Hydrocodone 325-10 Mg Tab) 1 - 2 tab PO Q6H PRN PRN Reason: Pain Last Admin: 10/02/21 22:11 Dose: 1 tab Documented by: Aspirin (Aspirin 81 Mg Tab.Ec) 81 mg PO DAILY [facility] Furosemide (Furosemide 20 Mg Tab) 20 mg PO BID [facility] Heparin Sodium (Porcine) (Heparin Sodium 5,000 Units/Ml Vial) 5,000 units SUBCUT Q8HR [facility] Last Admin: 10/03/21 05:13 Dose: 5,000 units Documented by: Cefazolin Sodium/Dextrose 2 gm (/ Premix) 50 mls @ 100 mls/hr IV Q8HR [facility] Last Admin: 10/03/21 05:13 Dose: 100 mls/hr Documented by: Sodium Chloride (Normal Saline) 1,000 mls @ 125 mls/hr IV ASDIRECTED [facility] Last Admin: 10/03/21 05:12 Dose: 125 mls/hr Documented by: Metoprolol Succinate (Metoprolol Succinate 50 Mg Tab.Er) 50 mg PO DAILY [facility] Discontinued Medications Cefazolin Sodium/Dextrose 2 gm (/ Premix) 50 mls @ 100 mls/hr IV ONETIME ONE Stop: 10/02/21 20:12 Last Admin: 10/02/21 20:24 Dose: 100 mls/hr Documented by: Sodium Chloride (Normal Saline) 500 mls @ 500 mls/hr IV ONETIME ONE Stop: 10/03/21 04:10 Last Admin: 10/03/21 03:20 Dose: 500 mls/hr Documented by: - Exam General: Alert, Oriented HEENT: Pupils Equal, Pupils Reactive Neck: Supple Lungs: Clear to Auscultation, Normal Respiratory Effort Cardiovascular: Regular Rate, Regular Rhythm GI/Abdominal Exam: Normal Bowel Sounds, Soft, Tender (minimal tender - significant pannus - erythema of lower abdomen ) Back Exam: Normal Inspection Extremities: Normal Inspection Peripheral Pulses: 2+: Radial (L), Radial (R) Skin: Warm, Dry Neurological: No New Focal Deficit Psy/Mental Status: Alert - Patient Data Lab Results Last 24 hrs: Laboratory Results - last 24 hr 10/02/21 10/02/21 10/02/21 Range/Units 18:03 18:03 18:03 WBC 19.1 H (5.0-10.0) 10^3/uL RBC 4.43 L (4.6-6.2) 10^6/uL Hgb 12.6 L (14.0-18.0) g/dL Hct 40.2 (40.0-54.0) % MCV 90.7 (80-100) fL MCH 28.4 (27.0-34.0) pg MCHC 31.3 L (33.0-35.0) g/dL Plt Count 267 (150-450) 10^3/uL Neut % (Auto) 87.6 H (42.2-75.2) % Lymph % (Auto) 7.1 L (20.5-50.1) % Coos % (Auto) 4.7 (2-8) % Eos % (Auto) 0.4 L (1.0-3.0) % Baso % (Auto) 0.2 (0.0-1.0) % Sodium 140 (136-145) mmol/L Potassium 4.2 (3.5-5.1) mmol/L Chloride 106 (98-107) mmol/L Carbon Dioxide 22 (21-32) mmol/L Anion Gap 16.2 H (7-13) mEq/L BUN 26 H (7-18) mg/dL Creatinine 1.46 H (0.70-1.30) mg/dL Est Cr Clr Drug Dosing 53.82 mL/min Estimated GFR (MDRD) 52 BUN/Creatinine Ratio 17.8 (No establ ref range) Glucose 111 H (70-99) mg/dL POC Glucose (70-99) mg/dL Lactic Acid 1.1 (0.4-2.0) mmol/L Calcium 8.4 L (8.5-10.1) mg/dL Total Bilirubin 0.8 (0.2-1.0) mg/dL AST 12 L (15-37) U/L ALT 26 (16-63) U/L Alkaline Phosphatase 104 (46-116) U/L Total Protein 6.9 (6.4-8.2) g/dL Albumin 3.2 L (3.4-5.0) g/dL Globulin 3.7 Albumin/Globulin Ratio 0.86 SARS-CoV-2 RNA ([facility]NE) (NEGATIVE) 10/02/21 10/03/21 Range/Units 19:39 02:53 WBC (5.0-10.0) 10^3/uL RBC (4.6-6.2) 10^6/uL Hgb (14.0-18.0) g/dL Hct (40.0-54.0) % MCV (80-100) fL MCH (27.0-34.0) pg MCHC (33.0-35.0) g/dL Plt Count (150-450) 10^3/uL Neut % (Auto) (42.2-75.2) % Lymph % (Auto) (20.5-50.1) % Coos % (Auto) (2-8) % Eos % (Auto) (1.0-3.0) % Baso % (Auto) (0.0-1.0) % Sodium (136-145) mmol/L Potassium (3.5-5.1) mmol/L Chloride (98-107) mmol/L Carbon Dioxide (21-32) mmol/L Anion Gap (7-13) mEq/L BUN (7-18) mg/dL Creatinine (0.70-1.30) mg/dL Est Cr Clr Drug Dosing mL/min Estimated GFR (MDRD) BUN/Creatinine Ratio (No establ ref range) Glucose (70-99) mg/dL POC Glucose 110 H (70-99) mg/dL Lactic Acid (0.4-2.0) mmol/L Calcium (8.5-10.1) mg/dL Total Bilirubin (0.2-1.0) mg/dL AST (15-37) U/L ALT (16-63) U/L Alkaline Phosphatase (46-116) U/L Total Protein (6.4-8.2) g/dL Albumin (3.4-5.0) g/dL Globulin Albumin/Globulin Ratio SARS-CoV-2 RNA ([facility]) Negative (NEGATIVE) Result Diagrams: 10/02/21 18:03 10/02/21 18:03 Sepsis Event Note - Evaluation Sepsis Screening Result: No Definite Risk - Focused Exam Vital Signs: Vital Signs Temp Pulse Resp BP BP Pulse Ox Pulse Ox 10/03/21 06:00 97.9 F 77 16 120/63 118/61 97 10/03/21 02:46 77 20 93/45 L 119/61 96 10/02/21 21:45 98 F 78 20 93/46 L 119/65 99 10/02/21 20:29 99 10/02/21 20:28 98.7 F 80 20 90/64 97 - Problem List & Annotations (1) Antibiotic long-term use SNOMED Code(s): 415165722 Code(s): Z79.2 - SENIOR CARE (CURRENT) USE OF ANTIBIOTICS Status: Acute Current Visit: Yes (2) Cellulitis of abdominal wall SNOMED Code(s): 96997416 Code(s): L03.311 - CELLULITIS OF ABDOMINAL WALL Status: Acute Priority: High Current Visit: Yes Onset Date: ~08/24/21 Annotation/Comment:: r/o chronic resistance sec to prophylaxis (3) Chronic renal insufficiency SNOMED Code(s): 788036044 Code(s): N18.9 - CHRONIC KIDNEY DISEASE, UNSPECIFIED Status: Acute Pr iority: Medium Current Visit: Yes Qualifiers: Chronic kidney disease stage: stage 2 (mild) Qualified Code(s): N18.2 - Chronic kidney disease, stage 2 (mild) (4) Diabetes mellitus SNOMED Code(s): 77026134 Code(s): E11.9 - TYPE 2 DIABETES MELLITUS WITHOUT COMPLICATIONS Status: Acute Priority: Medium Current Visit: Yes Qualifiers: Diabetes mellitus type: type 2 Diabetes mellitus 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 operations supervisor insulin use: without mcc use Diabetes mellitus complication detail: with dermatitis (5) HTN (hypertension) SNOMED Code(s): 65667966 Code(s): I10 - ESSENTIAL (PRIMARY) HYPERTENSION Status: Acute Priority: Medium Current Visit: Yes Onset Date: ~08/24/21 Qualifiers: Hypertension type: primary hypertension Qualified Code(s): I10 - Essential (primary) hypertension (6) Morbid obesity with BMI of 60.0-69.9, adult SNOMED Code(s): 274678087, 16117570688652 Code(s): E66.01 - MORBID (SEVERE) OBESITY DUE TO EXCESS CALORIES; Z68.44 - BODY MASS INDEX [BMI] 60.0-69.9, ADULT Status: Acute Priority: High C urrent Visit: Yes Onset Date: ~08/24/21 (7) BLAKE on CPAP SNOMED Code(s): 76782282 Code(s): G47.33 - OBSTRUCTIVE SLEEP APNEA (ADULT) (PEDIATRIC); Z99.89 - DEPENDENCE ON OTHER ENABLING MACHINES AND DEVICES Status: Acute Priority: High Current Visit: Yes Onset Date: ~08/24/21 Annotation/Comment:: on cpap but cont. to have problems - Problem List Review Problem List Initiated/Reviewed/Updated: Yes - My Orders Last 24 Hours: My Active Orders 10/02/21 Dinner Consistent Carbohydrate Diet [DIET] 10/02/21 20:29 Oxygen Therapy [RC] PRN Up ad Mahnaz [RC] ASDIRECTED VTE/DVT Education [RC] PER UNIT ROUTINE Vital Signs [RC] Q4H Resuscitation Status Routine 10/02/21 20:31 Acetaminophen/HYDROcodone [[place] 325-10 MG] 1 - 2 tab PO Q6H PRN 10/02/21 20:34 POC Glucose [Blood Glucose Check, Bedside] [RC] BIDMEALS 10/02/21 22:00 Heparin Sodium 5,000 units SUBCUT Q8HR 10/03/21 03:15 Sodium Chloride 0.9% [Normal Saline] 1,000 ml IV ASDIRECTED 10/03/21 06:00 ceFAZolin [Ancef] 2 gm Premix Bag 1 bag IV Q8HR 10/03/21 08:00 Furosemide [Lasix] 20 mg PO BID 10/03/21 09:00 Aspirin [Halfprin] 81 mg PO DAILY Metoprolol Succinate [Toprol XL] 50 mg PO DAILY - Plan Plan:: Patient is a 46-year-old male with a past medical history of morbid obesity, recurrent abdominal cellulitis on chronic antibiotic suppression therapy, type 2 diabetes not on insulin, BLAKE not compliant with CPAP, CKD, hypertension who presents with concerns of abdominal pain and cellulitis. # Nonpurulent cellulitis -Obvious nonpurulent cellulitis of lower abdomen, no evidence of panniculitis, no evidence of tunneling, no evidence of fluctuance, abscess formation -Patient hemodynamically stable, not tachycardic, lactic acid 1.1 on admission, WBC count 19.1 on admission -This is chronic for patient he is maintained on suppressive therapy with cefadroxil and doxycycline -Had recent hospitalization in August where he had significant improvement with IV cefazolin, will again utilize IV cefazolin 2 g every 8 hours -Blood cultures in process -abdomen overall looks improved today -Pain control with home hydrocodone -Repeat CT scan if any decompensation or worsening to look for possible abscess - consider broadening abx if clinic worsening # Type 2 diabetes mellitus -Hold Metformin, twice daily glucose checks, will add sliding scale insulin if needed # Hypertension -Given blood pressure emergency department and cellulitis will hold nifedipine, lisinopril, Lasix for now we will likely restart within the next 1 to 2 days, continue metoprolol XL # OSApatient is noncompliant with CPAP # CKDstable creatinine [id number] mL an hour normal saline, will discontinue if patient maintains good oral intake Electrolyteswithin normal limits Dietcarb controlled DVT prophylaxis Heparin
[2021-10-03] MEDS: Metoprolol Succinate 50 MG Tab.ER PO SCH (09:53)
[2021-10-03] MEDS: Aspirin 81 MG Tab.EC PO SCH (09:54)
[2021-10-03] MEDS: Furosemide 20 MG Tab PO SCH (11:58)
[2021-10-03] MEDS: Acetaminophen/HYDROcodone 325-10 MG Tab PO PRN (15:34)
[2021-10-04] MEDS: Acetaminophen/HYDROcodone 325-10 MG Tab PO PRN ×2 (00:03→13:25)
--- NOTE | 2021-10-04 05:19 | PCM.PN ---
- General Info Date of Service: 10/04/21 Admission Dx/Problem (Free Text): Admission Diagnosis/Problem Admission Diagnosis/Problem Cellulitis Subjective Update: Patient states that he feels well and denies any fevers, states he has his chronic chills but have not worsened like he did the night of admission. States he still is having some abdominal pain but it is overall stable. Denies any nausea, vomiting, diarrhea. Remainder review of systems is negative except for those listed above. - Patient Data Vitals - Most Recent: Last Vital Signs Temp 98.2 F 10/04/21 00:00 Pulse 76 10/04/21 00:00 Resp 18 10/04/21 00:00 BP 105/44 L 10/04/21 00:00 Pulse Ox 99 10/04/21 00:00 Weight - Most Recent: 394 lb 4 oz I&O - Last 24 Hours: Intake & Output 10/03/21 10/03/21 10/04/21 14:59 22:59 06:59 Intake Total 1800 Output Total 1000 Balance -1000 1800 Lab Results Last 24 Hours: Laboratory Results - last 24 hr 10/03/21 10/03/21 10/03/21 Range/Units 07:59 12:32 17:26 POC Glucose 104 H 131 H 125 H (70-99) mg/dL 10/03/21 Range/Units 21:01 POC Glucose 117 H (70-99) mg/dL Sebastian Results Last 24 Hours: Microbiology 10/02/21 18:08 Aerobic Blood Culture - Preliminary Blood - Arm, Right NO GROWTH AFTER 1 DAY Anaerobic Blood Culture - Preliminary NO GROWTH AFTER 1 DAY 10/02/21 18:03 Aerobic Blood Culture - Preliminary Blood - Arm, Left NO GROWTH AFTER 1 DAY Anaerobic Blood Culture - Preliminary NO GROWTH AFTER 1 DAY Med Orders - Current: Current Medications Hydrocodone Bitart/Acetaminophen (Acetaminophen/Hydrocodone 325-10 Mg Tab) 1 tab PO Q6H PRN PRN Reason: Pain (moderate 4-6) Last Admin: 10/04/21 00:03 Dose: 1 tab Documented by: Aspirin (Aspirin 81 Mg Tab.Ec) 81 mg PO DAILY [facility] Last Admin: 10/03/21 09:54 Dose: 81 mg Documented by: Furosemide (Furosemide 20 Mg Tab) 20 mg PO BID [facility] Last Admin: 10/03/21 11:58 Dose: Not Given Documented by: Heparin Sodium (Porcine) (Heparin Sodium 5,000 Units/Ml Vial) 5,000 units SUBCUT Q8HR [facility] Last Admin: 10/03/21 22:13 Dose: 5,000 units Documented by: Cefazolin Sodium/Dextrose 2 gm (/ Premix) 50 mls @ 100 mls/hr IV Q8HR [facility] Last Admin: 10/03/21 22:11 Dose: 100 mls/hr Documented by: Metoprolol Succinate (Metoprolol Succinate 50 Mg Tab.Er) 50 mg PO DAILY [facility] Last Admin: 10/03/21 09:53 Dose: 50 mg Documented by: Non-Formulary Medication (Methocarbamol [Methocarbamol]) 500 mg PO TID PRN PRN Reason: pain Discontinued Medications Hydrocodone Bitart/Acetaminophen (Acetaminophen/Hydrocodone 325-10 Mg Tab) 1 - 2 tab PO Q6H PRN PRN Reason: Pain Last Admin: 10/02/21 22:11 Dose: 1 tab Documented by: Cefazolin Sodium/Dextrose 2 gm (/ Premix) 50 mls @ 100 mls/hr IV ONETIME ONE Stop: 10/02/21 20:12 Last Admin: 10/02/21 20:24 Dose: 100 mls/hr Documented by: Sodium Chloride (Normal Saline) 1,000 mls @ 125 mls/hr IV ASDIRECTED [facility] Stop: 10/03/21 14:00 Last Admin: 10/03/21 13:57 Dose: 125 mls/hr Documented by: Sodium Chloride (Normal Saline) 500 mls @ 500 mls/hr IV ONETIME ONE Stop: 10/03/21 04:10 Last Admin: 10/03/21 03:20 Dose: 500 mls/hr Documented by: - Exam General: Alert, Oriented HEENT: Pupils Equal, Pupils Reactive Neck: Supple Lungs: Clear to Auscultation, Normal Respiratory Effort Cardiovascular: Regular Rate, Regular Rhythm GI/Abdominal Exam: Normal Bowel Sounds, Soft, Other (morbid obesity with large pannus - erythema improved from prior day on bilateral lower abdomen - tender to palpation ) Back Exam: Normal Inspection Extremities: Normal Inspection Peripheral Pulses: 2+: Radial (L), Radial (R) Skin: Warm, Dry Neurological: No New Focal Deficit Psy/Mental Status: Alert - Patient Data Lab Results Last 24 hrs: Laboratory Results - last 24 hr 10/03/21 10/03/21 10/03/21 Range/Units 07:59 12:32 17:26 POC Glucose 104 H 131 H 125 H (70-99) mg/dL 10/03/21 Range/Units 21:01 POC Glucose 117 H (70-99) mg/dL Result Diagrams: 10/04/21 05:20 10/04/21 05:20 Sebastian Results Last 24 hrs: Microbiology 10/02/21 18:08 Aerobic Blood Culture - Preliminary Blood - Arm, Right NO GROWTH AFTER 1 DAY Anaerobic Blood Culture - Preliminary NO GROWTH AFTER 1 DAY 10/02/21 18:03 Aerobic Blood Culture - Preliminary Blood - Arm, Left NO GROWTH AFTER 1 DAY Anaerobic Blood Culture - Preliminary NO GROWTH AFTER 1 DAY Sepsis Event Note - Evaluation Sepsis Screening Result: No Definite Risk - Focused Exam Vital Signs: Vital Signs Temp Pulse Resp BP Pulse Ox 10/04/21 00:00 98.2 F 76 18 105/44 L 99 10/03/21 20:34 98.3 F 73 20 128/64 98 - Problem List & Annotations (1) Antibiotic long-term use SNOMED Code(s): 595079096 Code(s): Z79.2 - OBSTETRICS/GYNECOLOGY NURSE (CURRENT) USE OF ANTIBIOTICS Status: Acute Current Visit: Yes (2) Cellulitis of abdominal wall SNOMED Code(s): 50071506 Code(s): L03.311 - CELLULITIS OF ABDOMINAL WALL Status: Acute Priority: High Current Visit: Yes Onset Date: ~08/24/21 Annotation/Comment:: r/o chronic resistance sec to prophylaxis (3) Chronic renal insufficiency SNOMED Code(s): 147587255 Code(s): N18.9 - CHRONIC KIDNEY DISEASE, UNSPECIFIED Status: Acute Priority: Medium Current Visit: Yes Qualifiers: Chronic kidney disease stage: stage 2 (mild) Qualified Code(s): N18.2 - Chronic kidney disease, stage 2 (mild) (4) Diabetes mellitus SNOMED Code(s): 73206981 Code(s): E11.9 - TYPE 2 DIABETES MELLITUS WITHOUT COMPLICATIONS Status: Acute Priority: Medium Current Visit: Yes Qualifiers: Diabetes mellitus type: type 2 Diabetes mellitus fpc insulin use: without 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 oil 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 use Diabetes mellitus complication detail: with dermatitis (5) HTN (hypertension) SNOMED Code(s): 36434364 Code(s): I10 - ESSENTIAL (PRIMARY) HYPERTENSION Status: Acute Priority: Medium Current Visit: Yes Onset Date: ~08/24/21 Qualifiers: Hypertension type: primary hypertension Qualified Code(s): I10 - Essential (primary) hypertension (6) Morbid obesity with BMI of 60.0-69.9, adult SNOMED Code(s): 395483301, 94429672821484 Code(s): E66.01 - MORBID (SEVERE) OBESITY DUE TO EXCESS CALORIES; Z68.44 - BODY MASS INDEX [BMI] 60.0-69.9, ADULT Status: Acute Priority: High Current Visit: Yes Onset Date: ~08/24/21 (7) BLAKE on CPAP SNOMED Code(s): 20717085 Code(s): G47.33 - OBSTRUCTIVE SLEEP APNEA (ADULT) (PEDIATRIC); Z99.89 - DEPENDENCE ON OTHER ENABLING MACHINES AND DEVICES Status: Acute Priority: High Current Visit: Yes Onset Date: ~08/24/21 Annotation/Comment:: on cpap but cont. to have problems - Problem List Review Problem List Initiated/Reviewed/Updated: Yes - My Orders Last 24 Hours: My Active Orders 10/03/21 06:00 ceFAZolin [Ancef] 2 gm Premix Bag 1 bag IV Q8HR 10/03/21 08:00 Furosemide [Lasix] 20 mg PO BID 10/03/21 09:00 Aspirin [Halfprin] 81 mg PO DAILY Metoprolol Succinate [Toprol XL] 50 mg PO DAILY 10/03/21 11:17 Acetaminophen/HYDROcodone [[place] 325-10 MG] 1 tab PO Q6H PRN 10/03/21 15:37 methocarbamoL [Methocarbamol] 500 mg PO TID PRN 10/04/21 05:10 WHITE BLOOD CELL COUNT,WBC [HEME] Routine 10/04/21 05:11 BASIC METABOLIC PANEL,BMP [CHEM] AM - Plan Plan:: Patient is a 46-year-old male with a past medical history of morbid obesity, recurrent abdominal cellulitis on chronic antibiotic suppression therapy, type 2 diabetes not on insulin, BLAKE not compliant with CPAP, CKD, hypertension who presents with concerns of abdominal pain and cellulitis. # Nonpurulent cellulitis -Obvious nonpurulent cellulitis of lower abdomen, no evidence of panniculitis, no evidence of tunneling, no evidence of fluctuance, abscess formation -Patient hemodynamically stable, not tachycardic, lactic acid 1.1 on admission, WBC count 19.1 on admission -This is chronic for patient he is maintained on suppressive therapy with cefadroxil and doxycycline -Had recent hospitalization in August where he had significant improvement with IV cefazolin, will again utilize IV cefazolin 2 g every 8 hours -Blood cultures negative for growth at 24 hours -abdomen overall appears stable to improved today -Pain control with home PRN hydrocodone -CT scan if any decompensation or worsening to look for possible abscess - consider broadening abx if clinic worsening # Type 2 diabetes mellitus -Hold Metformin, twice daily glucose checks, will add sliding scale insulin if needed # Hypertension -Given hypotension 10/03/21 requiring fluids and cellulitis will hold nifedipine, lisinopril, Lasix for now we will likely restart within the next 1 to 2 days, continue metoprolol XL # OSApatient is noncompliant with CPAP # CKDstable creatinine Fluidsdiscontinued 10/03/21 due to normalization of BP and increased oral intake Electrolyteswithin normal limits Dietcarb controlled DVT prophylaxis Heparin
[2021-10-04] MEDS: Heparin Sodium 5,000 Units/ML Vial SUBCUT SCH ×3 (06:14→23:02)
[2021-10-04] MEDS: ceFAZolin 2 GM in Premix Bag 1 BAG IV SCH ×3 (06:15→23:03)
[2021-10-04 06:18] LABS: ANION GAP 13.5 mEq/L (7-13); CHLORIDE,CL 104 mmol/L (98-107); SODIUM,NA 137 mmol/L (136-145)
[2021-10-04] MEDS: Aspirin 81 MG Tab.EC PO SCH (09:13)
[2021-10-04] MEDS: Metoprolol Succinate 50 MG Tab.ER PO SCH (09:13)
[2021-10-04] MEDS: Cyclobenzaprine 10 MG Tab PO PRN (13:24)
[2021-10-04] MEDS: SOLIFENACIN 5 MG PO SCH (13:25)
[2021-10-05] MEDS: Cyclobenzaprine 10 MG Tab PO PRN (01:25)
[2021-10-05] MEDS: Acetaminophen/HYDROcodone 325-10 MG Tab PO PRN ×2 (01:25→18:08)
[2021-10-05] MEDS: ceFAZolin 2 GM in Premix Bag 1 BAG IV SCH ×3 (05:56→21:09)
[2021-10-05] MEDS: Heparin Sodium 5,000 Units/ML Vial SUBCUT SCH ×3 (05:56→21:09)
[2021-10-05] MEDS: Metoprolol Succinate 50 MG Tab.ER PO SCH (08:20)
[2021-10-05] MEDS: Aspirin 81 MG Tab.EC PO SCH (08:20)
[2021-10-05] MEDS: SOLIFENACIN 5 MG PO SCH (08:21)
--- NOTE | 2021-10-05 12:50 | PCM.PN ---
- General Info Date of Service: 10/05/21 Admission Dx/Problem (Free Text): Admission Diagnosis/Problem Admission Diagnosis/Problem Cellulitis Subjective Update: feeling better the abdominal redness is mild to mod, improved in the past few day no associated fever has been treated with cefazolin groin erythema and misture noted Functional Status: Reports: Tolerating Diet - Review of Systems Pulmonary: Denies: Shortness of Breath Cardiovascular: Reports: Edema. Denies: Chest Pain Neurological: Denies: Confusion - Patient Data Vitals - Most Recent: Last Vital Signs Temp 97.7 F 10/05/21 11:59 Pulse 78 10/05/21 11:59 Resp 18 10/05/21 11:59 BP 147/81 H 10/05/21 11:59 Pulse Ox 96 10/05/21 11:59 Weight - Most Recent: 394 lb 4 oz Lab Results Last 24 Hours: Laboratory Results - last 24 hr 10/04/21 10/05/21 10/05/21 Range/Units 16:59 03:23 06:05 POC Glucose 144 H 112 H (70-99) mg/dL Troponin I High Sens < 4 (<=76) pg/mL 10/05/21 10/05/21 Range/Units 07:12 11:31 POC Glucose 109 H 132 H (70-99) mg/dL Troponin I High Sens (<=76) pg/mL Sebastian Results Last 24 Hours: Microbiology 10/02/21 18:08 Aerobic Blood Culture - Preliminary Blood - Arm, Right NO GROWTH AFTER 2 DAYS Anaerobic Blood Culture - Preliminary NO GROWTH AFTER 2 DAYS 10/02/21 18:03 Aerobic Blood Culture - Preliminary Blood - Arm, Left NO GROWTH AFTER 2 DAYS Anaerobic Blood Culture - Preliminary NO GROWTH AFTER 2 DAYS Med Orders - Current: Current Medications Hydrocodone Bitart/Acetaminophen (Acetaminophen/Hydrocodone 325-10 Mg Tab) 1 tab PO Q6H PRN PRN Reason: Pain (moderate 4-6) Last Admin: 10/05/21 01:25 Dose: 1 tab Documented by: Aspirin (Aspirin 81 Mg Tab.Ec) 81 mg PO DAILY [facility] Last Admin: 10/05/21 08:20 Dose: 81 mg Documented by: Cyclobenzaprine HCl (Cyclobenzaprine 10 Mg Tab) 10 mg PO TID PRN PRN Reason: muscle spasms Last Admin: 10/05/21 01:25 Dose: 10 mg Documented by: Furosemide (Furosemide 20 Mg Tab) 20 mg PO BID [facility] Last Admin: 10/03/21 11:58 Dose: Not Given Documented by: Heparin Sodium (Porcine) (Heparin Sodium 5,000 Units/Ml Vial) 5,000 units SUBCUT Q8HR [facility] Last Admin: 10/05/21 05:56 Dose: Not Given Documented by: Cefazolin Sodium/Dextrose 2 gm (/ Premix) 50 mls @ 100 mls/hr IV Q8HR [facility] Last Admin: 10/05/21 05:56 Dose: Not Given Documented by: Metoprolol Succinate (Metoprolol Succinate 50 Mg Tab.Er) 50 mg PO DAILY [facility] Last Admin: 10/05/21 08:20 Dose: 50 mg Documented by: Solifenacin [ Vesicare] 5 Mg Tab * Own Med* 0 each PO DAILY [facility] Last Admin: 10/05/21 08:21 Dose: 1 each Documented by: Discontinued Medications Hydrocodone Bitart/Acetaminophen (Acetaminophen/Hydrocodone 325-10 Mg Tab) 1 - 2 tab PO Q6H PRN PRN Reason: Pain Last Admin: 10/02/21 22:11 Dose: 1 tab Documented by: Cefazolin Sodium/Dextrose 2 gm (/ Premix) 50 mls @ 100 mls/hr IV ONETIME ONE Stop: 10/02/21 20:12 Last Admin: 10/02/21 20:24 Dose: 100 mls/hr Documented by: Sodium Chloride (Normal Saline) 1,000 mls @ 125 mls/hr IV ASDIRECTED [facility] Stop: 10/03/21 14:00 Last Admin: 10/03/21 13:57 Dose: 125 mls/hr Documented by: Sodium Chloride (Normal Saline) 500 mls @ 500 mls/hr IV ONETIME ONE Stop: 10/03/21 04:10 Last Admin: 10/03/21 03:20 Dose: 500 mls/hr Documented by: - Exam General: Alert, Oriented Lungs: Clear to Auscultation, Normal Respiratory Effort Cardiovascular: Regular Rate, Regular Rhythm GI/Abdominal Exam: Other (morbidly obese) Extremities: Pedal Edema Skin: Warm, Other (b/l groin moist, huge lower abdominal pannus with chronic appearing edema and mild redness) - Patient Data Lab Results Last 24 hrs: Laboratory Results - last 24 hr 10/04/21 10/05/21 10/05/21 Range/Units 16:59 03:23 06:05 POC Glucose 144 H 112 H (70-99) mg/dL Troponin I High Sens < 4 (<=76) pg/mL 10/05/21 10/05/21 Range/Units 07:12 11:31 POC Glucose 109 H 132 H (70-99) mg/dL Troponin I High Sens (<=76) pg/mL Result Diagrams: 10/04/21 05:20 10/04/21 05:20 Sebastian Results Last 24 hrs: Microbiology 10/02/21 18:08 Aerobic Blood Culture - Preliminary Blood - Arm, Right NO GROWTH AFTER 2 DAYS Anaerobic Blood Culture - Preliminary NO GROWTH AFTER 2 DAYS 10/02/21 18:03 Aerobic Blood Culture - Preliminary Blood - Arm, Left NO GROWTH AFTER 2 DAYS Anaerobic Blood Culture - Preliminary NO GROWTH AFTER 2 DAYS Sepsis Event Note - Evaluation Sepsis Screening Result: No Definite Risk - Focused Exam Vital Signs: Vital Signs Temp Pulse Pulse Resp BP BP Pulse Ox 10/05/21 11:59 97.7 F 78 18 147/81 H 96 10/05/21 08:20 74 124/62 10/05/21 07:40 98.3 F 74 20 124/62 96 10/05/21 03:23 98.3 F 79 22 H 109/50 L 96 - Problem List & Annotations (1) Cellulitis of abdominal wall SNOMED Code(s): 37810860 Code(s): L03.311 - CELLULITIS OF ABDOMINAL WALL Status: Acute Priority: High Current Visit: Yes Onset Date: ~08/24/21 Annotation/Comment:: r/o chronic resistance sec to prophylaxis (2) Diabetes mellitus SNOMED Code(s): 89333549 Code(s): E11.9 - TYPE 2 DIABETES MELLITUS WITHOUT COMPLICATIONS Status: Acute Priority: Medium Current Visit: Yes Qualifiers: Diabetes mellitus type: type 2 Diabetes mellitus prison insulin use: without intermodal dispatcher use Diabetes mellitus complication detail: with dermatitis (3) HTN (hypertension) SNOMED Code(s): 13250869 Code(s): I10 - ESSENTIAL (PRIMARY) HYPERTENSION Status: Acute Priority: Medium Current Visit: Yes Onset Date: ~08/24/21 Qualifiers: Hypertension type: primary hypertension Qualified Code(s): I10 - Essential (primary) hypertension (4) Morbid obesity with BMI of 60.0-69.9, adult SNOMED Code(s): 661885767, 11572980935993 Code(s): E66.01 - MORBID (SEVERE) OBESITY DUE TO EXCESS CALORIES; Z68.44 - BODY MASS INDEX [BMI] 60.0-69.9, ADULT Status: Acute Priority: High Current Visit: Yes Onset Date: ~08/24/21 (5) BLAKE on CPAP SNOMED Code(s): 11500236 Code(s): G47.33 - OBSTRUCTIVE SLEEP APNEA (ADULT) (PEDIATRIC); Z99.89 - DEPENDENCE ON OTHER ENABLING MACHINES AND DEVICES Status: Acute Priority: High Current Visit: Yes Onset Date: ~08/24/21 Annotation/Comment:: on cpap but cont. to have problems - Problem List Review Problem List Initiated/Reviewed/Updated: Yes - My Orders Last 24 Hours: My Active Orders 10/05/21 03:35 Telemetry Monitoring [Cardiac Monitoring] [RC] . DIRECTED 10/06/21 05:15 BASIC METABOLIC PANEL,BMP [CHEM] AM CBC WITH AUTO DIFF [HEME] AM - Plan Plan:: Patient is a 46-year-old male with a past medical history of morbid obesity, recurrent abdominal cellulitis on chronic antibiotic suppression therapy, type 2 diabetes not on insulin, BLAKE not compliant with CPAP, CKD, hypertension who presents with concerns of abdominal pain and cellulitis. # Nonpurulent cellulitis -Obvious nonpurulent cellulitis of lower abdomen, no ulcer, no evidence of tunneling, no evidence of fluctuance, abscess formation -Patient hemodynamically stable, not tachycardic, lactic acid 1.1 on admission, WBC count 19.1 on admission -This is chronic for patient he is maintained on suppressive therapy with cefadroxil and doxycycline -Had recent hospitalization in August where he had significant improvement with IV cefazolin, currently also treated with IV cefazolin 2 g every 8 hours -Blood cultures negative for growth at 24 hours -abdomen overall appears further improved -Pain control with home PRN hydrocodone use nystatin for groin infection # Type 2 diabetes mellitus -Hold Metformin, twice daily glucose checks, will add sliding scale insulin if needed # Hypertension -had hypotension 10/03/21 required fluids nifedipine, lisinopril has been on hold now BP is increasing resume lisinopril, lasix continue metoprolol XL # OSApatient is noncompliant with CPAP # CKDstable creatinine DVT prophylaxis Heparin
[2021-10-05] MEDS: Nystatin Ointment 15 GM Tube TOP SCH ×2 (14:00→21:09)
[2021-10-05] MEDS: Furosemide 20 MG Tab PO SCH (21:09)
[2021-10-06] MEDS: Cyclobenzaprine 10 MG Tab PO PRN (03:20)
[2021-10-06] MEDS: Acetaminophen/HYDROcodone 325-10 MG Tab PO PRN (03:21)
[2021-10-06] MEDS: ceFAZolin 2 GM in Premix Bag 1 BAG IV SCH (05:00)
[2021-10-06] MEDS: Heparin Sodium 5,000 Units/ML Vial SUBCUT SCH (05:00)
[2021-10-06 07:11] LABS: ANION GAP 16.3 mEq/L (7-13); CHLORIDE,CL 103 mmol/L (98-107); SODIUM,NA 139 mmol/L (136-145)
[2021-10-06 07:51] VITALS: BP 114/65; PULSE 73
[2021-10-06] MEDS ORDERED: Lisinopril 20 MG Tab PO SCH (09:00)
[2021-10-06] MEDS: Furosemide 20 MG Tab PO SCH (09:11)
[2021-10-06] MEDS: Aspirin 81 MG Tab.EC PO SCH (09:11)
[2021-10-06] MEDS: Metoprolol Succinate 50 MG Tab.ER PO SCH (09:11)
[2021-10-06] MEDS: Nystatin Ointment 15 GM Tube TOP SCH (09:12)
[2021-10-06] MEDS: SOLIFENACIN 5 MG PO SCH (09:12)
--- NOTE | 2021-10-06 09:56 | PCM.DCSUM1 ---
Discharge Summary - Hospital Course Free Text/Narrative:: Patient is a 46-year-old male with a past medical history of morbid obesity, recurrent abdominal cellulitis on chronic antibiotic suppression therapy, type 2 diabetes not on insulin, BLAKE not compliant with CPAP, CKD, hypertension who presents with concerns of abdominal pain and cellulitis. # Nonpurulent cellulitis -Obvious nonpurulent cellulitis of lower abdomen, no ulcer, no evidence of tunneling, no evidence of fluctuance, abscess formation -Patient hemodynamically stable, not tachycardic, lactic acid 1.1 on admission, WBC count 19.1 on admission -This is chronic for patient he is maintained on suppressive therapy with cefadroxil and doxycycline -Had recent hospitalization in August where he had significant improvement with IV cefazolin, he was treated with IV cefazolin 2 g every 8 hours leukocytosis improved, afebrile, redness improved -Blood cultures negative -Pain control with home PRN hydrocodone use nystatin for groin fungal rash resume suppressive ABx regimen f/up with ID # Type 2 diabetes mellitus resume Metformin # Hypertension -had hypotension 10/03/21 required fluids nifedipine, lisinopril has been on hold now can be resumed # OSApatient is noncompliant with CPAP # CKDstable creatinine Diagnosis: Stroke: No - Discharge Data Discharge Date: 10/06/21 Discharge Disposition: Home, Self-Care 01 Condition: Stable - Referral to Home Health Primary Care Physician: PCP None - Discharge Diagnosis/Problem(s) (1) Cellulitis of abdominal wall SNOMED Code(s): 89604399 ICD Code: L03.311 - CELLULITIS OF ABDOMINAL WALL Status: Acute Priority: High Current Visit: Yes Onset Date: ~08/24/21 Problem Details: r/o chronic resistance sec to prophylaxis (2) Diabetes mellitus SNOMED Code(s): 19842020 ICD Code: E11.9 - TYPE 2 DIABETES MELLITUS WITHOUT COMPLICATIONS Status: Acute Priority: Medium Current Visit: Yes Qualifiers: Diabetes mellitus type: type 2 Diabetes mellitus solar crew member insulin use: without jail use Diabetes mellitus complication detail: with dermatitis (3) HTN (hypertension) SNOMED Code(s): 71863635 ICD Code: I10 - ESSENTIAL (PRIMARY) HYPERTENSION Status: Acute Priority: Medium Current Visit: Yes Onset Date: ~08/24/21 Qualifiers: Hypertension type: primary hypertension Qualified Code(s): I10 - Essential (primary) hypertension (4) Morbid obesity with BMI of 60.0-69.9, adult SNOMED Code(s): 106536821, 08735497575853 ICD Code: E66.01 - MORBID (SEVERE) OBESITY DUE TO EXCESS CALORIES; Z68.44 - BODY MASS INDEX [BMI] 60.0-69.9, ADULT Status: Acute Priority: High Current Visit: Yes Onset Date: ~08/24/21 (5) BLAKE on CPAP SNOMED Code(s): 62681859 ICD Code: G47.33 - OBSTRUCTIVE SLEEP APNEA (ADULT) (PEDIATRIC); Z99.89 - DEPENDENCE ON OTHER ENABLING MACHINES AND DEVICES Status: Acute Priority: Hi gh Current Visit: Yes Onset Date: ~08/24/21 Problem Details: on cpap but cont. to have problems - Patient Instructions Diet: Heart Healthy Diet Activity: As Tolerated - Discharge Plan Prescriptions/Med Rec: Nystatin [Nystatin Ointment] 1 gm TOP TID #1 tube Home Medications: Home Meds Metoprolol Succinate [Toprol XL 50mg] 50 mg PO DAILY 04/21/15 [History] Aspirin [Ecotrin EC] 81 mg PO DAILY 07/24/19 [History] Ferrous Sulfate 324 mg PO DAILY 07/24/19 [History] NIFEdipine [Nifedipine ER] 30 mg PO DAILY 07/24/19 [History] Hydrocodone/Acetaminophen [Hydrocodone-Acetamin 10-325 mg] 1 - 2 tab PO Q6H PRN 08/20/19 [History] lisinopriL [Lisinopril] 20 mg PO DAILY 02/13/20 [History] metFORMIN [Glucophage] 500 mg PO BIDMEALS 30 Days #60 tab 02/16/20 [Rx] methocarbamoL [Methocarbamol] 500 mg PO TID 05/30/20 [History] Cefadroxil [Duricef] 500 mg PO BID 08/23/21 [History] Doxycycline Hyclate 100 mg PO BID 08/23/21 [History] Solifenacin [Vesicare] 10 mg PO DAILY 08/23/21 [History] Acetaminophen [Tylenol] 650 mg PO .PRN PRN 10/02/21 [History] Diclofenac Sodium 50 mg PO TID 10/02/21 [History] L Acidophil/B Lactis/B Longum [Florajen Digest 15 B Cell Cap] 1 each PO DAILY 10/02/21 [History] Nystatin [Nystatin Ointment] 1 gm TOP TID #1 tube 10/06/21 [Rx] Forms: ED Department Discharge Referrals: Rody Corbett PA-C [Ordering Only Provider] - - Discharge Summary/Plan Comment DC Time >30 min.: No Total # of Minutes for Discharge Time: 20 min - General Info Date of Service: 10/06/21 Functional Status: Reports: Pain Controlled, Tolerating Diet, Ambulating - Review of Systems General: Denies: Fever Pulmonary: Denies: Shortness of Breath Cardiovascular: Reports: Edema. Denies: Chest Pain Gastrointestinal: Denies: Abdominal Pain Skin: Reports: Other (redness resolved, chronic induration of large abdominal pannus present) Psychiatric: Denies: Confusion - Patient Data Vitals - Most Recent: Last Vital Signs Temp 97.4 F 10/06/21 07:50 Pulse 73 10/06/21 09:11 Resp 18 10/06/21 07:50 BP 114/65 10/06/21 09:11 Pulse Ox 93 L 10/06/21 07:50 Weight - Most Recent: 394 lb 4 oz I&O - Last 24 hours: Intake & Output 10/05/21 10/06/21 10/06/21 22:59 06:59 14:59 Intake Total 1450 400 Balance 1450 400 Lab Results - Last 24 hrs: Laboratory Results - last 24 hr 10/05/21 10/05/21 10/06/21 Range/Units 11:31 17:05 06:11 WBC 12.3 H (5.0-10.0) 10^3/uL RBC 4.32 L (4.6-6.2) 10^6/uL Hgb 12.4 L (14.0-18.0) g/dL Hct 39.3 L (40.0-54.0) % MCV 91.0 (80-100) fL MCH 28.7 (27.0-34.0) pg MCHC 31.6 L (33.0-35.0) g/dL Plt Count 305 (150-450) 10^3/uL Neut % (Auto) 75.7 H (42.2-75.2) % Lymph % (Auto) 15.6 L (20.5-50.1) % [place] % (Auto) 7.4 (2-8) % Eos % (Auto) 1.1 (1.0-3.0) % Baso % (Auto) 0.2 (0.0-1.0) % Add Manual Diff Yes Neutrophils % (Manual) 73 (42-75) % Lymphocytes % (Manual) 21 (20-50) % Monocytes % (Manual) 5 (2-8) % Eosinophils % (Manual) 1 (1-3) % Sodium (136-145) mmol/L Potassium (3.5-5.1) mmol/L Chloride (98-107) mmol/L Carbon Dioxide (21-32) mmol/L Anion Gap (7-13) mEq/L BUN (7-18) mg/dL Creatinine (0.70-1.30) mg/dL Est Cr Clr Drug Dosing mL/min Estimated GFR (MDRD) Glucose (70-99) mg/dL POC Glucose 132 H 114 H (70-99) mg/dL Calcium (8.5-10.1) mg/dL 10/06/21 10/06/21 Range/Units 06:11 07:40 WBC (5.0-10.0) 10^3/uL RBC (4.6-6.2) 10^6/uL Hgb (14.0-18.0) g/dL Hct (40.0-54.0) % MCV (80-100) fL MCH (27.0-34.0) pg MCHC (33.0-35.0) g/dL Plt Count (150-450) 10^3/uL Neut % (Auto) (42.2-75.2) % Lymph % (Auto) (20.5-50.1) % [place] % (Auto) (2-8) % Eos % (Auto) (1.0-3.0) % Baso % (Auto) (0.0-1.0) % Add Manual Diff Neutrophils % (Manual) (42-75) % Lymphocytes % (Manual) (20-50) % Monocytes % (Manual) (2-8) % Eosinophils % (Manual) (1-3) % Sodium 139 (136-145) mmol/L Potassium 4.3 (3.5-5.1) mmol/L Chloride 103 (98-107) mmol/L Carbon Dioxide 24 (21-32) mmol/L Anion Gap 16.3 H (7-13) mEq/L BUN 17 (7-18) mg/dL Creatinine 1.08 (0.70-1.30) mg/dL Est Cr Clr Drug Dosing 72.76 mL/min Estimated GFR (MDRD) > 60 Glucose 121 H (70-99) mg/dL POC Glucose 124 H (70-99) mg/dL Calcium 8.9 (8.5-10.1) mg/dL RADHA Results - Last 24 hrs: Microbiology 10/02/21 18:08 Aerobic Blood Culture - Preliminary Blood - Arm, Right NO GROWTH AFTER 3 DAYS Anaerobic Blood Culture - Preliminary NO GROWTH AFTER 3 DAYS 10/02/21 18:03 Aerobic Blood Culture - Preliminary Blood - Arm, Left NO GROWTH AFTER 3 DAYS Anaerobic Blood Culture - Preliminary NO GROWTH AFTER 3 DAYS Med Orders - Current: Current Medications Hydrocodone Bitart/Acetaminophen (Acetaminophen/Hydrocodone 325-10 Mg Tab) 1 tab PO Q6H PRN PRN Reason: Pain (moderate 4-6) Last Admin: 10/06/21 03:21 Dose: 1 tab Documented by: Aspirin (Aspirin 81 Mg Tab.Ec) 81 mg PO DAILY [facility] Last Admin: 10/06/21 09:11 Dose: 81 mg Documented by: Cyclobenzaprine HCl (Cyclobenzaprine 10 Mg Tab) 10 mg PO TID PRN PRN Reason: muscle spasms Last Admin: 10/06/21 03:20 Dose: 10 mg Documented by: Furosemide (Furosemide 20 Mg Tab) 20 mg PO BID [facility] Last Admin: 10/06/21 09:11 Dose: Not Given Documented by: Heparin Sodium (Porcine) (Heparin Sodium 5,000 Units/Ml Vial) 5,000 units SUBCUT Q8HR [facility] Last Admin: 10/06/21 05:00 Dose: 5,000 units Documented by: Cefazolin Sodium/Dextrose 2 gm (/ Premix) 50 mls @ 100 mls/hr IV Q8HR [facility] Last Admin: 10/06/21 05:00 Dose: 100 mls/hr Documented by: Lisinopril (Lisinopril 20 Mg Tab) 20 mg PO DAILY [facility] Last Admin: 10/06/21 09:11 Dose: 20 mg Documented by: Metoprolol Succinate (Metoprolol Succinate 50 Mg Tab.Er) 50 mg PO DAILY [facility] Last Admin: 10/06/21 09:11 Dose: 50 mg Documented by: Nystatin (Nystatin Ointment 15 Gm Tube) 0 gm TOP TID [facility] Last Admin: 10/06/21 09:12 Dose: Not Given Documented by: Solifenacin [ Vesicare] 5 Mg Tab * Own Med* 0 each PO DAILY [facility] Last Admin: 10/06/21 09:12 Dose: 1 each Documented by: Discontinued Medications Hydrocodone Bitart/Acetaminophen (Acetaminophen/Hydrocodone 325-10 Mg Tab) 1 - 2 tab PO Q6H PRN PRN Reason: Pain Last Admin: 10/02/21 22:11 Dose: 1 tab Documented by: Cefazolin Sodium/Dextrose 2 gm (/ Premix) 50 mls @ 100 mls/hr IV ONETIME ONE Stop: 10/02/21 20:12 Last Admin: 10/02/21 20:24 Dose: 100 mls/hr Documented by: Sodium Chloride (Normal Saline) 1,000 mls @ 125 mls/hr IV ASDIRECTED [facility] Stop: 10/03/21 14:00 Last Admin: 10/03/21 13:57 Dose: 125 mls/hr Documented by: Sodium Chloride (Normal Saline) 500 mls @ 500 mls/hr IV ONETIME ONE Stop: 10/03/21 04:10 Last Admin: 10/03/21 03:20 Dose: 500 mls/hr Documented by: - Exam General: Reports: Alert, Oriented Neck: Reports: Supple Lungs: Reports: Clear to Auscultation, Normal Respiratory Effort Cardiovascular: Reports: Regular Rate, Regular Rhythm GI/Abdominal Exam: Normal Bowel Sounds, Soft Skin: Reports: Warm, Other (redness resolved) Psy/Mental Status: Reports: Alert, Normal Affect, Normal Mood
== END 2021-10-06 11:40 | disposition home or self-care (01) | DRG 383 ==
LOC: DL.ED 16:26 → DL.MS 19:39 → EEVIPCON 19:39
PROVIDERS: ADMIT Internal Medicine; ATTEND Internal Medicine
DX: L03.311 Cellulitis of abdominal wall (principal); E66.01 Morbid (severe) obesity due to excess calories; G47.33 Obstructive sleep apnea (adult) (pediatric); Z99.81 Dependence on supplemental oxygen; I12.9 Hypertensive chronic kidney disease with stage 1 through stage 4 chronic kidney disease, or unspecified chronic kidney disease; E11.22 Type 2 diabetes mellitus with diabetic chronic kidney disease; Z68.44 Body mass index [BMI] 60.0-69.9, adult; Z99.89 Dependence on other enabling machines and devices; Z79.82 Long term (current) use of aspirin; Z79.899 Other long term (current) drug therapy; Z88.0 Allergy status to penicillin; Z88.1 Allergy status to other antibiotic agents; H54.7 Unspecified visual loss; M19.90 Unspecified osteoarthritis, unspecified site; Z90.89 Acquired absence of other organs; F17.210 Nicotine dependence, cigarettes, uncomplicated; N18.2 Chronic kidney disease, stage 2 (mild); L30.9 Dermatitis, unspecified; Z79.4 Long term (current) use of insulin; Z20.822 Contact with and (suspected) exposure to COVID-19
CPT/HCPCS: 36415; 80048; 80053; 82947; 83605; 84484; 85025; 85048; 87040; 99222; 99232; 99239; 99284; A9270-GY; J0690; J1644; J7030; J7040; U0002

== ENCOUNTER 2023-01-25 09:46 | Emergency (ER) | payer MEDICARE ==
[2023-01-25] MEDS ORDERED: Bacitracin Oint 1 GM U/D Packet TOP ONE (10:05)
[2023-01-25 10:07] VITALS: BP 120/70; PULSE 99
== END 2023-01-25 10:22 | disposition home or self-care (01) ==
LOC: DL.ED 09:46
DX: N49.2 Inflammatory disorders of scrotum (principal); I10 Essential (primary) hypertension; M19.90 Unspecified osteoarthritis, unspecified site; E11.9 Type 2 diabetes mellitus without complications; E66.9 Obesity, unspecified; Z68.1 Body mass index [BMI] 19.9 or less, adult; Z88.1 Allergy status to other antibiotic agents; Z88.0 Allergy status to penicillin; Z79.82 Long term (current) use of aspirin; Z79.84 Long term (current) use of oral hypoglycemic drugs; Z79.899 Other long term (current) drug therapy
CPT/HCPCS: 87070; 99283; A9270

== ENCOUNTER 2023-02-26 13:01 | Emergency (ER) | payer MEDICARE ==
[2023-02-26 13:36] VITALS: BP 116/63; PULSE 91
[2023-02-26] MEDS ORDERED: Benzonatate 100 MG Cap PO ONE (13:47)
[2023-02-26] MEDS ORDERED: Albuterol/Ipratropium 3.0-0.5 MG/3 ML Neb Soln NEB ONE (13:47)
[2023-02-26] MEDS ORDERED: Codeine/Promethazine 10-6.25 MG/5 ML Syrup 5 ML UD Cup PO ONE (13:47)
[2023-02-26 14:05] LABS: BASOPHILS PERCENT AUTO 0.3 % (0.0-1.0); EOSINOPHILS PERCENT AUTO 3.2 % (1.0-3.0); HEMOGLOBIN 14.1 g/dL (14.0-18.0); LYMPHOCYTES PERCENT AUTO 17.9 % (20.5-50.1); MEAN CORPUSCULAR HEMOGLOBIN 28.3 pg (27.0-34.0); MEAN CORPUSCULAR VOLUME 88.4 fL (80-100); MONOCYTES PERCENT AUTO 5.9 % (2-8); NEUTROPHILS PERCENT AUTO 72.7 % (42.2-75.2); PLATELET COUNT,PLT 226 10^3/uL (150-450); RED BLOOD CELL COUNT 4.98 10^6/uL (4.6-6.2); WHITE BLOOD CELL COUNT,WBC 9.8 10^3/uL (5.0-10.0)
[2023-02-26 14:41] LABS: CORONAVIRUS COVID-19 NAA NEGATIVE (NEGATIVE); INFLUENZA A NAA NEGATIVE (NEGATIVE); INFLUENZA B NAA NEGATIVE (NEGATIVE); RESPIRATORY SYNCYTIAL VIR NAA NEGATIVE (NEGATIVE)
== END 2023-02-26 15:31 | disposition home or self-care (01) ==
LOC: DL.ED 13:01
DX: J20.8 Acute bronchitis due to other specified organisms (principal); I10 Essential (primary) hypertension; E11.9 Type 2 diabetes mellitus without complications; M19.90 Unspecified osteoarthritis, unspecified site; E66.9 Obesity, unspecified; Z68.43 Body mass index [BMI] 50.0-59.9, adult; Z79.82 Long term (current) use of aspirin; Z79.899 Other long term (current) drug therapy; Z88.0 Allergy status to penicillin; Z88.1 Allergy status to other antibiotic agents; Z20.822 Contact with and (suspected) exposure to COVID-19
CPT/HCPCS: 0241U; 36415; 71046; 85025; 99284; A9270; J7620-GY

== ENCOUNTER 2023-03-08 16:47 | Emergency (ER) | payer MEDICARE ==
[2023-03-08 17:09] VITALS: BP 110/78; PULSE 103
[2023-03-08] MEDS ORDERED: Sodium Chloride 0.9% 1,000 ML IV ONE ×2 (17:18→17:19)
[2023-03-08] MEDS ORDERED: Ketorolac 30 MG/ML SDV IVPUSH ONE (17:19)
== END 2023-03-08 18:18 | disposition home or self-care (01) ==
LOC: DL.ED 16:47
DX: G44.89 Other headache syndrome (principal); E86.0 Dehydration; I10 Essential (primary) hypertension; E11.9 Type 2 diabetes mellitus without complications; E66.9 Obesity, unspecified; Z68.44 Body mass index [BMI] 60.0-69.9, adult; Z88.0 Allergy status to penicillin; Z88.1 Allergy status to other antibiotic agents; Z79.82 Long term (current) use of aspirin; Z79.899 Other long term (current) drug therapy; Z79.84 Long term (current) use of oral hypoglycemic drugs
CPT/HCPCS: 96361; 96374; 99284; J1885; J7030; 99283

== ENCOUNTER 2023-03-18 13:48 | Emergency (ER) | payer MEDICARE ==
[2023-03-18 12:06] LABS: HEMATOCRIT 44.7 % (40.0-54.0); HEMOGLOBIN 14.7 g/dL (14.0-18.0); MEAN CORPUSCULAR HEMOGLOBIN 28.5 pg (27.0-34.0); MEAN CORPUSCULAR HGB CONC 32.9 g/dL (33.0-35.0); MEAN CORPUSCULAR VOLUME 86.8 fL (80-100); PLATELET COUNT,PLT 302 10^3/uL (150-450); RED BLOOD CELL COUNT 5.15 10^6/uL (4.6-6.2); WHITE BLOOD CELL COUNT,WBC 16.7 10^3/uL (5.0-10.0)
[2023-03-18 12:30] LABS: LACTIC ACID 1.8 mmol/L (0.4-2.0)
[2023-03-18 12:35] LABS: ALANINE AMINOTRANSFERASE,ALT 51 U/L (16-63); ALBUMIN 3.1 g/dL (3.4-5.0); ALKALINE PHOSPHATASE 162 U/L (46-116); AMYLASE 27 U/L (25-115); ANION GAP 14.8 mEq/L (7-13); ASPARTATE AMNIOTRANSFERASE,AST 20 U/L (15-37); BILIRUBIN TOTAL 1.1 mg/dL (0.2-1.0); BLOOD UREA NITROGEN,BUN 25 mg/dL (7-18); BUN/CREATININE RATIO 10.7 (No establ ref range); CALCIUM 8.7 mg/dL (8.5-10.1); CARBON DIOXIDE,CO2 24 mmol/L (21-32); CHLORIDE,CL 96 mmol/L (98-107); CREATININE 2.33 mg/dL (0.70-1.30); GLUCOSE RANDOM 119 mg/dL (70-99); LIPASE 128 U/L (73-393); MAGNESIUM 1.8 mg/dL (1.8-2.4); POTASSIUM,K 3.8 mmol/L (3.5-5.1); SODIUM,NA 131 mmol/L (136-145); TSH ULTRASENSITIVE 0.92 uIU/mL (0.36-3.74)
[2023-03-18 12:36] LABS: A/G RATIO 0.79; C-REACTIVE PROTEIN 16.6 mg/dL (0.0-0.9); ESTIMATED GFR 33 mL/min (>=60); ETHANOL BLOOD MEDICAL < 3 mg/dL (0)
[2023-03-18 12:38] LABS: BASOPHILS PERCENT AUTO 0.4 % (0.0-1.0); EOSINOPHILS PERCENT AUTO 0.7 % (1.0-3.0); LYMPHOCYTES PERCENT AUTO 8.8 % (20.5-50.1); MONOCYTES PERCENT AUTO 8.1 % (2-8)
[~2023-03-18 13:48] MED LIST: Sodium Chloride 0.9% 1,000 ML IV ONE
[2023-03-18] MEDS ORDERED: Sodium Chloride 0.9% 1,000 ML IV ONE (14:23)
[2023-03-18 14:46] LABS: BAND PERCENT MAN 7 %; LYMPHOCYTES PERCENT MAN 11 % (20-50); MONOCYTES PERCENT MAN 5 % (2-8); SEG NEUTROPHILS PERCENT MAN 77 % (42-75)
[2023-03-18 14:47] LABS: APPEARANCE,URINE CLEAR (CLEAR); BILIRUBIN,URINE LARGE (NEGATIVE); COLOR,URINE DARK YELLOW (YELLOW); GLUCOSE,URINE NEGATIVE (NEGATIVE); KETONES,URINE 15 (NEGATIVE); LEUKOCYTE ESTERASE,URINE NEGATIVE (NEGATIVE); NITRITE,URINE NEGATIVE (NEGATIVE); OCCULT BLOOD,URINE TRACE-INTACT (NEGATIVE); PH,URINE 5.5 (5.0-9.0); PROTEIN,URINE 100 (NEGATIVE); UROBILINOGEN,URINE 0.2 mg/dL (0.2-1.0)
[2023-03-18 15:07] LABS: AMPHETAMINES,URINE NEGATIVE (NEGATIVE); BARBITURATES,URINE NEGATIVE (NEGATIVE); BENZODIAZEPINE,URINE NEGATIVE (NEGATIVE); MDMA (ECSTASY), URINE NEGATIVE (NEGATIVE); METHADONE,URINE NEGATIVE (NEGATIVE); METHAMPHETAMINES,URINE NEGATIVE (NEGATIVE); OPIATES,URINE POSITIVE (NEGATIVE); OXYCODONE,URINE NEGATIVE (NEGATIVE); PHENCYCLIDINE,URINE NEGATIVE (NEGATIVE); TCA,URINE NEGATIVE (NEGATIVE)
[2023-03-18 15:16] LABS: BACTERIA,URINE FEW /HPF (0-FEW/HPF); EPITHELIAL CELLS,URINE FEW /HPF (NOT SEEN); HYALINE CASTS,URINE FEW; MUCUS,URINE FEW /LPF (NOT SEEN); RBC,URINE 0-5 /HPF (0-5)
[2023-03-18 15:28] VITALS: BP 103/65; PULSE 98
== END 2023-03-18 18:35 ==
LOC: DL.ED 13:48
DX: G93.41 Metabolic encephalopathy (principal); R44.3 Hallucinations, unspecified; E66.9 Obesity, unspecified; E11.9 Type 2 diabetes mellitus without complications; I10 Essential (primary) hypertension; F17.210 Nicotine dependence, cigarettes, uncomplicated; Z79.82 Long term (current) use of aspirin; Z79.84 Long term (current) use of oral hypoglycemic drugs
CPT/HCPCS: 36415; 80053; 80305; 80307; 81001; 82140; 82150; 82947; 83605; 83690; 83735; 84443; 85025; 86140; 87040; 96360; 96361; 99285; J7030

== ENCOUNTER 2023-08-30 22:48 | Inpatient (IN) | payer BC, MEDICARE ==
[2023-08-30] MEDS ORDERED: Sodium Chloride 0.9% 10 ML Syringe FLUSH PRN (23:29)
[2023-08-30] MEDS ORDERED: Lactated Ringers 1,000 ML IV ONE (23:45)
[2023-08-31 00:07] LABS: HEMOGLOBIN 13.4 g/dL (14.0-18.0); MEAN CORPUSCULAR HEMOGLOBIN 28.2 pg (27.0-34.0); MEAN CORPUSCULAR HGB CONC 31.9 g/dL (33.0-35.0); MEAN CORPUSCULAR VOLUME 88.2 fL (80-100); PLATELET COUNT,PLT 213 10^3/uL (150-450); RED BLOOD CELL COUNT 4.76 10^6/uL (4.6-6.2)
[2023-08-31 00:13] LABS: BASOPHILS PERCENT AUTO 0.5 % (0.0-1.0); EOSINOPHILS PERCENT AUTO 1.2 % (1.0-3.0); LYMPHOCYTES PERCENT AUTO 9.8 % (20.5-50.1); MONOCYTES PERCENT AUTO 6.9 % (2-8); NEUTROPHILS PERCENT AUTO 81.6 % (42.2-75.2)
[2023-08-31 00:21] LABS: A/G RATIO 0.7; ANION GAP 12.7 mEq/L (7-13); BILIRUBIN TOTAL 1.7 mg/dL (0.2-1.0); BUN/CREATININE RATIO 14.9 (No establ ref range); CALCIUM 8.7 mg/dL (8.5-10.1); CREATININE 1.14 mg/dL (0.70-1.30); EST CRCL DRUG DOSING (CG) 69.96 mL/min; MAGNESIUM 1.7 mg/dL (1.8-2.4); POTASSIUM,K 3.7 mmol/L (3.5-5.1); PROTEIN TOTAL,TP 7.3 g/dL (6.4-8.2)
[2023-08-31] MEDS ORDERED: HYDROmorphone 1 MG/ML Syringe IVPUSH ONE (00:25)
[2023-08-31] MEDS ORDERED: Naloxone 2 MG/2 ML Syringe IVPUSH PRN (00:25)
[2023-08-31 00:33] LABS: BAND PERCENT MAN 2 %; LYMPHOCYTES PERCENT MAN 10 % (20-50); MONOCYTES PERCENT MAN 3 % (2-8); SEG NEUTROPHILS PERCENT MAN 85 % (42-75)
[2023-08-31 00:46] LABS: APPEARANCE,URINE CLEAR (CLEAR); BILIRUBIN,URINE SMALL (NEGATIVE); COLOR,URINE YELLOW (YELLOW); GLUCOSE,URINE NEGATIVE (NEGATIVE); KETONES,URINE NEGATIVE (NEGATIVE); LEUKOCYTE ESTERASE,URINE NEGATIVE (NEGATIVE); NITRITE,URINE NEGATIVE (NEGATIVE); OCCULT BLOOD,URINE NEGATIVE (NEGATIVE); PROTEIN,URINE 30 (NEGATIVE); UROBILINOGEN,URINE 0.2 mg/dL (0.2-1.0)
[2023-08-31 01:00] LABS: BACTERIA,URINE FEW /HPF (0-FEW/HPF); EPITHELIAL CELLS,URINE FEW /HPF (NOT SEEN); HYALINE CASTS,URINE OCCASIONAL; MUCUS,URINE FEW /LPF (NOT SEEN); RBC,URINE 0-5 /HPF (0-5); WBC,URINE NOT SEEN /HPF (0-5/HPF)
[2023-08-31] MEDS ORDERED: Iopamidol 612 MG/ML 100 ML Bottle IVPUSH ONE (01:26)
[2023-08-31] MEDS ORDERED: Ciprofloxacin in D5W 400 MG in Premix Bag 1 BAG IV ONE ×2 (04:22)
[2023-08-31] MEDS ORDERED: metroNIDAZOLE/Normal Saline 500 MG in Premix Bag 1 BAG IV ONE (04:24)
[2023-08-31] MEDS ORDERED: Docusate Sodium 100 MG Cap PO PRN (08:16)
[2023-08-31] MEDS ORDERED: Acetaminophen/HYDROcodone 325-5 MG Tab PO PRN (08:16)
[2023-08-31] MEDS ORDERED: Acetaminophen 325 MG Tab PO PRN (08:16)
[2023-08-31] MEDS ORDERED: HYDROmorphone 0.5 MG/0.5 ML Syringe IVPUSH PRN (08:16)
[2023-08-31] MEDS ORDERED: Ondansetron 4 MG Tab.DIS PO PRN (08:16)
[2023-08-31] MEDS ORDERED: 50% Dextrose in Water 50 ML Syringe IVPUSH PRN (08:23)
[2023-08-31] MEDS ORDERED: Glucagon,Human Recombinant 1 MG Vial IM PRN (08:23)
[2023-08-31] MEDS: Levofloxacin/Dextrose 5%-Water 500 MG in Premix Bag 1 BAG IV SCH (10:44)
[2023-08-31] MEDS: Nystatin Topical Powder 60 GM Bottle TOP SCH (10:44)
[2023-08-31] MEDS: Pantoprazole 40 MG Vial IVPUSH SCH (10:45)
[2023-08-31] MEDS: Enoxaparin 40 MG/0.4 ML Syringe SUBCUT SCH (10:45)
[2023-08-31] MEDS: FLUoxetine 10 MG Cap PO SCH (10:46)
[2023-08-31] MEDS: Nicotine 14 MG/24 Hr Patch TRDERM SCH (10:46)
[2023-08-31] MEDS: Aspirin 81 MG Tab.EC PO SCH (10:47)
[2023-08-31] MEDS: hydrOXYzine HCl 25 MG Tab PO PRN (10:47)
[2023-08-31] MEDS: Metoprolol Succinate 50 MG Tab.ER PO SCH (10:48)
[2023-08-31] MEDS: Lisinopril 20 MG Tab PO SCH (10:49)
[2023-08-31] MEDS: Sodium Chloride 0.9% 1,000 ML IV SCH (10:49)
[2023-08-31] MEDS: metFORMIN 500 MG Tab PO SCH ×3 (12:23→18:56)
[2023-08-31] MEDS: Insulin Lispro 100 Units/ML 3 ML Vial SUBCUT SCH ×3 (12:24→22:36)
[2023-09-01] MEDS: Nystatin Topical Powder 60 GM Bottle TOP SCH ×3 (00:06→22:06)
[2023-09-01] MEDS: Sodium Chloride 0.9% 1,000 ML IV SCH ×4 (00:09→23:40)
[2023-09-01 06:23] LABS: BASOPHILS PERCENT AUTO 0.5 % (0.0-1.0); EOSINOPHILS PERCENT AUTO 1.6 % (1.0-3.0); HEMATOCRIT 37.8 % (40.0-54.0); HEMOGLOBIN 11.9 g/dL (14.0-18.0); LYMPHOCYTES PERCENT AUTO 17.1 % (20.5-50.1); MEAN CORPUSCULAR HEMOGLOBIN 27.9 pg (27.0-34.0); MEAN CORPUSCULAR HGB CONC 31.5 g/dL (33.0-35.0); MEAN CORPUSCULAR VOLUME 88.7 fL (80-100); NEUTROPHILS PERCENT AUTO 73.8 % (42.2-75.2); PLATELET COUNT,PLT 228 10^3/uL (150-450); RED BLOOD CELL COUNT 4.26 10^6/uL (4.6-6.2); WHITE BLOOD CELL COUNT,WBC 8.3 10^3/uL (5.0-10.0)
[2023-09-01 06:37] LABS: ALBUMIN 2.7 g/dL (3.4-5.0); BILIRUBIN TOTAL 2.3 mg/dL (0.2-1.0); BUN/CREATININE RATIO 5.9 (No establ ref range); CALCIUM 8.6 mg/dL (8.5-10.1); CREATININE 1.01 mg/dL (0.70-1.30); EST CRCL DRUG DOSING (CG) 78.96 mL/min; PROTEIN TOTAL,TP 6.5 g/dL (6.4-8.2)
[2023-09-01 07:02] LABS: A/G RATIO 0.71
[2023-09-01 07:06] LABS: ANION GAP 14.5 mEq/L (7-13); POTASSIUM,K 3.5 mmol/L (3.5-5.1)
[2023-09-01] MEDS: Insulin Lispro 100 Units/ML 3 ML Vial SUBCUT SCH ×3 (09:06→17:55)
[2023-09-01] MEDS: metFORMIN 500 MG Tab PO SCH ×2 (09:06→17:45)
[2023-09-01] MEDS: Nicotine 14 MG/24 Hr Patch TRDERM SCH (09:23)
[2023-09-01] MEDS: Levofloxacin/Dextrose 5%-Water 500 MG in Premix Bag 1 BAG IV SCH (09:23)
[2023-09-01] MEDS: Pantoprazole 40 MG Vial IVPUSH SCH (09:25)
[2023-09-01] MEDS: Enoxaparin 40 MG/0.4 ML Syringe SUBCUT SCH (09:26)
[2023-09-01] MEDS: FLUoxetine 10 MG Cap PO SCH (09:26)
[2023-09-01] MEDS: Metoprolol Succinate 50 MG Tab.ER PO SCH (09:35)
[2023-09-01] MEDS: Aspirin 81 MG Tab.EC PO SCH (09:36)
[2023-09-01] MEDS: Lisinopril 20 MG Tab PO SCH (09:39)
[2023-09-01] MEDS ORDERED: oxyCODONE 5 MG Tab PO PRN (11:11)
[2023-09-01] MEDS ORDERED: Ibuprofen 400 MG Tab PO PRN (11:31)
[2023-09-01] MEDS ORDERED: diphenhydrAMINE 50 MG/ML SDV IVPUSH ONE (11:42)
[2023-09-01] MEDS ORDERED: Famotidine 20 MG/2 ML SDV IVPUSH ONE (11:42)
[2023-09-01] MEDS ORDERED: Dexamethasone 4 MG/ML SDV IVPUSH ONE (11:42)
[2023-09-01] MEDS: Piperacillin/Tazobactam 3.375 GM in Sodium Chloride 0.9% 100 ML IV SCH ×3 (13:02→23:38)
[2023-09-01] MEDS: SOLIFENACIN 10 MG PO SCH (13:22)
[2023-09-01] MEDS: Saccharomyces Boulardii (Probiotic) 250 MG Cap PO SCH (22:05)
[2023-09-02] MEDS: hydrOXYzine HCl 25 MG Tab PO PRN (02:55)
[2023-09-02] MEDS: Pantoprazole 40 MG Tab.CR PO SCH (05:41)
[2023-09-02] MEDS: Piperacillin/Tazobactam 3.375 GM in Sodium Chloride 0.9% 100 ML IV SCH ×3 (05:41→17:16)
[2023-09-02 06:29] LABS: HEMATOCRIT 37.6 % (40.0-54.0); HEMOGLOBIN 11.8 g/dL (14.0-18.0); MEAN CORPUSCULAR HEMOGLOBIN 27.7 pg (27.0-34.0); MEAN CORPUSCULAR HGB CONC 31.4 g/dL (33.0-35.0); MEAN CORPUSCULAR VOLUME 88.3 fL (80-100); PLATELET COUNT,PLT 233 10^3/uL (150-450); RED BLOOD CELL COUNT 4.26 10^6/uL (4.6-6.2); WHITE BLOOD CELL COUNT,WBC 10.4 10^3/uL (5.0-10.0)
[2023-09-02 06:41] LABS: BASOPHILS PERCENT AUTO 0.3 % (0.0-1.0); LYMPHOCYTES PERCENT AUTO 9.1 % (20.5-50.1); NEUTROPHILS PERCENT AUTO 85.6 % (42.2-75.2)
[2023-09-02 06:56] LABS: ALBUMIN 2.7 g/dL (3.4-5.0); ANION GAP 12.6 mEq/L (7-13); BILIRUBIN TOTAL 1.3 mg/dL (0.2-1.0); BUN/CREATININE RATIO 7.4 (No establ ref range); C-REACTIVE PROTEIN 1.81 ng/dL (<=0.30); CALCIUM 8.5 mg/dL (8.5-10.1); CREATININE 1.08 mg/dL (0.70-1.30); EST CRCL DRUG DOSING (CG) 73.84 mL/min; MAGNESIUM 1.7 mg/dL (1.8-2.4); POTASSIUM,K 3.6 mmol/L (3.5-5.1); PROTEIN TOTAL,TP 6.8 g/dL (6.4-8.2)
[2023-09-02 06:58] LABS: LYMPHOCYTES PERCENT MAN 8 % (20-50); MONOCYTES PERCENT MAN 8 % (2-8); SEG NEUTROPHILS PERCENT MAN 84 % (42-75)
[2023-09-02 06:59] LABS: HYPOCHROMASIA 1+ SLIGHT
[2023-09-02 07:02] LABS: A/G RATIO 0.66
[2023-09-02] MEDS: Nicotine 14 MG/24 Hr Patch TRDERM SCH (08:00)
[2023-09-02] MEDS: Insulin Lispro 100 Units/ML 3 ML Vial SUBCUT SCH ×3 (08:02→17:02)
[2023-09-02] MEDS: Metoprolol Succinate 50 MG Tab.ER PO SCH (08:26)
[2023-09-02] MEDS: Lisinopril 20 MG Tab PO SCH (08:26)
[2023-09-02] MEDS: metFORMIN 500 MG Tab PO SCH ×2 (08:27→17:16)
[2023-09-02] MEDS: Saccharomyces Boulardii (Probiotic) 250 MG Cap PO SCH ×2 (08:27→20:30)
[2023-09-02] MEDS: FLUoxetine 10 MG Cap PO SCH (08:27)
[2023-09-02] MEDS: Enoxaparin 40 MG/0.4 ML Syringe SUBCUT SCH (08:28)
[2023-09-02] MEDS: SOLIFENACIN 10 MG PO SCH (08:28)
[2023-09-02] MEDS: Nystatin Topical Powder 60 GM Bottle TOP SCH ×2 (08:29→20:32)
[2023-09-02] MEDS: Sodium Chloride 0.9% 1,000 ML IV SCH (19:37)
[2023-09-03] MEDS: Piperacillin/Tazobactam 3.375 GM in Sodium Chloride 0.9% 100 ML IV SCH ×4 (00:01→19:05)
[2023-09-03] MEDS: hydrOXYzine HCl 25 MG Tab PO PRN (01:56)
[2023-09-03] MEDS: Pantoprazole 40 MG Tab.CR PO SCH (05:26)
[2023-09-03 06:26] LABS: BASOPHILS PERCENT AUTO 0.5 % (0.0-1.0); EOSINOPHILS PERCENT AUTO 0.9 % (1.0-3.0); HEMATOCRIT 36.1 % (40.0-54.0); HEMOGLOBIN 11.4 g/dL (14.0-18.0); LYMPHOCYTES PERCENT AUTO 22.5 % (20.5-50.1); MEAN CORPUSCULAR HEMOGLOBIN 28.6 pg (27.0-34.0); MEAN CORPUSCULAR HGB CONC 31.6 g/dL (33.0-35.0); MEAN CORPUSCULAR VOLUME 90.5 fL (80-100); MONOCYTES PERCENT AUTO 6.8 % (2-8); NEUTROPHILS PERCENT AUTO 69.3 % (42.2-75.2); PLATELET COUNT,PLT 225 10^3/uL (150-450); RED BLOOD CELL COUNT 3.99 10^6/uL (4.6-6.2); WHITE BLOOD CELL COUNT,WBC 9.8 10^3/uL (5.0-10.0)
[2023-09-03 06:29] LABS: ALBUMIN 2.4 g/dL (3.4-5.0); ANION GAP 10.6 mEq/L (7-13); BILIRUBIN TOTAL 0.5 mg/dL (0.2-1.0); BUN/CREATININE RATIO 13.6 (No establ ref range); C-REACTIVE PROTEIN 0.87 ng/dL (<=0.30); CALCIUM 7.7 mg/dL (8.5-10.1); CREATININE 1.18 mg/dL (0.70-1.30); EST CRCL DRUG DOSING (CG) 67.58 mL/min; MAGNESIUM 1.7 mg/dL (1.8-2.4); POTASSIUM,K 3.6 mmol/L (3.5-5.1); PROTEIN TOTAL,TP 6.2 g/dL (6.4-8.2)
[2023-09-03 06:38] LABS: A/G RATIO 0.63
[2023-09-03] MEDS: FLUoxetine 10 MG Cap PO SCH (08:15)
[2023-09-03] MEDS: Insulin Lispro 100 Units/ML 3 ML Vial SUBCUT SCH ×3 (08:16→16:38)
[2023-09-03] MEDS: metFORMIN 500 MG Tab PO SCH ×2 (08:16→17:31)
[2023-09-03] MEDS: Metoprolol Succinate 50 MG Tab.ER PO SCH (08:16)
[2023-09-03] MEDS: Lisinopril 20 MG Tab PO SCH (08:16)
[2023-09-03] MEDS: Nystatin Topical Powder 60 GM Bottle TOP SCH ×2 (08:17→23:08)
[2023-09-03] MEDS: SOLIFENACIN 10 MG PO SCH (08:17)
[2023-09-03] MEDS: Nicotine 14 MG/24 Hr Patch TRDERM SCH (08:18)
[2023-09-03] MEDS: Enoxaparin 40 MG/0.4 ML Syringe SUBCUT SCH (08:18)
[2023-09-03] MEDS: Saccharomyces Boulardii (Probiotic) 250 MG Cap PO SCH ×3 (08:26→20:00)
[2023-09-03] MEDS: Sodium Chloride 0.9% 1,000 ML IV SCH (09:06)
[2023-09-03] MEDS ORDERED: Magnesium Sulfate/Water 2 GM in Premix Bag 1 BAG IV ONE ×2 (11:59→17:00)
[2023-09-04] MEDS: Piperacillin/Tazobactam 3.375 GM in Sodium Chloride 0.9% 100 ML IV SCH ×4 (00:04→17:43)
[2023-09-04] MEDS: Pantoprazole 40 MG Tab.CR PO SCH (05:06)
[2023-09-04] MEDS: Sodium Chloride 0.9% 1,000 ML IV SCH (05:10)
[2023-09-04 06:43] LABS: BASOPHILS PERCENT AUTO 0.2 % (0.0-1.0); EOSINOPHILS PERCENT AUTO 1.5 % (1.0-3.0); HEMOGLOBIN 11.4 g/dL (14.0-18.0); LYMPHOCYTES PERCENT AUTO 20.5 % (20.5-50.1); MEAN CORPUSCULAR HEMOGLOBIN 27.9 pg (27.0-34.0); MEAN CORPUSCULAR HGB CONC 30.8 g/dL (33.0-35.0); MEAN CORPUSCULAR VOLUME 90.7 fL (80-100); MONOCYTES PERCENT AUTO 6.5 % (2-8); NEUTROPHILS PERCENT AUTO 71.3 % (42.2-75.2); PLATELET COUNT,PLT 216 10^3/uL (150-450); RED BLOOD CELL COUNT 4.08 10^6/uL (4.6-6.2); WHITE BLOOD CELL COUNT,WBC 11.4 10^3/uL (5.0-10.0)
[2023-09-04 06:45] LABS: ALBUMIN 2.5 g/dL (3.4-5.0); ANION GAP 12.9 mEq/L (7-13); BILIRUBIN TOTAL 0.7 mg/dL (0.2-1.0); C-REACTIVE PROTEIN 0.8 ng/dL (<=0.50); CALCIUM 7.8 mg/dL (8.5-10.1); CREATININE 1.07 mg/dL (0.70-1.30); EST CRCL DRUG DOSING (CG) 74.53 mL/min; MAGNESIUM 2.3 mg/dL (1.8-2.4); POTASSIUM,K 3.9 mmol/L (3.5-5.1); PROTEIN TOTAL,TP 6.2 g/dL (6.4-8.2)
[2023-09-04 06:58] LABS: A/G RATIO 0.68
[2023-09-04] MEDS: metFORMIN 500 MG Tab PO SCH ×2 (08:22→17:42)
[2023-09-04] MEDS: Saccharomyces Boulardii (Probiotic) 250 MG Cap PO SCH ×2 (08:23→20:00)
[2023-09-04] MEDS: Insulin Lispro 100 Units/ML 3 ML Vial SUBCUT SCH ×3 (08:23→17:11)
[2023-09-04] MEDS: Lisinopril 20 MG Tab PO SCH (08:24)
[2023-09-04] MEDS: Nicotine 14 MG/24 Hr Patch TRDERM SCH (08:24)
[2023-09-04] MEDS: Metoprolol Succinate 50 MG Tab.ER PO SCH (08:24)
[2023-09-04] MEDS: FLUoxetine 10 MG Cap PO SCH (08:25)
[2023-09-04] MEDS: Enoxaparin 40 MG/0.4 ML Syringe SUBCUT SCH (08:25)
[2023-09-04] MEDS: Nystatin Topical Powder 60 GM Bottle TOP SCH (08:26)
[2023-09-04] MEDS: SOLIFENACIN 10 MG PO SCH (08:27)
[2023-09-05] MEDS: Nystatin Topical Powder 60 GM Bottle TOP SCH ×2 (00:12→08:57)
[2023-09-05] MEDS: Piperacillin/Tazobactam 3.375 GM in Sodium Chloride 0.9% 100 ML IV SCH ×3 (00:22→12:17)
[2023-09-05] MEDS: Pantoprazole 40 MG Tab.CR PO SCH (05:22)
[2023-09-05 06:07] LABS: HEMATOCRIT 35.3 % (40.0-54.0); MEAN CORPUSCULAR HEMOGLOBIN 28.4 pg (27.0-34.0); MEAN CORPUSCULAR HGB CONC 31.2 g/dL (33.0-35.0); MEAN CORPUSCULAR VOLUME 91.2 fL (80-100); PLATELET COUNT,PLT 194 10^3/uL (150-450); RED BLOOD CELL COUNT 3.87 10^6/uL (4.6-6.2); WHITE BLOOD CELL COUNT,WBC 11.8 10^3/uL (5.0-10.0)
[2023-09-05 06:21] LABS: BASOPHILS PERCENT AUTO 0.3 % (0.0-1.0); EOSINOPHILS PERCENT AUTO 1.7 % (1.0-3.0); LYMPHOCYTES PERCENT AUTO 17.8 % (20.5-50.1); NEUTROPHILS PERCENT AUTO 74.2 % (42.2-75.2)
[2023-09-05 06:30] LABS: ALBUMIN 2.4 g/dL (3.4-5.0); ANION GAP 10.9 mEq/L (7-13); BILIRUBIN TOTAL 0.6 mg/dL (0.2-1.0); BUN/CREATININE RATIO 13.1 (No establ ref range); C-REACTIVE PROTEIN 1.69 ng/dL (<=0.50); CALCIUM 7.7 mg/dL (8.5-10.1); CREATININE 0.99 mg/dL (0.70-1.30); EST CRCL DRUG DOSING (CG) 80.56 mL/min; POTASSIUM,K 3.9 mmol/L (3.5-5.1)
[2023-09-05 06:31] LABS: A/G RATIO 0.67
[2023-09-05 07:26] LABS: EOSINOPHILS PERCENT MAN 1 % (1-3); LYMPHOCYTES PERCENT MAN 24 % (20-50); MONOCYTES PERCENT MAN 5 % (2-8); SEG NEUTROPHILS PERCENT MAN 70 % (42-75)
[2023-09-05] MEDS: Saccharomyces Boulardii (Probiotic) 250 MG Cap PO SCH (08:55)
[2023-09-05] MEDS: Enoxaparin 40 MG/0.4 ML Syringe SUBCUT SCH (08:55)
[2023-09-05] MEDS: Lisinopril 20 MG Tab PO SCH (08:55)
[2023-09-05] MEDS: FLUoxetine 10 MG Cap PO SCH (08:55)
[2023-09-05] MEDS: Metoprolol Succinate 50 MG Tab.ER PO SCH (08:55)
[2023-09-05] MEDS: metFORMIN 500 MG Tab PO SCH (08:56)
[2023-09-05] MEDS: Insulin Lispro 100 Units/ML 3 ML Vial SUBCUT SCH ×2 (08:56→12:21)
[2023-09-05] MEDS: Nicotine 14 MG/24 Hr Patch TRDERM SCH (08:57)
[2023-09-05] MEDS: SOLIFENACIN 10 MG PO SCH (08:58)
[2023-09-05 12:41] VITALS: BP 123/63; PULSE 67
== END 2023-09-05 14:50 | disposition home or self-care (01) | DRG 445 ==
LOC: DL.ED 22:48 → DL.MS 08-31 06:00
PROVIDERS: ADMIT Internal Medicine; ATTEND Internal Medicine
DX: K81.0 Acute cholecystitis (principal); E11.9 Type 2 diabetes mellitus without complications; I10 Essential (primary) hypertension; E66.9 Obesity, unspecified; B17.9 Acute viral hepatitis, unspecified; D84.9 Immunodeficiency, unspecified; Z68.43 Body mass index [BMI] 50.0-59.9, adult; E87.1 Hypo-osmolality and hyponatremia; I12.9 Hypertensive chronic kidney disease with stage 1 through stage 4 chronic kidney disease, or unspecified chronic kidney disease; E78.5 Hyperlipidemia, unspecified; N18.9 Chronic kidney disease, unspecified; E11.22 Type 2 diabetes mellitus with diabetic chronic kidney disease; G47.33 Obstructive sleep apnea (adult) (pediatric); M19.90 Unspecified osteoarthritis, unspecified site; F17.210 Nicotine dependence, cigarettes, uncomplicated; G89.4 Chronic pain syndrome; E66.01 Morbid (severe) obesity due to excess calories; E11.65 Type 2 diabetes mellitus with hyperglycemia; R06.89 Other abnormalities of breathing; E83.42 Hypomagnesemia; Z79.82 Long term (current) use of aspirin; Z79.899 Other long term (current) drug therapy; Z79.84 Long term (current) use of oral hypoglycemic drugs; Z88.0 Allergy status to penicillin; Z88.8 Allergy status to other drugs, medicaments and biological substances; Z88.1 Allergy status to other antibiotic agents
CPT/HCPCS: 36415; 74177; 80053; 81001; 82947; 82977; 83690; 83735; 85025; 86140; 96365; 96375; 99232; 99233; 99238; 99282; 99284; 99285-25; A9270-GY; C9113; J0744; J1100; J1170; J1200; J1650; J1836; J1956; J2543; J3475; J3490; J7030; J7120; Q9967

== ENCOUNTER 2024-04-21 18:49 | Inpatient (IN) | payer MEDICARE ==
[2024-04-21 19:39] LABS: BASOPHILS PERCENT AUTO 0.4 % (0.0-1.0); EOSINOPHILS PERCENT AUTO 1.9 % (1.0-3.0); HEMATOCRIT 41.6 % (40.0-54.0); HEMOGLOBIN 12.9 g/dL (14.0-18.0); LYMPHOCYTES PERCENT AUTO 13.3 % (20.5-50.1); MEAN CORPUSCULAR HEMOGLOBIN 29.4 pg (27.0-34.0); MEAN CORPUSCULAR VOLUME 94.8 fL (80-100); MONOCYTES PERCENT AUTO 6.1 % (2-8); NEUTROPHILS PERCENT AUTO 78.3 % (42.2-75.2); PLATELET COUNT,PLT 265 10^3/uL (150-450); RED BLOOD CELL COUNT 4.39 10^6/uL (4.6-6.2); WHITE BLOOD CELL COUNT,WBC 12.3 10^3/uL (5.0-10.0)
[2024-04-21] MEDS ORDERED: 50% Dextrose in Water 50 ML Syringe IVPUSH PRN ×4 (19:43→21:49)
[2024-04-21] MEDS ORDERED: Glucagon,Human Recombinant 1 MG Vial IM PRN ×4 (19:43→21:49)
[2024-04-21] MEDS: Insulin Regular, Human 100 Units/ML 3 ML Vial IV ONE ×2 (19:50→21:15)
[2024-04-21 19:58] LABS: KETONES,BLOOD NEGATIVE
[2024-04-21] MEDS: Sodium Chloride 0.45% with KCl 1,000 ML IV SCH (20:00)
[2024-04-21 20:02] LABS: ALANINE AMINOTRANSFERASE,ALT 21 U/L (16-63); ALBUMIN 2.9 g/dL (3.4-5.0); ALKALINE PHOSPHATASE 180 U/L (46-116); AMYLASE 13 U/L (25-115); ANION GAP 17.7 mEq/L (7-13); ASPARTATE AMNIOTRANSFERASE,AST 12 U/L (15-37); BILIRUBIN TOTAL 0.7 mg/dL (0.2-1.0); BLOOD UREA NITROGEN,BUN 21 mg/dL (7-18); BUN/CREATININE RATIO 10.3 (No establ ref range); C-REACTIVE PROTEIN 4.01 ng/dL (<=0.50); CALCIUM 8.2 mg/dL (8.5-10.1); CARBON DIOXIDE,CO2 20 mmol/L (21-32); CHLORIDE,CL 88 mmol/L (98-107); CREATININE 2.04 mg/dL (0.70-1.30); EST CRCL DRUG DOSING (CG) 38.66 mL/min; LIPASE 39 U/L (16-77); POTASSIUM,K 4.7 mmol/L (3.5-5.1); PROTEIN TOTAL,TP 7.2 g/dL (6.4-8.2); SODIUM,NA 121 mmol/L (136-145)
[2024-04-21 20:05] LABS: A/G RATIO 0.67; ESTIMATED GFR 39 mL/min (>=60)
[2024-04-21 20:22] LABS: GLUCOSE RANDOM 856 mg/dL (70-99)
[2024-04-21 20:27] LABS: O2 DELIVERY DEVICE ROOM AIR; O2 SATURATION VENOUS 82.1 % (60-80); PCO2 VENOUS 41 mmHg (41-51); PH,VENOUS 7.28 (7.31-7.41); PO2 VENOUS 55 mmHg (35-42)
[2024-04-21 20:28] LABS: BASE EXCESS VENOUS -7.5 mmol/l ((-2)-(+3)); BICARBONATE,VENOUS 18 mmol/l (19-25)
[2024-04-21] MEDS: Acetaminophen/HYDROcodone 325-10 MG Tab PO ONE (20:40)
[2024-04-21 20:45] LABS: APPEARANCE,URINE CLEAR (CLEAR); BILIRUBIN,URINE NEGATIVE (NEGATIVE); COLOR,URINE YELLOW (YELLOW); GLUCOSE,URINE 500 (NEGATIVE); KETONES,URINE NEGATIVE (NEGATIVE); LEUKOCYTE ESTERASE,URINE NEGATIVE (NEGATIVE); NITRITE,URINE NEGATIVE (NEGATIVE); OCCULT BLOOD,URINE TRACE-INTACT (NEGATIVE); PROTEIN,URINE NEGATIVE (NEGATIVE); UROBILINOGEN,URINE 0.2 mg/dL (0.2-1.0)
[2024-04-21 20:58] LABS: BACTERIA,URINE FEW /HPF (0-FEW/HPF); EPITHELIAL CELLS,URINE RARE /HPF (NOT SEEN); MUCUS,URINE FEW /LPF (NOT SEEN); WBC,URINE 0-5 /HPF (0-5/HPF); YEAST,URINE RARE /HPF (NOT SEEN)
[2024-04-21 21:06] LABS: INR 0.9 (0.9-1.2); PROTHROMBIN TIME 9.7 SEC (9.0-12.0); PTT,PARTIAL THROMBOPLSTIN TIME 25.2 SEC (22.0-34.0)
[2024-04-21] MEDS ORDERED: Ondansetron 4 MG Tab.DIS PO PRN (21:41)
[2024-04-21] MEDS ORDERED: Acetaminophen 325 MG Tab PO PRN (21:41)
[2024-04-21] MEDS ORDERED: Docusate Sodium 100 MG Cap PO PRN (21:41)
[2024-04-21] MEDS: Sodium Chloride 0.9% 1,000 ML IV SCH (22:35)
[2024-04-21] MEDS: Insulin Lispro 100 Units/ML 3 ML Vial SUBCUT SCH (22:39)
[2024-04-21] MEDS: Insulin Glarg,Human.Rec.Analog 100 Unit/ML 10 ML Vial SUBCUT SCH (22:41)
[2024-04-21] MEDS ORDERED: Nystatin Topical Powder 60 GM Bottle TOP PRN (22:56)
[2024-04-21] MEDS: Cyclobenzaprine 10 MG Tab PO SCH (23:34)
[2024-04-22] MEDS: Acetaminophen/HYDROcodone 325-5 MG Tab PO PRN (00:15)
[2024-04-22] MEDS ORDERED: Cyclobenzaprine 10 MG Tab PO PRN (00:22)
[2024-04-22 06:22] LABS: BASOPHILS PERCENT AUTO 0.3 % (0.0-1.0); HEMOGLOBIN 11.3 g/dL (14.0-18.0); LYMPHOCYTES PERCENT AUTO 19.4 % (20.5-50.1); MEAN CORPUSCULAR HEMOGLOBIN 28.8 pg (27.0-34.0); MEAN CORPUSCULAR HGB CONC 33.2 g/dL (33.0-35.0); MEAN CORPUSCULAR VOLUME 86.7 fL (80-100); MONOCYTES PERCENT AUTO 7.4 % (2-8); NEUTROPHILS PERCENT AUTO 69.9 % (42.2-75.2); PLATELET COUNT,PLT 238 10^3/uL (150-450); RED BLOOD CELL COUNT 3.92 10^6/uL (4.6-6.2); WHITE BLOOD CELL COUNT,WBC 11.2 10^3/uL (5.0-10.0)
[2024-04-22 06:34] LABS: ANION GAP 10.7 mEq/L (7-13); CREATININE 1.54 mg/dL (0.70-1.30); EST CRCL DRUG DOSING (CG) 51.21 mL/min; POTASSIUM,K 3.7 mmol/L (3.5-5.1)
[2024-04-22] MEDS ORDERED: Insulin Lispro 100 Units/ML 3 ML Vial SUBCUT SCH (08:00)
[2024-04-22] MEDS ORDERED: metFORMIN 500 MG Tab PO SCH (08:00)
[2024-04-22] MEDS: Enoxaparin 40 MG/0.4 ML Syringe SUBCUT SCH (08:09)
[2024-04-22] MEDS: Metoprolol Succinate 50 MG Tab.ER PO SCH (08:10)
[2024-04-22] MEDS: Doxycycline Monohydrate 100 MG Cap PO SCH (08:10)
[2024-04-22] MEDS: FLUoxetine 10 MG Cap PO SCH (08:11)
[2024-04-22] MEDS: Lisinopril 20 MG Tab PO SCH (08:11)
[2024-04-22] MEDS: CEFADROXIL 500 MG PO SCH (09:04)
[2024-04-22] MEDS ORDERED: Insulin Glarg,Human.Rec.Analog 100 Unit/ML 10 ML Vial SUBCUT SCH (21:00)
[2024-04-22] MEDS: Insulin Glarg,Human.Rec.Analog 100 Unit/ML 10 ML Vial SUBCUT SCH (21:54)
[2024-04-23 06:42] LABS: BASOPHILS PERCENT AUTO 0.3 % (0.0-1.0); EOSINOPHILS PERCENT AUTO 3.2 % (1.0-3.0); HEMATOCRIT 35.5 % (40.0-54.0); HEMOGLOBIN 11.4 g/dL (14.0-18.0); LYMPHOCYTES PERCENT AUTO 19.8 % (20.5-50.1); MEAN CORPUSCULAR HEMOGLOBIN 28.6 pg (27.0-34.0); MEAN CORPUSCULAR HGB CONC 32.1 g/dL (33.0-35.0); MEAN CORPUSCULAR VOLUME 89.2 fL (80-100); MONOCYTES PERCENT AUTO 6.4 % (2-8); NEUTROPHILS PERCENT AUTO 70.3 % (42.2-75.2); PLATELET COUNT,PLT 245 10^3/uL (150-450); RED BLOOD CELL COUNT 3.98 10^6/uL (4.6-6.2)
[2024-04-23 06:51] LABS: ANION GAP 12.4 mEq/L (7-13); CALCIUM 8.2 mg/dL (8.5-10.1); CREATININE 1.15 mg/dL (0.70-1.30); EST CRCL DRUG DOSING (CG) 68.58 mL/min; POTASSIUM,K 4.4 mmol/L (3.5-5.1)
[2024-04-23] MEDS: Insulin Glarg,Human.Rec.Analog 100 Unit/ML 10 ML Vial SUBCUT SCH (21:27)
[2024-04-23] MEDS: Sodium Chloride 0.9% 10 ML Syringe FLUSH PRN (21:31)
[2024-04-24 12:01] VITALS: BP 125/61; PULSE 72
== END 2024-04-24 13:30 | disposition home or self-care (01) | DRG 638 ==
LOC: DL.ED 18:49 → DL.MS 21:06 → UNDOADMIN 21:06
PROVIDERS: ADMIT Internal Medicine; ATTEND Internal Medicine
DX: E11.65 Type 2 diabetes mellitus with hyperglycemia (principal); E87.1 Hypo-osmolality and hyponatremia; Z68.43 Body mass index [BMI] 50.0-59.9, adult; E87.20 Acidosis, unspecified; H54.7 Unspecified visual loss; E78.00 Pure hypercholesterolemia, unspecified; I10 Essential (primary) hypertension; G47.30 Sleep apnea, unspecified; M19.90 Unspecified osteoarthritis, unspecified site; M54.9 Dorsalgia, unspecified; G89.29 Other chronic pain; F32.A Depression, unspecified; E11.9 Type 2 diabetes mellitus without complications; E66.01 Morbid (severe) obesity due to excess calories; R79.89 Other specified abnormal findings of blood chemistry; E86.0 Dehydration; Z88.1 Allergy status to other antibiotic agents; Z79.84 Long term (current) use of oral hypoglycemic drugs; Z79.899 Other long term (current) drug therapy; Z90.89 Acquired absence of other organs; Z87.891 Personal history of nicotine dependence; Z99.3 Dependence on wheelchair
CPT/HCPCS: 36415; 71045; 80048; 80053; 81001; 82009; 82150; 82803; 82947; 83605; 83690; 83735; 84145; 84681; 85025; 85610; 85730; 86140; 87040; 93005; 97161-GP; 97165-GO; A9270-GY; J1650; J1815-GY; J3480; J3490; J7030

== ENCOUNTER 2024-08-23 16:49 | Inpatient (IN) | payer MEDICARE ==
[2024-08-23 17:34] LABS: HEMATOCRIT 43.4 % (40.0-54.0); HEMOGLOBIN 13.3 g/dL (14.0-18.0); MEAN CORPUSCULAR HEMOGLOBIN 27.3 pg (27.0-34.0); MEAN CORPUSCULAR HGB CONC 30.6 g/dL (33.0-35.0); MEAN CORPUSCULAR VOLUME 88.9 fL (80-100); PLATELET COUNT,PLT 352 10^3/uL (150-450); RED BLOOD CELL COUNT 4.88 10^6/uL (4.6-6.2); WHITE BLOOD CELL COUNT,WBC 19.8 10^3/uL (5.0-10.0)
[2024-08-23 17:39] LABS: BASOPHILS PERCENT AUTO 0.2 % (0.0-1.0); EOSINOPHILS PERCENT AUTO 1.2 % (1.0-3.0); LYMPHOCYTES PERCENT AUTO 7.9 % (20.5-50.1); MONOCYTES PERCENT AUTO 5.2 % (2-8); NEUTROPHILS PERCENT AUTO 85.5 % (42.2-75.2)
[2024-08-23 17:54] LABS: ALBUMIN 3.3 g/dL (3.4-5.0); ANION GAP 12.9 mEq/L (7-13); BILIRUBIN TOTAL 0.7 mg/dL (0.2-1.0); BUN/CREATININE RATIO 14.5 (No establ ref range); C-REACTIVE PROTEIN 3.52 ng/dL (<=0.50); CALCIUM 9.1 mg/dL (8.5-10.1); CREATININE 1.1 mg/dL (0.70-1.30); EST CRCL DRUG DOSING (CG) 71.69 mL/min; POTASSIUM,K 3.9 mmol/L (3.5-5.1); PROTEIN TOTAL,TP 7.9 g/dL (6.4-8.2)
[2024-08-23 17:55] LABS: A/G RATIO 0.72
[2024-08-23 17:57] LABS: LACTIC ACID 0.9 mmol/L (0.4-2.0)
[2024-08-23 18:02] LABS: EOSINOPHILS PERCENT MAN 1 % (1-3); LYMPHOCYTES PERCENT MAN 12 % (20-50); MONOCYTES PERCENT MAN 7 % (2-8); SEG NEUTROPHILS PERCENT MAN 80 % (42-75)
[2024-08-23] MEDS: Acetaminophen/oxyCODONE 325-5 MG Tab PO ONE (19:24)
[2024-08-23] MEDS: Sodium Chloride 0.9% 10 ML Syringe FLUSH PRN (20:14)
[2024-08-23] MEDS: DAPTOmycin 500 MG Vial IVPUSH ONE (20:14)
[2024-08-23] MEDS: Insulin Glarg,Human.Rec.Analog 100 Unit/ML 10 ML Vial SUBCUT ONE (21:39)
[2024-08-23] MEDS: Acetaminophen 325 MG Tab PO PRN (22:53)
[2024-08-24] MEDS ORDERED: Docusate Sodium 100 MG Cap PO PRN (12:01)
[2024-08-24] MEDS ORDERED: Ondansetron 4 MG Tab.DIS PO PRN (12:01)
[2024-08-24] MEDS ORDERED: 50% Dextrose in Water 50 ML Syringe IVPUSH PRN (12:07)
[2024-08-24] MEDS ORDERED: Acetaminophen/HYDROcodone 325-5 MG Tab PO PRN (12:07)
[2024-08-24] MEDS ORDERED: Glucagon,Human Recombinant 1 MG Vial IM PRN (12:07)
[2024-08-24] MEDS: Acetaminophen/HYDROcodone 325-5 MG Tab PO PRN (15:00)
[2024-08-24] MEDS: Nicotine 21 MG/24 Hr Patch TRDERM SCH (15:03)
[2024-08-24] MEDS: Metoprolol Succinate 50 MG Tab.ER PO SCH (15:06)
[2024-08-24] MEDS: NIFEdipine 30 MG Tab.ER PO SCH (15:06)
[2024-08-24] MEDS: Ferrous Sulfate 325 MG Tab PO SCH (15:07)
[2024-08-24] MEDS: FLUoxetine 10 MG Cap PO SCH (15:07)
[2024-08-24] MEDS: Enoxaparin 40 MG/0.4 ML Syringe SUBCUT SCH (15:07)
[2024-08-24] MEDS: Insulin Lispro 100 Units/ML 3 ML Vial SUBCUT SCH (17:33)
[2024-08-24] MEDS: Tolterodine 2 MG Tab PO SCH (17:33)
[2024-08-24] MEDS: Sodium Chloride 0.9% 1,000 ML IV SCH (17:43)
[2024-08-24] MEDS: Acetaminophen/Butalbital/Caffeine 325-50-40 MG Tab PO PRN (19:41)
[2024-08-24] MEDS: Insulin Glarg,Human.Rec.Analog 100 Unit/ML 10 ML Vial SUBCUT SCH (21:34)
[2024-08-24] MEDS: DAPTOmycin 500 MG Vial IVPUSH SCH (21:36)
[2024-08-25 06:19] LABS: BASOPHILS PERCENT AUTO 0.1 % (0.0-1.0); EOSINOPHILS PERCENT AUTO 0.3 % (1.0-3.0); HEMATOCRIT 35.9 % (40.0-54.0); HEMOGLOBIN 11.1 g/dL (14.0-18.0); LYMPHOCYTES PERCENT AUTO 4.2 % (20.5-50.1); MEAN CORPUSCULAR HEMOGLOBIN 27.4 pg (27.0-34.0); MEAN CORPUSCULAR HGB CONC 30.9 g/dL (33.0-35.0); MEAN CORPUSCULAR VOLUME 88.6 fL (80-100); MONOCYTES PERCENT AUTO 4.7 % (2-8); NEUTROPHILS PERCENT AUTO 90.7 % (42.2-75.2); PLATELET COUNT,PLT 252 10^3/uL (150-450); RED BLOOD CELL COUNT 4.05 10^6/uL (4.6-6.2); WHITE BLOOD CELL COUNT,WBC 27.8 10^3/uL (5.0-10.0)
[2024-08-25 06:36] LABS: ANION GAP 11.1 mEq/L (7-13); CALCIUM 8.7 mg/dL (8.5-10.1); CREATININE 1.3 mg/dL (0.70-1.30); EST CRCL DRUG DOSING (CG) 60.66 mL/min; POTASSIUM,K 4.1 mmol/L (3.5-5.1)
[2024-08-25] MEDS: Lisinopril 20 MG Tab PO SCH (08:36)
[2024-08-25] MEDS ORDERED: Saccharomyces Boulardii (Probiotic) 250 MG Cap PO SCH (09:00)
[2024-08-25] MEDS ORDERED: Ibuprofen 600 MG Tab PO PRN (10:21)
[2024-08-25] MEDS ORDERED: oxyCODONE 5 MG Tab PO PRN (10:27)
[2024-08-25] MEDS: Saccharomyces Boulardii (Probiotic) 250 MG Cap PO SCH (10:50)
[2024-08-25] MEDS: Patient's Own Medication 1 Each PO PRN (16:21)
[2024-08-25] MEDS ORDERED: Check NICOTINE Patch TRDERM SCH (21:00)
[2024-08-26] MEDS: cefTRIAXone 1 GM Vial IV SCH (09:20)
[2024-08-26 13:10] LABS: BASOPHILS PERCENT AUTO 0.1 % (0.0-1.0); EOSINOPHILS PERCENT AUTO 0.5 % (1.0-3.0); HEMATOCRIT 33.5 % (40.0-54.0); HEMOGLOBIN 10.3 g/dL (14.0-18.0); LYMPHOCYTES PERCENT AUTO 5.5 % (20.5-50.1); MEAN CORPUSCULAR HGB CONC 30.7 g/dL (33.0-35.0); MEAN CORPUSCULAR VOLUME 87.9 fL (80-100); MONOCYTES PERCENT AUTO 5.2 % (2-8); NEUTROPHILS PERCENT AUTO 88.7 % (42.2-75.2); PLATELET COUNT,PLT 253 10^3/uL (150-450); RED BLOOD CELL COUNT 3.81 10^6/uL (4.6-6.2); WHITE BLOOD CELL COUNT,WBC 22.9 10^3/uL (5.0-10.0)
[2024-08-27] MEDS: Nystatin Topical Powder 60 GM Bottle TOP PRN (11:57)
[2024-08-28 05:49] LABS: BASOPHILS PERCENT AUTO 0.3 % (0.0-1.0); HEMATOCRIT 34.1 % (40.0-54.0); HEMOGLOBIN 10.6 g/dL (14.0-18.0); LYMPHOCYTES PERCENT AUTO 9.5 % (20.5-50.1); MEAN CORPUSCULAR HEMOGLOBIN 27.1 pg (27.0-34.0); MEAN CORPUSCULAR HGB CONC 31.1 g/dL (33.0-35.0); MEAN CORPUSCULAR VOLUME 87.2 fL (80-100); MONOCYTES PERCENT AUTO 6.7 % (2-8); NEUTROPHILS PERCENT AUTO 81.5 % (42.2-75.2); PLATELET COUNT,PLT 300 10^3/uL (150-450); RED BLOOD CELL COUNT 3.91 10^6/uL (4.6-6.2); WHITE BLOOD CELL COUNT,WBC 14.7 10^3/uL (5.0-10.0)
[2024-08-28 06:05] LABS: ANION GAP 12.9 mEq/L (7-13); CALCIUM 8.8 mg/dL (8.5-10.1); CREATININE 1.11 mg/dL (0.70-1.30); EST CRCL DRUG DOSING (CG) 71.05 mL/min; POTASSIUM,K 3.9 mmol/L (3.5-5.1)
[2024-08-29 06:45] LABS: ANION GAP 15.4 mEq/L (7-13); CALCIUM 9.1 mg/dL (8.5-10.1); CREATININE 1.07 mg/dL (0.70-1.30); EST CRCL DRUG DOSING (CG) 73.7 mL/min; POTASSIUM,K 4.4 mmol/L (3.5-5.1)
[2024-08-29 09:48] LABS: HEMATOCRIT 38.7 % (40.0-54.0); MEAN CORPUSCULAR HEMOGLOBIN 27.1 pg (27.0-34.0); MEAN CORPUSCULAR VOLUME 87.6 fL (80-100); RED BLOOD CELL COUNT 4.42 10^6/uL (4.6-6.2); WHITE BLOOD CELL COUNT,WBC 14.2 10^3/uL (5.0-10.0)
[2024-08-29] MEDS: Potassium Chloride 20 MEQ in Premix Bag 1 BAG IV ONE ×2 (09:50)
[2024-08-29] MEDS: Potassium Chloride 10 MEQ Tab.ER PO ONE (09:50)
[2024-08-29 11:50] VITALS: BP 144/71; PULSE 96
== END 2024-08-29 12:01 | disposition swing bed (61) | DRG 603 ==
LOC: DL.ED 16:49 → DL.MS 18:29
PROVIDERS: ADMIT Internal Medicine; ATTEND Internal Medicine
DX: L03.311 Cellulitis of abdominal wall (principal); Z68.43 Body mass index [BMI] 50.0-59.9, adult; E11.9 Type 2 diabetes mellitus without complications; E66.9 Obesity, unspecified; E66.01 Morbid (severe) obesity due to excess calories; M79.3 Panniculitis, unspecified; E78.00 Pure hypercholesterolemia, unspecified; E11.620 Type 2 diabetes mellitus with diabetic dermatitis; I10 Essential (primary) hypertension; H54.7 Unspecified visual loss; F32.A Depression, unspecified; M19.90 Unspecified osteoarthritis, unspecified site; M54.9 Dorsalgia, unspecified; G89.29 Other chronic pain; G47.33 Obstructive sleep apnea (adult) (pediatric); F17.210 Nicotine dependence, cigarettes, uncomplicated; K21.9 Gastro-esophageal reflux disease without esophagitis; Z88.1 Allergy status to other antibiotic agents; Z79.899 Other long term (current) drug therapy; Z79.4 Long term (current) use of insulin; Z90.89 Acquired absence of other organs; Z99.3 Dependence on wheelchair
CPT/HCPCS: 36415; 80048; 80053; 82550; 82947; 83605; 84145; 85025; 85027; 86140; 87040; 97110-GP; 97161-GP; 97530-GP; 99222; 99232; 99239; 99284; A9270-GY; J0696; J0878; J1650; J1815-GY; J3490; J7030

== ENCOUNTER 2024-08-29 00:47 | Inpatient (IN) | payer MEDICARE ==
[2024-08-29] MEDS ORDERED: 50% Dextrose in Water 50 ML Syringe IVPUSH PRN (09:54)
[2024-08-29] MEDS ORDERED: Ondansetron 4 MG Tab.DIS PO PRN (09:54)
[2024-08-29] MEDS ORDERED: Docusate Sodium 100 MG Cap PO PRN (09:54)
[2024-08-29] MEDS ORDERED: Glucagon,Human Recombinant 1 MG Vial IM PRN ×2 (09:54)
[2024-08-29] MEDS ORDERED: Sodium Chloride 0.9% 10 ML Syringe FLUSH PRN ×2 (09:54)
[2024-08-29] MEDS: Insulin Lispro 100 Units/ML 3 ML Vial SUBCUT SCH (13:00)
[2024-08-29] MEDS: DAPTOmycin 500 MG Vial IVPUSH SCH (21:42)
[2024-08-29] MEDS: Insulin Glarg,Human.Rec.Analog 100 Unit/ML 10 ML Vial SUBCUT SCH (21:42)
[2024-08-29] MEDS: oxyCODONE 5 MG Tab PO PRN (23:24)
[2024-08-29] MEDS: Acetaminophen 325 MG Tab PO PRN (23:25)
[2024-08-30] MEDS: Tolterodine 2 MG Tab PO SCH (08:42)
[2024-08-30] MEDS: FLUoxetine 10 MG Cap PO SCH (08:44)
[2024-08-30] MEDS: Ferrous Sulfate 325 MG Tab PO SCH (08:45)
[2024-08-30] MEDS: Saccharomyces Boulardii (Probiotic) 250 MG Cap PO SCH (08:45)
[2024-08-30] MEDS: Enoxaparin 40 MG/0.4 ML Syringe SUBCUT SCH (08:46)
[2024-08-30] MEDS: cefTRIAXone 1 GM Vial IV SCH (08:49)
[2024-08-30] MEDS: Lisinopril 20 MG Tab PO SCH (11:26)
[2024-08-30] MEDS: NIFEdipine 30 MG Tab.ER PO SCH (11:27)
[2024-08-30] MEDS: Metoprolol Succinate 50 MG Tab.ER PO SCH (11:28)
[2024-08-31] MEDS: Nystatin Topical Powder 60 GM Bottle TOP PRN (08:46)
[2024-08-31] MEDS: Insulin Glarg,Human.Rec.Analog 100 Unit/ML 10 ML Vial SUBCUT ONE (21:46)
[2024-09-01] MEDS: Cyclobenzaprine 10 MG Tab PO PRN (12:48)
[2024-09-01 13:04] LABS: HEMATOCRIT 40.3 % (40.0-54.0); HEMOGLOBIN 12.4 g/dL (14.0-18.0); MEAN CORPUSCULAR HEMOGLOBIN 27.2 pg (27.0-34.0); MEAN CORPUSCULAR HGB CONC 30.8 g/dL (33.0-35.0); MEAN CORPUSCULAR VOLUME 88.4 fL (80-100); PLATELET COUNT,PLT 501 10^3/uL (150-450); RED BLOOD CELL COUNT 4.56 10^6/uL (4.6-6.2); WHITE BLOOD CELL COUNT,WBC 11.7 10^3/uL (5.0-10.0)
[2024-09-01 13:06] LABS: BASOPHILS PERCENT AUTO 0.3 % (0.0-1.0); EOSINOPHILS PERCENT AUTO 2.3 % (1.0-3.0); LYMPHOCYTES PERCENT AUTO 14.9 % (20.5-50.1); MONOCYTES PERCENT AUTO 4.3 % (2-8); NEUTROPHILS PERCENT AUTO 78.2 % (42.2-75.2)
[2024-09-01 13:18] LABS: BAND PERCENT MAN 1 %; EOSINOPHILS PERCENT MAN 2 % (1-3); LYMPHOCYTES PERCENT MAN 18 % (20-50); MONOCYTES PERCENT MAN 3 % (2-8); SEG NEUTROPHILS PERCENT MAN 76 % (42-75)
[2024-09-01 13:24] LABS: ANION GAP 12.8 mEq/L (7-13); CALCIUM 9.5 mg/dL (8.5-10.1); CREATININE 1.27 mg/dL (0.70-1.30); EST CRCL DRUG DOSING (CG) 62.1 mL/min; POTASSIUM,K 4.8 mmol/L (3.5-5.1)
[2024-09-01] MEDS ORDERED: Sodium Chloride 0.9% 1,000 ML IV SCH (16:00)
[2024-09-01] MEDS: Acetaminophen/Butalbital/Caffeine 325-50-40 MG Tab PO PRN (22:01)
[2024-09-02 06:52] LABS: ANION GAP 12.5 mEq/L (7-13); CALCIUM 9.1 mg/dL (8.5-10.1); CREATININE 1.13 mg/dL (0.70-1.30); EST CRCL DRUG DOSING (CG) 69.79 mL/min; POTASSIUM,K 4.5 mmol/L (3.5-5.1)
[2024-09-02] MEDS: Sodium Chloride 0.9% 1,000 ML IV SCH (14:55)
[2024-09-02] MEDS: Cephalexin 500 MG Cap PO SCH (15:16)
[2024-09-02] MEDS: Doxycycline Monohydrate 100 MG Cap PO SCH (20:27)
[2024-09-02] MEDS: Acetaminophen/HYDROcodone 325-5 MG Tab PO PRN (21:59)
[2024-09-03 07:11] LABS: ANION GAP 11.6 mEq/L (7-13); CALCIUM 9.2 mg/dL (8.5-10.1); CREATININE 1.13 mg/dL (0.70-1.30); EST CRCL DRUG DOSING (CG) 69.79 mL/min; POTASSIUM,K 4.6 mmol/L (3.5-5.1)
[2024-09-04 10:10] LABS: ANION GAP 11.2 mEq/L (7-13); CALCIUM 8.9 mg/dL (8.5-10.1); CREATININE 1.12 mg/dL (0.70-1.30); EST CRCL DRUG DOSING (CG) 70.41 mL/min; POTASSIUM,K 4.2 mmol/L (3.5-5.1)
[2024-09-04] MEDS: Sodium Chloride 0.9% 1,000 ML IV SCH (14:55)
[2024-09-05 06:31] LABS: ANION GAP 12.9 mEq/L (7-13); CALCIUM 8.6 mg/dL (8.5-10.1); CREATININE 1.2 mg/dL (0.70-1.30); EST CRCL DRUG DOSING (CG) 65.72 mL/min; POTASSIUM,K 3.9 mmol/L (3.5-5.1)
[2024-09-06] MEDS: Insulin Lispro 100 Units/ML 3 ML Vial SUBCUT SCH (15:18)
[2024-09-08 06:32] LABS: BASOPHILS PERCENT AUTO 0.3 % (0.0-1.0); EOSINOPHILS PERCENT AUTO 2.2 % (1.0-3.0); HEMATOCRIT 36.8 % (40.0-54.0); HEMOGLOBIN 11.3 g/dL (14.0-18.0); LYMPHOCYTES PERCENT AUTO 20.4 % (20.5-50.1); MEAN CORPUSCULAR HEMOGLOBIN 27.3 pg (27.0-34.0); MEAN CORPUSCULAR HGB CONC 30.7 g/dL (33.0-35.0); MEAN CORPUSCULAR VOLUME 88.9 fL (80-100); NEUTROPHILS PERCENT AUTO 70.1 % (42.2-75.2); PLATELET COUNT,PLT 423 10^3/uL (150-450); RED BLOOD CELL COUNT 4.14 10^6/uL (4.6-6.2); WHITE BLOOD CELL COUNT,WBC 11.6 10^3/uL (5.0-10.0)
[2024-09-08 07:14] LABS: ANION GAP 12.1 mEq/L (7-13); CREATININE 1.16 mg/dL (0.70-1.30); EST CRCL DRUG DOSING (CG) 67.99 mL/min; MAGNESIUM 2.2 mg/dL (1.8-2.4); POTASSIUM,K 4.1 mmol/L (3.5-5.1)
[2024-09-09 10:47] VITALS: BP 136/70; PULSE 70
== END 2024-09-09 13:20 | disposition home or self-care (01) | DRG 603 ==
LOC: DL.MS 13:02
PROVIDERS: ADMIT Internal Medicine; ATTEND Internal Medicine
DX: L03.311 Cellulitis of abdominal wall (principal); Z68.43 Body mass index [BMI] 50.0-59.9, adult; I10 Essential (primary) hypertension; E78.5 Hyperlipidemia, unspecified; G47.33 Obstructive sleep apnea (adult) (pediatric); M54.9 Dorsalgia, unspecified; G89.29 Other chronic pain; M79.3 Panniculitis, unspecified; E66.9 Obesity, unspecified; K21.9 Gastro-esophageal reflux disease without esophagitis; E11.620 Type 2 diabetes mellitus with diabetic dermatitis; E78.00 Pure hypercholesterolemia, unspecified; M19.90 Unspecified osteoarthritis, unspecified site; H54.7 Unspecified visual loss; Z99.3 Dependence on wheelchair; Z88.8 Allergy status to other drugs, medicaments and biological substances; Z79.4 Long term (current) use of insulin; Z79.899 Other long term (current) drug therapy; Z90.89 Acquired absence of other organs
CPT/HCPCS: 36415; 80048; 82550; 82947; 83735; 85025; 97110-GP; 97116-GP; 97161-GP; 97530-GP; 99305; 99309; 99315; A9270-GY; J0696; J0878; J1650; J7030

== ENCOUNTER 2025-09-10 11:34 | Inpatient (IN) | payer MEDICARE, OTHER ==
[2025-09-10 12:13] LABS: BASOPHILS PERCENT AUTO 0.3 % (0.0-1.0); EOSINOPHILS PERCENT AUTO 1.7 % (1.0-3.0); LYMPHOCYTES PERCENT AUTO 12.2 % (20.5-50.1); MONOCYTES PERCENT AUTO 5.5 % (2-8); NEUTROPHILS PERCENT AUTO 80.3 % (42.2-75.2); PLATELET COUNT,PLT 250 10^3/uL (150-450); RED BLOOD CELL COUNT 4.83 10^6/uL (4.6-6.2); WHITE BLOOD CELL COUNT,WBC 13.7 10^3/uL (5.0-10.0)
[2025-09-10 12:32] LABS: A/G RATIO 0.75; ALANINE AMINOTRANSFERASE,ALT 19 U/L (16-63); ASPARTATE AMNIOTRANSFERASE,AST 14 U/L (15-37); BILIRUBIN TOTAL 0.9 mg/dL (0.2-1.0); BLOOD UREA NITROGEN,BUN 16 mg/dL (7-18); CARBON DIOXIDE,CO2 24 mmol/L (21-32); CHLORIDE,CL 105 mmol/L (98-107); CREATININE 1.40 mg/dL (0.70-1.30); ESTIMATED GFR 60 mL/min (>=60); GLUCOSE RANDOM 196 mg/dL (70-99); POTASSIUM,K 3.8 mmol/L (3.5-5.1); PROTEIN TOTAL,TP 7.7 g/dL (6.4-8.2); SODIUM,NA 141 mmol/L (136-145)
[2025-09-10 12:37] LABS: LACTIC ACID 1.4 mmol/L (0.4-2.0)
[2025-09-10] MEDS: Linezolid 600 MG/300 ML Premix Bag IV ONE (13:36)
[2025-09-10] MEDS ORDERED: Ondansetron 4 MG/2 ML SDV IVPUSH PRN (14:02)
[2025-09-10] MEDS ORDERED: Sennosides/Docusate Sodium 50-8.6 MG Tab PO PRN (14:02)
[2025-09-10] MEDS ORDERED: Sodium Chloride 0.9% 10 ML Syringe FLUSH PRN (14:02)
[2025-09-10] MEDS ORDERED: 50% Dextrose in Water 50 ML Syringe IVPUSH PRN (16:22)
[2025-09-10] MEDS: Sodium Chloride 0.9% 10 ML Syringe FLUSH SCH (20:10)
[2025-09-10] MEDS ORDERED: Linezolid 600 MG/300 ML Premix Bag IV SCH (21:00)
[2025-09-11 06:54] LABS: BASOPHILS PERCENT AUTO 0.4 % (0.0-1.0); EOSINOPHILS PERCENT AUTO 1.9 % (1.0-3.0); LYMPHOCYTES PERCENT AUTO 14.8 % (20.5-50.1); MONOCYTES PERCENT AUTO 6.4 % (2-8); NEUTROPHILS PERCENT AUTO 76.5 % (42.2-75.2); PLATELET COUNT,PLT 224 10^3/uL (150-450); RED BLOOD CELL COUNT 4.49 10^6/uL (4.6-6.2); WHITE BLOOD CELL COUNT,WBC 12.1 10^3/uL (5.0-10.0)
[2025-09-11 07:19] LABS: A/G RATIO 0.7; ALANINE AMINOTRANSFERASE,ALT 17.0 U/L (16-63); ASPARTATE AMNIOTRANSFERASE,AST 11.0 U/L (15-37); BILIRUBIN TOTAL 1.0 mg/dL (0.2-1.0); BLOOD UREA NITROGEN,BUN 18.0 mg/dL (7-18); CARBON DIOXIDE,CO2 25.0 mmol/L (21-32); CHLORIDE,CL 110.0 mmol/L (98-107); CREATININE 1.23 mg/dL (0.70-1.30); EST CRCL DRUG DOSING (CG) 63.4 mL/min; ESTIMATED GFR 71.0 mL/min (>=60); GLUCOSE RANDOM 101.0 mg/dL (70-99); POTASSIUM,K 4.2 mmol/L (3.5-5.1); PROTEIN TOTAL,TP 6.8 g/dL (6.4-8.2); SODIUM,NA 143.0 mmol/L (136-145)
[2025-09-11] MEDS: Saccharomyces Boulardii (Probiotic) 250 MG Cap PO SCH (09:20)
[2025-09-11] MEDS: Cholecalciferol (Vitamin D3) 25 MCG Tab PO SCH (09:21)
[2025-09-11] MEDS: Nystatin Topical Powder 60 GM Bottle TOP SCH (09:32)
[2025-09-12] MEDS: Acetaminophen/HYDROcodone 325-5 MG Tab PO PRN (03:49)
[2025-09-12 06:08] LABS: BASOPHILS PERCENT AUTO 0.4 % (0.0-1.0); EOSINOPHILS PERCENT AUTO 2.8 % (1.0-3.0); LYMPHOCYTES PERCENT AUTO 14.8 % (20.5-50.1); MONOCYTES PERCENT AUTO 6.5 % (2-8); NEUTROPHILS PERCENT AUTO 75.5 % (42.2-75.2); PLATELET COUNT,PLT 220 10^3/uL (150-450); RED BLOOD CELL COUNT 4.36 10^6/uL (4.6-6.2); WHITE BLOOD CELL COUNT,WBC 10.5 10^3/uL (5.0-10.0)
[2025-09-12 06:34] LABS: ALANINE AMINOTRANSFERASE,ALT 18.0 U/L (16-63); ASPARTATE AMNIOTRANSFERASE,AST 17.0 U/L (15-37); BILIRUBIN TOTAL 1.0 mg/dL (0.2-1.0); BLOOD UREA NITROGEN,BUN 18.0 mg/dL (7-18); CARBON DIOXIDE,CO2 25.0 mmol/L (21-32); CHLORIDE,CL 108.0 mmol/L (98-107); CREATININE 1.27 mg/dL (0.70-1.30); EST CRCL DRUG DOSING (CG) 61.4 mL/min; GLUCOSE RANDOM 110.0 mg/dL (70-99); POTASSIUM,K 4.5 mmol/L (3.5-5.1); PROTEIN TOTAL,TP 6.8 g/dL (6.4-8.2); SODIUM,NA 141.0 mmol/L (136-145)
[2025-09-12 06:42] LABS: A/G RATIO 0.7; ESTIMATED GFR 68.0 mL/min (>=60)
[2025-09-12 20:34] LABS: FOLIC ACID 12.3 ng/mL (8.6-58.9)
[2025-09-13 06:45] LABS: BASOPHILS PERCENT AUTO 0.4 % (0.0-1.0); EOSINOPHILS PERCENT AUTO 2.5 % (1.0-3.0); LYMPHOCYTES PERCENT AUTO 20.5 % (20.5-50.1); MONOCYTES PERCENT AUTO 7.6 % (2-8); NEUTROPHILS PERCENT AUTO 69.0 % (42.2-75.2); PLATELET COUNT,PLT 225 10^3/uL (150-450); RED BLOOD CELL COUNT 4.28 10^6/uL (4.6-6.2); WHITE BLOOD CELL COUNT,WBC 10.2 10^3/uL (5.0-10.0)
[2025-09-13 06:46] LABS: ALANINE AMINOTRANSFERASE,ALT 25.0 U/L (16-63); ASPARTATE AMNIOTRANSFERASE,AST 19.0 U/L (15-37); BILIRUBIN TOTAL 0.6 mg/dL (0.2-1.0); BLOOD UREA NITROGEN,BUN 18.0 mg/dL (7-18); CARBON DIOXIDE,CO2 26.0 mmol/L (21-32); CHLORIDE,CL 108.0 mmol/L (98-107); CREATININE 1.27 mg/dL (0.70-1.30); EST CRCL DRUG DOSING (CG) 61.4 mL/min; GLUCOSE RANDOM 129.0 mg/dL (70-99); POTASSIUM,K 4.1 mmol/L (3.5-5.1); PROTEIN TOTAL,TP 6.8 g/dL (6.4-8.2); SODIUM,NA 142.0 mmol/L (136-145)
[2025-09-13 06:53] LABS: A/G RATIO 0.7; ESTIMATED GFR 68.0 mL/min (>=60)
[2025-09-13 07:01] LABS: IRON,FE 50.0 ug/dL (65-175); PERCENT FE SATURATION 20.1 % (20.0-50.0)
[2025-09-14 07:09] LABS: BASOPHILS PERCENT AUTO 0.5 % (0.0-1.0); EOSINOPHILS PERCENT AUTO 3.0 % (1.0-3.0); LYMPHOCYTES PERCENT AUTO 18.1 % (20.5-50.1); MONOCYTES PERCENT AUTO 6.4 % (2-8); NEUTROPHILS PERCENT AUTO 72.0 % (42.2-75.2); PLATELET COUNT,PLT 215 10^3/uL (150-450); RED BLOOD CELL COUNT 4.67 10^6/uL (4.6-6.2); WHITE BLOOD CELL COUNT,WBC 11.0 10^3/uL (5.0-10.0)
[2025-09-14 07:22] LABS: ALANINE AMINOTRANSFERASE,ALT 29.0 U/L (16-63); ASPARTATE AMNIOTRANSFERASE,AST 19.0 U/L (15-37); BILIRUBIN TOTAL 0.7 mg/dL (0.2-1.0); BLOOD UREA NITROGEN,BUN 17.0 mg/dL (7-18); CARBON DIOXIDE,CO2 27.0 mmol/L (21-32); CHLORIDE,CL 106.0 mmol/L (98-107); CREATININE 1.3 mg/dL (0.70-1.30); EST CRCL DRUG DOSING (CG) 59.98 mL/min; GLUCOSE RANDOM 109.0 mg/dL (70-99); POTASSIUM,K 4.2 mmol/L (3.5-5.1); PROTEIN TOTAL,TP 7.5 g/dL (6.4-8.2); SODIUM,NA 142.0 mmol/L (136-145)
[2025-09-14 07:27] LABS: A/G RATIO 0.7; ESTIMATED GFR 66.0 mL/min (>=60)
[2025-09-14 11:27] VITALS: BP 133/75; PULSE 83
[2025-09-14] MEDS: FLU (Fluarix Triv) 25-26 (6MOS UP)/PF 45 MCG/0.5 ML Syringe IM ONE (12:18)
== END 2025-09-14 13:33 | disposition home or self-care (01) | DRG 603 ==
LOC: DL.ED 11:34 → DL.MS 13:12
PROVIDERS: ADMIT Student in an Organized Health Care Education/Training Program; ATTEND Student in an Organized Health Care Education/Training Program
DX: L03.311 Cellulitis of abdominal wall (principal); Z68.44 Body mass index [BMI] 60.0-69.9, adult; Z66 Do not resuscitate; E66.9 Obesity, unspecified; D72.829 Elevated white blood cell count, unspecified; I10 Essential (primary) hypertension; E11.9 Type 2 diabetes mellitus without complications; G47.33 Obstructive sleep apnea (adult) (pediatric); E66.01 Morbid (severe) obesity due to excess calories; D64.9 Anemia, unspecified; H54.7 Unspecified visual loss; E78.00 Pure hypercholesterolemia, unspecified; G47.30 Sleep apnea, unspecified; M19.90 Unspecified osteoarthritis, unspecified site; M54.9 Dorsalgia, unspecified; G89.29 Other chronic pain; F32.A Depression, unspecified; Z88.8 Allergy status to other drugs, medicaments and biological substances; Z88.1 Allergy status to other antibiotic agents; Z79.4 Long term (current) use of insulin; Z79.899 Other long term (current) drug therapy; Z90.49 Acquired absence of other specified parts of digestive tract
CPT/HCPCS: 36415; 80053; 82607; 82728; 82746; 82947; 83036; 83540; 83550; 83605; 83735; 84484; 85025; 86140; 87040; 90656; 93005; 93010; 94010; 99222; 99232; 99238; 99284; A9270-GY; G0008; J1650; J1815-GY; J2020; J2470; J3490; J7030